=== PATIENT | female | born 1985 | race Caucasian/White ===

== ENCOUNTER 2024-05-18 00:59 | Emergency (ER) | payer BC, SELFPAY ==
--- OUTSIDE RECORDS SUMMARY | 2024-05-18 01:00 | XMS_ITS | Encounter Summary ---
Author Organization [facility] Address [address] [place] [address] Care Team Providers Care Backpackers Manager Name Role Phone Gita Small COTTAGE SUPERVISOR Primary Care Provider [phone] Gita Small COTTAGE SUPERVISOR Unavailable [phone] Gita Small COTTAGE SUPERVISOR Unavailable [phone] No Ref-Primary, Physician Primary Care Provider Brisa Singletary MD Unavailable [phone] Kae Blankenship PA-C Unavailable [phone] Crystal Alanis MD Unavailable [phone] Wilian Hilliard DO Unavailable [phone] Lois Hathaway DO Unavailable [phone] Brisa Singletary MD Unavailable [phone] [facility] Primary In re Provider Wilian Hilliard DO Unavailable [phone] Jefferson Oliver Unavailable Unavailable Vidhya Witt MD Unavailable Linda Cantu Unavailable Unavailable Wilian Hilliard DO Unavailable [phone] Vidhya Witt MD Unavailable No Ref-Primary, Physician Primary Care Provider Susie Turk APRN, CNP Unavailable [phone] Claudine Curtis MD Unavailable Encounter Details Date Type Department Care Team (Late st Contact Info) Description 11/15/2016 MyC Medical Advice [facility] [address] [place] [address] Gita Small, COTTAGE SUPERVISOR [address] [place], [place] [id number] Social History Tobacco Use Types Packs/Day Years Used Date Smoking Tobacco: Former Cigarettes 0.5 5 0 05/12/2009 - 05/12/2014 Smokeless Tobacco: Never Comments:less than 1/2 ppd Alcohol Use Standard Drinks/Week Comments Yes 2.5 (1 standard drink = 0.6 oz p ure alcohol) Comments No Sex and Gender Information Value Date Recorded Sex Assigned at Female 09/03/2021 8:30 AM CDT Legal Sex Female 3:29 AM CADASTRAL SURVEYOR Gender Identity Female 09/03/2021 8:30 AM CDT Sexual Orientation Not on file documented as of this encounter Plan of Treatment Upcoming Encounters Date Type Department Care Team (Late st Contact Info) Description 02/14/2025 11:00 AM CDT Office Visit [address] [phone] Susie Turk, TELEGRAPH PLANT MAINTAINER SOLE SEAMER [address] [place] [address] documented as of this encounter Visit Diagnoses Not on filedocumented in this encounter Additional Health Concerns Infection Onset Date Last Indicated Resolved Time 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 11/01/2011 11/01/2011 Rule Out COVID-19 06/14/2020 06/14/2020 06/14/2020 11:50 PM CADASTRAL SURVEYOR Rule Out COVID-19 03/09/2022 03/09/2022 03/09/2022 6:39 AM CADASTRAL SURVEYOR Rule Out COVID-19 04/09/2024 04/09/2024 04/10/2024 10:57 AM CADASTRAL SURVEYOR documented as of this encounter Care Teams Backpackers Manager Relationship Specialty Start Date End Date Gita Small, COTTAGE SUPERVISOR PCP - General Nurse Practitioner - Family 11/14/16 02/21/18 Gita Small, COTTAGE SUPERVISOR [address] [place] [address] PCP - Assigned PCP 11/20/16 06/26/18 No Ref-Primary, Physician PCP - General 10/25/19 08/25/20 [facility] [address] [place] [address] PCP - General 08/26/20 12/27/23 No Ref-Primary, Physician PCP - General 12/28/23 Gita Small, COTTAGE SUPERVISOR [address] [place] [address] Assigned PCP 11/20/16 12/21/19 [place] [address] [place] [address] Assigned PCP 12/22/19 04/25/20 Kae Blankenship PATyroneC [address] [facility] [address] [place] [address] Assigned PCP 04/26/20 06/06/20 Crystal Alanis MD SURGICAL CONSULTS, JAYDEN [address] [facility] [address] [place], [place] [address] Assigned Surgical Provider 06/07/20 12/03/21 [place] [address] [place] [address] Assigned PCP 06/07/20 08/15/20 Lois Hathaway DO [address] [facility] [address] [place] [address] Assigned OBGYN Provider 07/19/20 01/18/22 [place] [address] [place] [address] Assigned PCP 08/16/20 03/27/21 [place] [address] [place] [address] Assigned PCP 03/28/21 12/03/21 Jefferson Oliver Personal Advocate & Liaison (PAL) 09/14/21 05/26/22 [place] [address] [place] [address] Assigned PCP 12/04/21 03/17/23 Linda Cantu Personal Advocate & Liaison (PAL) Family Medicine 05/27/22 [place] [address] [place] [address] Assigned PCP 03/18/23 07/14/23 [place] [address] [place] [address] Assigned PCP 07/15/23 01/14/24 Susie Turk APRN SOLE SEAMER [address] [place], [place] [address] Assigned PCP 01/15/24 Claudine Curtis MD [address] [place], [place] [address] Assigned OBGYN Provider 04/15/24 documented as of this encounter
--- OUTSIDE RECORDS SUMMARY | 2024-05-18 01:00 | XMS_ITS | Encounter Summary ---
Author Organization [facility] Address [address] [place] [address] Care Team Providers Care Warp Knitter Name Role Phone Crystal Alanis MD Unavailable [phone] Lois Hathaway DO Unavailable [phone] Brisa Singletary MD Unavailable [phone] [facility] Primary Ca re Provider Wilian Hilliard DO Unavailable [phone] Jefferson Oliver Unavailable Unavailable Vidhya Witt MD Unavailable Linda Cantu Unavailable Unavailable Wilian Hilliard DO Unavailable [phone] Vidhya iWtt MD Unavailable No Ref-Primary, Physician Primary Care Provider Susie Turk APRN PULLING UNIT OPERATOR Unavailable [phone] Claudine Curtis MD Unavailable [phone] Encounter Details Date Type Department Care Team (Late st Contact Info) Description 09/14/2020 MyC Medical Advice [facility] [place] [address] [place] [address] Magalys Manriquez, SAUL [address] [facility] [address] [place] [address] Social History Tobacco Use Types Packs/Day Years Used Date Smoking Tobacco: Every Day Cigarettes 0.5 10 Started: 05/12/2004; Last attempted to quit: 05/12/2014 Smokeless Tobacco: Never Comments:less than 1/2 ppd Alcohol Use Standard Drinks/Week Comments Yes 2.5 (1 standard drink = 0.6 oz p ure alcohol) occ Social Connection and Isolat ion Panel [NHANES] Answer Date Recorded In a typical week, how many times do you talk on the phone with family, friends, or neighbors? More than three times a week 08/14/2020 How often do you get togethe r with friends or relatives? Twice a week 08/14/2020 How often do you attend chur or mandaeism services? 1 to 4 times per year 08/14/2020 Do you belong to any clubs o r organizations such as mormonism groups, unions, fraternal or athletic groups, or school groups? No 08/14/2020 How often do you attend meet ings of the clubs or organizations you belong to? Never 08/14/2020 Are you , , di vorced, , never , or living with a partner? Living with partner 08/14/2020 AUDIT-C Answer Date Recorded Q1: How often do you have a drink containing alc ohol? 2-4 times a month 08/14/2020 Q2: How many drinks containi ng alcohol do you have on a typical day when you are drinking? 3 or 4 08/14/2020 Q3: How often do you have si x or more drinks on one occasion? Less than monthly 08/14/2020 Overall Financial Resource Strain (CARDIA) Answe r Date Recorded How hard is it for you to pa y for the very basics like food, housing, medical care, and heating? Not very hard 08/14/2020 PHQ-2 Answer Date Recorded PHQ-2 Score 0 06/01/2020 [facility] [place] of Occupat ional Health - Occupational Stress Questionnaire Answer Date Recorded Do you feel stress - tense, restless, nervous, or anxious, or unable to sleep at night because your mind is troubled all the time - these days? To some extent 08/14/2020 Exercise Vital Sign Answer Date Recorde d On average, how many days pe r week do you engage in moderate to strenuous exercise (like a brisk walk)? 2 days 08/14/2020 On average, how many minutes do you engage in exercise at this level? 20 min 08/14/2020 Hunger Vital Sign Answer Date Recorded Within the past 12 months, y ou worried that your food would run out before you got the money to buy more. Never true 08/15/19 21 Within the past 12 months, t he food you bought just didn't last and you didn't have money to get more. Never true 08/14/2020 PRAPARE - Transportation Answer Date Re corded In the past 12 months, has l ack of transportation kept you from medical appointments or from getting medications? No 07/24 In the past 12 months, has l ack of transportation kept you from meetings, work, or from getting things needed for daily living? No 08/14/2020 Housing Stability Vital Sign Answer Alexsander e Recorded In the last 12 months, was t here a time when you were not able to pay the mortgage or rent on time? No 08/14/2020 In the last 12 months, how many places have you lived? 1 08/14/2020 In the last 12 months, was t here a time when you did not have a steady place to sleep or slept in a fpc (including now)? No 08/14/2020 Education Answer Date Recorded What is the highest level of school you have completed or the highest degree you have received? Associate degree: occupational, technical, or vocational program 08/14/2020 Comments No Sex and Gender Information Value Date Recorded Sex Assigned at Female 09/03/2021 8:30 AM CDT Legal Sex Female 3:29 AM SPECIAL NEEDS BABYSITTER Gender Identity Female 09/03/2021 8:30 AM CDT Sexual Orientation Not on file COVID-19 Exposure Response Date Recorded In the last month, have you been in contact with someone who was confirmed or suspected to have Coronavirus / COVID-19? No / Unsure 08/26/2020 6:33 AM CDT documented as of this encounter Plan of Treatment Upcoming Encounters Date Type Department Care Team (Late st Contact Info) Description 02/14/2025 11:00 AM CDT Office Visit [address] [place] [phone] BurkeSusie Glenroy, SENIOR NET ARCHITECT PULLING UNIT OPERATOR [address] [facility] [place] [address] documented as of this encounter Visit Diagnoses Not on filedocumented in this encounter Additional Health Concerns Infection Onset Date Last Indicated Resolved Time 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 11/01/2011 11/01/2011 Rule Out COVID-19 03/09/2022 03/09/2022 03/09/2022 6:39 AM SPECIAL NEEDS BABYSITTER Rule Out COVID-19 04/09/2024 04/09/2024 04/10/2024 10:57 AM SPECIAL NEEDS BABYSITTER documented as of this encounter Care Teams Warp Knitter Relationship Specialty Start Date End Date Clinic - [facility] [address] [place] [address] PCP - General 08/26/20 12/27/23 No Ref-Primary, Physician PCP - General 12/28/23 Crystal Alanis MD [facility], [facility] [address] [facility] [address] [place] [address] Assigned Surgical Provider 06/07/20 12/03/21 Lois Hathaway DO [address] [facility] [address] [place] [address] Assigned OBGYN Provider 07/19/20 [place] [address] [place] [address] Assigned PCP 08/16/20 03/27/21 [place] [address] [place] [address] Assigned PCP 03/28/21 12/03/21 Jefferson Oliver Personal Advocate & Liaison (PAL) 09/14/21 05/26/22 [place] [address] [place] [address] Assigned PCP 12/04/21 03/17/23 Linda Cantu Personal Advocate & Liaison (PAL) Family Medicine 05/27/22 [place] [address] [place] [address] Assigned PCP 03/18/23 07/14/23 [place] [address] [place] [address] Assigned PCP 07/15/23 01/14/24 Susie Turk APRN [facility] [address] [place] [address] Assigned PCP 01/15/24 Claudine Curtis MD [address] [place] [address] Assigned OBGYN Provider 04/15/24 documented as of this encounter
--- OUTSIDE RECORDS SUMMARY | 2024-05-18 01:00 | XMS_ITS | Clinical Summary ---
Author Organization [facility] Address [address] [place] [address] Care Team Providers Care Dice Table Operator Name Role Phone Pcp, Pt Sumi GRACIA Primary Care Provider [phone] Source Comments You are receiving this document as you are listed as the primary care provider,follow-up provider, or the patient has been referred to you for consultation.This is in compliance with the Medicare and[facility] Hospital[facility] EHR Incentive Program,which states Providers who transition their patient to another setting of careor provider of care or refers their patient to another provider of care shouldprovide summary care record for each transition of care or referral. [facility] Allergies No known active allergies Medications Medication Sig Dispensed Refills Start Date End Date Status Atnnfraz-Qil-Oh-FA (/IRON OR) Take by mouth daily (every 24 hours). Indications: 02/07/2014 Active sertraline (AKA ZOLOFT) 100 MG tabletIndications:JHON PAPPAS Nov 11, 2014 10:39 AM Received from: External Pharmacy Received Si mg daily (every 24 hours). 0 11/03/2014 Active predniSONE (DELTASONE) 20 MG tablet Take 1-2 Tablets (20-40 mg) by mouth daily. Take 2 tab for 5 days, then 1 tab for 5 days 15 Tablet 04/05/2022 Active Additional Information Patient not taking.Reported on 04/19/2022 guaiFENesin-codeine (ROBITUSSINAC) 100-10 MG/5ML solution Take 10 mL by mouth every 4 hours as needed. 118 mL 04/10/2022 Active Additional Information Patient not taking.Reported on 04/19/2022 VENTOLIN HFA 108 (90 Base) MCG/ACT inhaler Inhale 2 Puffs every 6 hours as needed. 04/05/2022 Active traZODone (DESYREL) 50 MG tablet SMARTSI Tablet(s) By Mouth Every Evening PRN 03/30/2022 Active magic mouthwash (lido/maalox/diphen 1:1:1)Indications:S ore throat Swish and spit in mouth two times a day. Swish and spit 5 mL. 240 mL 04/19/2022 Active Active Problems No known active problems Resolved Problems Problem Noted Date Diagnosed Date Resolved Date Encounter for supervision of other normal 05/12/2014 10/22/2014 Overview (12/14/2016): Supervision of other normal Obesity 03/11/2014 10/22/2014 Elevated hemoglobin A1c 03/11/201404/2014 Immunizations Name Administration Dates Next Due Influenza IIV4 (Quadrivalent) 0.5mL (69570) 02/22 TDAP (BOOSTRIX) 06/17/2014 Family History Medical History Relation Name Comments Diabetes Father Diabetes Mother Hypertension Sister 1 Relation Name Status Comments Father Alive Mother Alive Brother 1 Alive Brother 2 Alive Maternal Grandfather Maternal Grandmother Paternal Grandfather Alive Paternal Grandmother Sister 1 Alive Sister 2 Alive Sister 3 Alive Social History Tobacco Use Types Packs/Day Years Used Date Smoking Tobacco: Every Day Comments:Smoking History Pac ks/day: 1/2 pack per day Alcohol Use Standard Drinks/Week Comments No 0 (1 standard drink = 0.6 oz pur e alcohol) Sex and Gender Information Value Date Recorded Sex Assigned at Not on file Gender Identity Not on file Sexual Orientation Not on file Last Filed Vital Signs Vital Sign Reading Time Taken Comments Blood Pressure 151/125 04/19/2022 12:24 PM VACCINE KEY CUSTOMER LEADER Pulse 91 04/19/2022 12:24 PM VACCINE KEY CUSTOMER LEADER Temperature 36.6 C (97.8 F) 04/19/2022 12:24 PM VACCINE KEY CUSTOMER LEADER Respiratory Rate 18 04/19/2022 12:2 4 PM VACCINE KEY CUSTOMER LEADER Oxygen Saturation 98% 04/19/2022 12: 24 PM VACCINE KEY CUSTOMER LEADER Inhaled Oxygen Concentration - - Weight 102.9 kg (226 lb 12.8 oz) 10/31/2018 1:28 PM CDT Height 162.6 cm (5' 4) 11/11/2014 10:4 0 AM CDT Body Mass Index 38.93 11/11/2014 10:40 AM CDT Plan of Treatment Health Maintenance Due Date Last Done Comments Hep C Screening (Preventive Services) 1985 Pneumococcal (1 - PCV) 08/10/1991 Adult Preventive Visit 08/10/2003 HepB (1) 2004 Cervical Cancer Screening Due 02/08/2014 02/07/2014 COVID-19 Vaccine (1 - season) 2023 Influenza (#1) 2023 06/01/2020, 12/24, 01/20/2016, Additional history exists DTaP/Tdap/Td (4 - Tdap) 06/17/2024 06/17/19 15, 03/12/2009, 12/09/1997 Zoster/Shingles (1 of 2) 08/10/2035 HIV Screening (Preventive Services) Completed 02/07/2014 HPV Vaccine Aged Out No longer eligi ble based on patient's age to complete this topic HepA Aged Out No longer eligi ble based on patient's age to complete this topic Hib Aged Out No longer eligi ble based on patient's age to complete this topic IPV (Polio) Aged Out No longer eligi ble based on patient's age to complete this topic MCV4 Aged Out No longer eligi ble based on patient's age to complete this topic Procedures Procedure Name Priority Date/Time Associated Diagnosis Comments HIV ANTIBODY Routine 02/07/2014 11:04 AM CDT Special screening examination for other specified viral diseases ANATOMICAL PATH LIQUID BASED Routine 02/07/2014 11:01 AM CDT from Last 3 Months or Most Recently Relevant to Health Maintenance Results * HIV ANTIBODY (02/07/2014 11:04 AM CDT) HIV 1/HIV 2 Non-React Non-Reacti ve HP CONVERSION 02/07/2014 11:0 4 AM CDT 02/07/2014 3:23 PM CDT Narrative Transcriptions 06/02/2016 2:55 PM CSTNotes Recorded by NGUYỄN Betancourt on 02/11/2014 at 7:38 AMplease send results to LD. Pt will be informed at next visit Edyta Grimes APRN, CNP LAB_1 Performing Organization Address [facility] de Phone Number HP CONVERSION * Pap Smear (02/07/2014 11:01 AM CDT) 02/07/2014 11:0 1 AM CDT Narrative HP CONVERSION - 02/25/2014 9:58 AM VACCINE KEY CUSTOMER LEADER FINAL GYNECOLOGICAL CYTOLOGY REPORT Pathology #: [id number] Date Obtained: 02/07/2014 Date Received: 02/10/2014 INTERPRETATION/RESULTS: Negative for Intraepithelial Lesion or Malignancy. Fungal organisms morphologically consistent with Emilie species. SPECIMEN ADEQUACY: Satisfactory for Evaluation. No endocervical cells/transformation zone component present; patient is . Verified on 02/25/2014 by CATHERINE ESPOSITO MD (electronic signature) CLINICAL NOTES: Abnormal bleeding: No, LMP: 11/28/13, Hormonal [place]: No, LIQUID BASED PAP SMEAR SPECIMEN TYPE: CERVICAL WITH REFLEX TO HPV IF ASCUS PLEASE NOTE: The pap smear is a screening test designed to aid in the detection of cervical cancer and its precursor lesions. It is not a diagnostic procedure and should not be used as the sole means of detecting cervical cancer. Both false-positive and false-negative reports may occur. End of Report Transcriptions 06/02/2016 2:26 PM CSTNotes Recorded by NGUYỄN Betancourt on 02/25/2014 at 4:51 PMPlease send normal pap letter. Edyta Grimes APRN, CNP LAB_1 Performing Organization Address [facility] Co de Phone Number HP CONVERSION from Last 3 Months or Most Recently Relevant to Health Maintenance Care Teams Dice Table Operator Relationship Specialty Start Date End Date Pcp, [place] [address] PCP - General 03/11/14
--- OUTSIDE RECORDS SUMMARY | 2024-05-18 01:00 | XMS_ITS | Encounter Summary ---
Author Organization [facility] Address [address] [place] [address] Care Team Providers Care Automotive Parts Advisor Name Role Phone Gita Small ELECTRONIC PUBLISHING SPECIALIST Primary Care Provider [phone] Gita Small ELECTRONIC PUBLISHING SPECIALIST Unavailable [phone] Gita Small ELECTRONIC PUBLISHING SPECIALIST Unavailable [phone] No Ref-Primary, Physician Primary Care Provider Brisa Singletary MD Unavailable [phone] Kae Blankenship PA-C Unavailable [phone] Crystal Alanis MD Unavailable [phone] Wilian Hilliard DO Unavailable [phone] Lois Hathaway DO Unavailable [phone] Brisa Singletary MD Unavailable [phone] [facility] Primary Mo re Provider Wilian Hilliard DO Unavailable [phone] Jefferson Oliver Unavailable Unavailable Vidhya Witt MD Unavailable Linda Cantu Unavailable Unavailable Wilian Hilliard DO Unavailable [phone] Vidhya Witt MD Unavailable No Ref-Primary, Physician Primary Care Provider Susie Turk APRN, CNP Unavailable Claudine Curtis MD Unavailable [phone] Reason for Referral * Consultation - Closed Specialty Diagnoses / Procedures Referred By Raúl parsons Referred To Contact Diagnoses Acute pain of right knee Gita Small NP Phone: tel: fax: [facility] [address] [facility] [address] [place] [address] Phone: tel: fax: Referral ID Status Reason Start Date Expiration Date Visits Re quested Visits Authorized [id number] Closed 11/16/2016 11/16/2017 1 1 Comments Your provider has referred you to: [facility]: [facility] [email or web address]/ Please be aware that coverage of these services is subject to the terms and limitations of your health insurance plan. Call member services at your health plan with any benefit or coverage questions. Please bring the following to your appointment: >> Any x-rays, CTs or MRIs which have been performed. Contact the facility where they were done to arrange for picking crew supervisor prior to your scheduled appointment. >> List of current medications >> This referral request >> Any documents/labs given to you for this referral Reason for Visit * Reason Onset Date Comments MyChart Communication 11/15/2016 Encounter Details Date Type Department Care Team (Late st Contact Info) Description 11/15/2016 MyC Medical Advice M [address] [address] Gita Small NP [facility] & [address] [place] [address] MyChart Communication Social History Tobacco Use Types Packs/Day Years [...] AM CDT Legal Sex Female 3:29 AM PRODUCTION BOW MAKER Gender Identity Female 09/03/2021 8:30 AM CDT Sexual Orientation Not on file documented as of this encounter Miscellaneous Notes * Telephone Encounter - Becky Diego RN - 11/16/2016 7:06 AM CDT Pt would like referral Referral pended Becky Diego RN, BSN documented in this encounter Plan of Treatment Upcoming Encounters Date Type Department Care Team (Late st Contact Info) Description 02/14/2025 11:00 AM CDT Office Visit [address] [address] Susie Turk APRN [address] [address] Scheduled Referrals Name Type Priority Associated Diagnoses Orde r Schedule ORTHOPEDICS ADULT REFERRAL Referral Routine Acute pain of right knee Ordered: 11/16/2016 documented as of this encounter Visit Diagnoses Diagnosis Acute pain of right knee- Primary documented in this encounter Additional Health Concerns Infection Onset Date Last Indicated Resolved Time 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 11/01/2011 11/01/2011 Rule Out COVID-19 06/14/2020 06/14/2020 06/14/2020 11:50 PM PRODUCTION BOW MAKER Rule Out COVID-19 03/09/2022 03/09/2022 03/09/2022 6:39 AM PRODUCTION BOW MAKER Rule Out COVID-19 04/09/2024 04/09/2024 04/10/2024 10:57 AM PRODUCTION BOW MAKER documented as of this encounter Care Teams Automotive Parts Advisor Relationship Specialty Start Date End Date Gita Small ELECTRONIC PUBLISHING SPECIALIST PCP - General Nurse Practitioner - Family 11/14/16 02/21/18 Gita Small, ELECTRONIC PUBLISHING SPECIALIST [facility] [address] [place] [address] PCP - Assigned PCP 11/20/16 06/26/18 No Ref-Primary, Physician PCP - General 10/25/19 08/25/20 [facility] [id number] [place] [address] PCP - General 08/26/20 12/27/23 No Ref-Primary, Physician PCP - General 12/28/23 Gita Small, ELECTRONIC PUBLISHING SPECIALIST [facility] [address] [place] [address] Assigned PCP 11/20/16 12/21/19 [place] [address] [place] [address] Assigned PCP 12/22/19 04/25/20 Kae Blankenship PA-C [address] [facility] [address] [place] [address] Assigned PCP 04/26/20 06/06/20 Crystal Alanis MD SURGICAL CONSULTS, JAYDEN Reyes [address] [facility] [address] [place] [address] Assigned Surgical Provider 06/07/20 12/03/21 [place] [address] [place] [address] Assigned PCP 06/07/20 08/15/20 Lois Hathaway DO [address] [facility] [address] [place] [address] Assigned OBGYN Provider 07/19/20 01/18/22 [place] [address] [place] [address] Assigned PCP 08/16/20 03/27/21 [place] [address] [place] [address] Assigned PCP 03/28/21 12/03/21 Jefferson Oliver Personal Advocate & Liaison (PAL) 09/14/21 05/26/22 [place] [address] [place] [address] Assigned PCP 12/04/21 03/17/23 Linda Cantu Personal Advocate & Liaison (PAL) Family Medicine 05/27/22 [place] [address] [place] [address] Assigned PCP 03/18/23 07/14/23 [place] [address] [place] [address] Assigned PCP 07/15/23 01/14/24 Susie Turk APRN SOFTWARE TESTER [address] [place] [address] Assigned PCP 01/15/24 Claudine Curtis MD [address] [place] [address] Assigned OBGYN Provider 04/15/24 documented as of this encounter
--- OUTSIDE RECORDS SUMMARY | 2024-05-18 01:00 | XMS_ITS | Encounter Summary ---
Author Organization [facility] Address [address] [place] [address] Care Team Providers Care Basin Tender Name Role Phone Gita Small RADIAL DRILL PRESS SET UP OPERATOR Primary Care Provider [phone] Gita Small RADIAL DRILL PRESS SET UP OPERATOR Unavailable Gita Small RADIAL DRILL PRESS SET UP OPERATOR Unavailable [phone] No Ref-Primary, Physician Primary Care Provider Brisa Singletary MD Unavailable [phone] Kae Blankenship PA-C Unavailable [phone] Crystal Alanis MD Unavailable [phone] Wilian Hilliard DO Unavailable [phone] Lois Hathaway DO Unavailable [phone] Brisa Singletary MD Unavailable [phone] [facility] Primary Il re Provider Wilian Hilliard DO Unavailable [phone] Jefferson Oliver Unavailable Unavailable Vidhya Witt MD Unavailable Linda Cantu Unavailable Unavailable Wilian Hilliard DO Unavailable [phone] Vidhya Witt MD Unavailable No Ref-Primary, Physician Primary Care Provider Susie Turk APRN, CNP Unavailable [phone] Claudine Curtis MD Unavailable Encounter Details Date Type Department Care Team (Late st Contact Info) Description 11/28/2016 MyC Medical Advice [facility] [address] [place] [address] Gita Small, RADIAL DRILL PRESS SET UP OPERATOR [address] [place], [place] [phone] Social History Tobacco Use Types Packs/Day Years [...] AM CDT Legal Sex Female 3:29 AM AUTO DISMANTLER Gender Identity Female 09/03/2021 8:30 AM CDT Sexual Orientation Not on file documented as of this encounter Plan of Treatment Upcoming Encounters Date Type Department Care Team (Late st Contact Info) Description 02/14/2025 11:00 AM CDT Office Visit [address] [phone] Susie Turk, JOB COUNSELOR COMMERCIAL CARPENTER [address] [place] [address] documented as of this encounter Visit Diagnoses Not on filedocumented in this encounter Additional Health Concerns Infection Onset Date Last Indicated Resolved Time 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 11/01/2011 11/01/2011 Rule Out COVID-19 06/14/2020 06/14/2020 06/14/2020 11:50 PM AUTO DISMANTLER Rule Out COVID-19 03/09/2022 03/09/2022 03/09/2022 6:39 AM AUTO DISMANTLER Rule Out COVID-19 04/09/2024 04/09/2024 04/10/2024 10:57 AM AUTO DISMANTLER documented as of this encounter Care Teams Basin Tender Relationship Specialty Start Date End Date Gita Small, RADIAL DRILL PRESS SET UP OPERATOR PCP - General Nurse Practitioner - Family 11/14/16 02/21/18 Gita Small, RADIAL DRILL PRESS SET UP OPERATOR [address] [place] [address] PCP - Assigned PCP 11/20/16 06/26/18 No Ref-Primary, Physician PCP - General 10/25/19 08/25/20 [facility] [address] [place] [address] PCP - General 08/26/20 12/27/23 No Ref-Primary, Physician PCP - General 12/28/23 Gita Small, RADIAL DRILL PRESS SET UP OPERATOR [address] [place] [address] Assigned PCP 11/20/16 12/21/19 [place] [address] [place] [address] Assigned PCP 12/22/19 04/25/20 Kae Blankenship PATyroneC [address] [facility] 200 [place] [address] Assigned PCP 04/26/20 06/06/20 Crystal Alanis MD SURGICAL CONSULTS, JAYDEN Reyes [address] [facility] 300 [place], [place] [address] Assigned Surgical Provider 06/07/20 12/03/21 [place] [address] [place] [address] Assigned PCP 06/07/20 08/15/20 Lois Hathaway DO [address] [facility] [address] [place] [address] Assigned OBGYN Provider 07/19/20 01/18/22 [place] [address] [place] [address] Assigned PCP 08/16/20 03/27/21 [place] [address] [place] [address] Assigned PCP 03/28/21 12/03/21 Jefferson Oliver Personal Advocate & Liaison (PAL) 09/14/21 05/26/22 [place] [address] [place] [address] Assigned PCP 12/04/21 03/17/23 Linda Cantu Personal Advocate & Liaison (PAL) Family Medicine 05/27/22 [place] [address] [place] [address] Assigned PCP 03/18/23 07/14/23 [place] [address] [place] [address] Assigned PCP 07/15/23 01/14/24 Susie Turk APRN COMMERCIAL CARPENTER [address] [place], [place] [address] Assigned PCP 01/15/24 Claudine Curtis MD [address] [place], [place] [address] Assigned OBGYN Provider 04/15/24 documented as of this encounter
--- OUTSIDE RECORDS SUMMARY | 2024-05-18 01:00 | XMS_ITS | Clinical Summary ---
Author Organization [facility] Address [place], [place] [address] Care Team Providers Care Sanitarian Inspector Name Role Phone Michelle Turner MD Primary Care Provider Unav ailable Allergies Active Allergy Reactions Criticality Noted Date Comments Cats (Fur, Dander, Saliva) Itching,Throa t Swelling/Closing 10/13/2014 Medications escitalopram oxalate (LEXAPRO) 10 mg tabletIndicatio ns:Anxiety Take 1 tablet by mouth once daily. 30 tablet 5 09/07/2015 Active LORazepam (ATIVAN) 0.5 mg tabIndications: Anxiety Take 0.5-1 tablets by mouth 2 times daily if needed for Anxiety. 15 tablet 0 01/20/2016 Active venlafaxine (EFFEXOR XR) 37.5 mg Extended-Releas e capsuleIndicati ons:Anxiety TAKE 1 CAPSULE BY MOUTH ONCE DAILY WITH A MEAL. 30 capsule 4 02/17/2016 Active venlafaxine (EFFEXOR XR) 75 mg cp24 Extended-Releas e capsuleIndicati ons:Anxiety Take 1 capsule by mouth once daily with a meal. 30 capsule 5 03/11/2016 Active Active Problems Problem Noted Date Diagnosed Date Anxiety 01/20/2016 Smoker 09/07/2015 Immunizations Name Administration Dates Next Due Influenza, IIV4 01/20/2016 Tdap 06/17/2014 Family History Medical History Relation Name Comments Diabetes Father Diabetes Mother Hypertension Mother Diabetes Paternal Grandfather Hypertension Sister 1/2 sister Relation Name Status Comments Father Mother Paternal Grandfather Sister Social History Tobacco Use Types Packs/Day Years Used Date Smoking Tobacco: Every Day Cigarettes Smokeless Tobacco: Never Tobacco Cessation:Ready to Q uit: No; Counseling Given: Yes Comments:pt declined infor 09/07/15 Alcohol Use Standard Drinks/Week Comments Yes 0 (1 standard drink = 0.6 oz pur e alcohol) Social Comments No Sex and Gender Information Value Date Recorded Sex Assigned at Not on file Legal Sex Female 11:13 AM CDT Gender Identity Not on file Sexual Orientation Not on file Obstetrics History Last Filed Vital Signs Vital Sign Reading Time Taken Comments Blood Pressure 122/68 01/20/2016 3:27 PM CDT Pulse 80 01/20/2016 3:27 PM CDT Temperature - - Respiratory Rate - - Oxygen Saturation - - Inhaled Oxygen Concentration - - Weight 101.5 kg (223 lb 12.8 oz) 01/20/2016 3:27 PM CDT Height 161.3 cm (5' 3.5) 09/07/2015 11 :06 AM CDT Body Mass Index 39.02 09/07/2015 11:06 AM CDT Plan of Treatment Health Maintenance Due Date Last Done Comments HIV for age 15-65 2000 Hepatitis C screening for age 18-79 08/10/2003 BMI (ht and wt on same day) for age 18+ 09/06/2016 09/07/2015 Depression screening for age 12+ 03/08/2017 03/08/2016, 09/07/2015 Pap test for age 21-65 10/24/2017 5 (Completed outside of [facility]) COVID-19 vaccine series (2023- season) 2023 Influenza for age 9-49 12/24/2023 01/20/2016 Tetanus booster 06/17/2024 06/17/2014 Tdap Completed 06/17/2014 Pneumococcal series for age 6-49 Aged Out No longer eligible based on patient's age to complete this topic Care Teams Sanitarian Inspector Relationship Specialty Start Date End Date Michelle Turner MD PCP - General Family Practice 10/13/14
--- OUTSIDE RECORDS SUMMARY | 2024-05-18 01:01 | XMS_ITS | Encounter Summary ---
Author Organization [facility] Address [address] [place] [address] Care Team Providers Care Sizing Machine Tender Name Role Phone Linda Cantu Unavailable Unavailable No Ref-Primary, Physician Primary Care Provider Susie Turk APRN RECIPROCATING DRILL OPERATOR Unavailable [phone] Encounter Details Date Type Department Care Team (Latest Contact Info) Description 04/09/2024 Travel Social History Tobacco Use Types Packs/Day Years [...] 08/14/2020 How often do you attend chur ch or hoahaoism services? 1 to 4 times per year 08/14/2020 Do you belong to any clubs o r organizations such as denominational groups, unions, fraternal or athletic groups, or [...] 08/14/2020 PHQ-2 Answer Date Recorded PHQ-2 Score 6 04/09/2024 [facility] - Occupational Stress Questionnaire Answer Date [...] place to sleep or slept in a long-term (including now)? No 08/14/2020 Adolescent Education Answer Date Record ed Getting School Help Needed Not on file 02/05 Interpersonal Safety Answer Date Record ed Do you feel physically and e motionally safe where you currently live? Yes 02/15/2024 Within the past 12 months, h ave you been hit, slapped, kicked or otherwise physically hurt by someone? No 02/15/2024 Within the past 12 months, h ave you been humiliated or emotionally abused in other ways by your partner or ex-partner? No 02/15/2024 Education Answer Date Recorded What is the highest level of school you have completed or the highest degree you have received? Associate degree: occupational, technical, or vocational program 08/14/2020 Comments No Sex and Gender Information Value Date Recorded Sex Assigned at Female 09/03/2021 8:30 AM CDT Legal Sex Female 3:29 AM MARINE ENGINEERING CONSULTANT Gender Identity Female 09/03/2021 8:30 AM CDT Sexual Orientation Not on file documented as of this encounter Plan of Treatment Upcoming Encounters Date Type Department Care Team (Late st Contact Info) Description 02/14/2025 11:00 AM CDT Office Visit [address] [phone] Susie Turk APRN [address] [address] documented as of this encounter Visit Diagnoses Not on filedocumented in this encounter Additional Health Concerns Infection Onset Date Last Indicated Resolved Time 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 11/01/2011 11/01/2011 Rule Out COVID-19 04/09/2024 04/09/2024 04/10/2024 10:57 AM MARINE ENGINEERING CONSULTANT Assessment Noted Time PHQ-9 Depression Total Score: 22 024 10:54 AM MARINE ENGINEERING CONSULTANT documented as of this encounter Care Teams Sizing Machine Tender Relationship Specialty Start Date End Date No Ref-Primary, Physician PCP - General 12/28/23 Linda Cantu Personal Advocate & Liaison (PAL) Family Medicine 05/27/22 Susie Turk APRN RECIPROCATING DRILL OPERATOR [address] [place] [address] Assigned PCP 01/15/24 documented as of this encounter
--- OUTSIDE RECORDS SUMMARY | 2024-05-18 01:01 | XMS_ITS | Encounter Summary ---
Author Organization [facility] Address [address] [place] [address] Care Team Providers Care Housing Inspectors Name Role Phone No Ref-Primary, Physician Primary Care Provider Brisa Singletary MD Unavailable [phone] Kae Blankenship PA-C Unavailable [phone] Crystal Alanis MD Unavailable [phone] Wilian Hilliard DO Unavailable [phone] Lois Hathaway DO Unavailable [phone] Brisa Singletary MD Unavailable [phone] [facility] Primary Ca re Provider Wilian Hilliard DO Unavailable [phone] Jefferson Oliver Unavailable Unavailable Vidhya Witt MD Unavailable Linda Cantu Unavailable Unavailable Wilian Hilliard DO Unavailable [phone] Vidhya Witt MD Unavailable No Ref-Primary, Physician Primary Care Provider Susie Turk APRN HASH SLINGER Unavailable [phone] Claudine Curtis MD Unavailable [phone] Encounter Details Date Type Department Care Team (Late st Contact Info) Description 04/24/[address] [place] [address] Jun[place] Wagner [place] [id number] [place] [address] Social History Tobacco Use Types Packs/Day Years Used Date Smoking Tobacco: Every Day Cigarettes 0.5 10 Started: 05/12/2004; Last attempted to quit: 05/12/2014 Smokeless Tobacco: Never Comments:less than 1/2 ppd Alcohol Use Standard Drinks/Week Comments Yes 2.5 (1 standard drink = 0.6 oz p ure alcohol) occ PHQ-2 Answer Date Recorded PHQ-2 Score 1 04/28/2020 Comments No Sex and Gender Information Value Date Recorded Sex Assigned at Female 09/03/2021 8:30 AM CDT Legal Sex Female 3:29 AM INK JET OPERATOR Gender Identity Female 09/03/2021 8:30 AM CDT Sexual Orientation Not on file COVID-19 Exposure Response Date Recorded In the last month, have you been in contact with someone who was confirmed or suspected to have Coronavirus / COVID-19? No / Unsure 04/22/2020 2:11 PM INK JET OPERATOR documented as of this encounter Plan of Treatment Upcoming Encounters Date Type Department Care Team ([facility] st Contact Info) Description 02/14/2025 11:00 AM CDT Office Visit [address] [phone] Susie Turk APRN [address] [address] documented as of this encounter Visit Diagnoses Not on filedocumented in this encounter Additional Health Concerns Infection Onset Date Last Indicated Resolved Time MRSA-Contact Isolation Comment:Skin 10-21-2011 11/01/2011 11/01/2011 Rule Out COVID-19 06/14/2020 06/14/2020 06/14/2020 11:50 PM INK JET OPERATOR Rule Out COVID-19 03/09/2022 03/09/2022 03/09/2022 6:39 AM INK JET OPERATOR Rule Out COVID04/09/2024 04/09/2024 04/10/2024 10:57 AM INK JET OPERATOR documented as of this encounter Care Teams Housing Inspectors Relationship Specialty Start Date End Date No Ref-Primary, Physician PCP - General 10/25/19 08/25/20 [facility] [address] [place], [place] [id number] PCP - General 08/26/20 12/27/23 No Ref-Primary, Physician PCP - General 12/28/23 [place] [address] [place], [place] [address] Assigned PCP 12/22/19 04/25/20 Kae Blankenship PA-C [address] [facility] [address] [place] [address] Assigned PCP 04/26/20 06/06/20 Crystal Alanis MD SURGICAL CONSULTS, [facility] [address] [facility] [address] [place] [address] Assigned Surgical Provider 06/07/20 12/03/21 [place] [address] [place] [address] Assigned PCP 06/07/20 08/15/20 Lois Hathaway DO [address] [facility] [address] [place] [address] Assigned OBGYN Provider 07/19/20 [place] [address] [place] [address] Assigned PCP 08/16/20 03/27/21 [place] [address] [place] [address] Assigned PCP 03/28/21 12/03/21 Jefferson Oliver Personal Advocate & Liaison (PAL) 09/14/21 05/26/22 [place] [address] [place] [address] Assigned PCP 12/04/21 03/17/23 Linda Cantu Personal Advocate & Liaison (PAL) Family Medicine 05/27/22 [place] [address] [place] [address] Assigned PCP 03/18/23 07/14/23 [place] [address] [place] [address] Assigned PCP 07/15/23 01/14/24 Susie Turk APRN HASH SLINGER [address] [place] [address] Assigned PCP 01/15/24 Claudine Curtis MD [address] [facility] [address] Assigned OBGYN Provider 04/15/24 documented as of this encounter
--- OUTSIDE RECORDS SUMMARY | 2024-05-18 01:01 | XMS_ITS | Referral Summary ---
Author Organization [facility] Address [address] [place] [address] Care Team Providers Care Air Intelligence Specialist Name Role Phone Linda Cantu Unavailable Unavailable No Ref-Primary, Physician Primary Care Provider Susie Turk APRN MILL WORK Unavailable [phone] Claudine Curtis MD Unavailable [phone] Encounters Date Type Department Care Team Description 04/09/2024 11:45 AM PRODUCTION ADMINISTRATIVE ASSISTANT Ancillary Procedure [address] [phone] Rebecca Flowers PA-C Wheezing; Acute cough; Upper respiratory tract infection, unspecified type 04/09/2024 Travel 04/09/2024 11:30 AM PRODUCTION ADMINISTRATIVE ASSISTANT Office Visit [address] [phone] Rebecca Flowers PA-C Wheezing (Primary Dx); Acute cough; Upper respiratory tract infection, unspecified type 03/26/2024 10:30 AM PRODUCTION ADMINISTRATIVE ASSISTANT Office Visit [facility] [address] [place] [address] Claudine Curtis MD Encounter for IUD removal (Primary Dx); Intrauterine contraceptive device threads lost, initial encounter 03/25/2024 MyC Medical Advice [facility] [address] [place] [address] Claudine Curtis MD 03/25/2024 Travel from Last 3 Months Allergies Active Allergy Reactions Criticality Noted Date Comments Animal Dander Itching,Anaphylaxis High 10/13/2014 Cats Difficulty breathing 06/12/2008 No Known Drug Allergy 06/12/2008 Medications * This document contains information received from the source organization and may not represent a complete record from that organization. levonorgestrel (MIRENA) 20 MCG/24HR IUDIndications:En counter for removal and reinsertion of intrauterine contraceptive device 1 each (20 mcg) by Intrauterine route once Active hydrOXYzine HCl (ATARAX) 25 MG tabletIndications :MELISSA (generalized anxiety disorder) Take 1-2 tablets (25-50 mg) by mouth nightly as needed (insomnia). 45 tablet 1 12/28/19 24 Active FLUoxetine (PROZAC) 40 MG capsuleIndication s:Moderate episode of recurrent major depressive disorder (H),MELISSA (generalized anxiety disorder) Take 1 capsule (40 mg) by mouth daily. 90 capsule 3 02/15/20 24 Active albuterol (PROAIR HFA/PROVENTIL HFA/VENTOLIN HFA) 108 (90 Base) MCG/ACT inhalerIndication s:Wheezing,Acute cough,Upper respiratory tract infection, unspecified type Inhale 2 puffs into the lungs every 6 hours as needed for cough, wheezing or shortness of breath. 18 g 04/09/20 24 Active benzonatate (TESSALON) 100 MG capsuleIndication s:Wheezing,Acute cough,Upper respiratory tract infection, unspecified type Take 1 capsule (100 mg) by mouth 3 times daily as needed for cough. 30 capsule 04/09/20 24 Active predniSONE (DELTASONE) 20 MG tabletIndications :Wheezing,Acute cough,Upper respiratory tract infection, unspecified type Take 3 tablets (60 mg) by mouth daily for 3 days, THEN 2 tablets (40 mg) daily for 3 days, THEN 1 tablet (20 mg) daily for 3 days, THEN 0.5 tablets (10 mg) daily for 4 days. 20 tablet 04/09/20 24 024 Active Problems Problem Noted Date Diagnosed Date ASCUS of cervix with negative high risk HPV 01/23 Overview (02/26/2024): 02/15/24 ASCUS, Neg HPV. 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/11/2014 Smoker 03/25/2011 Obesity 03/25/2011 Resolved Problems Problem Noted Date Diagnosed Date Resolved Date Right knee pain 11/25/2016 08/14/2020 Indication for care in labor or delivery 09/11/2014 08/14/2020 intolerance to labor, delivered, current hospitalization 09/11/2014 08/14/2020 Supervision of low-risk 09/09/2014 08/14/2020 CARDIOVASCULAR SCREENING; LD L GOAL LESS THAN 160 02/21/2010 08/14/2020 Marginal placenta previa 09/04/2008 Overview (09/04/2008): Repeat scan at 28-30 weeks Encounter for supervision of other normal 06/12/2008 01/10/2011 Overview (02/23/2015): Diagnosis updated by automated process. Provider to review and confirm. Immunizations Name Administration Dates Next Due DTaP, Unspecified 06/17/2014 Influenza (H1N1) 03/12/2009 Influenza (IIV3) PF 05/16/2012, 1,01/07/2010,2008 Influenza (prior to 2023) 05/16/2012,01/07/2010 Influenza Vaccine >6 months,quad, PF 11/2020,01/11/2017,01/20/2016,2014,03/11/2014,01/30/2013 MMR 12/09/1997 TD,PF 7+ (Tenivac) 12/09/1997 TDAP (Adacel,Boostrix) 06/17/2014 TDAP Vaccine (Adacel) 03/12/2009 Td (Adult), Adsorbed 12/09/1997 Social History Tobacco Use Types Packs/Day Years Used Date Smoking Tobacco: Every Day Cigarettes 0.5 10 Started: 05/12/2004; Last attempted to quit: 05/12/2014 Smokeless Tobacco: Never Tobacco Cessation:Ready to Q uit: Not Asked; Counseling Given: Not Answered Comments:less than 1/2 ppd Alcohol Use Standard [...] week 08/14/2020 How often do you attend [facility] or confucianist services? 1 to 4 times per year 08/14/2020 Do you belong to any clubs o r organizations such as bahai groups, unions, fraternal or athletic groups, or [...] Answer Date Recorded PHQ-2 Score 6 04/09/2024 [facility]at [facility] - Occupational Stress [...] place to sleep or slept in a group home (including now)? No 08/14/2020 Adolescent Education Answer [...] CDT Legal Sex Female 3:29 AM PRODUCTION ADMINISTRATIVE ASSISTANT Gender Identity Female 09/03/2021 8:30 AM CDT Sexual Orientation Not on file Last Filed Vital Signs Vital Sign Reading Time Taken Comments Blood Pressure 128/80 04/09/2024 11:20 AM PRODUCTION ADMINISTRATIVE ASSISTANT Pulse 102 04/09/2024 11:20 AM PRODUCTION ADMINISTRATIVE ASSISTANT Temperature 36.6 C (97.8 F) 04/09/2024 11:20 AM PRODUCTION ADMINISTRATIVE ASSISTANT Respiratory Rate 20 04/09/2024 11:20 AM PRODUCTION ADMINISTRATIVE ASSISTANT Oxygen Saturation 97% 04/09/2024 11:20 AM PRODUCTION ADMINISTRATIVE ASSISTANT Inhaled Oxygen Concentration - - Weight 117 kg (258 lb) 04/09/2024 11:20 AM PRODUCTION ADMINISTRATIVE ASSISTANT Height 161.3 cm (5' 3.5) 04/09/2024 11:20 AM CS T Body Mass Index 44.99 04/09/2024 11:20 AM PRODUCTION ADMINISTRATIVE ASSISTANT Plan of Treatment Upcoming Encounters Date Type Department Care Team (Late st Contact Info) Description 02/14/2025 11:00 AM CDT Office Visit [address] [phone] Susie Turk, FRANDY [address] [id number] Medical Devices Implanted Type Area Banbury Mixer Operator Device Identifier Shelf Expiration Date Model / Serial / Lot Mesh Ventralex Hernia 3.2 [place] Lg W/Strap [id number] Implanted:Qty : 1 on 08/26/2020 by Crystal Alanis MD at [facility] Mesh N/A: Umbilical CR [employer]-DAVOL 03/21/2022 [id number] / / [id number] Procedures Procedure Name Priority Date/Time Associated Diagnosis Comments INFLUENZA A/B ANTIGEN Routine 04/09/2024 11:57 AM PRODUCTION ADMINISTRATIVE ASSISTANT Wheezing Acute cough Upper respiratory tract infection, unspecified type COVID-19 VIRUS (CORONAVIRUS) BY PCR Routine 04/09/2024 11:56 AM PRODUCTION ADMINISTRATIVE ASSISTANT Wheezing Acute cough Upper respiratory tract infection, unspecified type XR CHEST 2 VIEWS Routine 04/09/2024 11:5 3 AM PRODUCTION ADMINISTRATIVE ASSISTANT Wheezing Acute cough Upper respiratory tract infection, unspecified type IL REMOVE INTRAUTERINE DEVICE Routine 03/26/2024 10:59 AM PRODUCTION ADMINISTRATIVE ASSISTANT Intrauterine contraceptive device threads lost, initial encounter Encounter for IUD removal HPV AND GYNECOLOGIC CYTOLOGY PANEL Routine 02/15/2024 10:05 AM CDT Cervical cancer screening COMPREHENSIVE METABOLIC PANEL Routine 12/28/2023 10:11 AM CDT Screening for diabetes mellitus HEPATITIS C SCREEN REFLEX TO HCV RNA QUANT AND GENOTYPE Routine 12/28/2023 10:11 AM CDT Need for hepatitis C screening test HIV ANTIGEN ANTIBODY COMBO Routine 02/07/2014 from Last 3 Months or Most Recently Relevant to Health Maintenance Results * Influenza A & B Antigen - Clinic Collect (04/09/2024 11:57 AM PRODUCTION ADMINISTRATIVE ASSISTANT) Influenza A antigen Negative Negative 04/09/2024 12:16 PM PRODUCTION ADMINISTRATIVE ASSISTANT [facility] Influenza B antigen Negative Negative 04/09/2024 12:16 PM PRODUCTION ADMINISTRATIVE ASSISTANT [facility] Swab NASAL STRUCTURE / Unknown Non-blood Collection / Unknown 04/09/2024 11:57 AM PRODUCTION ADMINISTRATIVE ASSISTANT 04/09/2024 11:57 AM PRODUCTION ADMINISTRATIVE ASSISTANT Narrative [facility] - 04/09/2024 12:16 PM PRODUCTION ADMINISTRATIVE ASSISTANT Test results must be correlated with clinical data. If necessary, results should be confirmed by a molecular assay or viral culture. us Rebecca Flowers PA-C LAB - MICRO GENERAL ORDERABLE S Final Result [facility] [place] [facility] [address] [place] [address] S E Lab (no room number, 1st floor of clinic) [place] [address], [facility] * COVID-19 Virus (Coronavirus) by PCR Nose (04/09/2024 11:56 AM PRODUCTION ADMINISTRATIVE ASSISTANT) SARS CoV2 PCR Negative Negative 04/10/2024 10:57 AM PRODUCTION ADMINISTRATIVE ASSISTANT [facility] Comment:NEGATIVE: SARS-CoV-2 (COVID-19) RNA not detected, presumed negative. Swab NASAL STRUCTURE / Unknown Non-blood Collection / Unknown 04/09/2024 11:56 AM PRODUCTION ADMINISTRATIVE ASSISTANT 04/09/2024 11:56 AM PRODUCTION ADMINISTRATIVE ASSISTANT Narrative [facility] - 04/10/2024 10:57 AM PRODUCTION ADMINISTRATIVE ASSISTANT Testing was performed using the ayla SARS-CoV-2 assay on the ayla PharmAbcine0 System. This test should be ordered for the detection of SARS-CoV-2 in individuals who meet SARS-CoV-2 clinical and/or epidemiological criteria. Test performance is unknown in asymptomatic patients. This test is for in vitro diagnostic use under the FDA EUA for laboratories certified under CLIA to perform high and/or moderate complexity testing. This test has not been FDA cleared or approved. A negative result does not rule out the presence of PCR inhibitors in the specimen or target RNA in concentration below the limit of detection for the assay. The possibility of a false negative should be considered if the patient's recent exposure or clinical presentation suggests COVID-19. This test was validated by the [facility] Infectious Diseases Diagnostic Laboratory. This laboratory is certified under the Clinical Laboratory Improvement Amendments of 1988 (CLIA-88) as qualified to perform high and/or moderate complexity laboratory testing. Rebecca Flowers PA-C LAB - MICRO GENERAL ORDERABLE S Final Result [facility] [address] [facility], [address] [place] [address], [facility] * XR Chest 2 Views (04/09/2024 11:53 AM PRODUCTION ADMINISTRATIVE ASSISTANT) Anatomical Region Laterality Modality Chest Computed Radiogr aphy Impressions 04/09/2024 2:00 PM PRODUCTION ADMINISTRATIVE ASSISTANT IMPRESSION: There are no acute infiltrates. The cardiac silhouette is not enlarged. Pulmonary vasculature is unremarkable. JENNIFER GARCÍA MD SYSTEM ID: [id number] Narrative 04/09/2024 2:00 PM PRODUCTION ADMINISTRATIVE ASSISTANT CHEST TWO VIEWS 04/09/2024 11:53 AM HISTORY: Wheezing; Acute cough; Upper respiratory tract infection, unspecified type COMPARISON: March 09, 2022 Procedure Note Jennifer García MD - 04/09/2024 CHEST TWO VIEWS 04/09/2024 11:53 AM HISTORY: Wheezing; Acute cough; Upper respiratory tract infection, unspecified type COMPARISON: March 09, 2022 IMPRESSION: There are no acute infiltrates. The cardiac silhouette is not enlarged. Pulmonary vasculature is unremarkable. JENNIFER GARCÍA MD SYSTEM ID: [id number] Rebecca Flowers PA-C IMG DIAGNOSTIC IMAGING ORDERA BLES Final Result * HPV and Gynecologic Cytology Panel - Recommended Age 30 - 65 Years (02/15/2024 10:05 AM CDT) Human Papilloma Virus 16 DNA Negative Negative 02/22/2024 7:30 AM CDT [facility] Human Papilloma Virus 18 DNA Negative Negative 02/22/2024 7:30 AM CDT [facility] Human Papilloma Virus Other Negative Negative 02/22/2024 7:30 AM CDT [facility] FINAL DIAGNOSIS This patient's sample is negative for high risk HPV DNA. METHODOLOGY: The [employer] system uses automated extraction, simultaneous amplification of HPV (E6/E7 oncogenes) and beta-globin, followed by real time detection of fluorescent labeled HPV and beta globin using specific oligonucleotide probes. The test specifically identifies types HPV 16 DNA and HPV 18 DNA while concurrently detecting the rest of the high risk types (31, 33, 35, 39, 45, 51, 52, 56, 58, 59, 66 or 68). COMMENTS: This test is not intended for use as a screening device for woman under age 30 with normal cervical cytology. Results should be correlated with cytologic and histologic findings. Close clinical follow up is recommended. Please see the separate Gynecologic Cytology (Pap) report from the same collection date. 02/22/2024 7:30 AM CDT MOLEC[facility] DIAGNOSTICS Brushing ENDOCERVICAL STRUCTURE / Unknown Non-blood Collection / Unknown 02/15/2024 10:05 AM CDT 02/15/2024 10:22 AM CDT Susie Turk APRN MILL WORK LAB - BLOOD ORDERABLES Final Result [facility] Specialty Lab [address] [facility], [address] [phone], [facility] MOLECULAR DIAGNOSTICS Molecular Diagnostics [address] [facility], [address] [phone] * Hepatitis C Screen Reflex to HCV RNA Quant and Genotype (12/28/2023 10:11 AM CDT) Hepatitis C Antibody Nonreactive Nonreactive 12/28/2023 8:35 PM CDT [facility] Comment:A nonreactive screen ing test result does not exclude the possibility of exposure to or infection with HCV. Nonreactive screening test results in individuals with prior exposure to HCV may be due to antibody levels below the limit of detection of this assay or lack of reactivity to the HCV antigens used in this assay. Patients with recent HCV infections (<3 months from time of exposure) may have false- negative HCV antibody results due to the time needed for seroconversion (average of 8 to 9 weeks). Blood STRUCTURE OF LEFT HAND / Unknown Venipuncture / Unknown 12/28/2023 10:11 AM CDT 12/28/2023 10:12 AM CDT Susie Turk APRN MILL WORK LAB - BLOOD ORDERABLES Final Result Performing Organization Address City/[facility]/ZIP Co de Phone Number [facility] [place] [facility] [address] [facility], [address] [phone] * Comprehensive metabolic panel (BMP + Alb, Alk Phos, ALT, AST, Total. Bili, TP) (12/28/2023 10:11 AMCDT) Sodium 136 135 - 145 mmol/L 12/28/2023 8:34 PM CDT [facility] Potassium 4.3 3.4 - 5.3 mmol/L 12/28/2023 8:34 PM CDT [facility] Carbon Dioxide (CO2) 23 22 - 29 mmol/L 12/28/2023 8:34 PM CDT [facility] Anion Gap 11 7 - 15 mmol/L 12/28/2023 8:34 PM CDT [facility] Urea Nitrogen 8.0 6.0 - 20.0 mg/dL 12/28/2023 8:34 PM CDT [facility] Creatinine 0.65 0.51 - 0.95 mg/dL 12/28/2023 8:34 PM CDT [facility] GFR Estimate >90 >60 mL/min/1.7 3m2 12/28/2023 8:34 PM CDT [facility] Comment:eGFR calculated usin 2020 CKD-EPI equation. Calcium 9.2 8.8 - 10.4 mg/dL 12/28/2023 8:34 PM CDT [facility] Comment:Reference intervals for this test were updated on 11/07/2023 to reflect our healthy population more accurately. There may be differences in the flagging of prior results with similar values performed with this method. Those prior results can be interpreted in the context of the updated reference intervals. Chloride 102 98 - 107 mmol/L 12/28/2023 8:34 PM CDT [facility] Glucose 93 70 - 99 mg/dL 12/28/2023 8:34 PM CDT [facility] Alkaline Phosphatase 74 40 - 150 U/L 12/28/2023 8:34 PM CDT [facility] AST 33 0 - 45 U/L 12/28/2023 8:34 PM CDT [facility] ALT 30 0 - 50 U/L 12/28/2023 8:34 PM CDT [facility] Protein Total 7.5 6.4 - 8.3 g/dL 12/28/2023 8:34 PM CDT [facility] Albumin 4.3 3.5 - 5.2 g/dL 12/28/2023 8:34 PM CDT [facility] Bilirubin Total 0.2 <=1.2 mg/dL 12/28/2023 8:34 PM CDT [facility] Patient Fasting > 8hrs? Yes 12/28/2023 8:34 PM CDT [facility] Blood STRUCTURE OF LEFT HAND / Unknown Venipuncture / Unknown 12/28/2023 10:11 AM CDT 12/28/2023 10:12 AM CDT Susie C Meixl MILITARY TECHNICIAN MILL WORK LAB - BLOOD ORDERABLES Final Result [facility] [place] [facility] [address] [facility] [address], [address] [place] [address], [facility] * HIV Antigen Antibody Combo (02/07/2014) HIV Antigen Antibody Combo Non Reactive Blood specimen (specimen) us Patient Reported LAB - BLOOD ORDERABLES Final Re sult from Last 3 Months or Most Recently Relevant to Health Maintenance Additional Health Concerns Infection Onset Date Last Indicated 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 11/01/2011 11/01/2011 Insurance RECOMBINETICS RECOMBINETICS Care Teams Air Intelligence Specialist Relationship Specialty Start Date End Date No Ref-Primary, Physician PCP - General 12/28/23 Linda Cantu Personal Advocate & Liaison (PAL) Family Medicine 05/27/22 Susie Turk APRN MILL WORK [address] [place] [id number] Assigned PCP 01/15/24 Claudine Curtis MD [address] [place] [address] Assigned OBGYN Provider 04/15/24
--- OUTSIDE RECORDS SUMMARY | 2024-05-18 01:01 | XMS_ITS | Encounter Summary ---
Author Organization [facility] Address [address] [place] [address]. [place] [address] Care Team Providers Care Grain Receiver Name Role Phone Linda Cantu Unavailable Unavailable No Ref-Primary, Physician Primary Care Provider Susie Turk APRN HOOP ROLLS OPERATOR Unavailable [phone] Claudine Curtis MD Unavailable [phone] Encounter Details Date Type Department Care Team (Late st Contact Info) Description 03/25/2024 MyC Medical Advice [facility] [address] [facility] [address] [place] [address] Claudine Curtis MD [address] [place] [address] Social History Tobacco Use Types Packs/Day Years [...] week 08/14/2020 How often do you attend [facility] or presybeterian services? 1 to 4 times per year 08/14/2020 Do you belong to any clubs o r organizations such as shinto groups, unions, fraternal or athletic groups, or [...] 08/14/2020 PHQ-2 Answer Date Recorded PHQ-2 Score 3 02/15/2024 [facility] - Occupational Stress Questionnaire Answer Date Recorded [...] place to sleep or slept in a nursing home (including now)? No 08/14/2020 Adolescent Education [...] AM CDT Legal Sex Female 3:29 AM SAFETY DIRECTOR Gender Identity Female 09/03/2021 8:30 AM CDT Sexual Orientation Not on file documented as of this encounter Plan of Treatment Upcoming Encounters Date Type Department Care Team ([facility] st Contact Info) Description 02/14/2025 11:00 AM CDT Office Visit [address] [place] [phone] Susie Turk APRN [address] [phone] documented as of this encounter Visit Diagnoses Not on filedocumented in this encounter Additional Health Concerns Infection Onset Date Last Indicated Resolved Time 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 11/01/2011 11/01/2011 Rule Out COVID-19 04/09/2024 04/09/2024 04/10/2024 10:57 AM SAFETY DIRECTOR Assessment Noted Time PHQ-9 Depression Total Score: 9 02/15/20 7:18 AM CDT documented as of this encounter Care Teams Grain Receiver Relationship Specialty Start Date End Date No Ref-Primary, Physician PCP - General 12/28/23 Linda Cantu Personal Advocate & Liaison (PAL) Family Medicine 05/27/22 Susie Turk APRN HOOP ROLLS OPERATOR [address] [place] [id number] Assigned PCP 01/15/24 Claudine Curtis MD [address] [facility] [place] [place] [address] Assigned OBGYN Provider 04/15/24 documented as of this encounter
--- OUTSIDE RECORDS SUMMARY | 2024-05-18 01:01 | XMS_ITS | Encounter Summary ---
Author Organization [facility] Address [address] [place] [address] Care Team Providers Care Furnace Process Supervisor Name Role Phone Linda Cantu Unavailable Unavailable No Ref-Primary, Physician Primary Care Provider Susie Turk VICTIM WITNESS ADMINISTRATOR DIDACTIC PROGRAM IN DIETETICS DIRECTOR Unavailable [phone] Reason for Visit * Diagnostic Imaging XR (Routine) - Pending Review Specialty Diagnoses / Procedures Referred By Raúl t Referred To Contact Radiology. Diagnoses Wheezing Acute cough Upper respiratory tract infection, unspecified type Procedures XR Chest 2 Views Rebecca Flowers PA-C [address] [place] [address] Phone: tel: fax: Referral ID Status Reason Start Date Expiration Date V isits Requested Visits Authorized [id number] Pending Review 04/09/2024 04/09/2025 1 1 Encounter Details Date Type Department Care Team (Late st Contact Info) Description 04/09/2024 11:45 AM COLD ROLL OPERATOR Ancillary Procedure [address] [place] [phone] Rebecca Flowers PA-C [address] [place] [phone] Wheezing; Acute cough; Upper respiratory tract infection, unspecified type Social History Tobacco Use Types Packs/Day Years [...] How often do you attend ch[facility] or methodist services? 1 to 4 times per year 08/14/2020 Do you belong to any clubs o r organizations such as faith groups, unions, fraternal or athletic groups, or [...] Answer Date Recorded PHQ-2 Score 6 04/09/2024 [facility] - Occupational Stress [...] place to sleep or slept in a usp (including now)? No 08/14/2020 Adolescent Education Answer [...] AM CDT Legal Sex Female 3:29 AM COLD ROLL OPERATOR Gender Identity Female 09/03/2021 8:30 AM CDT Sexual Orientation Not on file documented as of this encounter Plan of Treatment Upcoming Encounters Date Type Department Care Team (Late st Contact Info) Description 02/14/2025 11:00 AM CDT Office Visit [facility] [address] [place] [phone] Susie Turk, FRANDY [facility] [address] [place] [address] documented as of this encounter Procedures Procedure Name Priority Date/Time Associated Diagnosis Comments XR CHEST 2 VIEWS Routine 04/09/2024 11:5 3 AM COLD ROLL OPERATOR Wheezing Acute cough Upper respiratory tract infection, unspecified type documented in this encounter Results * XR Chest 2 Views (04/09/2024 11:53 AM COLD ROLL OPERATOR) Anatomical Region Laterality Modality Chest Computed Radiogr aphy Impressions 04/09/2024 2:00 PM COLD ROLL OPERATOR IMPRESSION: There are no acute infiltrates. The cardiac silhouette is not enlarged. Pulmonary vasculature is unremarkable. JENNIFER GARCÍA MD SYSTEM ID: [id number] Narrative 04/09/2024 2:00 PM COLD ROLL OPERATOR CHEST TWO VIEWS 04/09/2024 11:53 AM HISTORY: [...] is unremarkable. JENNIFER GARCÍA MD SYSTEM ID: [id number] Rebecca Flowers PA-C IMG DIAGNOSTIC IMAGING ORDERA BLES Final Result documented in this encounter Visit Diagnoses Diagnosis Wheezing Acute cough Upper respiratory tract infection, unspecified type documented in this encounter Additional Health Concerns Infection Onset Date Last Indicated Resolved Time 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 11/01/2011 11/01/2011 Rule Out COVID-19 04/09/2024 04/09/2024 04/10/2024 10:57 AM COLD ROLL OPERATOR Assessment Noted Time PHQ-9 Depression Total Score: 22 04/09/ 024 10:54 AM COLD ROLL OPERATOR documented as of this encounter Care Teams Furnace Process Supervisor Relationship Specialty Start Date End Date No Ref-Primary, Physician PCP - General 12/28/23 Linda Cantu Personal Advocate & Liaison (PAL) Family Medicine 05/27/22 Susie Turk, FRANDY DIDACTIC PROGRAM IN DIETETICS DIRECTOR [address] [place] [id number] Assigned PCP 01/15/24 documented as of this encounter
--- OUTSIDE RECORDS SUMMARY | 2024-05-18 01:01 | XMS_ITS | Encounter Summary ---
Author Organization [facility] Address [address] [place] [address] Care Team Providers Care Proof Tester Name Role Phone Linda Cantu Unavailable Unavailable No Ref-Primary, Physician Primary Care Provider Susie Turk [employer]STR[employer]ID WAREHOUSE ADMINISTRATIVE ASSISTANT Unavailable [phone] Reason for Referral * Diagnostic Imaging XR (Routine) - Pending Review Specialty Diagnoses / Procedures Referred By Raúl t Referred To Contact Radiology. Diagnoses Wheezing Acute cough Upper respiratory tract infection, unspecified type Procedures XR Chest 2 Views Rebecca Flowers PA-C [address] [place] [id number] Phone: tel: fax: Referral ID Status Reason Start Date Expiration Date V isits Requested Visits Authorized [id number] Pending Review 04/09/2024 04/09/2025 1 1 INTERN Reason for Visit * Reason Comments Cough Encounter Details Date Type Department Care Team (Late st Contact Info) Description 04/09/2024 11:30 AM TAX INTERN Office Visit [address] [place] [phone] Rebecca Flowers PA-C [address] [place] [address] [phone] Wheezing (Primary Dx); Acute cough; Upper respiratory [...] How often do you attend chur or pentecostal services? 1 to 4 times per year 08/14/2020 Do you belong to any clubs o r organizations such as quaker groups, unions, fraternal or athletic groups, or [...] Answer Date Recorded PHQ-2 Score 6 04/09/2024 [facility] [place] [facility] - Occupational Stress [...] place to sleep or slept in a longterm (including now)? No 08/14/2020 Adolescent Education Answer [...] AM CDT Legal Sex Female 3:29 AM TAX INTERN Gender Identity Female 09/03/2021 8:30 AM CDT Sexual Orientation Not on file documented as of this encounter Last Filed Vital Signs Vital Sign Reading Time Taken Comments Blood Pressure 128/80 04/09/2024 11:20 AM TAX INTERN Pulse 102 04/09/2024 11:20 AM TAX INTERN Temperature 36.6 C (97.8 F) 04/09/2024 11:20 AM TAX INTERN Respiratory Rate 20 04/09/2024 11:20 AM TAX INTERN Oxygen Saturation 97% 04/09/2024 11:20 AM TAX INTERN Inhaled Oxygen Concentration - - Weight 117 kg (258 lb) 04/09/2024 11:20 AM TAX INTERN Height 161.3 cm (5' 3.5) 04/09/2024 11:20 AM CS T Body Mass Index 44.99 04/09/2024 11:20 AM TAX INTERN documented in this encounter Progress Notes * Rebecca Flowers PA-C - 04/09/2024 11:30 AM CST Images from the original note were not included. Assessment & Plan Upper respiratory tract infection, unspecified type Wheezing Acute cough Vitals in clinic reassuring. Swabbed for COVID and influenza. Wheezing heard throughout all lung talavera on exam; will obtain chest xray to rule out further consolidations. Xray as reviewed by me is negative, but waiting for official radiologist report to determine need for additional antibitoics. Will treat current symptoms with albuterol inhaler to be used 1-2 puffs every 4-6 hours for cough, wheezing, and shortness of breath. Also sending rx of Tessalon Perles to be used as needed up to threetimes a day and especially at bedtime. Due to diffuse wheezing on exam, also sending prednisone taper. - COVID-19 Virus (Coronavirus) by PCR Nose - Influenza A & B Antigen - Clinic Collect - albuterol (PROAIR HFA/PROVENTIL HFA/VENTOLIN HFA) 108 (90 Base) MCG/ACT inhaler Dispense: 18 g; Refill: 0 - predniSONE (DELTASONE) 20 MG tablet Dispense: 20 tablet; Refill: 0 - benzonatate (TESSALON) 100 MG capsule Dispense: 30 capsule; Refill: 0 - XR Chest 2 Views Patient should follow up in 1-2 weeks if symptoms do not improve or sooner for new or worsening symptoms. All questions answered to patient's satisfaction. Warning signs of when to seek emergency care were discussed. Rebecca Folwers PA-C BMI Estimated body mass index is 44.99 kg/m?? as calculated from the following: Height as of this encounter: 1.613 m (5' 3.5). Weight as of this encounter: 117 kg (258 lb). Weight management plan: Patient was referred to their PCP to discuss a diet and exercise plan. Depression Screening Follow Up 04/09/2024 10:54 AM PHQ PHQ-9 Total Score 22 Q9: Thoughts of better off /self-harm past 2 weeks Not at all Patient-reported 04/09/2024 10:54 AM Last PHQ-9 1. Little interest or pleasure in doing things 3 2. Feeling down, depressed, or hopeless 3 3. Trouble falling or staying asleep, or sleeping too much 3 4. Feeling tired or having little energy 3 5. Poor appetite or overeating 3 6. Feeling bad about yourself 1 7. Trouble concentrating 3 8. Moving slowly or restless 3 Q9: Thoughts of better off /self-harm past 2 weeks 0 PHQ-9 Total Score 22 Patient-reported Follow Up Actions Taken Crisis resource information provided in After Visit Summary Subjective Sarah is a 38 year old, presenting for the following health issues: Cough 02/15/2024 9:19 AM Additional Questions Roomed by Oni MONTE Accompanied by self History of Present Illness Reason for visit: Cough/bronchitis She is taking medications regularly. Sarah is a 38 year old female who presents today with Throat sore from coughing-SOB walking up stairs. Daughter was sick on . Monday she started feeling symptoms- 4 days ago. Has thrown up twicefrom coughing hard. Cough is not productive. Not able to cough anything up. Has had bronchitis in the past and this feels similar. She is a smoker, but hasn't been smoking. In the past she has been given an inhaler and antibiotics which were helpful. Chest hurts from coughing so much. No pertussis exposure. MYCHART MESSAGE: Hello. I???m experiencing difficulties breathing and have been coughing up flem. I???ve had bronchitis / pneumonia in the past several times and I???m pretty sure that???s what I have. Extreme coughing keeps me awake at night, short of breath easily, and flem like when I cough. Review of Systems Constitutional, neuro, ENT, endocrine, pulmonary, cardiac, gastrointestinal, genitourinary, musculoskeletal, integument and psychiatric systems are negative, except as otherwise noted. Objective BP 128/80 Pulse 102 Temp 97.8 ??F (36.6 ??C) (Tympanic) Resp 20 Ht 1.613 m (5' 3.5) Wt 117 kg (258 lb) LMP (LMP Unknown) SpO2 97% BMI 44.99 kg/m?? Body mass index is 44.99 kg/m??. Physical Exam GENERAL: alert and no distress EYES: Eyes grossly normal to inspection, PERRL and conjunctivae and sclerae normal HENT: ear canals and TM's normal, nose and mouth without ulcers or lesions NECK: no adenopathy, no asymmetry, masses, or scars RESP: no rales , no rhonchi, and expiratory wheezes throughout CV: regular rate and rhythm, normal S1 S2, no S3 or S4, no murmur, click or rub, no peripheral edema MS: no gross musculoskeletal defects noted, no edema SKIN: no suspicious lesions or rashes PSYCH: mentation appears normal, affect normal/bright Xray - Reviewed and interpreted by me. Negative for opacities/signs of consolidation. Waiting for official radiologist report. Signed Electronically by: Rebecca Flowers PA-C INTERN documented in this encounter Plan of Treatment Upcoming Encounters Date Type Department Care Team (Late st Contact Info) Description 02/14/2025 11:00 AM CDT Office Visit [address] [phone] Susie Turk APRN [address] [id number] documented as of this encounter Procedures Procedure Name Priority Date/Time Associated Diagnosis Comments INFLUENZA A/B ANTIGEN Routine 04/09/2024 11:57 AM TAX INTERN Wheezing Acute cough Upper respiratory tract infection, unspecified type COVID-19 VIRUS (CORONAVIRUS) BY PCR Routine 04/09/2024 11:56 AM TAX INTERN Wheezing Acute cough Upper respiratory tract infection, unspecified type documented in this encounter Results * Influenza A & B Antigen - Clinic Collect (04/09/2024 11:57 AM TAX INTERN) Influenza A antigen Negative Negative 04/09/2024 12:16 PM TAX INTERN [facility] Influenza B antigen Negative Negative 04/09/2024 12:16 PM TAX INTERN [facility] Swab NASAL STRUCTURE / Unknown Non-blood Collection / Unknown 04/09/2024 11:57 AM TAX INTERN 04/09/2024 11:57 AM TAX INTERN Narrative [facility] - 04/09/2024 12:16 PM TAX INTERN Test results must be correlated with clinical data. If necessary, results should be confirmed by a molecular assay or viral culture. Rebecca Flowers PA-C LAB - MICRO GENERAL ORDERABLE S Final Result [facility] [place] [facility] [address] [place] [address] Lab (no room number, 1st floor of clinic) [place] [id number] * COVID-19 Virus (Coronavirus) by PCR Nose (04/09/2024 11:56 AM TAX INTERN) SARS CoV2 PCR Negative Negative 04/10/2024 10:57 AM TAX INTERN [facility] Comment:NEGATIVE: SARS-CoV-2 (COVID-19) RNA not detected, presumed negative. Swab NASAL STRUCTURE / Unknown Non-blood Collection / Unknown 04/09/2024 11:56 AM TAX INTERN 04/09/2024 11:56 AM TAX INTERN Narrative [facility] - 04/10/2024 10:57 AM TAX INTERN Testing was performed using the ayla SARS-CoV-2 assay on the ayla Synerscope0 System. This test should be ordered for [...] COVID-19. This test was validated by the [facility] Infectious Diseases Diagnostic [facility]. This laboratory is certified under the Clinical Laboratory Improvement Amendments of 1988 (CLIA-88) as qualified to perform high and/or moderate complexity laboratory testing. Rebecca Flowers PA-C LAB - MICRO GENERAL ORDERABLE S Final Result [facility] Inf. Diseases Diag. Lab [address] [facility], [address] [place] [phone], [place] * XR Chest 2 Views (04/09/2024 11:53 AM TAX INTERN) Anatomical Region Laterality Modality Chest Computed Radiogr aphy Impressions 04/09/2024 2:00 PM TAX INTERN IMPRESSION: There are no acute infiltrates. The cardiac silhouette is not enlarged. Pulmonary vasculature is unremarkable. JENNIFER GARCÍA MD SYSTEM ID: [id number] Narrative 04/09/2024 2:00 PM TAX INTERN CHEST TWO VIEWS 04/09/2024 11:53 AM HISTORY: [...] is unremarkable. JENNIFER GARCÍA MD SYSTEM ID: [id number] Rebecca Flowers PA-C IMG DIAGNOSTIC IMAGING ORDERA BLES Final Result documented in this encounter Visit Diagnoses Diagnosis Wheezing- Primary Acute cough Upper respiratory tract infection, unspecified type Wheezing Acute cough Upper respiratory tract infection, unspecified type documented in this encounter Additional Health Concerns Infection Onset Date Last Indicated Resolved Time 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 11/01/2011 11/01/2011 Rule Out COVID-19 04/09/2024 04/09/2024 04/10/2024 10:57 AM TAX INTERN Assessment Noted Time PHQ-9 Depression Total Score: 22 024 10:54 AM TAX INTERN documented as of this encounter Care Teams Proof Tester Relationship Specialty Start Date End Date No Ref-Primary, Physician PCP - General 12/28/23 Linda Cantu Personal Advocate & Liaison (PAL) Family Medicine 05/27/22 Susie Turk APRN WAREHOUSE ADMINISTRATIVE ASSISTANT [address] [place] [id number] Assigned PCP 01/15/24 documented as of this encounter
--- OUTSIDE RECORDS SUMMARY | 2024-05-18 01:01 | XMS_ITS | Encounter Summary ---
Author Organization [facility] Address [address] [place] [address]. [place] [address] Care Team Providers Care Hardboard Grinder Name Role Phone [facility] Primary Ca re Provider Jefferson Oliver Unavailable Unavailable Vidhya Witt MD Unavailable Linda Cantu Unavailable Unavailable Wilian Hilliard DO Unavailable [phone] Vidhya Witt MD Unavailable No Ref-Primary, Physician Primary Care Provider Susie Turk APRN [facility] Unavailable [phone] Claudine Curtis MD Unavailable [phone] Reason for Visit * Reason Onset Date Comments MyChart Communication 04/05/2022 Encounter Details Date Type Department Care Team (Latest Contact Info) Description 04/05/2022 MyC Medical Advice [facility] [address] [place] [phone] [place] [address] [place] [address] MyChart Communication Social History Tobacco Use Types [...] often do you attend chur ch or christianity services? 1 to 4 times per year 08/14/2020 Do you belong to any clubs o r organizations such as spiritism groups, unions, fraternal or athletic groups, or [...] 08/14/2020 PHQ-2 Answer Date Recorded PHQ-2 Score 2 03/28/2022 [facility] - Occupational Stress Questionnaire Answer Date [...] place to sleep or slept in a snf (including now)? No 08/14/2020 Education Answer Date Recorded What is the highest level of school you have completed or the highest degree you have received? 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 documented as of this encounter Plan of Treatment Upcoming Encounters Date Type Department Care Team (Late st Contact Info) Description 02/14/2025 11:00 AM CDT Office Visit [address] [place] [phone] Susie Turk APRN [address] [address] documented as of this encounter Visit Diagnoses Not on filedocumented in this encounter Additional Health Concerns Infection Onset Date Last Indicated Resolved Time MRSA-Contact Isolation Comment:Skin - 10-20-201111/01/2011 11/01/2011 Rule Out COVID-19 04/09/2024 04/09/2024 04/10/2024 10:57 AM 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 Assessment Noted Time PHQ-9 Depression Total Score: 16 022 6:47 AM 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 documented as of this encounter Care Teams Hardboard Grinder Relationship Specialty Start Date End Date Clinic - [facility] [id number] [place] [id number] PCP - General 08/26/20 12/27/23 No Ref-Primary, Physician PCP - General 12/28/23 Jefferson Oliver Personal Advocate & Liaison (PAL) 09/14/21 05/26/22 [place] [address] [place] [address] Assigned PCP 12/04/21 03/17/23 Linda Cantu Personal Advocate & Liaison (PAL) Family Medicine 05/27/22 [place] [address] [place] [address] Assigned PCP 03/18/23 07/14/23 [place] [address] [place] [address] Assigned PCP 07/15/23 01/14/24 Susie Turk APRN [employer]SULT[employer] [address] [place] [address] Assigned PCP 01/15/24 Claudine Curtis MD [address] [place] [facility] [place] [address] Assigned OBGYN Provider 04/15/24 documented as of this encounter
--- OUTSIDE RECORDS SUMMARY | 2024-05-18 01:01 | XMS_ITS | Clinical Summary ---
Author Organization [facility] Address [address] [place] [address] Care Team Providers Care Staff Trainer Name Role Phone Linda Cantu Unavailable Unavailable No Ref-Primary, Physician Primary Care Provider Susie Turk APRN CRISIS WORKER Unavailable [phone] Claudine Curtis MD Unavailable [phone] Allergies Active Allergy Reactions Criticality Noted Date [...] or shortness of breath. 18 g 04/09/20 Active benzonatate (TESSALON) 100 MG capsuleIndication s:Wheezing,Acute cough,Upper respiratory tract infection, unspecified type Take 1 capsule (100 mg) by mouth 3 times daily as needed for cough. 30 capsule 04/09/20 Active predniSONE (DELTASONE) 20 MG tabletIndications :Wheezing,Acute [...] (07/23/2020): Added automatically from request for surgery [id number] Encounter for sterilization 07/23/2020 Overview (07/24/2020): Added automatically from request for surgery [id number] Morbid obesity 06/01/2020 Anxiety 01/20/2016 Status post [...] automated process. Provider to review and confirm. Encounters Date Type Department Care Team Description 04/09/2024 11:45 AM ENGINEERING PROGRAM ANALYST Ancillary Procedure [address] [phone] Rebecca Flowers PA-C Wheezing; Acute cough; Upper respiratory tract infection, unspecified type 04/09/2024 11:30 AM ENGINEERING PROGRAM ANALYST Office Visit [address] [phone] Rebecca Flowers PA-C Wheezing (Primary Dx); Acute cough; Upper respiratory tract infection, unspecified type 04/09/2024 Travel 03/26/2024 10:30 AM ENGINEERING PROGRAM ANALYST Office Visit [facility] [address] [facility] [address] [place] [phone] Claudine Curtis MD Encounter for IUD removal (Primary Dx); Intrauterine contraceptive device threads lost, initial encounter 03/25/2024 MyC Medical Advice [facility] [address] [place] [phone] Claudine Curtis MD 03/25/2024 Travel from Last 3 Months Immunizations Name Administration Dates Next Due DTaP, Unspecified 06/17/2014 Influenza (H1N1) 03/12/2009 Influenza (IIV3) PF 05/16/2012, 1,01/07/2010,2008 Influenza (prior to 2023) 05/16/2012,01/07/2010 Influenza Vaccine >6 months,quad, PF 11/2020,01/11/2017,01/20/2016,2014,03/11/2014,01/30/2013 MMR 12/09/1997 TD,PF 7+ (Tenivac) 12/09/1997 TDAP (Adacel,Boostrix) 06/17/2014 TDAP Vaccine (Adacel) 03/12/2009 Td (Adult), Adsorbed 12/09/1997 Family History Medical History Relation Comments Coronary Artery Disease Early Onset Father Diabetes Father Depression Mother Diabetes Mother Hypertension Mother Kidney failure Mother Diabetes Paternal Grandfather Anxiety Disorder No family hx of Relation Status Comments Brother 1 Alive Brother 2 Alive Father Mother Alive Paternal Grandfather Sister 1 Alive Sister 2 Alive Sister [...] How often do you attend chur or advent services? 1 to 4 times per year 08/14/2020 Do you belong to any clubs o r organizations such as anabaptism groups, unions, fraternal or athletic groups, or [...] Answer Date Recorded PHQ-2 Score 6 04/09/2024 [facility] - Occupational [...] in a fpc (including now)? No 08/14/2020 Adolescent Education Answer [...] AM CDT Legal Sex Female 3:29 AM ENGINEERING PROGRAM ANALYST Gender Identity Female 09/03/2021 8:30 AM CDT Sexual Orientation Not on file Last Filed Vital Signs Vital Sign Reading Time Taken Comments Blood Pressure 128/80 04/09/2024 11:20 AM ENGINEERING PROGRAM ANALYST Pulse 102 04/09/2024 11:20 AM ENGINEERING PROGRAM ANALYST Temperature 36.6 C (97.8 F) 04/09/2024 11:20 AM ENGINEERING PROGRAM ANALYST Respiratory Rate 20 04/09/2024 11:20 AM ENGINEERING PROGRAM ANALYST Oxygen Saturation 97% 04/09/2024 11:20 AM ENGINEERING PROGRAM ANALYST Inhaled Oxygen Concentration - - Weight 117 kg (258 lb) 04/09/2024 11:20 AM ENGINEERING PROGRAM ANALYST Height 161.3 cm (5' 3.5) 04/09/2024 11:20 AM CS T Body Mass Index 44.99 04/09/2024 11:20 AM ENGINEERING PROGRAM ANALYST Plan of Treatment Upcoming Encounters Date Type Department Care Team ([facility] st Contact Info) Description 02/14/2025 11:00 AM CDT Office Visit [address] [phone] Susie Turk APRN [address] [address] Health Maintenance Due Date Last Done Comments DEPRESSION ACTION PLAN 1985 HEPATITIS B IMMUNIZATION (1 of 3 - 19+ 3-dose series) 2004 Pneumococcal Vaccine: Pediatrics (0 to 5 Years) and At-Risk Patients (6 to 49 Years) (1 of 2 - PCV) 2004 COVID-19 Vaccine ( - season) 2023 INFLUENZA VACCINE (#1) 2023 , 01/11/2017, 01/20/2016, Additional history exists DEPRESSION 6 MO INDEX REPEAT PHQ-9 04/27/2024 04/09/2024, 02/15/2024, 12/28/2023, Additional history exists DTAP/TDAP/TD IMMUNIZATION (5 - Td or Tdap) 06/17/2024 06/17/2014, 06/17/2014, 03/12/2009, Additional history exists PHQ-9 10/08/2024 04/09/2024, 01/23, 12/28/2023, Additional history exists ANNUAL REVIEW OF HM ORDERS 12/27/202412/27, 09/14/2021, 04/22/2020 NICOTINE/TOBACCO CESSATION COUNSELING Q 1 YR 12/27/2024 12/28/2023, 09/14/2021, 06/01/2020, Additional history exists YEARLY PREVENTIVE VISIT 02/14/2025 02/15/20, 06/01/2020, 11/13/2017, Additional history exists GLUCOSE 12/27/2026 12/28/2023, 01/22, 06/14/2020 HPV FOLLOW-UP 02/14/2027 02/15/2024, 11/13/2017 PAP FOLLOW-UP 02/14/2027 02/15/2024, 01/23, 11/13/2017, Additional history exists ADVANCE CARE PLANNING 02/14/2029 02/15/2024, 021 ZOSTER IMMUNIZATION (1 of 2) 08/10/2035 RSV VACCINE (1 - 1-dose 75+ series) 2060 HIV SCREENING Completed 02/07/2014, 06/12/2008 HEPATITIS C SCREENING Completed 12/28/2023 PAP Discontinued 02/15/2024, 01/23, 11/13/2017, Additional history exists HPV IMMUNIZATION Aged Out No longer e ligible based on patient's age to complete this topic MENINGITIS IMMUNIZATION Aged Out No l onger eligible based on patient's age to complete this topic RSV MONOCLONAL ANTIBODY Aged Out No l onger eligible based on patient's age to complete this topic Medical Devices Implanted Type Area Cad Cam Programmer Device Identifier Shelf Expiration Date Model / Serial / Lot Mesh Ventralex Hernia 3.2 [place] Lg W/Strap [id number] Implanted:Qty : 1 on 08/26/2020 by Crystal Alanis MD at [facility] Mesh N/A: Umbilical [employer]-DAVOL 03/21/2022 [id number] / / [id number] Procedures Procedure Name Priority Date/Time Associated Diagnosis Comments INFLUENZA A/B ANTIGEN Routine 04/09/2024 11:57 AM ENGINEERING PROGRAM ANALYST Wheezing Acute cough Upper respiratory tract infection, unspecified type COVID-19 VIRUS (CORONAVIRUS) BY PCR Routine 04/09/2024 11:56 AM ENGINEERING PROGRAM ANALYST Wheezing Acute cough Upper respiratory tract infection, unspecified type XR CHEST 2 VIEWS Routine 04/09/2024 11:5 3 AM ENGINEERING PROGRAM ANALYST Wheezing Acute cough Upper respiratory tract infection, unspecified type GA REMOVE INTRAUTERINE DEVICE Routine 03/26/2024 10:59 AM ENGINEERING PROGRAM ANALYST Intrauterine contraceptive device threads lost, initial encounter [...] Antigen - Clinic Collect (04/09/2024 11:57 AM ENGINEERING PROGRAM ANALYST) Influenza A antigen Negative Negative 04/09/2024 12:16 PM ENGINEERING PROGRAM ANALYST [facility] Influenza B antigen Negative Negative 04/09/2024 12:16 PM ENGINEERING PROGRAM ANALYST [facility] Swab NASAL STRUCTURE / Unknown Non-blood Collection / Unknown 04/09/2024 11:57 AM ENGINEERING PROGRAM ANALYST 04/09/2024 11:57 AM ENGINEERING PROGRAM ANALYST Narrative [facility] - 04/09/2024 12:16 PM ENGINEERING PROGRAM ANALYST Test results must be correlated with clinical data. If necessary, results should be confirmed by a molecular assay or viral culture. Rebecca CARPENTER-C LAB - MICRO GENERAL ORDERABLE S Final Result [facility] [address] [facility] Lab (no room number, 1st floor of clinic) [place] [phone] * COVID-19 Virus (Coronavirus) by PCR Nose (04/09/2024 11:56 AM ENGINEERING PROGRAM ANALYST) SARS CoV2 PCR Negative Negative 04/10/2024 10:57 AM ENGINEERING PROGRAM ANALYST [facility] Comment:NEGATIVE: SARS-CoV-2 (COVID-19) RNA not detected, presumed negative. Swab NASAL STRUCTURE / Unknown Non-blood Collection / Unknown 04/09/2024 11:56 AM ENGINEERING PROGRAM ANALYST 04/09/2024 11:56 AM ENGINEERING PROGRAM ANALYST Narrative [facility] - 04/10/2024 10:57 AM ENGINEERING PROGRAM ANALYST Testing was performed using the ayla SARS-CoV-2 assay on the ayla [id number] System. This test should be ordered for [...] COVID-19. This test was validated by the [facility] Infectious Diseases Diagnostic Laboratory. This laboratory is certified under the Clinical Laboratory Improvement Amendments of 1988 (CLIA-88) as qualified to perform high and/or moderate complexity laboratory testing. Rebecca SOLOMONC LAB - MICRO GENERAL ORDERABLE S Final Result [facility] Inf. Diseases Diag. Lab [address] [facility], [address] [place] [address], [facility] * XR Chest 2 Views (04/09/2024 11:53 AM ENGINEERING PROGRAM ANALYST) Anatomical Region Laterality Modality Chest Computed Radiogr aphy Impressions 04/09/2024 2:00 PM ENGINEERING PROGRAM ANALYST IMPRESSION: There are no acute infiltrates. The cardiac silhouette is not enlarged. Pulmonary vasculature is unremarkable. JENNIFER GARCÍA MD SYSTEM ID: [id number] Narrative 04/09/2024 2:00 PM ENGINEERING PROGRAM ANALYST CHEST TWO VIEWS 04/09/2024 11:53 AM HISTORY: [...] is unremarkable. JENNIFER GARCÍA MD SYSTEM ID: [id number] Rebecca Flowers PA-C IM DIAGNOSTIC IMAGING ORDERA BLES Final Result * [...] for high risk HPV DNA. METHODOLOGY: The [employer] system uses automated extraction, simultaneous amplification of [...] 02/15/2024 10:22 AM CDT Susie Turk APRN CRISIS WORKER LAB - BLOOD ORDERABLES Final Result Performing Organization Address City/[facility]/ZIP Co de Phone Number SPECIALTY LABS Specialty Lab [address] [facility], [address] [phone], [facility] MOLECULAR DIAGNOSTICS Molecular Diagnostics [address] [facility], [address] [phone] * Hepatitis C Screen Reflex to HCV RNA Quant and Genotype (12/28/2023 10:11 AM CDT) Hepatitis C Antibody Nonreactive Nonreactive 12/28/2023 8:35 PM CDT LABORATORY Comment:A nonreactive screen ing test result [...] 12/28/2023 10:12 AM CDT Susie Turk APRN CRISIS WORKER LAB - BLOOD ORDERABLES Final Result LABORATORY [facility] [address] [facility], [address] [phone] * Comprehensive metabolic panel (BMP + Alb, [...] 10:11 AM CDT 12/28/2023 10:12 AM CDT us Susie Chingxl RED HAT LINUX ENGINEER CRISIS WORKER LAB - BLOOD ORDERABLES Final Result [facility] Core Lab [address] [facility] [address] [facility], [address] [place] [address] * HIV Antigen Antibody Combo (02/07/2014) HIV Antigen Antibody Combo Non Reactive Blood specimen (specimen) us Patient Reported LAB - BLOOD ORDERABLES Final Re sult from Last 3 Months or Most Recently Relevant to Health Maintenance Additional Health Concerns Infection Onset Date Last Indicated 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 11/01/2011 11/01/2011 [place] [address] Donate Your Desktop ADVANTAGE OR BLUE PLUS ADVANTAGE OR Care Teams Staff Trainer Relationship Specialty Start Date End Date No Ref-Primary, Physician PCP - General 12/28/23 Linda Cantu Personal Advocate & Liaison (PAL) Family Medicine 05/27/22 Susie Turk APRN CRISIS WORKER [address] [place] [address] Assigned PCP 01/15/24 Claudine Curtis MD [facility] [place] [address] Assigned OBGYN Provider 04/15/24
--- OUTSIDE RECORDS SUMMARY | 2024-05-18 01:01 | XMS_ITS | Encounter Summary ---
Author Organization [facility] Address [address] [place] [address] Care Team Providers Care Band Cutter Name Role Phone Clinic - [facility] Primary Ca re Provider Jefferson Oliver Unavailable Unavailable Vidhya Witt MD Unavailable Linda Cantu Unavailable Unavailable Wilian Hilliard DO Unavailable [phone] Vidhya Witt MD Unavailable No Ref-Primary, Physician Primary Care Provider Susie Turk APRN FINANCE LECTURER Unavailable [phone] Claudine Curtis MD Unavailable [phone] Encounter Details Date Type Department Care Team (Late st Contact Info) Description 03/25/2022 MyC Medical Advice [facility] Services - Behavioral Service Line [address] [place] [phone] Claudine Schilling Social History Tobacco Use Types Packs/Day Years [...] often do you attend chur ch or orthodoxy services? 1 to 4 times per year 08/14/2020 Do you belong to any clubs o r organizations such as anglican groups, unions, fraternal or athletic groups, or [...] Answer Date Recorded PHQ-2 Score 2 03/28/2022 [facility] - Occupational Stress Questionnaire Answer Date [...] place to sleep or slept in a prison (including now)? No 08/14/2020 Education Answer Date Recorded What is the highest level of school you have completed or the highest degree you have received? Associate degree: occupational, technical, or vocational program 08/14/2020 Comments No Sex and Gender Information Value Date Recorded Sex Assigned at Female 09/03/2021 8:30 AM CDT Legal Sex Female 3:29 AM EMBALMER APPRENTICE Gender Identity Female 09/03/2021 8:30 AM CDT Sexual Orientation Not on file COVID-19 Exposure Response Date Recorded In the last 10 days, have yo u been in contact with someone who was confirmed or suspected to have Coronavirus/COVID-19? No / Unsure 03/09/2022 3:29 AM EMBALMER APPRENTICE documented as of this encounter Plan of Treatment Upcoming Encounters Date Type Department Care Team (Late st Contact Info) Description 02/14/2025 11:00 AM CDT Office Visit [address] [place] [phone] Susie Turk APRN [address] [address] documented as of this encounter Visit Diagnoses Not on filedocumented in this encounter Additional Health Concerns Infection Onset Date Last Indicated Resolved Time 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 11/01/2011 11/01/2011 Rule Out COVID-19 04/09/2024 04/09/2024 04/10/2024 10:57 AM EMBALMER APPRENTICE Assessment Noted Time PHQ-9 Depression Total Score: 16 022 1:17 PM CDT documented as of this encounter Care Teams Band Cutter Relationship Specialty Start Date End Date Clinic - [facility] [address] [place] [address] PCP - General 08/26/20 12/27/23 No Ref-Primary, Physician PCP - General 12/28/23 Jefferson Oliver Personal Advocate & Liaison (PAL) 09/14/21 05/26/22 [place] [address] [place] [address] Assigned PCP 12/04/21 03/17/23 Linda Cantu Personal Advocate & Liaison (PAL) Family Medicine 05/27/22 [place] [address] [place] [address] Assigned PCP 03/18/23 07/14/23 [place] [address] [place] [address] Assigned PCP 07/15/23 01/14/24 Susie Turk APRN [facility] [address] [place] [address] Assigned PCP 01/15/24 Claudine Curtis MD [address] [place] [address] Assigned OBGYN Provider 04/15/24 documented as of this encounter
[2024-05-18 01:03] VITALS: BP 172/84; PULSE 78; RESP 18; TEMP 36.9; O2SAT 99; BMI 40.7
--- NOTE | 2024-05-18 01:09 | ED.GENADULT ---
HPI - General Adult General Chief complaint: Hip Injury/Pain Stated complaint: sciatica nerve pain Time Seen by Provider: 05/18/24 01:09 History of Present Illness HPI narrative: CC: Left Hip Pain pt. with left hip pain that radiates down left leg. denies fevers. 38-year-old woman presenting to the emergency department with concern of radicular left hip and leg pain. Does not note any particular trauma. Has had some weeks of all qualities of pain shooting through her left buttock down the posterior thigh back of her lower leg and into her foot. Has trouble describing it. 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 Had mentioned it to her doctor that it was present somewhat a few weeks ago and has really escalated over the last 2 weeks. No formal diagnosis yet made. She is using the term ?sciatica?. Has a friend who is a deep tissue massage therapist and is recommended alternating ice and cold and given some ideas for stretches. I think some recommendations came from physical therapy friend as well. She mention that extra weight might be contributing Related Data Home Medications ?Medication ?Instructions ?Recorded ?Confirmed No Known Home Medications 05/18/24 05/18/24 Allergies Allergy/AdvReac Type Severity Reaction Status Date / Time No Known Drug Allergies Allergy Verified 05/18/24 01:05 Review of Systems Status of ROS: Reports: 6 or more systems reviewed and unremarkable except as noted in History and below [facility] Medical History No significant past medical history Surgical History (Updated 05/18/24 @ 01:08 by Sridhar Rojas RN) No significant past surgical history Social History Smoking Status: Current every day smoker What tobacco products do you use: cigarettes Second hand tobacco smoke exposure: Yes How often do you have a drink containing alcohol: never AUDIT-C Alcohol total score: 0 Non-prescribed substance use: denies use Exam Narrative: Exam Narrative: Is restless. Alternate between sitting standing. Negative left side straight leg raise. Some soreness to palpation in the left upper buttock area but this is not the area or clearly reproducing the pain or discomfort. Does not appear to be weak but generally painful to ambulate. No pain otherwise to palpation of the back. Const: Vital Signs, click to edit/add: Vital Signs - 24 hr 05/18/24 01:03 05/18/24 01:28 05/18/24 01:29 Temperature 98.5 F 98.5 F 98.5 F Pulse Rate [Right Pulse Oximeter] 78 78 74 Respiratory Rate 18 18 18 Blood Pressure [Ri ght Upper Arm] 172/84 H 172/84 H 165/81 H Pulse Oximetry 99 99 Oxygen Delivery Me thod Room Air Room Air Documenting provider has reviewed patient's vital signs: yes Course Vital Signs Vital signs: Initial Vital Signs Temperature 98.5 F 05/18/24 01:03 Temperature Source Temporal Artery Scan 05/18/24 01:03 Pulse Rate 78 05/18/24 01:03 Respiratory Rate 18 05/18/24 01:03 Blood Pressure 172/84 H 05/18/24 01:03 Blood Pressure Mean 113 H 05/18/24 01:03 Blood Pressure Position Sitting 05/18/24 01:03 Pulse Oximetry 99 05/18/24 01:03 Oxygen Delivery Method Room Air 05/18/24 01:03 Vital Signs Temperature 98.5 F 05/18/24 01:03 Pulse Rate 78 05/18/24 01:03 Respiratory Rate 18 05/18/24 01:03 Blood Pressure 172/84 H 05/18/24 01:03 Pulse Oximetry 99 05/18/24 01:03 Oxygen Delivery Method Room Air 05/18/24 01:03 Temperature 98.5 F 05/18/24 01:29 Pulse Rate 74 05/18/24 01:29 Respiratory Rate 18 05/18/24 01:29 Blood Pressure 165/81 H 05/18/24 01:29 Pulse Oximetry 99 05/18/24 01:29 Oxygen Delivery Method Room Air 05/18/24 01:29 Medical Decision Making MDM Narrative Medical decision making narrative: Describing clear radicular symptoms. Appears to be in the spectrum of sciatic but I would think possibly discogenic here. Does seem beyond piriformis and not limited to IT band issue. No trauma to probably benefit from x-ray imaging. MRI would be likely necessary if this continues. I am not able to do that at this time. Discussed pain management and treatment options. See patient discharge plan for further discussion Unclear at this point if this pain is coming from your back or somewhere else in that nerve bundle, aka sciatica. See handout for more information and some stretches you might consider doing. I would [place] back around to your primary care provider either in message or in person to make neck steps in plan for care/evaluation. For now prescribing a course of prednisone. Also from [facility], Percocet, which is an opiate. Each tablet of Percocet contains 325 mg of acetaminophen. Also prescribing cyclobenzaprine which commonly is called a muscle relaxer. Tends to make people a little tired which helps with muscle relaxation. Can otherwise take up to 800 mg of ibuprofen or up to 1000 mg of acetaminophen total per dose. Alternative to the ibuprofen might be up to 500 mg naproxen 2 times daily. Medical Records Medical records reviewed: Yes I reviewed the patient's medical records Discharge Plan Discharge Clinical Impression: Radicular leg pain Patient Disposition: Home, Self-Care Condition: Stable Additional Instructions: Unclear at this point if this pain is coming from your back or somewhere else in that nerve bundle, aka sciatica. See handout for more information and some stretches you might consider doing. I would [place] tribe back around to your primary care provider either in message or in person to make neck steps in plan for care/evaluation. For now prescribing a course of prednisone. Also from [facility], Percocet, which is an opiate. Each tablet of Percocet contains 325 mg of acetaminophen. Also prescribing cyclobenzaprine which commonly is called a muscle relaxer. Tends to make people a little tired which helps with muscle relaxation. Can otherwise take up to 800 mg of ibuprofen or up to 1000 mg of acetaminophen total per dose. Alternative to the ibuprofen might be up to 500 mg naproxen 2 times daily. Prescriptions: No Action No Known Home Medications Follow Up/Referrals: Provider,Not a Local [Primary Care Provider] - Stand Alone Forms: [employer] Info Instructions
--- OUTSIDE RECORDS SUMMARY | 2024-05-18 01:26 | XMS_ITS | Referral Summary ---
Author Organization [place] Address [address] [place] [address] Care Team Providers Care Brim Cutter Name Role Phone Linda Cantu Unavailable Unavailable No Ref-Primary, Physician Primary Care Provider Susie Turk APRN ACROBATIC RIGGER Unavailable [phone] Claudine Curtis MD Unavailable [phone] Encounters Date Type Department Care Team Description 04/09/2024 11:45 AM WELDING MANAGER Ancillary Procedure [address] [phone] Rebecca Flowers PA-C Wheezing; Acute cough; Upper respiratory tract infection, unspecified type 04/09/2024 Travel 04/09/2024 11:30 AM WELDING MANAGER Office Visit [address] [phone] Rebecca Flowers PA-C Wheezing (Primary Dx); Acute cough; Upper respiratory tract infection, unspecified type 03/26/2024 10:30 AM WELDING MANAGER Office Visit [facility] [address] [place] [address] Claudine Curtis MD Encounter for IUD removal (Primary Dx); Intrauterine contraceptive device threads lost, initial encounter 03/25/2024 MyC Medical Advice [facility] [address] [place] [address] Claudine Curtis MD 03/25/2024 Travel from Last [...] (07/23/2020): Added automatically from request for surgery [id number] Encounter for sterilization 07/23/2020 Overview (07/24/2020): Added automatically from request for surgery [id number] Morbid obesity 06/01/2020 Anxiety 01/20/2016 Status post [...] week 08/14/2020 How often do you attend [facility] or latter day services? 1 to 4 times per year 08/14/2020 Do you belong to any clubs o r organizations such as confucianist groups, unions, fraternal or athletic groups, or [...] Answer Date Recorded PHQ-2 Score 6 04/09/2024 [facility] Occupat ional Health - Occupational Stress [...] AM CDT Legal Sex Female 3:29 AM WELDING MANAGER Gender Identity Female 09/03/2021 8:30 AM CDT Sexual Orientation Not on file Last Filed Vital Signs Vital Sign Reading Time Taken Comments Blood Pressure 128/80 04/09/2024 11:20 AM WELDING MANAGER Pulse 102 04/09/2024 11:20 AM WELDING MANAGER Temperature 36.6 C (97.8 F) 04/09/2024 11:20 AM WELDING MANAGER Respiratory Rate 20 04/09/2024 11:20 AM WELDING MANAGER Oxygen Saturation 97% 04/09/2024 11:20 AM WELDING MANAGER Inhaled Oxygen Concentration - - Weight 117 kg (258 lb) 04/09/2024 11:20 AM WELDING MANAGER Height 161.3 cm (5' 3.5) 04/09/2024 11:20 AM CS T Body Mass Index 44.99 04/09/2024 11:20 AM WELDING MANAGER Plan of Treatment Upcoming Encounters Date Type Department Care Team (Late st Contact Info) Description 02/14/2025 11:00 AM CDT Office Visit [address] [phone] Susie Turk, FRANDY [address] [address] Medical Devices Implanted Type Area Geology Scientist Device Identifier Shelf Expiration Date Model / Serial / Lot Mesh Ventralex Hernia 3.2 [place] Lg W/Strap [id number] Implanted:Qty : 1 on 08/26/2020 by Crystal Alanis MD at [facility] Mesh N/A: Umbilical [employer]DAVOL 03/21/2022 [id number] / / [id number] Procedures Procedure Name Priority Date/Time Associated Diagnosis Comments INFLUENZA A/B ANTIGEN Routine 04/09/2024 11:57 AM WELDING MANAGER Wheezing Acute cough Upper respiratory tract infection, unspecified type COVID-19 VIRUS (CORONAVIRUS) BY PCR Routine 04/09/2024 11:56 AM WELDING MANAGER Wheezing Acute cough Upper respiratory tract infection, unspecified type XR CHEST 2 VIEWS Routine 04/09/2024 11:5 3 AM WELDING MANAGER Wheezing Acute cough Upper respiratory tract infection, unspecified type NE REMOVE INTRAUTERINE DEVICE Routine 03/26/2024 10:59 AM WELDING MANAGER Intrauterine contraceptive device threads lost, initial encounter [...] Antigen - Clinic Collect (04/09/2024 11:57 AM WELDING MANAGER) Influenza A antigen Negative Negative 04/09/2024 12:16 PM WELDING MANAGER [facility] Influenza B antigen Negative Negative 04/09/2024 12:16 PM WELDING MANAGER [facility] Swab NASAL STRUCTURE / Unknown Non-blood Collection / Unknown 04/09/2024 11:57 AM WELDING MANAGER 04/09/2024 11:57 AM WELDING MANAGER Narrative [facility] - 04/09/2024 12:16 PM WELDING MANAGER Test results must be correlated with clinical data. If necessary, results should be confirmed by a molecular assay or viral culture. us Rebecca Flowers PA-C LAB - MICRO GENERAL ORDERABLE S Final Result [facility] [address] [place] [address] S E Lab (no room number, 1st floor of clinic) [place] [address], [facility] * COVID-19 Virus (Coronavirus) by PCR Nose (04/09/2024 11:56 AM WELDING MANAGER) SARS CoV2 PCR Negative Negative 04/10/2024 10:57 AM WELDING MANAGER [facility] Comment:NEGATIVE: SARS-CoV-2 (COVID-19) RNA not detected, presumed negative. Swab NASAL STRUCTURE / Unknown Non-blood Collection / Unknown 04/09/2024 11:56 AM WELDING MANAGER 04/09/2024 11:56 AM WELDING MANAGER Narrative [facility] - 04/10/2024 10:57 AM WELDING MANAGER Testing was performed using the ayla SARS-CoV-2 assay on the ayla AlphaNation0 System. This test should be ordered for [...] COVID-19. This test was validated by the [facility] Infectious Diseases Diagnostic Laboratory. This laboratory is certified under the Clinical Laboratory Improvement Amendments of 1988 (CLIA-88) as qualified to perform high and/or moderate complexity laboratory testing. Rebecca Flowers PA-C LAB - MICRO GENERAL ORDERABLE S Final Result [facility] Inf. Diseases Diag. Lab [address] [facility], [address] [place] [address], [facility] * XR Chest 2 Views (04/09/2024 11:53 AM WELDING MANAGER) Anatomical Region Laterality Modality Chest Computed Radiogr aphy Impressions 04/09/2024 2:00 PM WELDING MANAGER IMPRESSION: There are no acute infiltrates. The cardiac silhouette is not enlarged. Pulmonary vasculature is unremarkable. JENNIFER GARCÍA MD SYSTEM ID: [id number] Narrative 04/09/2024 2:00 PM WELDING MANAGER CHEST TWO VIEWS 04/09/2024 11:53 AM HISTORY: [...] is unremarkable. JENNIFER GARCÍA MD SYSTEM ID: [id number] Rebecca Flowers PA-C IMG DIAGNOSTIC IMAGING ORDERA [...] for high risk HPV DNA. METHODOLOGY: The [employer]Mil[employer] system uses automated extraction, simultaneous amplification of [...] 02/15/2024 10:22 AM CDT Susie Turk APRN ACROBATIC RIGGER LAB - BLOOD ORDERABLES Final Result [facility] Specialty Lab [address] [facility], [address] [address], [facility] Molecular Diagnostics [address] [facility], [address] [address] * Hepatitis C Screen Reflex to HCV [...] 12/28/2023 10:12 AM CDT Susie Turk APRN ACROBATIC RIGGER LAB - BLOOD ORDERABLES Final Result Performing Organization Address City/[facility]/ZIP Co de Phone Number [facility] [place] [facility] [address] [facility], [address] [phone] * Comprehensive metabolic panel (BMP + Alb, [...] 12/28/2023 10:12 AM CDT Susie C Meixl IDENTIFIER HORSE ACROBATIC RIGGER LAB - BLOOD ORDERABLES Final Result [facility] [place] [facility] [address] [facility] [address], [address] [place] [address], [facility] * HIV Antigen Antibody Combo (02/07/2014) HIV Antigen Antibody Combo Non Reactive Blood specimen (specimen) us Patient Reported LAB - BLOOD ORDERABLES Final Re sult from Last 3 Months or Most Recently Relevant to Health Maintenance Additional Health Concerns Infection Onset Date Last Indicated 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 11/01/2011 11/01/2011 Insurance BABADU BABADU Care Teams Brim Cutter Relationship Specialty Start Date End Date No Ref-Primary, Physician PCP - General 12/28/23 Linda Cantu Personal Advocate & Liaison (PAL) Family Medicine 05/27/22 Susie Turk APRN ACROBATIC RIGGER [address] [place] [address] Assigned PCP 01/15/24 Claudine Curtis MD [address] [place] [address] Assigned OBGYN Provider 04/15/24
--- OUTSIDE RECORDS SUMMARY | 2024-05-18 01:26 | XMS_ITS | Encounter Summary ---
Author Organization [place] Address [address] [place] [address] Care Team Providers Care Maintenance Mechanic Technician Name Role Phone Linda Cantu Unavailable Unavailable No Ref-Primary, Physician Primary Care Provider Susie Turk APRN CIRCULAR KNIFE MACHINE CUTTER Unavailable [phone] Encounter Details Date Type Department Care Team [...] often do you attend chur ch or anglican services? 1 to 4 times per year 08/14/2020 Do you belong to any clubs o r organizations such as christian groups, unions, fraternal or athletic groups, or [...] Answer Date Recorded PHQ-2 Score 6 04/09/2024 [facility] - Occupational Stress Questionnaire Answer [...] place to sleep or slept in a care home (including now)? No 08/14/2020 Adolescent Education [...] AM CDT Legal Sex Female 3:29 AM DESTINATION IMAGINATION COORDINATOR Gender Identity Female 09/03/2021 8:30 AM CDT Sexual Orientation Not on file documented as of this encounter Plan of Treatment Upcoming Encounters Date Type Department Care Team (Late st Contact Info) Description 02/14/2025 11:00 AM CDT Office Visit [address] [phone] Susie Turk APRN [address] [address] documented as of this encounter Visit Diagnoses Not on filedocumented in this encounter Additional Health Concerns Infection Onset Date Last Indicated Resolved Time 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 11/01/2011 11/01/2011 Rule Out COVID-19 04/09/2024 04/09/2024 04/10/2024 10:57 AM DESTINATION IMAGINATION COORDINATOR Assessment Noted Time PHQ-9 Depression Total Score: 22 024 10:54 AM DESTINATION IMAGINATION COORDINATOR documented as of this encounter Care Teams Maintenance Mechanic Technician Relationship Specialty Start Date End Date No Ref-Primary, Physician PCP - General 12/28/23 Linda Cantu Personal Advocate & Liaison (PAL) Family Medicine 05/27/22 Susie Turk APRN CIRCULAR KNIFE MACHINE CUTTER [address] [place] [address] Assigned PCP 01/15/24 documented as of this encounter
--- OUTSIDE RECORDS SUMMARY | 2024-05-18 01:26 | XMS_ITS | Encounter Summary ---
Author Organization [place] Address [address] [place] [address] Care Team Providers Care It Infrastructure Engineer Name Role Phone Gita Small SIMULATION SOFTWARE ENGINEER Primary Care Provider [phone] Gita Small SIMULATION SOFTWARE ENGINEER Unavailable [phone] Gita Small SIMULATION SOFTWARE ENGINEER Unavailable [phone] No Ref-Primary, Physician Primary Care Provider Brisa Singletary MD Unavailable [phone] Kae Blankenship PA-C Unavailable [phone] Crystal Alanis MD Unavailable [phone] Wilian Hilliard DO Unavailable Lois Hathaway DO Unavailable [phone] Brisa Singletary MD Unavailable [phone] [facility] Primary Nd re Provider Wilian Hilliard DO Unavailable [phone] [facility] Oliver Unavailable Unavailable Vidhya Witt MD Unavailable Linda Cantu Unavailable Unavailable Wilian Hilliard DO Unavailable [phone] Vidhya Witt MD Unavailable No Ref-Primary, Physician Primary Care Provider Susie Turk APRN, CNP Unavailable [phone] Claudine Curtis MD Unavailable Encounter Details Date Type Department Care Team (Late st Contact Info) Description 11/28/2016 MyC Medical Advice [facility] [address] [place] [address] Gita Small, SIMULATION SOFTWARE ENGINEER [address] [place], [place] [phone] Social History Tobacco Use Types Packs/Day Years [...] AM CDT Legal Sex Female 3:29 AM EMAIL MARKETING COORDINATOR Gender Identity Female 09/03/2021 8:30 AM CDT Sexual Orientation Not on file documented as of this encounter Plan of Treatment Upcoming Encounters Date Type Department Care Team (Late st Contact Info) Description 02/14/2025 11:00 AM CDT Office Visit [address] [phone] Susie Turk, HOSPITALIST MEDICAL DIRECTOR FAMILY PRACTICE MEDICAL DOCTOR [address] [place] [address] documented as of this encounter Visit Diagnoses Not on filedocumented in this encounter Additional Health Concerns Infection Onset Date Last Indicated Resolved Time 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 11/01/2011 11/01/2011 Rule Out COVID-19 06/14/2020 06/14/2020 06/14/2020 11:50 PM EMAIL MARKETING COORDINATOR Rule Out COVID-19 03/09/2022 03/09/2022 03/09/2022 6:39 AM EMAIL MARKETING COORDINATOR Rule Out COVID-19 04/09/2024 04/09/2024 04/10/2024 10:57 AM EMAIL MARKETING COORDINATOR documented as of this encounter Care Teams It Infrastructure Engineer Relationship Specialty Start Date End Date Gita Small, SIMULATION SOFTWARE ENGINEER PCP - General Nurse Practitioner - Family 11/14/16 02/21/18 Gita Small, SIMULATION SOFTWARE ENGINEER [address] [place] [address] PCP - Assigned PCP 11/20/16 06/26/18 No Ref-Primary, Physician PCP - General 10/25/19 08/25/20 [facility] [address] [place] [address] PCP - General 08/26/20 12/27/23 No Ref-Primary, Physician PCP - General 12/28/23 Gita Small, SIMULATION SOFTWARE ENGINEER [address] [place] [address] Assigned PCP 11/20/16 12/21/19 [place] [address] [place] [address] Assigned PCP 12/22/19 04/25/20 Kae Blankenship PATyroneC [address] [facility] [address] [place] [address] Assigned PCP 04/26/20 06/06/20 Crystal Alanis MD SURGICAL CONSULTS, JAYDEN [address] [facility] [address] [place], [place] [address] Assigned Surgical Provider 06/07/20 12/03/21 [place] [address] [place] [address] Assigned PCP 06/07/20 08/15/20 Lois Hathaway DO [address] [facility] [address] [place] [address] Assigned OBGYN Provider 07/19/20 01/18/22 [place] [address] [place] [address] Assigned PCP 08/16/20 03/27/21 [place] [address] [place] [address] Assigned PCP 03/28/21 12/03/21 [facility] Oliver Personal Advocate & Liaison (PAL) 09/14/21 05/26/22 [place] [address] [place] [address] Assigned PCP 12/04/21 03/17/23 Linda Cantu Personal Advocate & Liaison (PAL) Family Medicine 05/27/22 [place] [address] [place] [address] Assigned PCP 03/18/23 07/14/23 [place] [address] [place] [address] Assigned PCP 07/15/23 01/14/24 Susie Turk APRN FAMILY PRACTICE MEDICAL DOCTOR [address] [place], [place] [address] Assigned PCP 01/15/24 Claudine Curtis MD [address] [place], [place] [address] Assigned OBGYN Provider 04/15/24 documented as of this encounter
--- OUTSIDE RECORDS SUMMARY | 2024-05-18 01:26 | XMS_ITS | Encounter Summary ---
Author Organization [place] Address [address] [place] [address] Care Team Providers Care Enterprise Systems Engineer Name Role Phone Crystal Alanis MD Unavailable [phone] Lois Hathaway DO Unavailable [phone] Brisa Singletary MD Unavailable [phone] [facility] Primary Ca re Provider Wilian Hilliard DO Unavailable [phone] [facility] Oliver Unavailable Unavailable Vidhya Witt MD Unavailable Linda Cantu Unavailable Unavailable Wilian Hilliard DO Unavailable [phone] Vidhya Witt MD Unavailable No Ref-Primary, Physician Primary Care Provider Susie Turk APRN JUICE STANDARDIZER Unavailable Claudine Curtis MD Unavailable [phone] Encounter Details Date Type Department Care Team (Late st Contact Info) Description 09/14/2020 MyC Medical Advice [facility] [address] [place] [address] Magalys Manriquez, SAUL [address] [facility] [address] [place] [address] Social History Tobacco Use Types [...] How often do you attend chur or scientologist services? 1 to 4 times per year 08/14/2020 Do you belong to any clubs o r organizations such as synagogue groups, unions, fraternal or athletic groups, or [...] Answer Date Recorded PHQ-2 Score 0 06/01/2020 [facility] [place] of Occupat ional Health - Occupational Stress [...] place to sleep or slept in a half-way (including now)? No 08/14/2020 Education Answer Date Recorded What is the highest level of school you have completed or the highest degree you have received? Associate degree: occupational, technical, or vocational program 08/14/2020 Comments No Sex and Gender Information Value Date Recorded Sex Assigned at Female 09/03/2021 8:30 AM CDT Legal Sex Female 3:29 AM GAS LINE SERVICER Gender Identity Female 09/03/2021 8:30 AM CDT [...] Description 02/14/2025 11:00 AM CDT Office Visit [address] [place] [phone] BurkeSusie Glenroy, HEEL SEAT TRIMMER JUICE STANDARDIZER [address] [facility] [place] [address] documented as of this encounter Visit Diagnoses Not on filedocumented in this encounter Additional Health Concerns Infection Onset Date Last Indicated Resolved Time 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 11/01/2011 11/01/2011 Rule Out COVID-19 03/09/2022 03/09/2022 03/09/2022 6:39 AM GAS LINE SERVICER Rule Out COVID-19 04/09/2024 04/09/2024 04/10/2024 10:57 AM GAS LINE SERVICER documented as of this encounter Care Teams Enterprise Systems Engineer Relationship Specialty Start Date End Date Clinic - [facility] [address] [place] [address] PCP - General 08/26/20 12/27/23 No Ref-Primary, Physician PCP - General 12/28/23 Crystal Alanis MD SURGICAL CONSULTS, [place] [address] [facility] 300 [place] [address] Assigned Surgical Provider 06/07/20 12/03/21 Lois Hathaway DO [address] [facility] 100 [place] [address] Assigned OBGYN Provider 07/19/20 [place] [address] [place] [address] Assigned PCP 08/16/20 03/27/21 [place] [address] [place] [address] Assigned PCP 03/28/21 12/03/21 [facility] Oliver Personal Advocate & Liaison (PAL) 09/14/21 05/26/22 [place] [address] [place] [address] Assigned PCP 12/04/21 03/17/23 Linda Cantu Personal Advocate & Liaison (PAL) Family Medicine 05/27/22 [place] [address] [place] [address] Assigned PCP 03/18/23 07/14/23 [place] [address] [place] [address] Assigned PCP 07/15/23 01/14/24 Susie Turk APRN [facility] [address] [place] [address]77[address] Assigned PCP 01/15/24 Claudine Curtis MD [address] [place] [address] Assigned OBGYN Provider 04/15/24 documented as of this encounter
--- OUTSIDE RECORDS SUMMARY | 2024-05-18 01:26 | XMS_ITS | Encounter Summary ---
Author Organization [place] Address [address] [place] [address] Care Team Providers Care Business Coordinator Name Role Phone Gita Small MEDICAL DONATION PROFESSIONAL Primary Care Provider [phone] Gita Small MEDICAL DONATION PROFESSIONAL Unavailable [phone] Gita Small MEDICAL DONATION PROFESSIONAL Unavailable [phone] No Ref-Primary, Physician Primary Care Provider Brisa Singletary MD Unavailable [phone] Kae Blankenship PA-C Unavailable [phone] Crystal Alanis MD Unavailable [phone] Wilian Hililard DO Unavailable [phone] Lois Hathaway DO Unavailable [phone] Brisa Singletary MD Unavailable [phone] [facility] Primary [place] re Provider Wilian Hilliard DO Unavailable [phone] [facility] Oliver Unavailable Unavailable Vidhya Witt MD Unavailable Linda Cantu Unavailable Unavailable Wilian Hilliard DO Unavailable [phone] Vidhya Witt MD Unavailable No Ref-Primary, Physician Primary Care Provider Susie Turk APRN, CNP Unavailable [phone] Claudine Curtis MD Unavailable Encounter Details Date Type Department Care Team (Late st Contact Info) Description 11/15/2016 MyC Medical Advice [facility] [address] [place] [address] Gita Small, MEDICAL DONATION PROFESSIONAL [address] [place], [place] [phone] Social History Tobacco Use Types Packs/Day Years [...] AM CDT Legal Sex Female 3:29 AM QUALITY CONTROL PROJECTIONIST Gender Identity Female 09/03/2021 8:30 AM CDT Sexual Orientation Not on file documented as of this encounter Plan of Treatment Upcoming Encounters Date Type Department Care Team (Late st Contact Info) Description 02/14/2025 11:00 AM CDT Office Visit [address] [phone] Susie Turk, HEAD STOCK TRANSFER CLERK MOTOR LODGE CLERK [address] [place] [address] documented as of this encounter Visit Diagnoses Not on filedocumented in this encounter Additional Health Concerns Infection Onset Date Last Indicated Resolved Time 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 11/01/2011 11/01/2011 Rule Out COVID-19 06/14/2020 06/14/2020 06/14/2020 11:50 PM QUALITY CONTROL PROJECTIONIST Rule Out COVID-19 03/09/2022 03/09/2022 03/09/2022 6:39 AM QUALITY CONTROL PROJECTIONIST Rule Out COVID-19 04/09/2024 04/09/2024 04/10/2024 10:57 AM QUALITY CONTROL PROJECTIONIST documented as of this encounter Care Teams Business Coordinator Relationship Specialty Start Date End Date Gita Small, MEDICAL DONATION PROFESSIONAL PCP - General Nurse Practitioner - Family 11/14/16 02/21/18 Gita Small, MEDICAL DONATION PROFESSIONAL [address] [place] [address] PCP - Assigned PCP 11/20/16 06/26/18 No Ref-Primary, Physician PCP - General 10/25/19 08/25/20 [facility] [address] [place] [address] PCP - General 08/26/20 12/27/23 No Ref-Primary, Physician PCP - General 12/28/23 Gita Small, MEDICAL DONATION PROFESSIONAL [address] [place] [address] Assigned PCP 11/20/16 12/21/19 [place] [address] [place] [address] Assigned PCP 12/22/19 04/25/20 Kae Blankenship PATyroneC [address] [facility] 200 [place] [address] Assigned PCP 04/26/20 06/06/20 Crystal Alanis MD SURGICAL CONSULTS, JAYDEN Reyes [address] [facility] [address] [place], [place] [address] Assigned Surgical Provider 06/07/20 12/03/21 [place] [address] [place] [address] Assigned PCP 06/07/20 08/15/20 Lois Hathaway DO [address] [facility] [address] [place] [address] Assigned OBGYN Provider 07/19/20 01/18/22 [place] [address] [place] [address] Assigned PCP 08/16/20 03/27/21 [place] [address] [place] [address] Assigned PCP 03/28/21 12/03/21 [facility] Oliver Personal Advocate & Liaison (PAL) 09/14/21 05/26/22 [place] [address] [place] [address] Assigned PCP 12/04/21 03/17/23 Linda Cantu Personal Advocate & Liaison (PAL) Family Medicine 05/27/22 [place] [address] [place] [address] Assigned PCP 03/18/23 07/14/23 [place] [address] [place] [address] Assigned PCP 07/15/23 01/14/24 Susie Turk APRN MOTOR LODGE CLERK [address] [place], [place] [address]482 Assigned PCP 01/15/24 Claudine Curtis MD [address] [place], [place] [address] Assigned OBGYN Provider 04/15/24 documented as of this encounter
--- OUTSIDE RECORDS SUMMARY | 2024-05-18 01:26 | XMS_ITS | Encounter Summary ---
Author Organization [facility] Address [address] [place] [address] Care Team Providers Care Direct Mail Manager Name Role Phone No Ref-Primary, Physician Primary Care Provider Brisa Singletary MD Unavailable [phone] Kae Blankenship PA-C Unavailable [phone] Crystal Alanis MD Unavailable [phone] Wilian Hilliard DO Unavailable [phone] Lois Hathaway DO Unavailable [phone] Brisa Singletary MD Unavailable [phone] [facility] Primary Ca re Provider Wilian Hilliard DO Unavailable Jefferson Oliver Unavailable Unavailable Vidhya Witt MD Unavailable Linda Cantu Unavailable Unavailable Wilian Hilliard DO Unavailable [phone] Vidhya Witt MD Unavailable No Ref-Primary, Physician Primary Care Provider Susie Turk APRN ELECTRICIAN ELEVATOR MAINTENANCE Unavailable [phone] Claudine Curtis MD Unavailable [phone] Encounter Details Date Type Department Care Team (Late st Contact Info) Description 04/24/[address] [place] [address] Jun[place] [id number] [place] [address] Social History Tobacco Use Types Packs/Day Years [...] AM CDT Legal Sex Female 3:29 AM ENGINEER INTERN Gender Identity Female 09/03/2021 8:30 AM CDT Sexual Orientation Not on file COVID-19 Exposure Response Date Recorded In the last month, have you been in contact with someone who was confirmed or suspected to have Coronavirus / COVID-19? No / Unsure 04/22/2020 2:11 PM ENGINEER INTERN documented as of this encounter Plan of Treatment Upcoming Encounters Date Type Department Care Team ([facility] st Contact Info) Description 02/14/2025 11:00 AM CDT Office Visit [address] [phone] Susie Turk APRN [address] [address] documented as of this encounter Visit Diagnoses Not on filedocumented in this encounter Additional Health Concerns Infection Onset Date Last Indicated Resolved Time MRSA-Contact Isolation Comment:Skin 10-21-2011 11/01/2011 11/01/2011 Rule Out COVID-19 06/14/2020 06/14/2020 06/14/2020 11:50 PM ENGINEER INTERN Rule Out COVID-19 03/09/2022 03/09/2022 03/09/2022 6:39 AM ENGINEER INTERN Rule Out COVID04/09/2024 04/09/2024 04/10/2024 10:57 AM ENGINEER INTERN documented as of this encounter Care Teams Direct Mail Manager Relationship Specialty Start Date End Date No Ref-Primary, Physician PCP - General 10/25/19 08/25/20 [facility] [address] [place], [place] [id number] PCP - General 08/26/20 12/27/23 No Ref-Primary, Physician PCP - General 12/28/23 [place] [address] [place], [place] 7327[address] Assigned PCP 12/22/19 04/25/20 Kae Blankenship PA-C [address] [facility] 200 [place] [address] Assigned PCP 04/26/20 06/06/20 Crystal Alanis MD [facility] [address] [facility] [address] [place] [address] Assigned Surgical Provider 06/07/20 12/03/21 [place] [address] [place] [address] Assigned PCP 06/07/20 08/15/20 Lois Hathaway DO [address] [facility] [address] [place] [address] Assigned OBGYN Provider 07/19/20 [place] [address] [place] [address] Assigned PCP 08/16/20 03/27/21 [place] [address] [place] [address] Assigned PCP 03/28/21 12/03/21 Jefferson Oliver Personal Advocate & Liaison (PAL) 09/14/21 05/26/22 [place] [address] [place] [address] Assigned PCP 12/04/21 03/17/23 Linda Cantu Personal Advocate & Liaison (PAL) Family Medicine 05/27/22 [place] [address] [place] [address] Assigned PCP 03/18/23 07/14/23 [place] [address] [place] [address] Assigned PCP 07/15/23 01/14/24 Susie Turk APRN ELECTRICIAN ELEVATOR MAINTENANCE [address] [place] [address] Assigned PCP 01/15/24 Claudine Curtis MD [address] [facility] [place] [address] Assigned OBGYN Provider 04/15/24 documented as of this encounter
--- OUTSIDE RECORDS SUMMARY | 2024-05-18 01:26 | XMS_ITS | Clinical Summary ---
Author Organization [facility] Address [address] [place] [address] Care Team Providers Care Chief Enterprise Architect Name Role Phone Linda Cantu Unavailable Unavailable No Ref-Primary, Physician Primary Care Provider Susie Turk APRN SOAP DRIER TENDER Unavailable [phone] Claudine Curtis MD Unavailable [phone] Allergies Active Allergy Reactions Criticality Noted [...] (07/23/2020): Added automatically from request for surgery [id number] Encounter for sterilization 07/23/2020 Overview (07/24/2020): Added automatically from request for surgery [id number] Morbid obesity 06/01/2020 Anxiety 01/20/2016 Status post [...] Department Care Team Description 04/09/2024 11:45 AM OBSTETRICS TECHNICIAN Ancillary Procedure [address] [phone] Rebecca Flowers PA-C Wheezing; Acute cough; Upper respiratory tract infection, unspecified type 04/09/2024 11:30 AM OBSTETRICS TECHNICIAN Office Visit [address] [address] Rebecca Flowers PA-C Wheezing (Primary Dx); Acute cough; Upper respiratory tract infection, unspecified type 04/09/2024 Travel 03/26/2024 10:30 AM OBSTETRICS TECHNICIAN Office Visit [facility] [address] [facility] [address] [place] [address] Claudine Curtis MD Encounter for IUD removal (Primary Dx); Intrauterine contraceptive device threads lost, initial encounter 03/25/2024 MyC Medical Advice [facility] [address] [facility] [address] [place] [address] Claudine Curtis MD 03/25/2024 Travel from Last [...] How often do you attend chur or congregation services? 1 to 4 times per year 08/14/2020 Do you belong to any clubs o r organizations such as latter-day groups, unions, fraternal or athletic groups, or [...] Answer Date Recorded PHQ-2 Score 6 04/09/2024 [facility] - Occupational [...] place to sleep or slept in a assisted (including now)? No 08/14/2020 Adolescent Education Answer [...] AM CDT Legal Sex Female 3:29 AM OBSTETRICS TECHNICIAN Gender Identity Female 09/03/2021 8:30 AM CDT Sexual Orientation Not on file Last Filed Vital Signs Vital Sign Reading Time Taken Comments Blood Pressure 128/80 04/09/2024 11:20 AM OBSTETRICS TECHNICIAN Pulse 102 04/09/2024 11:20 AM OBSTETRICS TECHNICIAN Temperature 36.6 C (97.8 F) 04/09/2024 11:20 AM OBSTETRICS TECHNICIAN Respiratory Rate 20 04/09/2024 11:20 AM OBSTETRICS TECHNICIAN Oxygen Saturation 97% 04/09/2024 11:20 AM OBSTETRICS TECHNICIAN Inhaled Oxygen Concentration - - Weight 117 kg (258 lb) 04/09/2024 11:20 AM OBSTETRICS TECHNICIAN Height 161.3 cm (5' 3.5) 04/09/2024 11:20 AM CS T Body Mass Index 44.99 04/09/2024 11:20 AM OBSTETRICS TECHNICIAN Plan of Treatment Upcoming Encounters Date Type Department Care Team ([facility] st Contact Info) Description 02/14/2025 11:00 AM CDT Office Visit [address] [phone] Susie Turk APRN [address] [address] Health Maintenance Due Date Last Done Comments [...] this topic Medical Devices Implanted Type Area Biofuels Processing Technician Device Identifier Shelf Expiration Date Model / Serial / Lot Mesh Ventralex Hernia 3.2 [place] Lg W/Strap [id number] Implanted:Qty : 1 on 08/26/2020 by Crystal Alanis MD at [facility] Mesh N/A: Umbilical [employer]-DAVOL 03/21/2022 [id number] / / [id number] Procedures Procedure Name Priority Date/Time Associated Diagnosis Comments INFLUENZA A/B ANTIGEN Routine 04/09/2024 11:57 AM OBSTETRICS TECHNICIAN Wheezing Acute cough Upper respiratory tract infection, unspecified type COVID-19 VIRUS (CORONAVIRUS) BY PCR Routine 04/09/2024 11:56 AM OBSTETRICS TECHNICIAN Wheezing Acute cough Upper respiratory tract infection, unspecified type XR CHEST 2 VIEWS Routine 04/09/2024 11:5 3 AM OBSTETRICS TECHNICIAN Wheezing Acute cough Upper respiratory tract infection, unspecified type [place] REMOVE INTRAUTERINE DEVICE Routine 03/26/2024 10:59 AM OBSTETRICS TECHNICIAN Intrauterine contraceptive device threads lost, initial encounter [...] Antigen - Clinic Collect (04/09/2024 11:57 AM OBSTETRICS TECHNICIAN) Influenza A antigen Negative Negative 04/09/2024 12:16 PM OBSTETRICS TECHNICIAN [facility] Influenza B antigen Negative Negative 04/09/2024 12:16 PM OBSTETRICS TECHNICIAN [facility] Swab NASAL STRUCTURE / Unknown Non-blood Collection / Unknown 04/09/2024 11:57 AM OBSTETRICS TECHNICIAN 04/09/2024 11:57 AM OBSTETRICS TECHNICIAN Narrative [facility] - 04/09/2024 12:16 PM OBSTETRICS TECHNICIAN Test results must be correlated with clinical data. If necessary, results should be confirmed by a molecular assay or viral culture. Rebecca CARPENTER-C LAB - MICRO GENERAL ORDERABLE S Final Result [facility] [place] [facility] [address] [facility] Lab (no room number, 1st floor of clinic) [place] [address] * COVID-19 Virus (Coronavirus) by PCR Nose (04/09/2024 11:56 AM OBSTETRICS TECHNICIAN) SARS CoV2 PCR Negative Negative 04/10/2024 10:57 AM OBSTETRICS TECHNICIAN [facility] Comment:NEGATIVE: SARS-CoV-2 (COVID-19) RNA not detected, presumed negative. Swab NASAL STRUCTURE / Unknown Non-blood Collection / Unknown 04/09/2024 11:56 AM OBSTETRICS TECHNICIAN 04/09/2024 11:56 AM OBSTETRICS TECHNICIAN Narrative [facility] - 04/10/2024 10:57 AM OBSTETRICS TECHNICIAN Testing was performed using the ayla SARS-CoV-2 [...] COVID-19. This test was validated by the [facility] Infectious Diseases Diagnostic Laboratory. This laboratory is certified under the Clinical Laboratory Improvement Amendments of 1988 (CLIA-88) as qualified to perform high and/or moderate complexity laboratory testing. Rebecca SOLOMONC LAB - MICRO GENERAL ORDERABLE S Final Result [facility] Inf. Diseases Diag. Lab [address] [facility], [address] [place] [address], [facility] * XR Chest 2 Views (04/09/2024 11:53 AM OBSTETRICS TECHNICIAN) Anatomical Region Laterality Modality Chest Computed Radiogr aphy Impressions 04/09/2024 2:00 PM OBSTETRICS TECHNICIAN IMPRESSION: There are no acute infiltrates. The cardiac silhouette is not enlarged. Pulmonary vasculature is unremarkable. JENNIFER GARCÍA MD SYSTEM ID: [id number] Narrative 04/09/2024 2:00 PM OBSTETRICS TECHNICIAN CHEST TWO VIEWS 04/09/2024 11:53 AM HISTORY: [...] is unremarkable. JENNIFER GARCÍA MD SYSTEM ID: [id number] Rebecca Flowers PA-C IM DIAGNOSTIC IMAGING ORDERA [...] for high risk HPV DNA. METHODOLOGY: The [employer] system uses automated extraction, simultaneous amplification of [...] 02/15/2024 10:22 AM CDT Susie Turk APRN SOAP DRIER TENDER LAB - BLOOD ORDERABLES Final Result Performing Organization Address City/[facility]/ZIP Co de Phone Number SPECIALTY LABS Specialty Lab [address] [facility], [address] [address], [facility] MOLECULAR DIAGNOSTICS Molecular Diagnostics [address] [facility], [address] [address] * Hepatitis C Screen Reflex to HCV [...] 12/28/2023 10:12 AM CDT Susie Turk APRN SOAP DRIER TENDER LAB - BLOOD ORDERABLES Final Result LABORATORY [facility] [place] [facility] Lab [address] [facility], [address] [phone] * Comprehensive metabolic panel (BMP + Alb, [...] 12/28/2023 10:12 AM CDT us Susie Chingxl AG SERVICE MANAGER SOAP DRIER TENDER LAB - BLOOD ORDERABLES Final Result [facility] Core Lab [address] [facility] [address], [address] [place] [address] * HIV Antigen Antibody Combo (02/07/2014) HIV Antigen Antibody Combo Non Reactive Blood specimen (specimen) us Patient Reported LAB - BLOOD ORDERABLES Final Re sult from Last 3 Months or Most Recently Relevant to Health Maintenance Additional Health Concerns Infection Onset Date Last Indicated 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 11/01/2011 11/01/2011 [place] [address] Refresh Body ADVANTAGE [place] BLUE PLUS ADVANTAGE [place] Care Teams Chief Enterprise Architect Relationship Specialty Start Date End Date No Ref-Primary, Physician PCP - General 12/28/23 Linda Cantu Personal Advocate & Liaison (PAL) Family Medicine 05/27/22 Susie Turk APRN SOAP DRIER TENDER [address] [place] [address] Assigned PCP 01/15/24 Claudine Curtis MD [facility] [place] [address] Assigned OBGYN Provider 04/15/24
--- OUTSIDE RECORDS SUMMARY | 2024-05-18 01:26 | XMS_ITS | Encounter Summary ---
Author Organization [facility] Address [address] [place] [address] Care Team Providers Care Inventory Management Specialist Name Role Phone Clinic - [facility] Primary Ca re Provider Jefferson Oliver Unavailable Unavailable Vidhya Witt MD Unavailable Linda Cantu Unavailable Unavailable Wilian Hilliard DO Unavailable [phone] Vidhya Witt MD Unavailable No Ref-Primary, Physician Primary Care Provider Susie Turk APRN CARDIAC NURSE PRACTITIONER Unavailable [phone] Claudine Curtis MD Unavailable [phone] Encounter Details Date Type Department Care Team (Late st Contact Info) Description 03/25/2022 MyC Medical Advice [facility] Services - Behavioral Service Line [address] [place] [phone] Claudine Schilling Social History Tobacco Use [...] often do you attend chur ch or latter day services? 1 to 4 times per year 08/14/2020 Do you belong to any clubs o r organizations such as hinduism groups, unions, fraternal or athletic groups, or [...] Answer Date Recorded PHQ-2 Score 2 03/28/[address] [facility] - Occupational Stress Questionnaire Answer Date [...] place to sleep or slept in a senior care (including now)? No 08/14/2020 Education Answer Date Recorded What is the highest level of school you have completed or the highest degree you have received? Associate degree: occupational, technical, or vocational program 08/14/2020 Comments No Sex and Gender Information Value Date Recorded Sex Assigned at Female 09/03/2021 8:30 AM CDT Legal Sex Female 3:29 AM MEDICAL LANGUAGE SPECIALIST Gender Identity Female 09/03/2021 8:30 AM CDT Sexual Orientation Not on file COVID-19 Exposure Response Date Recorded In the last 10 days, have yo u been in contact with someone who was confirmed or suspected to have Coronavirus/COVID-19? No / Unsure 03/09/2022 3:29 AM MEDICAL LANGUAGE SPECIALIST documented as of this encounter Plan of Treatment Upcoming Encounters Date Type Department Care Team (Late st Contact Info) Description 02/14/2025 11:00 AM CDT Office Visit [address] [place] [phone] Susie Turk APRN [address] [address] documented as of this encounter Visit Diagnoses Not on filedocumented in this encounter Additional Health Concerns Infection Onset Date Last Indicated Resolved Time 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 11/01/2011 11/01/2011 Rule Out COVID-19 04/09/2024 04/09/2024 04/10/2024 10:57 AM MEDICAL LANGUAGE SPECIALIST Assessment Noted Time PHQ-9 Depression Total Score: 16 022 1:17 PM CDT documented as of this encounter Care Teams Inventory Management Specialist Relationship Specialty Start Date End Date Clinic - [facility] [address] [place] [address] PCP - General 08/26/20 12/27/23 No Ref-Primary, Physician PCP - General 12/28/23 Jefferson Oliver Personal Advocate & Liaison (PAL) 09/14/21 05/26/22 [place] [address] [place] [address] Assigned PCP 12/04/21 03/17/23 Linda Cantu Personal Advocate & Liaison (PAL) Family Medicine 05/27/22 [place] [address] [place] [address] Assigned PCP 03/18/23 07/14/23 [place] [address] [place] [address] Assigned PCP 07/15/23 01/14/24 Susie Turk APRN [facility] [address] [place] [address] Assigned PCP 01/15/24 Claudine Curtis MD [address] [place] [address] Assigned OBGYN Provider 04/15/24 documented as of this encounter
--- OUTSIDE RECORDS SUMMARY | 2024-05-18 01:26 | XMS_ITS | Encounter Summary ---
Author Organization [facility] Address [address] [place] [address] Care Team Providers Care Train Control Technician Name Role Phone Gita Small BUTTON CUTTING MACHINE OPERATOR Primary Care Provider [phone] Gita Small BUTTON CUTTING MACHINE OPERATOR Unavailable [phone] Gita Small BUTTON CUTTING MACHINE OPERATOR Unavailable [phone] No Ref-Primary, Physician Primary Care Provider Brisa Singletary MD Unavailable [phone] Kae Blankenship PA-C Unavailable [phone] Crystal Alanis MD Unavailable [phone] Wilian Hilliard DO Unavailable [phone] Lois Hathaway DO Unavailable [phone] Brisa Singletary MD Unavailable [phone] [facility] Primary Vt re Provider Wilian Hilliard DO Unavailable [phone] Jefferson Oliver Unavailable Unavailable Vidhya [place] MD Unavailable Linda Cantu Unavailable Unavailable Wilian Hilliard DO Unavailable [phone] Vidhya Witt MD Unavailable No Ref-Primary, Physician Primary Care Provider Susie Turk APRN, CNP Unavailable Claudine Curtis MD Unavailable [phone] Reason for Referral * Consultation - Closed Specialty Diagnoses / Procedures Referred By Raúl parsons Referred To Contact Diagnoses Acute pain of right knee Gita Small NP Phone: tel: fax: [facility] [address] [facility] [address] [place] [address] Phone: tel: fax: Referral ID Status Reason Start Date Expiration Date Visits Re quested Visits Authorized [id number] Closed 11/16/2016 11/16/2017 1 1 Comments Your provider has referred you to: FMG: [facility] [email or web address]/ Please be aware that coverage of these services is subject to the terms and limitations of your health insurance plan. Call member services at your health plan with any benefit or coverage questions. Please bring the following to your appointment: >> Any x-rays, CTs or MRIs which have been performed. Contact the facility where they were done to arrange for cook pickled meat prior to your scheduled appointment. >> List of current medications >> This referral request >> Any documents/labs given to you for this referral Reason for Visit * Reason Onset Date Comments MyChart Communication 11/15/2016 Encounter Details Date Type Department Care Team (Late st Contact Info) Description 11/15/2016 MyC Medical Advice M [address] [address] [facility] & [address] [place] [address] MyChart Communication Social History Tobacco Use [...] AM CDT Legal Sex Female 3:29 AM VOYAGE MANAGEMENT SYSTEM OPERATOR Gender Identity Female 09/03/2021 8:30 AM [...] Description 02/14/2025 11:00 AM CDT Office Visit [address] [address] Susie Turk APRN [address] [address] Scheduled Referrals Name Type Priority Associated Diagnoses [...] Out COVID-19 06/14/2020 06/14/2020 06/14/2020 11:50 PM VOYAGE MANAGEMENT SYSTEM OPERATOR Rule Out COVID-19 03/09/2022 03/09/2022 03/09/2022 6:39 AM VOYAGE MANAGEMENT SYSTEM OPERATOR Rule Out COVID-19 04/09/2024 04/09/2024 04/10/2024 10:57 AM VOYAGE MANAGEMENT SYSTEM OPERATOR documented as of this encounter Care Teams Train Control Technician Relationship Specialty Start Date End Date Gita Small BUTTON CUTTING MACHINE OPERATOR PCP - General Nurse Practitioner - Family 11/14/16 02/21/18 Gita Small, BUTTON CUTTING MACHINE OPERATOR [facility] [address] [place] [address] PCP - Assigned PCP 11/20/16 06/26/18 No Ref-Primary, Physician PCP - General 10/25/19 08/25/20 [facility] [address] [place] [address] PCP - General 08/26/20 12/27/23 No Ref-Primary, Physician PCP - General 12/28/23 Gita Small, BUTTON CUTTING MACHINE OPERATOR [facility] [address] [place] [address] Assigned PCP 11/20/16 12/21/19 [place] [address] [place] [address] Assigned PCP 12/22/19 04/25/20 Kae Blankenship PA-C [address] [facility] [address] [place] [address] Assigned PCP 04/26/20 06/06/20 Crystal Alanis MD SURGICAL CONSULTS, [address] [facility] [address] [place] [address] Assigned Surgical Provider 06/07/20 12/03/21 [place] [address] [place] [address] Assigned PCP 06/07/20 08/15/20 Lois Hathaway DO [address] [facility] [address] [place] [address] Assigned OBGYN Provider 07/19/20 01/18/22 [place] [address] [place] [address] Assigned PCP 08/16/20 03/27/21 [place] [address] [place] [address] Assigned PCP 03/28/21 12/03/21 Jefferson Oliver Personal Advocate & Liaison (PAL) 09/14/21 05/26/22 [place] [address] [place] [address] Assigned PCP 12/04/21 03/17/23 Linda Cantu Personal Advocate & Liaison (PAL) Family Medicine 05/27/22 [place] [address] [place] [address] Assigned PCP 03/18/23 07/14/23 [place] [address] [place] [address] Assigned PCP 07/15/23 01/14/24 Susie Turk APRN RN W[facility] [address] [place] [address] Assigned PCP 01/15/24 Claudine Curtis MD [address] [place] [address] Assigned OBGYN Provider 04/15/24 documented as of this encounter
--- OUTSIDE RECORDS SUMMARY | 2024-05-18 01:26 | XMS_ITS | Clinical Summary ---
Author Organization [facility] Address [address] [place] [address] Care Team Providers Care Collector Name Role Phone Pcp, Pt Sumi GRACIA Primary Care Provider [phone] Source Comments You are receiving this document as you are listed as the primary care provider,follow-up provider, or the patient has been referred to you for consultation.This is in compliance with the Medicare andDet[facility] Hospitalcaid EHR Incentive Program,which states Providers who transition their patient to another setting of careor provider of care or refers their patient to another provider of care shouldprovide summary care record for each transition of care or referral. [facility] Allergies No known active allergies Medications Medication Sig Dispensed Refills Start Date End Date Status Gulgxhke-Eui-Rb-FA (/IRON OR) Take by mouth daily (every [...] Dates Next Due Influenza IIV4 (Quadrivalent) 0.5mL (21762) 02/22 TDAP (BOOSTRIX) 06/17/2014 Family History Medical [...] Comments Blood Pressure 151/125 04/19/2022 12:24 PM REGISTERED NURSE FIRST ASSISTANT Pulse 91 04/19/2022 12:24 PM REGISTERED NURSE FIRST ASSISTANT Temperature 36.6 C (97.8 F) 04/19/2022 12:24 PM REGISTERED NURSE FIRST ASSISTANT Respiratory Rate 18 04/19/2022 12:2 4 PM REGISTERED NURSE FIRST ASSISTANT Oxygen Saturation 98% 04/19/2022 12: 24 PM REGISTERED NURSE FIRST ASSISTANT Inhaled Oxygen Concentration - - Weight 102.9 [...] Grimes APRN, CNP LAB_1 Performing Organization Address [facility] de Phone Number HP CONVERSION * Pap Smear (02/07/2014 11:01 AM CDT) 02/07/2014 11:0 1 AM CDT Narrative HP CONVERSION - 02/25/2014 9:58 AM REGISTERED NURSE FIRST ASSISTANT FINAL GYNECOLOGICAL CYTOLOGY REPORT Pathology #: [id number] Date Obtained: 02/07/2014 Date Received: 02/10/2014 INTERPRETATION/RESULTS: [...] Grimes APRN, CNP LAB_1 Performing Organization Address [facility] Co de Phone Number HP CONVERSION from Last 3 Months or Most Recently Relevant to Health Maintenance Care Teams Collector Relationship Specialty Start Date End Date Pcp, [place] [address] PCP - General 03/11/14
--- OUTSIDE RECORDS SUMMARY | 2024-05-18 01:26 | XMS_ITS | Encounter Summary ---
Author Organization [facility] Address [address] [place] [address] Care Team Providers Care Cheese Packer Name Role Phone Linda Cantu Unavailable Unavailable No Ref-Primary, Physician Primary Care Provider Susie Turk GAS MASK ASSEMBLER [employer]URITY S[employer] Unavailable [phone] Reason for Visit * Diagnostic Imaging XR (Routine) - Pending Review Specialty Diagnoses / Procedures Referred By Raúl t Referred To Contact Radiology. Diagnoses Wheezing Acute cough Upper respiratory tract infection, unspecified type Procedures XR Chest 2 Views Rebecca Flowers PA-C [address] [place] [address] Phone: tel: fax: Referral ID Status Reason Start Date Expiration Date V isits Requested Visits Authorized [id number] Pending Review 04/09/2024 04/09/2025 1 1 Encounter Details Date Type Department Care Team (Late st Contact Info) Description 04/09/2024 11:45 AM CONSUMER LOAN OFFICER Ancillary Procedure [address] [place] [phone] Rebecca Flowers PA-C [address] [place] [address] [phone] Wheezing; Acute cough; Upper respiratory tract infection, [...] How often do you attend chur or scientology services? 1 to 4 times per year 08/14/2020 Do you belong to any clubs o r organizations such as taoist groups, unions, fraternal or athletic groups, or [...] Answer Date Recorded PHQ-2 Score 6 04/09/2024 [facility] Occupat ional Health - Occupational Stress [...] place to sleep or slept in a residential (including now)? No 08/14/2020 Adolescent Education Answer [...] AM CDT Legal Sex Female 3:29 AM CONSUMER LOAN OFFICER Gender Identity Female 09/03/2021 8:30 AM CDT Sexual Orientation Not on file documented as of this encounter Plan of Treatment Upcoming Encounters Date Type Department Care Team (Late st Contact Info) Description 02/14/2025 11:00 AM CDT Office Visit [facility] [address] [place] [phone] Susie Turk, FR[facility]Y [facility] [address] [place] [address] documented as of this encounter Procedures Procedure Name Priority Date/Time Associated Diagnosis Comments XR CHEST 2 VIEWS Routine 04/09/2024 11:5 3 AM CONSUMER LOAN OFFICER Wheezing Acute cough Upper respiratory tract infection, unspecified type documented in this encounter Results * XR Chest 2 Views (04/09/2024 11:53 AM CONSUMER LOAN OFFICER) Anatomical Region Laterality Modality Chest Computed Radiogr aphy Impressions 04/09/2024 2:00 PM CONSUMER LOAN OFFICER IMPRESSION: There are no acute infiltrates. The cardiac silhouette is not enlarged. Pulmonary vasculature is unremarkable. JENNIFER GARCÍA MD SYSTEM ID: [id number] Narrative 04/09/2024 2:00 PM CONSUMER LOAN OFFICER CHEST TWO VIEWS 04/09/2024 11:53 AM HISTORY: [...] is unremarkable. JENNIFER GARCÍA MD SYSTEM ID: [id number] Rebecca Flowers PA-C IMG DIAGNOSTIC IMAGING ORDERA BLES Final Result documented in this encounter Visit Diagnoses Diagnosis Wheezing Acute cough Upper respiratory tract infection, unspecified type documented in this encounter Additional Health Concerns Infection Onset Date Last Indicated Resolved Time 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 11/01/2011 11/01/2011 Rule Out COVID-19 04/09/2024 04/09/2024 04/10/2024 10:57 AM CONSUMER LOAN OFFICER Assessment Noted Time PHQ-9 Depression Total Score: 22 04/09/ 024 10:54 AM CONSUMER LOAN OFFICER documented as of this encounter Care Teams Cheese Packer Relationship Specialty Start Date End Date No Ref-Primary, Physician PCP - General 12/28/23 Linda Cantu Personal Advocate & Liaison (PAL) Family Medicine 05/27/22 Susie Turk, FRANDY [employer] [address] [place] [address] Assigned PCP 01/15/24 documented as of this encounter
--- OUTSIDE RECORDS SUMMARY | 2024-05-18 01:26 | XMS_ITS | Clinical Summary ---
Author Organization [facility] Address [place], [place] [address] Care Team Providers Care Acid Operator Name Role Phone Michelle Turner MD Primary [...] age 21-65 10/24/2017 5 (Completed outside of [facility]) COVID-19 vaccine series (2023- season) 2023 Influenza for age 9-49 12/24/2023 01/20/2016 Tetanus booster 06/17/2024 06/17/2014 Tdap Completed 06/17/2014 Pneumococcal series for age 6-49 Aged Out No longer eligible based on patient's age to complete this topic Care Teams Acid Operator Relationship Specialty Start Date End Date Michelle Turner MD PCP - General Family Practice 10/13/14
--- OUTSIDE RECORDS SUMMARY | 2024-05-18 01:27 | XMS_ITS | Encounter Summary ---
Author Organization [facility] Address [address] [place] [address]. [place] [address] Care Team Providers Care Dry Heat Cabinet Attendant Name Role Phone [facility] Primary Ca re Provider Jefferson Oliver Unavailable Unavailable Vidhya Witt MD Unavailable Linda Cantu Unavailable Unavailable Wilian Hilliard DO Unavailable [phone] Vidhya Witt MD Unavailable No Ref-Primary, Physician Primary Care Provider Susie Turk APRN [facility] Unavailable [phone] Claudine Curtis MD Unavailable [phone] Reason for Visit * Reason Onset Date Comments MyChart Communication 04/05/2022 Encounter Details Date Type Department Care Team (Latest Contact Info) Description 04/05/2022 MyC Medical Advice [facility] [address] [place] [address] [place] [address] [place] [address] MyChart Communication Social History Tobacco [...] often do you attend chur ch or yarsani services? 1 to 4 times per year 08/14/2020 Do you belong to any clubs o r organizations such as oriental orthodox groups, unions, fraternal or athletic groups, or [...] Answer Date Recorded PHQ-2 Score 2 03/28/2022 [facility] - Occupational Stress Questionnaire Answer Date [...] in a residential (including now)? No 08/14/2020 Education Answer Date Recorded What is the highest level of school you have completed or the highest degree you have received? Associate degree: occupational, technical, or vocational program 08/14/2020 Comments No Sex and Gender Information Value Date Recorded Sex Assigned at Female 09/03/2021 8:30 AM CDT Legal Sex Female 3:29 AM LINDERMAN MACHINE OPERATOR Gender Identity Female 09/03/2021 8:30 AM CDT Sexual Orientation Not on file COVID-19 Exposure Response Date Recorded In the last 10 days, have yo u been in contact with someone who was confirmed or suspected to have Coronavirus/COVID-19? No / Unsure 03/09/2022 3:29 AM LINDERMAN MACHINE OPERATOR documented as of this encounter Plan of Treatment Upcoming Encounters Date Type Department Care Team (Late st Contact Info) Description 02/14/2025 11:00 AM CDT Office Visit [address] [place] [phone] Susie Turk APRN [address] [address] documented as of this encounter Visit Diagnoses Not on filedocumented in this encounter Additional Health Concerns Infection Onset Date Last Indicated Resolved Time MRSA-Contact Isolation Comment:Skin - 10-20-201111/01/2011 11/01/2011 Rule Out COVID-19 04/09/2024 04/09/2024 04/10/2024 10:57 AM LINDERMAN MACHINE OPERATOR Assessment Noted Time PHQ-9 Depression Total Score: 16 022 6:47 AM LINDERMAN MACHINE OPERATOR documented as of this encounter Care Teams Dry Heat Cabinet Attendant Relationship Specialty Start Date End Date Clinic - [facility] [id number] [place] [address] PCP - General 08/26/20 12/27/23 No Ref-Primary, Physician PCP - General 12/28/23 Jefferson Oliver Personal Advocate & Liaison (PAL) 09/14/21 05/26/22 [place] [address] [place] [address] Assigned PCP 12/04/21 03/17/23 Linda Cantu Personal Advocate & Liaison (PAL) Family Medicine 05/27/22 [place] [address] [place] [address] Assigned PCP 03/18/23 07/14/23 [place] [address] [place] [address] Assigned PCP 07/15/23 01/14/24 Susie Turk APRN MANAGER WEB APPLICATION [address] [place] [address] Assigned PCP 01/15/24 Claudine Curtis MD [address] [place] [address] Assigned OBGYN Provider 04/15/24 documented as of this encounter
--- OUTSIDE RECORDS SUMMARY | 2024-05-18 01:27 | XMS_ITS | Encounter Summary ---
Author Organization [facility] Address [address] [place] [address] Care Team Providers Care Receptionist Telephone Operator Name Role Phone Linda Cantu Unavailable Unavailable No Ref-Primary, Physician Primary Care Provider Susie Turk CIVIL CAD TECH CONSULTANT INTERN Unavailable [phone] Reason for Referral * Diagnostic Imaging XR (Routine) - Pending Review Specialty Diagnoses / Procedures Referred By Raúl t Referred To Contact Radiology. Diagnoses Wheezing Acute cough Upper respiratory tract infection, unspecified type Procedures XR Chest 2 Views Rebecca Flowers PA-C [address] [place] [address] Phone: tel: fax: Referral ID Status Reason Start Date Expiration Date V isits Requested Visits Authorized [id number] Pending Review 04/09/2024 04/09/2025 1 1 OR MANAGER ASSET PROTECTION Reason for Visit * Reason Comments Cough Encounter Details Date Type Department Care Team (Late st Contact Info) Description 04/09/2024 11:30 AM SENIOR MANAGER ASSET PROTECTION Office Visit [address] [place] [phone] Rebecca Flowers PA-C [address] [place] [address] [phone] Wheezing (Primary Dx); Acute cough; Upper respiratory [...] How often do you attend chur or pentecostalism services? 1 to 4 times per year 08/14/2020 Do you belong to any clubs o r organizations such as amish groups, unions, fraternal or athletic groups, or [...] Answer Date Recorded PHQ-2 Score 6 04/09/2024 [facility] of Occupat ional Health - Occupational Stress [...] in a snf (including now)? No 08/14/2020 Adolescent Education Answer [...] AM CDT Legal Sex Female 3:29 AM SENIOR MANAGER ASSET PROTECTION Gender Identity Female 09/03/2021 8:30 AM CDT Sexual Orientation Not on file documented as of this encounter Last Filed Vital Signs Vital Sign Reading Time Taken Comments Blood Pressure 128/80 04/09/2024 11:20 AM SENIOR MANAGER ASSET PROTECTION Pulse 102 04/09/2024 11:20 AM SENIOR MANAGER ASSET PROTECTION Temperature 36.6 C (97.8 F) 04/09/2024 11:20 AM SENIOR MANAGER ASSET PROTECTION Respiratory Rate 20 04/09/2024 11:20 AM SENIOR MANAGER ASSET PROTECTION Oxygen Saturation 97% 04/09/2024 11:20 AM SENIOR MANAGER ASSET PROTECTION Inhaled Oxygen Concentration - - Weight 117 kg (258 lb) 04/09/2024 11:20 AM SENIOR MANAGER ASSET PROTECTION Height 161.3 cm (5' 3.5) 04/09/2024 11:20 AM CS T Body Mass Index 44.99 04/09/2024 11:20 AM SENIOR MANAGER ASSET PROTECTION documented in this encounter Progress Notes * [...] to seek emergency care were discussed. Rebecca Flowers PA-C BMI Estimated body mass index is [...] report. Signed Electronically by: Rebecca Flowers PA-C OR MANAGER ASSET PROTECTION documented in this encounter Plan of Treatment Upcoming Encounters Date Type Department Care Team (Late st Contact Info) Description 02/14/2025 11:00 AM CDT Office Visit [address] [phone] Susie Turk APRN [address] [id number] documented as of this encounter Procedures Procedure Name Priority Date/Time Associated Diagnosis Comments INFLUENZA A/B ANTIGEN Routine 04/09/2024 11:57 AM SENIOR MANAGER ASSET PROTECTION Wheezing Acute cough Upper respiratory tract infection, unspecified type COVID-19 VIRUS (CORONAVIRUS) BY PCR Routine 04/09/2024 11:56 AM SENIOR MANAGER ASSET PROTECTION Wheezing Acute cough Upper respiratory tract infection, unspecified type documented in this encounter Results * Influenza A & B Antigen - Clinic Collect (04/09/2024 11:57 AM SENIOR MANAGER ASSET PROTECTION) Influenza A antigen Negative Negative 04/09/2024 12:16 PM SENIOR MANAGER ASSET PROTECTION [facility] Influenza B antigen Negative Negative 04/09/2024 12:16 PM SENIOR MANAGER ASSET PROTECTION [facility] Swab NASAL STRUCTURE / Unknown Non-blood Collection / Unknown 04/09/2024 11:57 AM SENIOR MANAGER ASSET PROTECTION 04/09/2024 11:57 AM SENIOR MANAGER ASSET PROTECTION Narrative [facility] - 04/09/2024 12:16 PM SENIOR MANAGER ASSET PROTECTION Test results must be correlated with clinical data. If necessary, results should be confirmed by a molecular assay or viral culture. Rebecca Flowers PA-C LAB - MICRO GENERAL ORDERABLE S Final Result [facility] [address] [place] [address] Lab (no room number, 1st floor of clinic) [place] [id number] * COVID-19 Virus (Coronavirus) by PCR Nose (04/09/2024 11:56 AM SENIOR MANAGER ASSET PROTECTION) SARS CoV2 PCR Negative Negative 04/10/2024 10:57 AM SENIOR MANAGER ASSET PROTECTION [facility] Comment:NEGATIVE: SARS-CoV-2 (COVID-19) RNA not detected, presumed negative. Swab NASAL STRUCTURE / Unknown Non-blood Collection / Unknown 04/09/2024 11:56 AM SENIOR MANAGER ASSET PROTECTION 04/09/2024 11:56 AM SENIOR MANAGER ASSET PROTECTION Narrative [facility] - 04/10/2024 10:57 AM SENIOR MANAGER ASSET PROTECTION Testing was performed using the ayla SARS-CoV-2 assay on the ayla SmartFocus0 System. This test should be ordered for [...] COVID-19. This test was validated by the [facility]. This laboratory is certified under the Clinical Laboratory Improvement Amendments of 1988 (CLIA-88) as qualified to perform high and/or moderate complexity laboratory testing. Rebecca Flowers PA-C LAB - MICRO GENERAL ORDERABLE S Final Result [facility] Inf. Diseases Diag. Lab [address] [facility], [address] [place] [phone], [facility] * XR Chest 2 Views (04/09/2024 11:53 AM SENIOR MANAGER ASSET PROTECTION) Anatomical Region Laterality Modality Chest Computed Radiogr aphy Impressions 04/09/2024 2:00 PM SENIOR MANAGER ASSET PROTECTION IMPRESSION: There are no acute infiltrates. The cardiac silhouette is not enlarged. Pulmonary vasculature is unremarkable. JENNIFER GARCÍA MD SYSTEM ID: [id number] Narrative 04/09/2024 2:00 PM SENIOR MANAGER ASSET PROTECTION CHEST TWO VIEWS 04/09/2024 11:53 AM HISTORY: [...] is unremarkable. JENNIFER GARCÍA MD SYSTEM ID: [id number] us Rebecca Flowers PA-C IMG DIAGNOSTIC IMAGING [...] Out COVID-19 04/09/2024 04/09/2024 04/10/2024 10:57 AM SENIOR MANAGER ASSET PROTECTION Assessment Noted Time PHQ-9 Depression Total Score: 22 024 10:54 AM SENIOR MANAGER ASSET PROTECTION documented as of this encounter Care Teams Receptionist Telephone Operator Relationship Specialty Start Date End Date No Ref-Primary, Physician PCP - General 12/28/23 Linda Cantu Personal Advocate & Liaison (PAL) Family Medicine 05/27/22 Susie Turk APRN CONSULTANT INTERN [address] [place] [address] Assigned PCP 01/15/24 documented as of this encounter
--- OUTSIDE RECORDS SUMMARY | 2024-05-18 01:27 | XMS_ITS | Encounter Summary ---
Author Organization [facility] Address [address] [place] [address]. [place] [address] Care Team Providers Care Career Law Clerk Name Role Phone Linda Cantu Unavailable Unavailable No Ref-Primary, Physician Primary Care Provider Susie Turk APRN LAWYERS Unavailable [phone] Claudine Curtis MD Unavailable [phone] Encounter Details Date Type Department Care Team (Late st Contact Info) Description 03/25/2024 MyC Medical Advice [facility] [address] [place] [address] Claudine Curtis MD [address] [place] [address] Social History Tobacco Use Types Packs/Day Years [...] week 08/14/2020 How often do you attend [facility] or christian services? 1 to 4 times per year 08/14/2020 Do you belong to any clubs o r organizations such as baptism groups, unions, fraternal or athletic groups, or [...] Answer Date Recorded PHQ-2 Score 3 02/15/2024 [facility] Occupat ional [facility] - Occupational Stress Questionnaire Answer Date [...] place to sleep or slept in a halfway (including now)? No 08/14/2020 Adolescent Education Answer [...] AM CDT Legal Sex Female 3:29 AM FINISHING MANAGER Gender Identity Female 09/03/2021 8:30 AM CDT Sexual Orientation Not on file documented as of this encounter Plan of Treatment Upcoming Encounters Date Type Department Care Team ([facility] st Contact Info) Description 02/14/2025 11:00 AM CDT Office Visit [address] [place] [phone] Susie Turk APRN [address] [address] documented as of this encounter Visit Diagnoses Not on filedocumented in this encounter Additional Health Concerns Infection Onset Date Last Indicated Resolved Time 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 11/01/2011 11/01/2011 Rule Out COVID-19 04/09/2024 04/09/2024 04/10/2024 10:57 AM FINISHING MANAGER Assessment Noted Time PHQ-9 Depression Total Score: 9 02/15/20 7:18 AM CDT documented as of this encounter Care Teams Career Law Clerk Relationship Specialty Start Date End Date No Ref-Primary, Physician PCP - General 12/28/23 Linda Cantu Personal Advocate & Liaison (PAL) Family Medicine 05/27/22 Susie Turk APRN LAW[employer]ERS [address] [place] [address] Assigned PCP 01/15/24 Claudine Curtis MD [address] [facility] [place] [address] Assigned OBGYN Provider 04/15/24 documented as of this encounter
[2024-05-18 01:28] VITALS: BP 172/84; PULSE 78; RESP 18; TEMP 36.9
[2024-05-18 01:29] VITALS: BP 165/81; PULSE 74; RESP 18; TEMP 36.9; O2SAT 99
== END 2024-05-18 01:29 | disposition home or self-care (01) ==
LOC: ED 01:25
PROVIDERS: Emergency Provider Family Medicine
DX: M54.16 Radiculopathy, lumbar region (principal)
CPT/HCPCS: 99283; 99284

== ENCOUNTER 2024-05-23 18:06 | Emergency (ER) | payer BC, SELFPAY ==
--- OUTSIDE RECORDS SUMMARY | 2024-05-23 18:08 | XMS_ITS | Encounter Summary ---
Author Organization [facility] Address [address] [place] [address] Care Team Providers Care Cloth Printer Helper Name Role Phone Clinic - [facility] Primary Ca re Provider Jefferson Oliver Unavailable Unavailable Vidhya Witt MD Unavailable Linda Cantu Unavailable Unavailable Wilian Hilliard DO Unavailable [phone] Vidhya Witt MD Unavailable No Ref-Primary, Physician Primary Care Provider Susie Turk APRN GRAVITY PROSPECTING OBSERVER HELPER Unavailable Claudine Curtis MD Unavailable [phone] Shaniqua Hernandez APRN GRAVITY PROSPECTING OBSERVER HELPER Primary Care Prov ider Reason for Visit * Reason Onset Date Comments MyChart Communication 04/05/2022 Encounter Details Date Type Department Care Team (Latest Contact Info) Description 04/05/2022 MyC Medical Advice [facility] [address] [place] [address] [place] [address] [place] [address] MyChart Communication Social History Tobacco [...] How often do you attend chur or sabianism services? 1 to 4 times per year 08/14/2020 Do you belong to any clubs o r organizations such as rastafari groups, unions, fraternal or athletic groups, or [...] Answer Date Recorded PHQ-2 Score 2 03/28/2022 [facility] of Occupat ional Health - Occupational Stress [...] place to sleep or slept in a custodial (including now)? No 08/14/2020 Education Answer Date Recorded What is the highest level of school you have completed or the highest degree you have received? Associate degree: occupational, technical, or vocational program 08/14/2020 Comments No Sex and Gender Information Value Date Recorded Sex Assigned at Female 09/03/2021 8:30 AM CDT Legal Sex Female 3:29 AM BROADCAST METEOROLOGIST Gender Identity Female 09/03/2021 8:30 AM CDT Sexual Orientation Not on file COVID-19 Exposure Response Date Recorded In the last 10 days, have yo u been in contact with someone who was confirmed or suspected to have Coronavirus/COVID-19? No / Unsure 03/09/2022 3:29 AM BROADCAST METEOROLOGIST documented as of this encounter Plan of Treatment Upcoming Encounters Date Type Department Care Team (Late st Contact Info) Description 06/01/2024 10:30 AM BROADCAST METEOROLOGIST Appointment [place] [facility] [address] [facility] [address] [place] [phone] Shaniqua Hernandez, FINISHED HARDWARE ERECTOR GRAVITY PROSPECTING OBSERVER HELPER [address] [place] [address] [phone] 02/14/2025 11:00 AM CDT Office Visit [address] [phone] Susie Turk APRN GRAVITY PROSPECTING OBSERVER HELPER [address] [place] [address] [phone] documented as of this encounter Visit Diagnoses Not on filedocumented in this encounter Additional Health Concerns Infection Onset Date Last Indicated Resolved Time 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 11/01/2011 11/01/2011 Rule Out COVID-19 04/09/2024 04/09/2024 04/10/2024 10:57 AM BROADCAST METEOROLOGIST Assessment Noted Time PHQ-9 Depression Total Score: 16 022 6:47 AM BROADCAST METEOROLOGIST documented as of this encounter Care Teams Cloth Printer Helper Relationship Specialty Start Date End Date Clinic - [facility] [address] [place] [address] PCP - General 08/26/20 12/27/23 No Ref-Primary, Physician PCP - General 12/28/23 05/22/24 Shaniqua Hernandez APRN GRAVITY PROSPECTING OBSERVER HELPER [address] [place] [address] PCP - General Nurse Practitioner - Family 05/23/24 Jefferson Oliver Personal Advocate & Liaison (PAL) 09/14/21 05/26/22 [place] [address] [place] [address] Assigned PCP 12/04/21 03/17/23 Linda Cantu Personal Advocate & Liaison (PAL) Family Medicine 05/27/22 [place] [address] [place] [address] Assigned PCP 03/18/23 07/14/23 [place] [address] [place] [address] Assigned PCP 07/15/23 01/14/24 Susie Turk APRN [facility] [address] [place] [address] Assigned PCP 01/15/24 Claudine Curtis MD [address] [place] [address] Assigned OBGYN Provider 04/15/24 documented as of this encounter
--- OUTSIDE RECORDS SUMMARY | 2024-05-23 18:08 | XMS_ITS | Encounter Summary ---
Author Organization [place] Address [address] [place] [address] Care Team Providers Care Assignment Desk Editor Name Role Phone Linda Cantu Unavailable Unavailable No Ref-Primary, Physician Primary Care Provider Susie Turk APRN BOOT TURNER Unavailable [phone] Claudine Curtis MD Unavailable [phone] Reason for Referral * Diagnostic Imaging MRI (Routine) - Pending Review Specialty Diagnoses / Procedures Referred By Contac t Referred To Contact Radiology. Diagnoses Lumbar pain Lumbar pain with radiation down left leg Abnormal x-ray of lumbar spine Procedures MR Lumbar Spine w/o Contrast Jhon Hernandez APRN BOOT TURNER [address] [place] [address] Phone: tel: fax: Referral ID Status Reason Start Date Expiration Date V isits Requested Visits Authorized [id number] Pending Review 05/22/2024 05/22/2025 1 1 ULATOR * Consultation (Routine: Next available opening) - Pending Review Specialty Diagnoses / Procedures Referred By Contac t Referred To Contact Diagnoses Lumbar pain Lumbar pain with radiation down left leg Abnormal x-ray of lumbar spine Jhon Hernandez APRN BOOT TURNER [facility] [place] [address] Phone: tel: fax: Referral ID Status Reason Start Date Expiration Date V isits Requested Visits Authorized [id number] Pending Review 05/22/2024 05/22/2025 1 1 Question Answer Referral Type: Per Protocol Has the patient had a CT or MRI of the area of concern within the last 12 months? No Patient Scheduling Instructions: [facility] will call you to coordinate your care as prescribed by your provider. If you don't hear from a manufacturer's representative within 2 business days, please call . Additional Information: MRI ordered. Comments Please be aware that coverage of these services is subject to the terms and limitations of your health insurance plan. Call member services at your health plan with any benefit or coverage questions. [facility] will call you to coordinate your care as prescribed by your provider. If you don't hear from a manufacturer's representative within 2 business days, please call . ULATOR Reason for Visit * Reason Onset Date Comments Results 05/21/2024 Encounter Details Date Type Department Care Team (Late st Contact Info) Description 05/21/[address] [phone] No Ref-Primary, Physician Results Social History Tobacco Use Types Packs/Day Years [...] How often do you attend chur or mosque services? 1 to 4 times per year 08/14/2020 Do you belong to any clubs o r organizations such as restorationism groups, unions, fraternal or athletic groups, or [...] PHQ-2 Answer Date Recorded PHQ-2 Score 2 05/21/2024 [employer] of Occupat ional Health - Occupational Stress [...] place to sleep or slept in a jail (including now)? No 08/14/2020 Adolescent Education Answer [...] AM CDT Legal Sex Female 3:29 AM CIRCULATOR Gender Identity Female 09/03/2021 8:30 AM CDT Sexual Orientation Not on file documented as of this encounter Miscellaneous Notes * Telephone Encounter - Jhon Hernandez APRN CNP - 05/22/2024 2:07 PM CIRCULATOR Images from the original note were not included. Ordered. MRI will need cleared through insurance. Healthy regards, Jhon Hernandez, SANJAY- ULATOR * Telephone Encounter - Zee Abrams RN - 05/22/2024 12:53 PM CIRCULATOR Patient calls to follow up Patient is agreeable to spine consult and MRI Help Desk Representative does not see orders/referral. Routing to Jhon Hernandez. ULATOR ULATOR * Telephone Encounter - Jhon Hernandez APRN CNP - 05/22/2024 6:30 AM CIRCULATOR Images from the original note were not included. Noted. SANJAY Magdaleno- ULATOR * Telephone Encounter - Rosette Arevalo RN - 05/21/2024 4:03 PM CST Patient calls. Advised of results. Femur broke at 4 years old, might be pin, not sure. No claustrophobia Routing back to provider. ROSETTE AREVALO RN on 05/21/2024 at 4:04 PM [facility] ULATOR * Telephone Encounter - Rosette Arevalo RN - 05/21/2024 2:42 PM CST Attempt # 1 Called # [phone] Left a non detailed VM to call back at and ask for any available Triage Nurse. ROSETTE AREVALO RN on 05/21/2024 at 2:43 PM [facility] ----- Message from Jhon Hernandez sent at 05/21/2024 2:20 PM CIRCULATOR ----- Please call John Smith does show Loss of disc space in the low spine which is consistent with symptoms of pain and sciatica. Plan to see spine and MRI as discussed. I forgot to ask please ask and route back; do she have any metal implants or any claustrophobia forMRI. If claustrophobic will provide sedation she will just have to have a ride to and from MRI. IMPRESSION: 5 nonrib-bearing lumbar type vertebral bodies. Grade 2 anterolisthesis of L5 on S1 withadvanced loss of L5-S1 disc space height. L5 pars defects. Intervertebral disc space heights are otherwise maintained. For additional lab test information, labtestsonline.org is an excellent reference. In addition, here is a list of due or overdue Health Maintenance reminders: Depression Action Plan Never done Pneumococcal Vaccine(1 of 2 - PCV) Never done Hepatitis B Vaccine(1 of 3 - 19+ 3-dose series) Never done Flu Vaccine(1) due on 12/24/2023 Please call us at [phone] (or use [employer]) to address the above recommendations if needed. Thank you for choosing [facility]. It was an honor and a privilege to participate in your care. Jhon Calvo FNP [facility] ULATOR ULATOR * Addendum Note - Jhon Hernandez APRN CNP - 05/21/2024 2:42 PM CIRCULATOR Addended by: JHON HERNANDEZ on: 05/22/2024 01:47 PM Modules accepted: Orders ULATOR * Addendum Note - Jhon Hernandez APRN CNP - 05/21/2024 2:42 PM CIRCULATOR Addended by: JHON HERNANDEZ on: 05/22/2024 02:07 PM Modules accepted: Orders ULATOR documented in this encounter Plan of Treatment Upcoming Encounters Date Type Department Care Team (Late st Contact Info) Description 06/01/2024 10:30 AM CIRCULATOR Appointment [facility] [address] [place] [phone] Jhon Hernandez APRN BOOT TURNER [address] [place] [address] [id number] 02/14/2025 11:00 AM CDT Office Visit [address] [phone] Susie Turk APRN BOOT TURNER [address] [place], [place] [address] Scheduled Orders Name Type Priority Associated Diagnoses Orde r Schedule MR Lumbar Spine w/o Contrast Imaging Routine Lumbar pain Lumbar pain with radiation down left leg Abnormal x-ray of lumbar spine Expected: 05/22/2024 (Approximate), Expires: 05/22/2025 Scheduled Referrals Name Type Priority Associated Diagnoses Orde r Schedule Spine Brake Coupler Dinkey Referral Referral Routine: Next available opening Lumbar pain Lumbar pain with radiation down left leg Abnormal x-ray of lumbar spine Expected: 05/22/2024 (Approximate), Expires: 05/22/2025 documented as of this encounter Visit Diagnoses Diagnosis Lumbar pain- Primary Lumbago Lumbar pain with radiation down left leg Lumbago Abnormal x-ray of lumbar spine Nonspecific (abnormal) findings on radiological and other examination of musculoskeletal system documented in this encounter Additional Health Concerns Infection Onset Date Last Indicated Resolved Time 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 11/01/2011 11/01/2011 Assessment Noted Time PHQ-9 Depression Total Score: 14 025 4:20 PM CIRCULATOR documented as of this encounter Care Teams Assignment Desk Editor Relationship Specialty Start Date End Date No Ref-Primary, Physician PCP - General 12/28/23 05/22/24 Linda Cantu Personal Advocate & Liaison (PAL) Family Medicine 05/27/22 Susie Turk APRN BOOT TURNER [address] [place] [address] [id number] Assigned PCP 01/15/24 Claudine Curtis MD [address] [place] [address] Assigned OBGYN Provider 04/15/24 documented as of this encounter
--- OUTSIDE RECORDS SUMMARY | 2024-05-23 18:08 | XMS_ITS | Encounter Summary ---
Author Organization [place] Address [address] [place] [address] Care Team Providers Care Splitter Operator Name Role Phone Crystal Alanis MD Unavailable [phone] Lois Hathaway DO Unavailable [phone] Brisa Singletary MD Unavailable [phone] [facility] Primary Ca re Provider Wilian Hilliard DO Unavailable [phone] Jefferson Oliver Unavailable Unavailable Vidhya Witt MD Unavailable Linda Cantu Unavailable Unavailable Wilian Hilliard DO Unavailable [phone] Vidhya Witt MD Unavailable No Ref-Primary, Physician Primary Care Provider Susie Turk APRN MOLD CHIPPER Unavailable [phone] Claudine Curtis MD Unavailable [phone] Shaniqua Hernandez APRN MOLD CHIPPER Primary Care Prov ider Encounter Details Date Type Department Care Team (Late st Contact Info) Description 09/14/2020 MyC Medical Advice [facility] Surgery [facility] [address] [place] [address] Magalys Manriquez PA-C [address] [facility] [address] [place] [address] Social History Tobacco Use Types Packs/Day Years [...] How often do you attend chur or tenriism services? 1 to 4 times per year 08/14/2020 Do you belong to any clubs o r organizations such as nondenominational groups, unions, fraternal or athletic groups, or [...] Answer Date Recorded PHQ-2 Score 0 06/01/2020 [employer] of Occupat ional Health - Occupational Stress [...] place to sleep or slept in a alf (including now)? No 08/14/2020 Education Answer Date Recorded What is the highest level of school you have completed or the highest degree you have received? Associate degree: occupational, technical, or vocational program 08/14/2020 Comments No Sex and Gender Information Value Date Recorded Sex Assigned at Female 09/03/2021 8:30 AM CDT Legal Sex Female 3:29 AM CHARGE MASTER COORDINATOR Gender Identity Female 09/03/2021 8:30 AM [...] st Contact Info) Description 06/01/2024 10:30 AM CHARGE MASTER COORDINATOR Appointment [facility] [address] [place] [address] [place] [phone] Shaniqua Hernandez APRN MOLD CHIPPER [address] [place] [address] [id number] 02/14/2025 11:00 AM CDT Office Visit [address] [place] [phone] Susie Turk APRN MOLD CHIPPER [address] [place] [address] [phone] documented as of this encounter Visit Diagnoses Not on filedocumented in this encounter Additional Health Concerns Infection Onset Date Last Indicated Resolved Time 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 11/01/2011 11/01/2011 Rule Out COVID-19 03/09/2022 03/09/2022 03/09/2022 6:39 AM CHARGE MASTER COORDINATOR Rule Out COVID-19 04/09/2024 04/09/2024 04/10/2024 10:57 AM CHARGE MASTER COORDINATOR documented as of this encounter Care Teams Splitter Operator Relationship Specialty Start Date End Date Clinic - [facility] [address] [place] [address] PCP - General 08/26/20 12/27/23 No Ref-Primary, Physician PCP - General 12/28/23 05/22/24 Shaniqua Hernandez APRN MOLD CHIPPER [address] [place] [address] 412992 PCP - General Nurse Practitioner - Family 05/23/24 Crystal Alanis MD SURGICAL [facility], [address] [place], [place] [phone] Assigned Surgical Provider 06/07/20 12/03/21 Lois Hathaway DO [address] [facility] [address] [place] [address] Assigned OBGYN Provider 07/19/20 01/18/22 [place] [address] [place] [address] Assigned PCP 08/16/20 03/27/21 [place] [address] [place] [address] Assigned PCP 03/28/21 12/03/21 Jefferson Oliver Personal Advocate & Liaison (PAL) 09/14/21 05/26/22 [place] [address] [place] [address] Assigned PCP 12/04/21 03/17/23 Linda Cantu Personal Advocate & Liaison (PAL) Family Medicine 05/27/22 [place] [address] [place] [address] Assigned PCP 03/18/23 07/14/23 [place] [address] [place] [address] Assigned PCP 07/15/23 01/14/24 Susie Turk APRN MOLD CHIPPER [address] [place] [address] Assigned PCP 01/15/24 Claudine Curtis MD [address] [place] [address] Assigned OBGYN Provider 04/15/24 documented as of this encounter
--- OUTSIDE RECORDS SUMMARY | 2024-05-23 18:08 | XMS_ITS | Encounter Summary ---
Author Organization [place] Address [address] [place] [address] Care Team Providers Care Flat Knitter Name Role Phone Gita Small SPECIAL EDUCATION CURRICULUM SPECIALIST Primary Care Provider [phone] Gita Small SPECIAL EDUCATION CURRICULUM SPECIALIST Unavailable [phone] Gita Small SPECIAL EDUCATION CURRICULUM SPECIALIST Unavailable [phone] No Ref-Primary, Physician Primary Care Provider Brisa Singletary MD Unavailable [phone] Kae Blankenship PA-C Unavailable [phone] Crystal Alanis MD Unavailable [phone] Wilian Hilliard DO Unavailable [phone] Lois Hathaway DO Unavailable [phone] Brisa Singletary MD Unavailable [phone] [facility] re Provider Wilian Hilliard DO Unavailable [phone] Jefferson Oliver Unavailable Unavailable Vidhya Witt MD Unavailable Linda Cantu Unavailable Unavailable Wilian Hilliard DO Unavailable [phone] Vidhya Witt MD Unavailable No Ref-Primary, Physician Primary Care Provider Susie Turk APRN, CNP Unavailable [phone] Caludine Curtis MD Unavailable Shaniqua Hernandez APRN SNOW PLOW TRACTOR OPERATOR Primary Care Prov ider Encounter Details Date Type Department Care Team (Late st Contact Info) Description 11/28/2016 MyC Medical Advice M [address] [phone] Gita Small, [facility] & [address] [place] [address] Social History Tobacco Use Types Packs/Day Years [...] AM CDT Legal Sex Female 3:29 AM CHOP SAW OPERATOR Gender Identity Female 09/03/2021 8:30 AM CDT Sexual Orientation Not on file documented as of this encounter Plan of Treatment Upcoming Encounters Date Type Department Care Team (Late st Contact Info) Description 06/01/2024 10:30 AM CHOP SAW OPERATOR Appointment [facility] [place] [facility] [address] [facility] [address] [place] [phone] Shaniqua Hernandez APRN SNOW PLOW TRACTOR OPERATOR [address] [place] [address]852 02/14/2025 11:00 AM CDT Office Visit [address] [phone] Susie Turk APRN SNOW PLOW TRACTOR OPERATOR [address] [place] [address] [id number] documented as of this encounter Visit Diagnoses Not on filedocumented in this encounter Additional Health Concerns Infection Onset Date Last Indicated Resolved Time 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 11/01/2011 11/01/2011 Rule Out COVID-19 06/14/2020 06/14/2020 06/14/2020 11:50 PM CHOP SAW OPERATOR Rule Out COVID-19 03/09/2022 03/09/2022 03/09/2022 6:39 AM CHOP SAW OPERATOR Rule Out COVID-19 04/09/2024 04/09/2024 04/10/2024 10:57 AM CHOP SAW OPERATOR documented as of this encounter Care Teams Flat Knitter Relationship Specialty Start Date End Date Gita Small, SPECIAL EDUCATION CURRICULUM SPECIALIST PCP - General Nurse Practitioner - Family 11/14/16 02/21/18 Gita Small, SPECIAL EDUCATION CURRICULUM SPECIALIST [place] [address] [place] [address] PCP - Assigned PCP 11/20/16 06/26/18 No Ref-Primary, Physician PCP - General 10/25/19 08/25/20 [facility] [address] [place] [address] PCP - General 08/26/20 12/27/23 No Ref-Primary, Physician PCP - General 12/28/23 05/22/24 Shaniqua Hernandez APRN SNOW PLOW TRACTOR OPERATOR [address] [place] [address] PCP - General Nurse Practitioner - Family 05/23/24 Gita Small, SPECIAL EDUCATION CURRICULUM SPECIALIST [facility] [address] [place] [address] Assigned PCP 11/20/16 12/21/19 [place] [address] [place] [address] Assigned PCP 12/22/19 04/25/20 Kae Blankenship PA-C [address] [facility] [address] [place] [address] Assigned PCP 04/26/20 06/06/20 Crystal Alanis MD [facility] [address] [facility] [address] [place] [address] Assigned Surgical Provider 06/07/20 12/03/21 [place] [address] [place] [address] Assigned PCP 06/07/20 08/15/20 Lois Hathaway DO [address] [facility] [address] [place] [address] Assigned OBGYN Provider 07/19/20 01/18/22 [place] [address] [place] [address] Assigned PCP 08/16/20 03/27/21 [place] [address] [place] [address] Assigned PCP 03/28/21 12/03/21 Jefferson Oliver Personal Advocate & Liaison (PAL) 09/14/21 05/26/22 [place] [address] [place] [address] Assigned PCP 12/04/21 03/17/23 Linda Cantu Personal Advocate & Liaison (PAL) Family Medicine 05/27/22 [place] [address] [place] [address] Assigned PCP 03/18/23 07/14/23 [place] [address] [place] [address] Assigned PCP 07/15/23 01/14/24 Susie Turk APRN [facility] [address] [place] [address] 785272 Assigned PCP 01/15/24 Claudine Curtis MD [address] [place] [address] Assigned OBGYN Provider 04/15/24 documented as of this encounter
--- OUTSIDE RECORDS SUMMARY | 2024-05-23 18:08 | XMS_ITS | Encounter Summary ---
Author Organization [place] Address [address] [place] [address] Care Team Providers Care Rug Sizer Name Role Phone Gita Small EQUIPMENT MAINTENANCE TECHNICIAN Primary Care Provider [phone] Gita Small EQUIPMENT MAINTENANCE TECHNICIAN Unavailable [phone] Gita Small EQUIPMENT MAINTENANCE TECHNICIAN Unavailable [phone] No Ref-Primary, Physician Primary Care Provider Brisa Singletary MD Unavailable [phone] Kae Blankenship PA-C Unavailable [phone] Crystal Alanis MD Unavailable [phone] Wilian Hilliard DO Unavailable [phone] Lois Hathaway DO Unavailable [phone] Brisa Singletary MD Unavailable [phone] [facility] re Provider Wilian Hilliard DO Unavailable [phone] Jefferson Oliver Unavailable Unavailable Vidhya Witt MD Unavailable Linda Cantu Unavailable Unavailable Wilian Hilliard DO Unavailable [phone] Vidhya Witt MD Unavailable No Ref-Primary, Physician Primary Care Provider Susie Turk APRN, CNP Unavailable [phone] Claudine Curtis MD Unavailable Shaniqua Hernandez APRN SUSTAINABLE LANDSCAPE ARCHITECT Primary Care Prov ider Encounter Details Date Type Department Care Team (Late st Contact Info) Description 11/15/2016 MyC Medical Advice M [address] [phone] Gita Small, [facility] & [address] [place] [address] Social History Tobacco Use Types [...] AM CDT Legal Sex Female 3:29 AM MUD MIXER OPERATOR Gender Identity Female 09/03/2021 8:30 AM CDT Sexual Orientation Not on file documented as of this encounter Plan of Treatment Upcoming Encounters Date Type Department Care Team (Late st Contact Info) Description 06/01/2024 10:30 AM MUD MIXER OPERATOR Appointment [facility] [place] [facility] [address] [facility] [address] [place] [phone] Shaniqua Hernandez APRN SUSTAINABLE LANDSCAPE ARCHITECT [address] [place] [address] 745022 02/14/2025 11:00 AM CDT Office Visit [address] [phone] Susie Turk APRN SUSTAINABLE LANDSCAPE ARCHITECT [address] [place] [address] [id number] documented as of this encounter Visit Diagnoses Not on filedocumented in this encounter Additional Health Concerns Infection Onset Date Last Indicated Resolved Time 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 11/01/2011 11/01/2011 Rule Out COVID-19 06/14/2020 06/14/2020 06/14/2020 11:50 PM MUD MIXER OPERATOR Rule Out COVID-19 03/09/2022 03/09/2022 03/09/2022 6:39 AM MUD MIXER OPERATOR Rule Out COVID-19 04/09/2024 04/09/2024 04/10/2024 10:57 AM MUD MIXER OPERATOR documented as of this encounter Care Teams Rug Sizer Relationship Specialty Start Date End Date Gita Small, EQUIPMENT MAINTENANCE TECHNICIAN PCP - General Nurse Practitioner - Family 11/14/16 02/21/18 Gita Small, EQUIPMENT MAINTENANCE TECHNICIAN [place] [address] [place] [address] PCP - Assigned PCP 11/20/16 06/26/18 No Ref-Primary, Physician PCP - General 10/25/19 08/25/20 [facility] [id number] [place] [address] PCP - General 08/26/20 12/27/23 No Ref-Primary, Physician PCP - General 12/28/23 05/22/24 Shaniqua Hernandez APRN SUSTAINABLE LANDSCAPE ARCHITECT [address] [place] [address] PCP - General Nurse Practitioner - Family 05/23/24 Gita Small, EQUIPMENT MAINTENANCE TECHNICIAN [facility] [address] [place] [address] Assigned PCP 11/20/16 12/21/19 [place] [address] [place] [address] Assigned PCP 12/22/19 04/25/20 Kae Blankenship PA-C [address] [facility] [address] [place] [address] Assigned PCP 04/26/20 06/06/20 Crystal Alanis MD [facility] [address] [facility] [address] [place] [address] Assigned Surgical Provider 06/07/20 12/03/21 [place] [address] [place] [address] Assigned PCP 06/07/20 08/15/20 Lois Hathaway DO [address] [facility] [address] [place] [address] Assigned OBGYN Provider 07/19/20 01/18/22 [place] [address] [place] [address] Assigned PCP 08/16/20 03/27/21 [place] [address] [place] [address] Assigned PCP 03/28/21 12/03/21 Jefferson Oliver Personal Advocate & Liaison (PAL) 09/14/21 05/26/22 [place] [address] [place] [address] Assigned PCP 12/04/21 03/17/23 Linda Cantu Personal Advocate & Liaison (PAL) Family Medicine 05/27/22 [place] [address] [place] [address] Assigned PCP 03/18/23 07/14/23 [place] [address] [place] [address] Assigned PCP 07/15/23 01/14/24 Susie Turk APRN [facility] [address] [place] [address] 028622 Assigned PCP 01/15/24 Claudine Curtis MD [address] [place] [address] Assigned OBGYN Provider 04/15/24 documented as of this encounter
--- OUTSIDE RECORDS SUMMARY | 2024-05-23 18:08 | XMS_ITS | Referral Summary ---
Author Organization [facility] Address [address] [place] [id number] Care Team Providers Care Mailroom Associate Name Role Phone KonstantinLinda carbone Unavailable Unavailable Susie Turk APRN, CNP Unavailable [phone] Claudine Curtis MD Unavailable Shaniqua Hernandez APRN, CNP Primary Care Prov ider Encounters Date Type Department Care Team Description 05/23/2024 MyC Medical Advice [address] [phone] Shaniqua Hernandez APRN CNP 05/21/[address] [phone] No Ref-Primary, Physician Results 05/21/2024 12:25 PM FLUID DESIGNER Ancillary Procedure [address] [phone] Shaniqua Hernandez APRN CNP Lumbar pain 05/21/2024 Travel 05/21/2024 12:00 PM FLUID DESIGNER Office Visit [address] [phone] Shaniqua Hernandez APRN CNP Lumbar pain (Primary Dx); Nonspecific finding on examination of urine; Morbid obesity (H); Moderate episode of recurrent major depressive disorder (H); Lumbar pain with radiation down left leg 05/21/2024 9:30 AM FLUID DESIGNER Virtual Visit [address] [phone] Shaniqua Hernandez APRN CNP Back pain, unspecified back location, unspecified back pain laterality, unspecified chronicity (Primary Dx) 05/20/2024 MyC Refill [address] [phone] Rebecca Flowers PA-C Refill Request 05/20/2024 MyC Refill [address] [phone] Susie Turk APRN PREPARATION ROOM MANAGER Refill Request 04/09/2024 11:45 AM FLUID DESIGNER Ancillary Procedure [address] [phone] Rebecca Flowers PA-C Wheezing; Acute cough; Upper respiratory tract infection, unspecified type 04/09/2024 Travel 04/09/2024 11:30 AM FLUID DESIGNER Office Visit [address] [phone] Rebecca Flowers PA-C Wheezing (Primary Dx); Acute cough; Upper respiratory tract infection, unspecified type 03/26/2024 10:30 AM FLUID DESIGNER Office Visit [address] [phone] Claudine Curtis MD Encounter for IUD removal (Primary Dx); Intrauterine contraceptive device threads lost, initial encounter 03/25/2024 MyC Medical Advice [address] [place] [phone] Claudine Curtis MD 03/25/2024 Travel from Last 3 Months Allergies Active Allergy Reactions Criticality Noted Date Comments Animal Dander Itching,Anaphylaxis High 10/13/2014 Cats Difficulty breathing 06/12/2008 No Known Drug Allergy 06/12/2008 Medications * This document contains information received from the source organization and may not represent a complete record from that organization. levonorgestrel (MIRENA) 20 MCG/24HR IUDIndications:E ncounter for removal and reinsertion of intrauterine contraceptive device 1 each (20 mcg) by Intrauterine route once Active FLUoxetine (PROZAC) 40 MG capsuleIndicatio ns:Moderate episode of recurrent major depressive disorder (H),MELISSA (generalized anxiety disorder) Take 1 capsule (40 mg) by mouth daily. 90 capsule 3 024 Active predniSONE (DELTASONE) 20 MG tablet Take 20 mg by mouth. 025 Active hydrOXYzine HCl (ATARAX) 25 MG tabletIndication s:MELISSA (generalized anxiety disorder) Take 1-2 tablets (25-50 mg) by mouth nightly as needed (insomnia). 45 tablet 9 025 Active albuterol (PROAIR HFA/PROVENTIL HFA/VENTOLIN HFA) 108 (90 Base) MCG/ACT inhalerIndicatio ns:Wheezing,Acut e cough,Upper respiratory tract infection, unspecified type Inhale 2 puffs into the lungs every 6 hours as needed for cough, wheezing or shortness of breath. 18 g 025 Active cyclobenzaprine (FLEXERIL) 5 MG tabletIndication s:Lumbar pain Take 1-2 tablets (5-10 mg) by mouth 3 times daily as needed for muscle spasms. 20 tablet 1 025 Active gabapentin (NEURONTIN) 100 MG capsuleIndicatio ns:Lumbar pain,Lumbar pain with radiation down left leg Take 1-3 capsules (100-300 mg) by mouth 3 times daily as needed for neuropathic pain. Can make sleepy take do not take before work or driving 90 capsule 025 Active hydrOXYzine HCl (ATARAX) 25 MG tabletIndication s:MELISSA (generalized anxiety disorder) Take 1-2 tablets (25-50 mg) by mouth nightly as needed (insomnia). 45 tablet 1 024 2024 Discontinued(R eorder (No AVS)) albuterol (PROAIR HFA/PROVENTIL HFA/VENTOLIN HFA) 108 (90 Base) MCG/ACT inhalerIndicatio ns:Wheezing,Acut e cough,Upper respiratory tract infection, unspecified type Inhale 2 puffs into the lungs every 6 hours as needed for cough, wheezing or shortness of breath. 18 g 024 2024 Discontinued(M ed Rec(No AVS / No eCancel)) benzonatate (TESSALON) 100 MG capsuleIndicatio ns:Wheezing,Acut e cough,Upper respiratory tract infection, unspecified type Take 1 capsule (100 mg) by mouth 3 times daily as needed for cough. 30 capsule 024 2024 Discontinued(M ed Rec(No AVS / No eCancel)) cyclobenzaprine (FLEXERIL) 10 MG tablet Take 10 mg by mouth. 025 2024 Discontinued(R eorder (No AVS)) oxyCODONE-acetam inophen (PERCOCET) 5-325 MG tablet Take 1 tablet by mouth. 025 2024 Discontinued(M ed Rec(No AVS / No eCancel)) gabapentin (NEURONTIN) 100 MG capsuleIndicatio ns:Lumbar pain Take 1-3 capsules (100-300 mg) by mouth 3 times daily. 90 capsule 025 2024 Discontinued Active Problems Problem Noted Date Diagnosed Date Moderate episode of recurrent major depressive d isorder 05/21/2024 ASCUS of cervix with negative high risk HPV 01/23 Overview (02/26/2024): 02/15/24 ASCUS, Neg HPV. Plan 3 yr co-test Adjustment disorder with anxious mood 03/28/2022 Umbilical hernia without obstruction and without gangrene 07/23/2020 Overview (07/23/2020): Added automatically from request for surgery [id number] Encounter for sterilization 07/23/2020 Overview (07/24/2020): Added automatically from request for surgery [id number] Morbid obesity 06/01/2020 Anxiety 01/20/2016 Status post [...] How often do you attend chur or worship services? 1 to 4 times per year 08/14/2020 Do you belong to any clubs o r organizations such as jewish groups, unions, fraternal or athletic groups, or [...] Answer Date Recorded PHQ-2 Score 2 05/21/2024 [facility] - Occupational Stress Questionnaire Answer Date [...] to sleep or slept in a senior living (including now)? No 08/14/2020 Adolescent Education Answer [...] AM CDT Legal Sex Female 3:29 AM FLUID DESIGNER Gender Identity Female 09/03/2021 8:30 AM CDT Sexual Orientation Not on file Last Filed Vital Signs Vital Sign Reading Time Taken Comments Blood Pressure 138/87 05/21/2024 11:59 AM FLUID DESIGNER Pulse 112 05/21/2024 11:59 AM FLUID DESIGNER Temperature 36.6 C (97.9 F) 05/21/2024 11:59 AM FLUID DESIGNER Respiratory Rate 15 05/21/2024 11:59 AM FLUID DESIGNER Oxygen Saturation 98% 05/21/2024 11:59 AM FLUID DESIGNER Inhaled Oxygen Concentration - - Weight 121.1 kg (267 lb) 05/21/2024 11:59 AM FLUID DESIGNER Height 161.3 cm (5' 3.5) 05/21/2024 11:59 AM CS T Body Mass Index 46.56 05/21/2024 11:59 AM FLUID DESIGNER Plan of Treatment Upcoming Encounters Date Type Department Care Team (Late st Contact Info) Description 06/01/2024 10:30 AM FLUID DESIGNER Appointment [facility] [address] [facility] [address] [place] [phone] Shaniqua Hernandez, FRANDY PREPARATION ROOM MANAGER [address] [place] [phone] 02/14/2025 11:00 AM CDT Office Visit [address] [place] [phone] Susie Turk APRN PREPARATION ROOM MANAGER [address] [place] [address] [phone] Medical Devices Implanted Type Area Construction Operations Manager Device Identifier Shelf Expiration Date Model / Serial / Lot Mesh Ventralex Hernia 3.2 [place] Lg W/Strap [id number] Implanted:Qty : 1 on 08/26/2020 by Crystal Alanis MD at [facility] Mesh N/A: Umbilical [employer] 03/21/2022 [id number] / / [id number] Procedures Procedure Name Priority Date/Time Associated Diagnosis Comments XR LUMBAR SPINE 2/3 VIEWS Routine 05/21/2024 12:33 PM FLUID DESIGNER Lumbar pain URINE CULTURE Routine 05/21/2024 12:21 PM FLUID DESIGNER Lumbar pain Nonspecific finding on examination of urine URINE MICROSCOPIC EXAM Routine 05/21/2024 11:39 AM FLUID DESIGNER Lumbar pain HCG QUALITATIVE URINE Routine 05/21/2024 11:39 AM FLUID DESIGNER Lumbar pain ROUTINE UA WITH MICROSCOPIC Routine 05/21/2024 11:39 AM FLUID DESIGNER Lumbar pain INFLUENZA A/B ANTIGEN Routine 04/09/2024 11:57 AM FLUID DESIGNER Wheezing Acute cough Upper respiratory tract infection, unspecified type COVID-19 VIRUS (CORONAVIRUS) BY PCR Routine 04/09/2024 11:56 AM FLUID DESIGNER Wheezing Acute cough Upper respiratory tract infection, unspecified type XR CHEST 2 VIEWS Routine 04/09/2024 11:5 3 AM FLUID DESIGNER Wheezing Acute cough Upper respiratory tract infection, unspecified type SC REMOVE INTRAUTERINE DEVICE Routine 03/26/2024 10:59 AM FLUID DESIGNER Intrauterine contraceptive device threads lost, initial encounter [...] Recently Relevant to Health Maintenance Results * XR Lumbar Spine 2/3 Views (05/21/2024 12:33 PM FLUID DESIGNER) Anatomical Region Laterality Modality Spine, T-spine, L-spine, Abdomen/Pelvis Computed Radiography 05/21/2024 12:3 3 PM FLUID DESIGNER Impressions 05/21/2024 1:58 PM FLUID DESIGNER IMPRESSION: 5 nonrib-bearing lumbar type vertebral bodies. Grade 2 anterolisthesis of L5 on S1 with advanced loss of L5-S1 disc space height. L5 pars defects. Intervertebral disc space heights are otherwise maintained. Narrative 05/21/2024 1:58 PM FLUID DESIGNER EXAM: XR LUMBAR SPINE 2/3 VIEWS LOCATION: [facility] DATE: 05/21/2024 INDICATION: Lumbar pain COMPARISON: None. Procedure Note Darrell Leon MD - 05/21/2024 EXAM: XR LUMBAR SPINE 2/3 VIEWS LOCATION: [facility] DATE: 05/21/2024 INDICATION: Lumbar pain COMPARISON: None. IMPRESSION: 5 nonrib-bearing lumbar type vertebral bodies. Grade 2anterolisthesis of L5 on S1 with advanced loss of L5-S1 disc space height.L5 pars defects. Intervertebral disc space heights are otherwisemaintained. Shaniqua Hernandez APRN PREPARATION ROOM MANAGER IMG DIAGNOSTIC MELVIN GING ORDERABLES Final Result * Urine Culture (05/21/2024 12:21 PM FLUID DESIGNER) Culture <10,000 CFU/mL Mixture of Urogenital Pilar 05/22/2024 11:48 AM FLUID DESIGNER [facility] Urine MID-STREAM URINE SPECIMEN / Unknown Non-blood Collection / Unknown 05/21/2024 12:21 PM FLUID DESIGNER 05/21/2024 12:21 PM FLUID DESIGNER Shaniqua Hernandez APRN PREPARATION ROOM MANAGER LAB - MICRO GENERA L ORDERABLES Final Result [facility] Inf. Diseases Diag. Lab [address] [facility], [address] [place] [phone] * HCG Qual, Urine ([id number]) (05/21/2024 11:39 AM FLUID DESIGNER) hCG Urine Qualitative Negative Negative MARY 05/21/2024 12:16 PM FLUID DESIGNER [facility] Comment:This test is for scr eening purposes. Results should be interpreted along with the clinical picture. Confirmation testing is available if warranted by ordering [id number], HCG Quantitative . Urine MID-STREAM URINE SPECIMEN / Unknown Non-blood Collection / Unknown 05/21/2024 11:39 AM FLUID DESIGNER 05/21/2024 12:09 PM FLUID DESIGNER Shaniqua Hernandez APRN PREPARATION ROOM MANAGER LAB - URINE ORDERA BLES Final Result [facility] [place] [facility] [address] [place] [address] S. E. Lab (no room number, 1st floor of clinic) [place] [address], [facility] * (ABNORMAL) UA with Microscopic - lab collect (05/21/2024 11:39 AM FLUID DESIGNER) Color Urine Red(A) Colorless, Straw, Light Yellow, Yellow 05/21/2024 12:13 PM FLUID DESIGNER [facility] Appearance Urine Slightly Cloudy(A) Clear 05/21/2024 12:13 PM FLUID DESIGNER [facility] Glucose Urine Negative Negative mg/dL 05/21/2024 12:13 PM FLUID DESIGNER [facility] Bilirubin Urine Negative Negative 12:13 PM FLUID DESIGNER [facility] Ketones Urine Negative Negative mg/dL 05/21/2024 12:13 PM FLUID DESIGNER [facility] Specific [place] Urine 1.020 1.003 - 1.035 05/21/2024 12:13 PM FLUID DESIGNER [facility] Blood Urine Large(A) Negative 05/21/2024 12:13 PM FLUID DESIGNER [facility] pH Urine 7.0 5.0 - 7.0 05/21/2024 12:13 PM FLUID DESIGNER [facility] Protein Albumin Urine 100(A) Negative mg/dL 05/21/2024 12:13 PM FLUID DESIGNER [facility] Urobilinogen Urine 0.2 0.2, 1.0 E.U./dL 05/21/2024 12:13 PM FLUID DESIGNER [facility] Nitrite Urine Positive(A) Negative 05/21/2024 12:13 PM FLUID DESIGNER [facility] Leukocyte Esterase Urine Negative Negative 05/21/2024 12:13 PM FLUID DESIGNER [facility] Urine MID-STREAM URINE SPECIMEN / Unknown Non-blood Collection / Unknown 05/21/2024 11:39 AM FLUID DESIGNER 05/21/2024 12:09 PM FLUID DESIGNER Shaniqua Hernandez APRN PREPARATION ROOM MANAGER LAB - URINE ORDERA BLES Final Result [facility] [place] [facility] [address] [place] [address] S. E. Lab (no room number, 1st floor of clinic) [place] [phone] * (ABNORMAL) Urine Microscopic Exam (05/21/2024 11:39 AM FLUID DESIGNER) Bacteria Urine Few(A) None Seen /HPF MARY 05/21/2024 12:17 PM FLUID DESIGNER [facility] RBC Urine >100(A) 0-2 /HPF /HPF MARY 05/21/2024 12:17 PM FLUID DESIGNER [facility] WBC Urine 0-5 0-5 /HPF /HPF MARY 05/21/2024 12:17 PM FLUID DESIGNER [facility] Urine MID-STREAM URINE SPECIMEN / Unknown Non-blood Collection / Unknown 05/21/2024 11:39 AM FLUID DESIGNER 05/21/2024 12:09 PM FLUID DESIGNER Shaniqua Hernandez APRN PREPARATION ROOM MANAGER LAB - URINE ORDERA BLES Final Result Performing Organization Address City/[facility]/ZIP Co de Phone Number [facility] [address] [place] [address] S. E. Lab (no room number, 1st floor of clinic) [place] [phone] * Influenza A & B Antigen - Clinic Collect (04/09/2024 11:57 AM FLUID DESIGNER) Influenza A antigen Negative Negative 04/09/2024 12:16 PM FLUID DESIGNER [facility] Influenza B antigen Negative Negative 04/09/2024 12:16 PM FLUID DESIGNER [facility] Swab NASAL STRUCTURE / Unknown Non-blood Collection / Unknown 04/09/2024 11:57 AM FLUID DESIGNER 04/09/2024 11:57 AM FLUID DESIGNER Narrative [facility] - 04/09/2024 12:16 PM FLUID DESIGNER Test results must be correlated with clinical data. If necessary, results should be confirmed by a molecular assay or viral culture. us Rebecca Flowers PA-C LAB - MICRO GENERAL ORDERABLE S Final Result [facility] [address] [place] [address] S. E. Lab (no room number, 1st floor of [facility]) [place] [phone], [place] * COVID-19 Virus (Coronavirus) by PCR Nose (04/09/2024 11:56 AM FLUID DESIGNER) SARS CoV2 PCR Negative Negative 04/10/2024 10:57 AM FLUID DESIGNER [facility] Comment:NEGATIVE: SARS-CoV-2 (COVID-19) RNA not detected, presumed negative. Swab NASAL STRUCTURE / Unknown Non-blood Collection / Unknown 04/09/2024 11:56 AM FLUID DESIGNER 04/09/2024 11:56 AM FLUID DESIGNER Narrative [facility] - 04/10/2024 10:57 AM FLUID DESIGNER Testing was performed using the ayla SARS-CoV-2 assay on the ayla [employer] System. This test should be ordered for [...] COVID-19. This test was validated by the [facility] Infectious Diseases Diagnostic Laboratory. This laboratory is certified under the Clinical Laboratory Improvement Amendments of 1988 (CLIA-88) as qualified to perform high and/or moderate complexity laboratory testing. Rebecca Flowers PA-C LAB - MICRO GENERAL ORDERABLE S Final Result [facility] Inf. Diseases Diag. Lab [address] [facility], [address] [place] [phone], [facility] * XR Chest 2 Views (04/09/2024 11:53 AM FLUID DESIGNER) Anatomical Region Laterality Modality Chest Computed Radiogr aphy Impressions 04/09/2024 2:00 PM FLUID DESIGNER IMPRESSION: There are no acute infiltrates. The cardiac silhouette is not enlarged. Pulmonary vasculature is unremarkable. JENNIFER GARCÍA MD SYSTEM ID: [id number] Narrative 04/09/2024 2:00 PM FLUID DESIGNER CHEST TWO VIEWS 04/09/2024 11:53 AM HISTORY: [...] is unremarkable. JENNIFER GARCÍA MD SYSTEM ID: [id number] Rebecca Flowers PA-C IMG DIAGNOSTIC IMAGING ORDERA [...] for high risk HPV DNA. METHODOLOGY: The [employer] system uses automated extraction, simultaneous amplification of [...] CDT 02/15/2024 10:22 AM CDT Susie Turk APRN, CNP LAB - BLOOD ORDERABLES Final Result [facility] Specialty Lab [address] [facility], [address] [phone], [facility] MOLECULAR DIAGNOSTICS Molecular Diagnostics [address] [facility], [address] [phone] * Hepatitis C Screen Reflex to [...] CDT 12/28/2023 10:12 AM CDT Susie Turk APRN, CNP LAB - BLOOD ORDERABLES Final Result [facility] [place] [facility] [address] [facility], [address] [phone] * Comprehensive metabolic panel (BMP + Alb, Alk Phos, ALT, AST, Total. Bili, TP) (12/28/2023 10:11 AMCDT) Pathologist [facility] Sodium 136 135 - 145 mmol/L 12/28/2023 [...] CDT 12/28/2023 10:12 AM CDT us Susie Glenroy Chingxl ICE SKATER PREPARATION ROOM MANAGER LAB - BLOOD ORDERABLES Final Result [facility] [place] [facility] [address] [facility] [address], [address] [place] [phone], [facility] * HIV Antigen Antibody Combo (02/07/2014) HIV Antigen Antibody Combo Non Reactive Blood specimen (specimen) us Patient Reported LAB - BLOOD ORDERABLES Final Re sult from Last 3 Months or Most Recently Relevant to Health Maintenance Additional Health Concerns Infection Onset Date Last Indicated 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 11/01/2011 11/01/2011 Insurance [employer] Care Teams Mailroom Associate Relationship Specialty Start Date End Date Shaniqua Hernandez APRN PREPARATION ROOM MANAGER [address] [place] [phone] PCP - General Nurse Practitioner - Family 05/23/24 Linda Cantu Personal Advocate & Liaison (PAL) Family Medicine 05/27/22 Susie Turk APRN PREPARATION ROOM MANAGER [address] [place] [address] [phone] Assigned PCP 01/15/24 Claudine Curtis MD [address] [place], [place] [address] Assigned OBGYN Provider 04/15/24
--- OUTSIDE RECORDS SUMMARY | 2024-05-23 18:08 | XMS_ITS | Encounter Summary ---
Author Organization [facility] Address [address] [place] [address] Care Team Providers Care Cage Unloader Name Role Phone Gita Small INPUT OUTPUT CLERK Primary Care Provider [phone] Gita Small INPUT OUTPUT CLERK Unavailable [phone] Gita Small INPUT OUTPUT CLERK Unavailable No Ref-Primary, Physician Primary Care Provider Brisa Singletary MD Unavailable [phone] Kae Blankenship PA-C Unavailable [phone] Crystal Alanis MD Unavailable [phone] Wilian Hilliard DO Unavailable [phone] Lois Hathaway DO Unavailable [phone] Brisa Singletary MD Unavailable [phone] [facility] re Provider Wilian Hilliard DO Unavailable [phone] Jefferson Oliver Unavailable Unavailable Vidhya Witt MD Unavailable Linda Cantu Unavailable Unavailable Wilian Hilliard DO Unavailable [phone] Vidhya Witt MD Unavailable No Ref-Primary, Physician Primary Care Provider Susie Turk APRN, CNP Unavailable Claudine Curtis MD Unavailable [phone] Shaniqua Hernandez APRN DRYING ROOM OPERATOR Primary Care Prov ider Reason for Referral * Consultation - Closed Specialty Diagnoses / Procedures Referred By Raúl t Referred To Contact Diagnoses Acute pain of right knee Gita Small NP Phone: tel: fax: [facility] Orth[facility] [id number] [place] [address] [address] [place] [address] Phone: tel: fax: Referral ID Status Reason Start Date Expiration Date Visits Re quested Visits Authorized [id number] Closed 11/16/2016 11/16/2017 1 1 Comments Your provider has referred you to: FMG: [facility] [email or web address]/ Please be aware that coverage of these services is subject to the terms and limitations of your health insurance plan. Call member services at your health plan with any benefit or coverage questions. Please bring the following to your appointment: >> Any x-rays, CTs or MRIs which have been performed. Contact the facility where they were done to arrange for merchandise pickup/receiving associate prior to your scheduled appointment. >> List of current medications >> This referral request >> Any documents/labs given to you for this referral Reason for Visit * Reason Onset Date Comments MyChart Communication 11/15/2016 Encounter Details Date Type Department Care Team (Late st Contact Info) Description 11/15/2016 [facility] [id number] [place] [phone] Gita Small NP [address] [facility] [place] [address] MyChart Communication Social History Tobacco Use [...] AM CDT Legal Sex Female 3:29 AM SETTER OUT Gender Identity Female 09/03/2021 8:30 AM CDT Sexual Orientation Not on file documented as of this encounter Miscellaneous Notes * Telephone Encounter - Becky Diego RN - 11/16/2016 7:06 AM CDT Pt would like referral Referral pended Becky Diego RN, BSN documented in this encounter Plan of Treatment Upcoming Encounters Date Type Department Care Team (Late st Contact Info) Description 06/01/2024 10:30 AM SETTER OUT Appointment [facility] Imaging [address] [place] [phone] Shaniqua Hernandez APRN DRYING ROOM OPERATOR [address] [place] [address] 02/14/2025 11:00 AM CDT Office Visit [address] [place] [phone] Susie Turk APRN DRYING ROOM OPERATOR [facility] [place], [place] [address] Scheduled Referrals Name Type Priority Associated Diagnoses [...] Out COVID-19 06/14/2020 06/14/2020 06/14/2020 11:50 PM SETTER OUT Rule Out COVID-19 03/09/2022 03/09/2022 03/09/2022 6:39 AM SETTER OUT Rule Out COVID-19 04/09/2024 04/09/2024 04/10/2024 10:57 AM SETTER OUT documented as of this encounter Care Teams Cage Unloader Relationship Specialty Start Date End Date Gita Small, INPUT OUTPUT CLERK PCP - General Nurse Practitioner - Family 11/14/16 02/21/18 Gita Small INPUT OUTPUT CLERK [address] [address] PCP - Assigned PCP 11/20/16 06/26/18 No Ref-Primary, Physician PCP - General 10/25/19 08/25/20 [facility] [address] [place], [place] [address] [place] [address] PCP - General 08/26/20 12/27/23 No Ref-Primary, Physician PCP - General 12/28/23 05/22/24 Shaniqua Hernandez APRN CNP [address] [place] [address] PCP - General Nurse Practitioner - Family 05/23/24 Gita Small INPUT OUTPUT CLERK [address] [place] [address] Assigned PCP 11/20/16 12/21/19 [place] [address] [place] [address] Assigned PCP 12/22/19 04/25/20 Kae Blankenship PA-C [address] [facility] [address] [place] [address] Assigned PCP 04/26/20 06/06/20 Crystal Alanis MD SURGICAL CONSULTS, [facility] [address] [facility] [address] [place], [place] [address] Assigned Surgical Provider 06/07/20 12/03/21 [place] [address] [place] [address] Assigned PCP 06/07/20 08/15/20 Lois Hathaway DO [address] [facility] [address] [place] [address] Assigned OBGYN Provider 07/19/20 01/18/22 [place] [address] [place] [address] Assigned PCP 08/16/20 03/27/21 [place] [address] [place] [address] Assigned PCP 03/28/21 12/03/21 Jefferson Oliver Personal Advocate & Liaison (PAL) 09/14/21 05/26/22 [place] [address] [place] [address] Assigned PCP 12/04/21 03/17/23 Linda Cantu Personal Advocate & Liaison (PAL) Family Medicine 05/27/22 [place] [address] [place] [address] Assigned PCP 03/18/23 07/14/23 [place] [address] [place] [address] Assigned PCP 07/15/23 01/14/24 Susie Turk APRN [facility] [address] [place] [address] Assigned PCP 01/15/24 Claudine Curtis MD [address] [place] [address] Assigned OBGYN Provider 04/15/24 documented as of this encounter
--- OUTSIDE RECORDS SUMMARY | 2024-05-23 18:08 | XMS_ITS | Encounter Summary ---
Author Organization [facility] Address [address] [place] [address] Care Team Providers Care Youth Career Specialist Name Role Phone [facility] Primary Ca re Provider Jefferson Oliver Unavailable Unavailable Vidhya Witt MD Unavailable Linda Cantu Unavailable Unavailable Wilian Hilliard DO Unavailable [phone] Vidhya Witt MD Unavailable No Ref-Primary, Physician Primary Care Provider Susie Turk APRN MAJOR GENERAL Unavailable [phone] Claudine Curtis MD Unavailable [phone] Shaniqua Hernandez APRN MAJOR GENERAL Primary Care Prov ider Encounter Details Date Type Department Care Team (Late st Contact Info) Description 03/25/2022 MyC Medical Advice [facility] Services - Behavioral Service Line [address] [place] [phone] Claudine Schilling Social History Tobacco Use [...] often do you attend chur ch or taoist services? 1 to 4 times per year 08/14/2020 Do you belong to any clubs o r organizations such as orthodox groups, unions, fraternal or athletic groups, [...] PHQ-2 Score 2 03/28/2022 [facility] ional [facility] - Occupational Stress [...] place to sleep or slept in a retirement (including now)? No 08/14/2020 Education Answer Date Recorded What is the highest level of school you have completed or the highest degree you have received? Associate degree: occupational, technical, or vocational program 08/14/2020 Comments No Sex and Gender Information Value Date Recorded Sex Assigned at Female 09/03/2021 8:30 AM CDT Legal Sex Female 3:29 AM DENT REMOVER Gender Identity Female 09/03/2021 8:30 AM CDT Sexual Orientation Not on file COVID-19 Exposure Response Date Recorded In the last 10 days, have yo u been in contact with someone who was confirmed or suspected to have Coronavirus/COVID-19? No / Unsure 03/09/2022 3:29 AM DENT REMOVER documented as of this encounter Plan of Treatment Upcoming Encounters Date Type Department Care Team (Late st Contact Info) Description 06/01/2024 10:30 AM DENT REMOVER Appointment [facility] Imaging [address] [facility] [address] [place] [phone] Shaniqua Hernandez, GPS FIELD DATA COLLECTOR [address] [address] 02/14/2025 11:00 AM CDT Office Visit [address] [place] [phone] Susie Turk, GPS FIELD DATA COLLECTOR MAJOR GENERAL [address] [place], [place] [address] documented as of this encounter Visit Diagnoses Not on filedocumented in this encounter Additional Health Concerns Infection Onset Date Last Indicated Resolved Time 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 11/01/2011 11/01/2011 Rule Out COVID-19 04/09/2024 04/09/2024 04/10/2024 10:57 AM DENT REMOVER Assessment Noted Time PHQ-9 Depression Total Score: 16 022 1:17 PM CDT documented as of this encounter Care Teams Youth Career Specialist Relationship Specialty Start Date End Date [facility] [address] [place] [address] PCP - General 08/26/20 12/27/23 No Ref-Primary, Physician PCP - General 12/28/23 05/22/24 Shaniqua Hernandez APRN MAJOR GENERAL [address] [place] [address] PCP - General Nurse Practitioner - Family 05/23/24 Jefferson Oliver Personal Advocate & Liaison (PAL) 09/14/21 05/26/22 [place] [address] [place] [address] Assigned PCP 12/04/21 03/17/23 Linda Cantu Personal Advocate & Liaison (PAL) Family Medicine 05/27/22 [place] [address] [place] [address] Assigned PCP 03/18/23 07/14/23 [place] [address] [place] [address] Assigned PCP 07/15/23 01/14/24 Susie Turk APRN MAJOR GENERAL [address] [place] [address] Assigned PCP 01/15/24 Claudine Curtis MD [address] [place] [address] Assigned OBGYN Provider 04/15/24 documented as of this encounter
--- OUTSIDE RECORDS SUMMARY | 2024-05-23 18:08 | XMS_ITS | Clinical Summary ---
Author Organization [employer] [facility] Address [place], [place] [address] Care Team Providers Care Cartridge Gauger Name Role Phone Michelle Turner MD Primary [...] age 21-65 10/24/2017 5 (Completed outside of [facility]) COVID-19 vaccine series (2023- season) 2023 Influenza for age 9-49 12/24/2023 01/20/2016 Tetanus booster 06/17/2024 06/17/2014 Tdap Completed 06/17/2014 Pneumococcal series for age 6-49 Aged Out No longer eligible based on patient's age to complete this topic Care Teams Cartridge Gauger Relationship Specialty Start Date End Date Michelle Turner MD PCP - General Family Practice 10/13/14
--- OUTSIDE RECORDS SUMMARY | 2024-05-23 18:08 | XMS_ITS | Clinical Summary ---
Author Organization [facility] Address [address] [place] [address] Care Team Providers Care Deputy Court Name Role Phone Pcp, Pt Sumi GRACIA Primary Care Provider [phone] Source Comments You are receiving this document as you are listed as the primary care provider,follow-up provider, or the patient has been referred to you for consultation.This is in compliance with the Medicare and[facility] Hospital[facility] EHR Incentive Program,which states Providers who transition their patient to another setting of careor provider of care or refers their patient to another provider of care shouldprovide summary care record for each transition of care or referral. [facility] Allergies No known active allergies Medications Medication Sig Dispensed Refills Start Date End Date Status Ptukkoee-Nhf-Kp-FA (/IRON OR) Take by mouth daily (every [...] Dates Next Due Influenza IIV4 (Quadrivalent) 0.5mL (37789) 02/22 TDAP (BOOSTRIX) 06/17/2014 Family History Medical [...] Comments Blood Pressure 151/125 04/19/2022 12:24 PM FABRIC SOURCER Pulse 91 04/19/2022 12:24 PM FABRIC SOURCER Temperature 36.6 C (97.8 F) 04/19/2022 12:24 PM FABRIC SOURCER Respiratory Rate 18 04/19/2022 12:2 4 PM FABRIC SOURCER Oxygen Saturation 98% 04/19/2022 12: 24 PM FABRIC SOURCER Inhaled Oxygen Concentration - - Weight 102.9 [...] Grimes APRN, CNP LAB_1 Performing Organization Address [facility] de Phone Number HP CONVERSION * Pap Smear (02/07/2014 11:01 AM CDT) 02/07/2014 11:0 1 AM CDT Narrative HP CONVERSION - 02/25/2014 9:58 AM FABRIC SOURCER FINAL GYNECOLOGICAL CYTOLOGY REPORT Pathology #: [id number] Date Obtained: 02/07/2014 Date Received: 02/10/2014 INTERPRETATION/RESULTS: [...] Grimes APRN, CNP LAB_1 Performing Organization Address [facility] Co de Phone Number HP CONVERSION from Last 3 Months or Most Recently Relevant to Health Maintenance Care Teams Deputy Court Relationship Specialty Start Date End Date Pcp, [place] [address] PCP - General 03/11/14
--- OUTSIDE RECORDS SUMMARY | 2024-05-23 18:08 | XMS_ITS | Encounter Summary ---
Author Organization [facility] Address [address] [place] [address] Care Team Providers Care Lawn Specialist Name Role Phone No Ref-Primary, Physician Primary Care Provider Brisa Singletary MD Unavailable [phone] Kae Blankenship PA-C Unavailable [phone] Crystal Alanis MD Unavailable [phone] Wilian Hilliard DO Unavailable [phone] Lois Hathaway DO Unavailable [phone] Brisa Singletary MD Unavailable [phone] [facility] Primary Ca re Provider Wilian Hilliard DO Unavailable [phone] Jefferson Oliver Unavailable Unavailable Vidhya Witt MD Unavailable Lnida Cantu Unavailable Unavailable Wilian Hilliard DO Unavailable [phone] Vidhya Witt MD Unavailable No Ref-Primary, Physician Primary Care Provider Susie Turk APRN BILINGUAL MEDICAL ASSISTANT Unavailable [phone] Claudine Curtis MD Unavailable [phone] Shaniqua Hernandez APRN BILINGUAL MEDICAL ASSISTANT Primary Care Prov ider Encounter Details Date Type Department Care Team (Late st Contact Info) Description 04/24/2020 Refill [facility] [address] [place] [phone] [place] [address] [place] [address] Social History Tobacco Use Types Packs/Day Years [...] AM CDT Legal Sex Female 3:29 AM ALL PURPOSE CLERK Gender Identity Female 09/03/2021 8:30 AM CDT Sexual Orientation Not on file COVID-19 Exposure Response Date Recorded In the last month, have you been in contact with someone who was confirmed or suspected to have Coronavirus / COVID-19? No / Unsure 04/22/2020 2:11 PM ALL PURPOSE CLERK documented as of this encounter Plan of Treatment Upcoming Encounters Date Type Department Care Team (Late st Contact Info) Description 06/01/2024 10:30 AM ALL PURPOSE CLERK Appointment [facility] Imaging [address] [facility] [address] [place] [phone] Shaniqua Hernandez, DUKEY RIDER BILINGUAL MEDICAL ASSISTANT [address] [place] [address] 02/14/2025 11:00 AM CDT Office Visit [address] [phone] Susie Turk, DUKEY RIDER BILINGUAL MEDICAL ASSISTANT [facility] [place], [place] [address] documented as of this encounter Visit Diagnoses Not on filedocumented in this encounter Additional Health Concerns Infection Onset Date Last Indicated Resolved Time 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 11/01/2011 11/01/2011 Rule Out COVID-19 06/14/2020 06/14/2020 06/14/2020 11:50 PM ALL PURPOSE CLERK Rule Out COVID-19 03/09/2022 03/09/2022 03/09/2022 6:39 AM ALL PURPOSE CLERK Rule Out COVID-19 04/09/2024 04/09/2024 04/10/2024 10:57 AM ALL PURPOSE CLERK documented as of this encounter Care Teams Lawn Specialist Relationship Specialty Start Date End Date No Ref-Primary, Physician PCP - General 10/25/19 08/25/20 [facility] [address] [place] [address] PCP - General 08/26/20 12/27/23 No Ref-Primary, Physician PCP - General 12/28/23 05/22/24 Shaniqua Hernandez APRN BILINGUAL MEDICAL ASSISTANT [address] [place] [address] PCP - General Nurse Practitioner - Family 05/23/24 [place] [address] [place] [address] Assigned PCP 12/22/19 04/25/20 Kae Blankenship PA-C [address] [facility] 200 [place] [address] Assigned PCP 04/26/20 06/06/20 Crystal Alanis MD SURGICAL CONSULTS, PA [address] [facility] [address] [place] [address] Assigned Surgical Provider 06/07/20 12/03/21 [place] [address] [place] [address] Assigned PCP 06/07/20 08/15/20 Lois Hathaway DO [address] [facility] 100 [place] [address] Assigned OBGYN Provider 07/19/20 01/18/22 [place] [address] [place] [address] Assigned PCP 08/16/20 03/27/21 [place] [address] [place] [address] Assigned PCP 03/28/21 12/03/21 Jefferson Oliver Personal Advocate & Liaison (PAL) 09/14/21 05/26/22 [place] [address] [place] [address] Assigned PCP 12/04/21 03/17/23 Linda Cantu Personal Advocate & Liaison (PAL) Family Medicine 05/27/22 [place] [address] [place] [address] Assigned PCP 03/18/23 07/14/23 [place] [address] [place] [address] Assigned PCP 07/15/23 01/14/24 Susie Turk APRN BILINGUAL MEDICAL ASSISTANT [address] [place] [address] Assigned PCP 01/15/24 Claudine Curtis MD [address] [place] [address] Assigned OBGYN Provider 04/15/24 documented as of this encounter
--- OUTSIDE RECORDS SUMMARY | 2024-05-23 18:08 | XMS_ITS | Encounter Summary ---
Author Organization [facility] Address [address] [place] [address] Care Team Providers Care Machine Filler Name Role Phone KonstantinLinda carbone Unavailable Unavailable Susie Turk APRN HOSPITALITY DIRECTOR Unavailable [phone] Claudine Curtis MD Unavailable Shaniqua Hernandez APRN HOSPITALITY DIRECTOR Primary Care Prov ider Encounter Details Date Type Department Care Team (Late st Contact Info) Description 05/23/2024 MyC Medical Advice [address] [phone] Shaniqua Hernandez APRN [address] [address] Social History Tobacco Use Types Packs/Day Years [...] week 08/14/2020 How often do you attend [facility] or m[facility]on services? 1 to 4 times per year [...] Answer Date Recorded PHQ-2 Score 2 05/21/2024 [facility] Health - Occupational [...] CDT Legal Sex Female 3:29 AM SENIOR ADVISOR Gender Identity Female 09/03/2021 8:30 AM CDT Sexual Orientation Not on file documented as of this encounter Miscellaneous Notes * Telephone Encounter - Vidya Ruby RN - 05/23/2024 1:59 PM CST Called # [phone] and spoke with patient Advised patient of Shaniqua Hernandez's note. Patient requested again just for more pain medication, but advised that if pain is severe, she needed to be seen sooner. Patient asked if urgent care would be appropriate. Advised again that the emergency room is the best place for her. Stated that she received the note for work. Patient stated she could drive herself into work and knew where the nearest ER was to her. Denied any questions. Vidya Ruby RN on 05/23/2024 at 1:[address] [facility] OR ADVISOR * Telephone Encounter - Shaniqua Hernandez APRN CNP - 05/23/2024 1:45 PM SENIOR ADVISOR Images from the original note were not included. It was recommended she be in ED if red flag symptoms including significant pain; Any significant pain 10/10 or above is extreme warrants emergent care. Note for work done. Tristen crawford, Shaniqua Hernandez, STRAIN TECHNICIAN-BC OR ADVISOR * Telephone Encounter - Vidya Ruby RN - 05/23/2024 1:11 PM CST Patient triaged:05/20/24 Office visit: 05/21/24 Current medications from visit: Flexeril 5 mg Take 1-2 tablets (5-10 mg) by mouth 3 times daily as needed for muscle spasms Gabapentin 100 mg Take 1-3 capsules (100-300 mg) by mouth 3 times daily as needed for neuropathic pain. Can make sleepy take do not take before work or driving Routing to provider to review and advise. Vidya Ruby RN [place] Triage OR ADVISOR documented in this encounter Plan of Treatment Upcoming Encounters Date Type Department Care Team (Late st Contact Info) Description 06/01/2024 10:30 AM SENIOR ADVISOR Appointment [facility] Imaging [address] [place] [address] Shaniqua Hernandez APRN HOSPITALITY DIRECTOR [address] [place] [address] [place] [address] 02/14/2025 11:00 AM CDT Office Visit [address] [place] [phone] Susie Turk APRN HOSPITALITY DIRECTOR [address] [place] [address] documented as of this encounter Visit Diagnoses Not on filedocumented in this encounter Additional Health Concerns Infection Onset Date Last Indicated Resolved Time 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 11/01/2011 11/01/2011 Assessment Noted Time PHQ-9 Depression Total Score: 14 025 4:20 PM SENIOR ADVISOR documented as of this encounter Care Teams Machine Filler Relationship Specialty Start Date End Date Shaniqua Hernandez APRN HOSPITALITY DIRECTOR [address] [place] [address] PCP - General Nurse Practitioner - Family 05/23/24 Linda Cantu Personal Advocate & Liaison (PAL) Family Medicine 05/27/22 Susie Turk APRN HOSPITALITY DIRECTOR [address] [place] [address] Assigned PCP 01/15/24 Claudine Curtis MD [address] [place] [address] Assigned OBGYN Provider 04/15/24 documented as of this encounter
--- OUTSIDE RECORDS SUMMARY | 2024-05-23 18:08 | XMS_ITS | Encounter Summary ---
Author Organization [facility] Address [address] [place] [address] Care Team Providers Care Director Telemetry Name Role Phone Linda Cantu Unavailable Unavailable No Ref-Primary, Physician Primary Care Provider Susie Turk APRN FIRE HAZARD INSPECTOR Unavailable [phone] Claudine Curtis MD Unavailable [phone] Reason for Visit * Diagnostic Imaging XR (Routine) - Pending Review Specialty Diagnoses / Procedures Referred By Contac t Referred To Contact Radiology. Diagnoses Lumbar pain Procedures XR Lumbar Spine 2/3 Views Shaniqua Hernandez APRN FIRE HAZARD INSPECTOR [address] [place] [address] Phone: tel: fax: Referral ID Status Reason Start Date Expiration Date V isits Requested Visits Authorized [id number] Pending Review 05/21/2024 05/21/2025 1 1 Encounter Details Date Type Department Care Team (Late st Contact Info) Description 05/21/2024 12:25 PM CUBE MACHINE TENDER Ancillary Procedure [address] [phone] Shaniqua Hernandez APRN FIRE HAZARD INSPECTOR [address] [place], [place] [address] Lumbar pain Social History Tobacco Use Types Packs/Day Years [...] How often do you attend chur or spiritism services? 1 to 4 times per year 08/14/2020 Do you belong to any clubs o r organizations such as adventist groups, unions, fraternal or athletic groups, or [...] Answer Date Recorded PHQ-2 Score 2 05/21/2024 [facility] of Occupat ional Health - Occupational Stress [...] place to sleep or slept in a fdc (including now)? No 08/14/2020 Adolescent Education Answer [...] AM CDT Legal Sex Female 3:29 AM CUBE MACHINE TENDER Gender Identity Female 09/03/2021 8:30 AM CDT Sexual Orientation Not on file documented as of this encounter Miscellaneous Notes * Result Encounter Note - Shaniqua Hernandez, FRANDY FIRE HAZARD INSPECTOR - 05/21/2024 12:25 PM CST Please call [facility] does show Loss [...] due on 12/24/2023 Please call us at [phone] (or use [employer]) to address the above recommendations if needed. Thank you for choosing [facility]. It was an honor and a privilege to participate in your care. Healthy regards, SANJAY Magdaleno [facility] MACHINE TENDER documented in this encounter Plan of Treatment Upcoming Encounters Date Type Department Care Team (Late st Contact Info) Description 06/01/2024 10:30 AM CUBE MACHINE TENDER Appointment [facility] [address] [facility] [address] [place] [phone] Shaniqua Hernandez APRN FIRE HAZARD INSPECTOR [address] [place] [address] [place] [id number] 02/14/2025 11:00 AM CDT Office Visit [address] [place] [phone] Susie Turk APRN FIRE HAZARD INSPECTOR [address] [place] [address] documented as of this encounter Procedures Procedure Name Priority Date/Time Associated Diagnosis Comments XR LUMBAR SPINE 2/3 VIEWS Routine 05/21/2024 12:33 PM CUBE MACHINE TENDER Lumbar pain documented in this encounter Results * XR Lumbar Spine 2/3 Views (05/21/2024 12:33 PM CUBE MACHINE TENDER) Anatomical Region Laterality Modality Spine, T-spine, L-spine, Abdomen/Pelvis Computed Radiography 05/21/2024 12:3 3 PM CUBE MACHINE TENDER Impressions 05/21/2024 1:58 PM CUBE MACHINE TENDER IMPRESSION: 5 nonrib-bearing lumbar type vertebral bodies. Grade 2 anterolisthesis of L5 on S1 with advanced loss of L5-S1 disc space height. L5 pars defects. Intervertebral disc space heights are otherwise maintained. Narrative 05/21/2024 1:58 PM CUBE MACHINE TENDER EXAM: XR LUMBAR SPINE 2/3 VIEWS LOCATION: [facility] DATE: 05/21/2024 INDICATION: Lumbar pain COMPARISON: None. Procedure Note Darrell Leon MD - 05/21/2024 EXAM: XR LUMBAR SPINE 2/3 VIEWS LOCATION: [facility] DATE: 05/21/2024 INDICATION: Lumbar pain COMPARISON: None. IMPRESSION: 5 nonrib-bearing lumbar type vertebral bodies. Grade 2anterolisthesis of L5 on S1 with advanced loss of L5-S1 disc space height.L5 pars defects. Intervertebral disc space heights are otherwisemaintained. Shaniqua Hernandez MINE LABORER FIRE HAZARD INSPECTOR IMG DIAGNOSTIC MELVIN GING ORDERABLES Final Result documented in this encounter Visit Diagnoses Diagnosis Lumbar pain Lumbago documented in this encounter Additional Health Concerns Infection Onset Date Last Indicated Resolved Time 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 11/01/2011 11/01/2011 Assessment Noted Time PHQ-9 Depression Total Score: 14 025 4:20 PM CUBE MACHINE TENDER documented as of this encounter Care Teams Director Telemetry Relationship Specialty Start Date End Date No Ref-Primary, Physician PCP - General 12/28/23 05/22/24 Linda Cantu Personal Advocate & Liaison (PAL) Family Medicine 05/27/22 Susie Turk APRN FIRE HAZARD INSPECTOR [address] [place] [id number] Assigned PCP 01/15/24 Claudine Curtis MD [address] [place] [address] Assigned OBGYN Provider 04/15/24 documented as of this encounter
--- OUTSIDE RECORDS SUMMARY | 2024-05-23 18:09 | XMS_ITS | Encounter Summary ---
Author Organization [facility] Address [address] [place] [address] Care Team Providers Care Gun Fertilizer Name Role Phone Linda Cantu Unavailable Unavailable No Ref-Primary, Physician Primary Care Provider Susie Turk APRN STATE APPELLATE CLERK Unavailable [phone] Claudine Curtis MD Unavailable [phone] Reason for Visit * Reason Comments ER F/U Encounter Details Date Type Department Care Team (Late st Contact Info) Description 05/21/2024 9:30 AM CAREER PORTALS TEACHER Virtual Visit [address] [phone] Shaniqua Hernandez, FRANDY STATE APPELLATE CLERK [address] [place] [address] [phone] Back pain, unspecified back location, unspecified back pain laterality, unspecified chronicity (Primary Dx) Social History Tobacco Use Types Packs/Day Years [...] often do you attend chur ch or jew services? 1 to 4 times per year 08/14/2020 Do you belong to any clubs o r organizations such as religion groups, unions, fraternal or athletic groups, or [...] Answer Date Recorded PHQ-2 Score 2 05/21/2024 [facility] Occupat ional Health - Occupational Stress [...] place to sleep or slept in a mcc (including now)? No 08/14/2020 Adolescent Education Answer [...] AM CDT Legal Sex Female 3:29 AM CAREER PORTALS TEACHER Gender Identity Female 09/03/2021 8:30 AM CDT Sexual Orientation Not on file documented as of this encounter Progress Notes * Shaniqua Hernandez, FRANDY STATE APPELLATE CLERK - 05/21/2024 9:30 AM CST Sarah is a 38 year old who is being evaluated via a billable video visit. How would you like to obtain your AVS? MyChart If the video visit is dropped, the invitation should be resent by: Text to cell phone: [phone] Will anyone else be joining your video visit? No Subjective Sarah is a 38 year old, presenting for the following health issues: ER F/U 05/21/2024 9:15 AM Additional Questions Roomed by Deanna VELEZ ED/UC Followup: Facility: [facility] Date of visit: 05/17/24 Reason for visit:Back Pain Current Status: Patient reports pain is 8/10 and she is in severe pain on her lower left back. Painradiates down to her leg and to her foot. Patient describes pain as a lightening bolt zapping me.Pain is constant, sciatic.Had no imaging done- but its been about 2 weeks with severe pain- worsening- has been stretching and icing. Patient denies bruising, redness or swelling. No weakness/numbness/tingling. No urinary changes. Patient was also given oxycodone and prednisone at emergency room. Patient says medications aren't helping with her pain. No imaging done needs seen appointment made for 2 hours from now with this DOOR TRIMMER. No charge. ER PORTALS TEACHER documented in this encounter Plan of Treatment Upcoming Encounters Date Type Department Care Team (Late st Contact Info) Description 06/01/2024 10:30 AM CAREER PORTALS TEACHER Appointment [facility] Imaging [address] [place] [phone] Shaniqua Hernandez APRN STATE APPELLATE CLERK [address] [place] [id number] 02/14/2025 11:00 AM CDT Office Visit [address] [place] [phone] Susie Turk APRN STATE APPELLATE CLERK [address] [place] [address] [id number] documented as of this encounter Visit Diagnoses Diagnosis Back pain, unspecified back location, unspecified back pain laterality, unspecified chronicity- Primary documented in this encounter Additional Health Concerns Infection Onset Date Last Indicated Resolved Time 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 11/01/2011 11/01/2011 Assessment Noted Time PHQ-9 Depression Total Score: 14 025 4:20 PM CAREER PORTALS TEACHER documented as of this encounter Care Teams Gun Fertilizer Relationship Specialty Start Date End Date No Ref-Primary, Physician PCP - General 12/28/23 05/22/24 Linda Cantu Personal Advocate & Liaison (PAL) Family Medicine 05/27/22 Susie Turk APRN STATE APPELLATE CLERK [address] [place] [address] [id number] Assigned PCP 01/15/24 Claudine Curtis MD [address] [place] [address] Assigned OBGYN Provider 04/15/24 documented as of this encounter
--- OUTSIDE RECORDS SUMMARY | 2024-05-23 18:09 | XMS_ITS | Encounter Summary ---
Author Organization [facility] Address [address] [place] [address]. [place] [address] Care Team Providers Care Electrician Technician Name Role Phone Linda Cantu Unavailable Unavailable No Ref-Primary, Physician Primary Care Provider Susie Turk APRN CLOTH BALE HEADER Unavailable [phone] Claudine Curtis MD Unavailable [phone] Shaniqua Hernandez APRN CLOTH BALE HEADER Primary Care Prov ider Encounter Details Date Type Department Care Team (Late st Contact Info) Description 03/25/2024 MyC Medical Advice [facility] [address] [place] [address] Claudine Curtis MD [address] [place] [address] Social History Tobacco Use Types [...] often do you attend chur ch or zoroastrianism services? 1 to 4 times per year [...] Answer Date Recorded PHQ-2 Score 3 02/15/2024 [facility] of Occupat ional Health - Occupational Stress [...] in a custodial (including now)? No 08/14/2020 Adolescent Education Answer [...] AM CDT Legal Sex Female 3:29 AM CYBER REVERSE ENGINEER Gender Identity Female 09/03/2021 8:30 AM CDT Sexual Orientation Not on file documented as of this encounter Plan of Treatment Upcoming Encounters Date Type Department Care Team (Late st Contact Info) Description 06/01/2024 10:30 AM CYBER REVERSE ENGINEER Appointment [facility] [address] [facility] [address] [place] [phone] Shaniqua Hernandez, FRANDY [address] [address] 02/14/2025 11:00 AM CDT Office Visit [facility] [address] [phone] Susie Turk APRN CLOTH BALE HEADER [address] [place] [phone] documented as of this encounter Visit Diagnoses Not on filedocumented in this encounter Additional Health Concerns Infection Onset Date Last Indicated Resolved Time 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 11/01/2011 11/01/2011 Rule Out COVID-19 04/09/2024 04/09/2024 04/10/2024 10:57 AM CYBER REVERSE ENGINEER Assessment Noted Time PHQ-9 Depression Total Score: 9 02/15/20 24 7:18 AM CDT documented as of this encounter Care Teams Electrician Technician Relationship Specialty Start Date End Date No Ref-Primary, Physician PCP - General 12/28/23 05/22/24 Shaniqua Hernandez APRN CLOTH BALE HEADER [address] [place] [address] [phone] PCP - General Nurse Practitioner - Family 05/23/24 Linda Cantu Personal Advocate & Liaison (PAL) Family Medicine 05/27/22 Susie Turk APRN CLOTH BALE HEADER [address] [place] [address] [id number] Assigned PCP 01/15/24 Claudine Curtis MD [address] [place] [address] Assigned OBGYN Provider 04/15/24 documented as of this encounter
--- OUTSIDE RECORDS SUMMARY | 2024-05-23 18:09 | XMS_ITS | Encounter Summary ---
Author Organization [facility] Address [address] [place] [address] Care Team Providers Care Visual Merchandising Associate Name Role Phone Linda Cantu Unavailable Unavailable No Ref-Primary, Physician Primary Care Provider Susie Turk APRN PROJECT DEVELOPER Unavailable [phone] Claudine Curtis MD Unavailable [phone] Reason for Referral * Diagnostic Imaging XR (Routine) - Pending Review Specialty Diagnoses / Procedures Referred By Contac t Referred To Contact Radiology. Diagnoses Lumbar pain Procedures XR Lumbar Spine 2/3 Views Shaniqua Hernandez APRN PROJECT DEVELOPER [address] [place] [address] Phone: tel: fax: Referral ID Status Reason Start Date Expiration Date V isits Requested Visits Authorized [id number] Pending Review 05/21/2024 05/21/2025 1 1 HISTORY PROFESSOR Reason for Visit * Reason Comments Back Pain Encounter Details Date Type Department Care Team (Late st Contact Info) Description 05/21/2024 12:00 PM ART HISTORY PROFESSOR Office Visit [address] [phone] Shaniqua Hernandez APRN PROJECT DEVELOPER [address] [place] [address] [phone] Lumbar pain (Primary Dx); Nonspecific finding on examination of urine; Morbid obesity (H); Moderate episode of recurrent major depressive disorder (H); Lumbar pain with radiation down left leg Social History Tobacco Use Types Packs/Day Years [...] often do you attend chur ch or episcopalian services? 1 to 4 times per year 08/14/2020 Do you belong to any clubs o r organizations such as jain groups, unions, fraternal or athletic groups, or [...] Answer Date Recorded PHQ-2 Score 2 05/21/2024 [facility] [place] of Occupat ional Health - Occupational Stress [...] AM CDT Legal Sex Female 3:29 AM ART HISTORY PROFESSOR Gender Identity Female 09/03/2021 8:30 AM CDT Sexual Orientation Not on file documented as of this encounter Last Filed Vital Signs Vital Sign Reading Time Taken Comments Blood Pressure 138/87 05/21/2024 11:59 AM ART HISTORY PROFESSOR Pulse 112 05/21/2024 11:59 AM ART HISTORY PROFESSOR Temperature 36.6 C (97.9 F) 05/21/2024 11:59 AM ART HISTORY PROFESSOR Respiratory Rate 15 05/21/2024 11:59 AM ART HISTORY PROFESSOR Oxygen Saturation 98% 05/21/2024 11:59 AM ART HISTORY PROFESSOR Inhaled Oxygen Concentration - - Weight 121.1 kg (267 lb) 05/21/2024 11:59 AM ART HISTORY PROFESSOR Height 161.3 cm (5' 3.5) 05/21/2024 11:59 AM CS T Body Mass Index 46.56 05/21/2024 11:59 AM ART HISTORY PROFESSOR documented in this encounter Progress Notes * Shaniqua Hernandez, FRANDY PROJECT DEVELOPER - 05/21/2024 12:00 PM CST Images from the original note were not included. Assessment & Plan Lumbar pain Flexeril, gabapentin, continue steroids. May need stronger taper she can let me know. Xray pending read, may need MRI versus spine or both based on results. Red flag symptoms discussed including significant pain and if these occur present to the emergency room or call 911. Sarah verbalizes understanding of plan of care and is in agreement. - XR Lumbar Spine 2/3 Views - UA with Microscopic - lab collect - HCG Qual, Urine ([id number]) - Urine Microscopic Exam - Urine Culture - Urine Culture - cyclobenzaprine (FLEXERIL) 5 MG tablet Dispense: 20 tablet; Refill: 1 - gabapentin (NEURONTIN) 100 MG capsule Dispense: 90 capsule; Refill: 0 Nonspecific finding on examination of urine - Urine Culture - Urine Culture Morbid obesity (H) Moderate episode of recurrent major depressive disorder (H) Lumbar pain with radiation down left leg - gabapentin (NEURONTIN) 100 MG capsule Dispense: 90 capsule; Refill: 0 No follow-ups on file. Subjective Sarah is a 38 year old, presenting for the following health issues: Back Pain 05/21/2024 11:50 AM Additional Questions Roomed by Kiersten FAN Accompanied by Self History of Present Illness Back Pain: She presents for follow up of back pain. Patient's back pain is a recurring problem. Location of back pain: Left middle of back Description of back pain: sharp Back pain spreads: left buttocks Since patient first noticed back pain, pain is: always present, but gets better and worse Does back pain interfere with her job: Yes Reason for visit: Terrible sciatic nerve pain Symptom onset: More than a month Symptoms include: Extremely painfull left buttcheel all down my left leg. Feels like a constant pain. Sometimes foot can go numb. Symptom intensity: Severe Symptom progression: Staying the same Had these symptoms before: No What makes it worse: Being on my feet. Not able to sit correctly What makes it better: While stretching it it feel a little better but comes back. Ice numbs it so ican fall asleep but havent slept more gthan 2 hours from restless legs She is taking medications regularly. ED/UC Followup: Facility: [facility] Date of visit: 05/17/24 Reason [...] says medications aren't helping with her pain. Triaged - 05/20/2024 - 5:54p Nurse Triage SBAR Is this a 2nd Level Triage? YES, LICENSED PRACTITIONER REVIEW IS REQUIRED Situation: Patient calls to request primary care provider to refill her flexeril. Background: Patient was seen at [facility] (unable to see notes) on 05/17/2024. Assessment: Patient reports pain is 8/10 and she is in severe pain on her lower left back. Pain radiates down to her leg and to her foot. Patient describes pain as a lightening bolt zapping me. Pain is constant. Patient denies bruising, redness or swelling. No weakness/numbness/tingling. No urinary changes. Patient was also given oxycodone and prednisone at emergency room. Patient says medications aren't helping with her pain. Protocol Recommended Disposition: See in Office Today Recommendation: Advised appointment likely needed, but will route refill and message to provider per patient request. Routed to provider Does the patient meet one of the following criteria for ADS visit consideration? 16+ years old, with an [facility] PCP TIP Providers, please consider if this condition is appropriate for management at one of our Acute and Diagnostic Services sites. If patient is a good candidate, please use dotphrase <dot>triageresponse and select Refer to ADS to document. Reason for Disposition Pain radiates into the thigh or further down the leg, and in both legs Answer Assessment - Initial Assessment Questions 1. ONSET: When did the pain begin? (e.g., minutes, hours, days) A month 2. LOCATION: Where does it hurt? (upper, mid or lower back) Lower left back. 3. SEVERITY: How bad is the pain? (e.g., Scale 1-10; mild, moderate, or severe) 8/10 4. PATTERN: Is the pain constant? (e.g., yes, no; constant, intermittent) Constant 5. RADIATION: Does the pain shoot into your legs or somewhere else? Yes, down leg 6. CAUSE: What do you think is causing the back pain? Sciatic. 7. BACK OVERUSE: Any recent lifting of heavy objects, strenuous work or exercise? No. 8. MEDICINES: What have you taken so far for the pain? (e.g., nothing, acetaminophen, NSAIDS) 9. NEUROLOGIC SYMPTOMS: Do you have any weakness, numbness, or problems with bowel/bladder control? No 10. OTHER SYMPTOMS: Do you have any other symptoms? (e.g., fever, abdomen pain, burning with urination, blood in urine) No. 11. : Is there any chance you are ? When was your last menstrual period? N/A Protocols used: Back Pain-A-[place] NO imaging done at urgent care. ON steroids 40 mg X 5 days. Review of Systems Constitutional, neuro, ENT, endocrine, pulmonary, cardiac, gastrointestinal, genitourinary, musculoskeletal, integument and psychiatric systems are negative, except as otherwise noted. Objective BP 138/87 (BP Location: Left arm, Patient Position: Chair, Cuff Size: Adult Large) Pulse 112 Temp 97.9 ??F (36.6 ??C) (Tympanic) Resp 15 Ht 1.613 m (5' 3.5) Wt 121.1 kg (267 lb) SpO2 98% BMI 46.56 kg/m?? Body mass index is 46.56 kg/m??. Physical Exam GENERAL: alert and no distress RESP: lungs clear to auscultation - no rales, rhonchi or wheezes CV: regular rate and rhythm, normal S1 S2, no S3 or S4, no murmur, click or rub, no peripheral edema ABDOMEN: soft, nontender, no hepatosplenomegaly, no masses and bowel sounds normal MS: no gross musculoskeletal defects noted, no edema SKIN: no suspicious lesions or rashes MS: painful sitting to standing; decrease ROM with flexion extension and lateral rotation. NEURO: Normal strength and tone, mentation intact and speech normal; neg straight leg PSYCH: mentation appears normal, affect normal/bright Results for orders placed or performed in visit on 05/21/24 XR Lumbar Spine 2/3 Views Status: None Narrative EXAM: XR LUMBAR SPINE 2/3 VIEWS LOCATION: [facility] DATE: 05/21/2024 INDICATION: Lumbar pain COMPARISON: None. Impression IMPRESSION: 5 nonrib-bearing lumbar type vertebral bodies. Grade 2 anterolisthesis of L5 on S1 withadvanced loss of L5-S1 disc space height. L5 pars defects. Intervertebral disc space heights are otherwise maintained. Results for orders placed or performed in visit on 05/21/24 UA with Microscopic - lab collect Status: Abnormal Result Value Ref Range Color Urine Red (A) Colorless, Straw, Light Yellow, Yellow Appearance Urine Slightly Cloudy (A) Clear Glucose Urine Negative Negative mg/dL Bilirubin Urine Negative Negative Ketones Urine Negative Negative mg/dL Specific Alton Urine 1.020 1.003 - 1.035 Blood Urine Large (A) Negative pH Urine 7.0 5.0 - 7.0 Protein Albumin Urine 100 (A) Negative mg/dL Urobilinogen Urine 0.2 0.2, 1.0 E.U./dL Nitrite Urine Positive (A) Negative Leukocyte Esterase Urine Negative Negative HCG Qual, Urine ([id number]) Status: Normal Result Value Ref Range hCG Urine Qualitative Negative Negative Urine Microscopic Exam Status: Abnormal Result Value Ref Range Bacteria Urine Few (A) None Seen /HPF RBC Urine >100 (A) 0-2 /HPF /HPF WBC Urine 0-5 0-5 /HPF /HPF Urine Culture Status: None Specimen: Urine, Midstream Result Value Ref Range Culture <10,000 CFU/mL Mixture of Urogenital Pilar Signed Electronically by: Shaniqua Hernandez APRN CNP HISTORY PROFESSOR documented in this encounter Miscellaneous Notes * Result Encounter Note - Shaniqua Hernandez APRN CNP - 05/21/2024 12:00 PM CST Dear Sarah, Here is a summary of your recent test results: Urine culture is normal. I have sent your referral to spine team and order for MRI. For additional lab test information, [email or web address] is an excellent reference. In addition, here is a list of due or overdue Health Maintenance reminders: Depression Action Plan Never done Pneumococcal Vaccine(1 of 2 - PCV) Never done Hepatitis B Vaccine(1 of 3 - 19+ 3-dose series) Never done Flu Vaccine(1) due on 12/24/2023 Please call us at [phone] (or use Cubicle) to address the above recommendations if needed. Thank you for choosing [facility]. It was an honor and a privilege to participate in your care. Healthy regards, Shaniqua Hernandez, SANJAY [facility] HISTORY PROFESSOR documented in this encounter Plan of Treatment Upcoming Encounters Date Type Department Care Team (Late st Contact Info) Description 06/01/2024 10:30 AM ART HISTORY PROFESSOR Appointment [facility] [address] [place] [address] Shaniqua Hernandez APRN CNP [address] [place] [address] 02/14/2025 11:00 AM CDT Office Visit [address] [phone] Susie Turk, FRANDY PROJECT DEVELOPER [address] [place] [address] documented as of this encounter Procedures Procedure Name Priority Date/Time Associated Diagnosis Comments URINE CULTURE Routine 05/21/2024 12:21 PM ART HISTORY PROFESSOR Lumbar pain Nonspecific finding on examination of urine HCG QUALITATIVE URINE Routine 05/21/2024 11:39 AM ART HISTORY PROFESSOR Lumbar pain ROUTINE UA WITH MICROSCOPIC Routine 05/21/2024 11:39 AM ART HISTORY PROFESSOR Lumbar pain URINE MICROSCOPIC EXAM Routine 05/21/2024 11:39 AM ART HISTORY PROFESSOR Lumbar pain documented in this encounter Results * XR Lumbar Spine 2/3 Views (05/21/2024 12:33 PM ART HISTORY PROFESSOR) Anatomical Region Laterality Modality Spine, T-spine, L-spine, Abdomen/Pelvis Computed Radiography 05/21/2024 12:3 3 PM ART HISTORY PROFESSOR Impressions 05/21/2024 1:58 PM ART HISTORY PROFESSOR IMPRESSION: 5 nonrib-bearing lumbar type vertebral bodies. Grade 2 anterolisthesis of L5 on S1 with advanced loss of L5-S1 disc space height. L5 pars defects. Intervertebral disc space heights are otherwise maintained. Narrative 05/21/2024 1:58 PM ART HISTORY PROFESSOR EXAM: XR LUMBAR SPINE 2/3 VIEWS LOCATION: [facility] DATE: 05/21/2024 INDICATION: Lumbar pain COMPARISON: None. Procedure Note Darrell Leon MD - 05/21/2024 EXAM: XR LUMBAR SPINE 2/3 VIEWS LOCATION: [facility] DATE: 05/21/2024 INDICATION: Lumbar pain COMPARISON: None. IMPRESSION: 5 nonrib-bearing lumbar type vertebral bodies. Grade 2anterolisthesis of L5 on S1 with advanced loss of L5-S1 disc space height.L5 pars defects. Intervertebral disc space heights are otherwisemaintained. Shaniqua Hernandez APRN, CNP IMG DIAGNOSTIC MELVIN GING ORDERABLES Final Result * Urine Culture (05/21/2024 12:21 PM ART HISTORY PROFESSOR) Pathologist [facility] Culture <10,000 CFU/mL Mixture of Urogenital Pilar 05/22/2024 11:48 AM ART HISTORY PROFESSOR [facility] Urine MID-STREAM URINE SPECIMEN / Unknown Non-blood Collection / Unknown 05/21/2024 12:21 PM ART HISTORY PROFESSOR 05/21/2024 12:21 PM ART HISTORY PROFESSOR Shaniqua Hernandez APRN, CNP LAB - MICRO GENERA L ORDERABLES Final Result [facility] Inf. Diseases Diag. Lab [address] [facility], [address] [place] [phone] * (ABNORMAL) Urine Microscopic Exam (05/21/2024 11:39 AM ART HISTORY PROFESSOR) Pathologist [facility] Bacteria Urine Few(A) None Seen /HPF MARY 05/21/2024 12:17 PM ART HISTORY PROFESSOR [facility] RBC Urine >100(A) 0-2 /HPF /HPF MARY 05/21/2024 12:17 PM ART HISTORY PROFESSOR [facility] WBC Urine 0-5 0-5 /HPF /HPF MARY 05/21/2024 12:17 PM ART HISTORY PROFESSOR [facility] Urine MID-STREAM URINE SPECIMEN / Unknown Non-blood Collection / Unknown 05/21/2024 11:39 AM ART HISTORY PROFESSOR 05/21/2024 12:09 PM ART HISTORY PROFESSOR Shaniqua Hernandez APRN, CNP LAB - URINE ORDERA BLES Final Result [facility] [address] [place] [address] [facility] (no room number, 1st floor of clinic) [place] [address] * HCG Qual, Urine ([id number]) (05/21/2024 11:39 AM ART HISTORY PROFESSOR) Pathologist [facility] hCG Urine Qualitative Negative Negative MARY 05/21/2024 12:16 PM ART HISTORY PROFESSOR [facility] Comment:This test is for scr eening purposes. Results should be interpreted along with the clinical picture. Confirmation testing is available if warranted by ordering [id number], HCG Quantitative . Urine MID-STREAM URINE SPECIMEN / Unknown Non-blood Collection / Unknown 05/21/2024 11:39 AM ART HISTORY PROFESSOR 05/21/2024 12:09 PM ART HISTORY PROFESSOR Shaniqua Hernandez CLOTH PRINTING INSPECTOR PROJECT DEVELOPER LAB - URINE ORDERA BLES Final Result [facility] [address] [facility] (no room number, 1st floor of clinic) [place] [address], [facility] * (ABNORMAL) UA with Microscopic - lab collect (05/21/2024 11:39 AM ART HISTORY PROFESSOR) Color Urine Red(A) Colorless, Straw, Light Yellow, Yellow 05/21/2024 12:13 PM ART HISTORY PROFESSOR [facility] Appearance Urine Slightly Cloudy(A) Clear 05/21/2024 12:13 PM ART HISTORY PROFESSOR [facility] Glucose Urine Negative Negative mg/dL 05/21/2024 12:13 PM ART HISTORY PROFESSOR [facility] Bilirubin Urine Negative Negative 12:13 PM ART HISTORY PROFESSOR [facility] Ketones Urine Negative Negative mg/dL 05/21/2024 12:13 PM ART HISTORY PROFESSOR [facility] Specific Alton Urine 1.020 1.003 - 1.035 05/21/2024 12:13 PM ART HISTORY PROFESSOR [facility] Blood Urine Large(A) Negative 05/21/2024 12:13 PM ART HISTORY PROFESSOR [facility] pH Urine 7.0 5.0 - 7.0 05/21/2024 12:13 PM ART HISTORY PROFESSOR [facility] Protein Albumin Urine 100(A) Negative mg/dL 05/21/2024 12:13 PM ART HISTORY PROFESSOR [facility] Urobilinogen Urine 0.2 0.2, 1.0 E.U./dL 05/21/2024 12:13 PM ART HISTORY PROFESSOR [facility] Nitrite Urine Positive(A) Negative 05/21/2024 12:13 PM ART HISTORY PROFESSOR [facility] Leukocyte Esterase Urine Negative Negative 05/21/2024 12:13 PM ART HISTORY PROFESSOR [facility] Urine MID-STREAM URINE SPECIMEN / Unknown Non-blood Collection / Unknown 05/21/2024 11:39 AM ART HISTORY PROFESSOR 05/21/2024 12:09 PM ART HISTORY PROFESSOR Shaniqua Hernandez APRN, CNP LAB - URINE ORDERA BLES Final Result [facility] [address] [facility] (no room number, 1st floor of clinic) [place] [address], [facility] documented in this encounter Visit Diagnoses Diagnosis Lumbar pain- Primary Lumbago Nonspecific finding on examination of urine Other nonspecific finding on examination of urine Morbid obesity (H) Morbid obesity Moderate episode of recurrent major depressive disorder (H) Lumbar pain with radiation down left leg Lumbago Lumbar pain Lumbago documented in this encounter Additional Health Concerns Infection Onset Date Last Indicated Resolved Time 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 11/01/2011 11/01/2011 Assessment Noted Time PHQ-9 Depression Total Score: 14 025 4:20 PM ART HISTORY PROFESSOR documented as of this encounter Care Teams Visual Merchandising Associate Relationship Specialty Start Date End Date No Ref-Primary, Physician PCP - General 12/28/23 05/22/24 Linda Cantu Personal Advocate & Liaison (PAL) Family Medicine 05/27/22 Susie Turk APRN CNP [address] [place] [address] Assigned PCP 01/15/24 Claudine Curtis MD [address] [place] [address] Assigned OBGYN Provider 04/15/24 documented as of this encounter
--- OUTSIDE RECORDS SUMMARY | 2024-05-23 18:09 | XMS_ITS | Encounter Summary ---
Author Organization [facility] Address [address] [place] [address] Care Team Providers Care Oversize Load Pilot Escort Name Role Phone Linda Cantu Unavailable Unavailable No Ref-Primary, Physician Primary Care Provider Susie Turk APRN INTERNET SYSTEMS ADMINISTRATOR Unavailable [phone] Claudine Curtis MD Unavailable [phone] Reason for Visit * Reason Onset Date Comments Refill Request 05/20/2024 Encounter Details Date Type Department Care Team (Late st Contact Info) Description 05/20/2024 MyC Refill [address] [phone] Susie Turk, FRANDY INTERNET SYSTEMS ADMINISTRATOR [address] [place] [address] [phone] Refill Request Social History Tobacco Use Types Packs/Day Years [...] any clubs o r organizations such as advent groups, unions, fraternal or athletic groups, or [...] Answer Date Recorded PHQ-2 Score 2 05/21/2024 [facility] - Occupational Stress Questionnaire Answer Date [...] AM CDT Legal Sex Female 3:29 AM MARKETING ANALYTICS SPECIALIST Gender Identity Female 09/03/2021 8:30 AM CDT Sexual Orientation Not on file documented as of this encounter Plan of Treatment Upcoming Encounters Date Type Department Care Team (Late st Contact Info) Description 06/01/2024 10:30 AM MARKETING ANALYTICS SPECIALIST Appointment [facility] [address] [facility] [address] [place] [address] Shaniqua Hernandez, FRANDY [address] [address] 02/14/2025 11:00 AM CDT Office Visit [address] [place] [address] Susie Turk APRN INTERNET SYSTEMS ADMINISTRATOR [address] [place] [phone] documented as of this encounter Visit Diagnoses Diagnosis MELISSA (generalized anxiety disorder) Generalized anxiety disorder documented in this encounter Additional Health Concerns Infection Onset Date Last Indicated Resolved Time 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 11/01/2011 11/01/2011 Assessment Noted Time PHQ-9 Depression Total Score: 14 025 4:20 PM MARKETING ANALYTICS SPECIALIST documented as of this encounter Care Teams Oversize Load Pilot Escort Relationship Specialty Start Date End Date No Ref-Primary, Physician PCP - General 12/28/23 05/22/24 Linda Cantu Personal Advocate & Liaison (PAL) Family Medicine 05/27/22 Susie Turk APRN INTERNET SYSTEMS ADMINISTRATOR [address] [place] [address] [id number] Assigned PCP 01/15/24 Claudine Curtis MD [address] [place] [address] Assigned OBGYN Provider 04/15/24 documented as of this encounter
--- OUTSIDE RECORDS SUMMARY | 2024-05-23 18:09 | XMS_ITS | Encounter Summary ---
Author Organization [facility] Address [address] [place] [address] Care Team Providers Care Saw Filer Name Role Phone Linda Cantu Unavailable Unavailable No Ref-Primary, Physician Primary Care Provider Susie Turk APRN PROFESSOR OF FINE ART Unavailable [phone] Claudine Curtis MD Unavailable [phone] Encounter Details Date Type Department Care Team (Latest Contact Info) Description 05/21/2024 Travel Social History Tobacco Use Types Packs/Day [...] often do you attend chur ch or pentecostal services? 1 to 4 times per year 08/14/2020 Do you belong to any clubs o r organizations such as mu-ism groups, unions, fraternal or athletic groups, or [...] Answer Date Recorded PHQ-2 Score 2 05/21/2024 [facility] Occupat ional Health - Occupational Stress [...] AM CDT Legal Sex Female 3:29 AM LINOLEUM LAYER HELPER Gender Identity Female 09/03/2021 8:30 AM CDT Sexual Orientation Not on file documented as of this encounter Plan of Treatment Upcoming Encounters Date Type Department Care Team (Late st Contact Info) Description 06/01/2024 10:30 AM LINOLEUM LAYER HELPER Appointment [facility] [address] [facility] [address] [place] [phone] Shaniqua Hernandez APRN PROFESSOR OF FINE ART [address] [place] [phone] 02/14/2025 11:00 AM CDT Office Visit [address] [place] [phone] Susie Turk APRN PROFESSOR OF FINE ART [address] [place] [address] documented as of this encounter Visit Diagnoses Not on filedocumented in this encounter Additional Health Concerns Infection Onset Date Last Indicated Resolved Time 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 11/01/2011 11/01/2011 Assessment Noted Time PHQ-9 Depression Total Score: 14 025 4:20 PM LINOLEUM LAYER HELPER documented as of this encounter Care Teams Saw Filer Relationship Specialty Start Date End Date No Ref-Primary, Physician PCP - General 12/28/23 05/22/24 Linda Cantu Personal Advocate & Liaison (PAL) Family Medicine 05/27/22 Susie Turk APRN PROFESSOR OF FINE ART [address] [place] [phone] Assigned PCP 01/15/24 Claudine Curtis MD [address] [place] [address] Assigned OBGYN Provider 04/15/24 documented as of this encounter
--- OUTSIDE RECORDS SUMMARY | 2024-05-23 18:09 | XMS_ITS | Clinical Summary ---
Author Organization [facility] Address [address] [place] [address] Care Team Providers Care Microsoft Architect Name Role Phone KonstantintonyaenmaLinda Unavailable Unavailable Susie Turk APRN DETONATOR ASSEMBLER Unavailable [phone] Claudine Curtis MD Unavailable [phone] Shaniqua Hernandez APRN DETONATOR ASSEMBLER Primary Care Prov ider Allergies Active Allergy Reactions Criticality Noted Date [...] MG tablet Take 10 mg by mouth. 2024 Discontinued(R eorder (No AVS)) oxyCODONE-acetam inophen [...] (07/23/2020): Added automatically from request for surgery [id number] Encounter for sterilization 07/23/2020 Overview (07/24/2020): Added automatically from request for surgery [id number] Morbid obesity 06/01/2020 Anxiety 01/20/2016 Status post [...] Care Team Description 05/23/2024 MyC Medical Advice M [address] [place] [phone] Shaniqua Hernandez APRN DETONATOR ASSEMBLER 05/21/2024 12:25 PM PLASMA CUTTING MACHINE OPERATOR Ancillary Procedure [address] [place] [phone] Shaniqua Hernandez APRN CNP Lumbar pain 05/21/2024 12:00 PM PLASMA CUTTING MACHINE OPERATOR Office Visit [address] [place] [phone] Shaniqua Hernandez APRN CNP Lumbar pain (Primary Dx); Nonspecific finding on examination of urine; Morbid obesity (H); Moderate episode of recurrent major depressive disorder (H); Lumbar pain with radiation down left leg 05/21/2024 9:30 AM PLASMA CUTTING MACHINE OPERATOR Virtual Visit [address] [place] [phone] Shaniqua Hernandez APRN CNP Back pain, unspecified back location, unspecified back pain laterality, unspecified chronicity (Primary Dx) 05/21/[address] [place] [phone] No Ref-Primary, Physician Results 05/21/2024 Travel 05/20/2024 MyC Refill [address] [place] [phone] Rebecca Flowers PA-C Refill Request 05/20/2024 MyC Refill [address] [place] [phone] Susie Turk APRN DETONATOR ASSEMBLER Refill Request 04/09/2024 11:45 AM PLASMA CUTTING MACHINE OPERATOR Ancillary Procedure [address] [place] [phone] Rebecca Flowers PAFabrizio Wheezing; Acute cough; Upper respiratory tract infection, unspecified type 04/09/2024 11:30 AM PLASMA CUTTING MACHINE OPERATOR Office Visit [address] [phone] Rebecca Flowers PA-C Wheezing (Primary Dx); Acute cough; Upper respiratory tract infection, unspecified type 04/09/2024 Travel 03/26/2024 10:30 AM PLASMA CUTTING MACHINE OPERATOR Office Visit [address] [place] [phone] Claudine Curtis MD Encounter for IUD removal (Primary Dx); Intrauterine contraceptive device threads lost, initial encounter 03/25/2024 MyC Medical Advice [address] [place] [phone] Claudine Curtis MD 03/25/2024 Travel from Last [...] How often do you attend chur or alevism services? 1 to 4 times per year 08/14/2020 Do you belong to any clubs o r organizations such as jehovah's witness groups, unions, fraternal or athletic groups, or [...] Answer Date Recorded PHQ-2 Score 2 05/21/2024 [facility] - [...] place to sleep or slept in a skilled nursing (including now)? No 08/14/2020 Adolescent Education Answer [...] AM CDT Legal Sex Female 3:29 AM PLASMA CUTTING MACHINE OPERATOR Gender Identity Female 09/03/2021 8:30 AM CDT Sexual Orientation Not on file Last Filed Vital Signs Vital Sign Reading Time Taken Comments Blood Pressure 138/87 05/21/2024 11:59 AM PLASMA CUTTING MACHINE OPERATOR Pulse 112 05/21/2024 11:59 AM PLASMA CUTTING MACHINE OPERATOR Temperature 36.6 C (97.9 F) 05/21/2024 11:59 AM PLASMA CUTTING MACHINE OPERATOR Respiratory Rate 15 05/21/2024 11:59 AM PLASMA CUTTING MACHINE OPERATOR Oxygen Saturation 98% 05/21/2024 11:59 AM PLASMA CUTTING MACHINE OPERATOR Inhaled Oxygen Concentration - - Weight 121.1 kg (267 lb) 05/21/2024 11:59 AM PLASMA CUTTING MACHINE OPERATOR Height 161.3 cm (5' 3.5) 05/21/2024 11:59 AM CS T Body Mass Index 46.56 05/21/2024 11:59 AM PLASMA CUTTING MACHINE OPERATOR Plan of Treatment Upcoming Encounters Date Type Department Care Team (Late st Contact Info) Description 06/01/2024 10:30 AM PLASMA CUTTING MACHINE OPERATOR Appointment [facility] Imaging [address] [facility] [address] [place] [phone] Shaniqua Hernandez, TRANSPORT SPECIALIST DETONATOR ASSEMBLER [address] [place] [address] [phone] 02/14/2025 11:00 AM CDT Office Visit [address] [place] [phone] Susie Turk TRANSPORT SPECIALIST DETONATOR ASSEMBLER [address] [place] [address] [phone] Health Maintenance Due Date Last Done Comments DEPRESSION ACTION PLAN 1985 HEPATITIS B IMMUNIZATION (1 of 3 - 19+ 3-dose series) 2004 Pneumococcal Vaccine: Pediatrics (0 to 5 Years) and At-Risk Patients (6 to 49 Years) (1 of 2 - PCV) 2004 INFLUENZA VACCINE (#1) 2023 , 01/11/2017, 01/20/2016, Additional history exists DEPRESSION 6 MO INDEX REPEAT PHQ-9 06/04/2024 05/21/2024, 04/09/2024, 02/15/2024, Additional history exists DTAP/TDAP/TD IMMUNIZATION (5 - Td or Tdap) 06/17/2024 06/17/2014, 06/17/2014, 03/12/2009, Additional history exists PHQ-9 11/18/2024 05/21/2024, 03/24, 02/15/2024, Additional history exists ANNUAL REVIEW OF HM [...] VACCINE (1 - 1-dose 75+ series) 2060 COVID-19 Vaccine (#1) 04/04/2112 Postpo jessica from 1990 (Patient Declined) HIV SCREENING Completed 02/07/2014, 06/12/2008 HEPATITIS C [...] this topic Medical Devices Implanted Type Area Director Hematology Device Identifier Shelf Expiration Date Model / Serial / Lot Mesh Ventralex Hernia 3.2 Galax Lg W/Strap [id number] Implanted:Qty : 1 on 08/26/2020 by Crystal Alanis MD at [facility] Mesh N/A: Umbilical [employer]DAVOL 03/21/2022 [id number] / / [id number] Procedures Procedure Name Priority Date/Time Associated Diagnosis Comments XR LUMBAR SPINE 2/3 VIEWS Routine 05/21/2024 12:33 PM PLASMA CUTTING MACHINE OPERATOR Lumbar pain URINE CULTURE Routine 05/21/2024 12:21 PM PLASMA CUTTING MACHINE OPERATOR Lumbar pain Nonspecific finding on examination of urine URINE MICROSCOPIC EXAM Routine 05/21/2024 11:39 AM PLASMA CUTTING MACHINE OPERATOR Lumbar pain HCG QUALITATIVE URINE Routine 05/21/2024 11:39 AM PLASMA CUTTING MACHINE OPERATOR Lumbar pain ROUTINE UA WITH MICROSCOPIC Routine 05/21/2024 11:39 AM PLASMA CUTTING MACHINE OPERATOR Lumbar pain INFLUENZA A/B ANTIGEN Routine 04/09/2024 11:57 AM PLASMA CUTTING MACHINE OPERATOR Wheezing Acute cough Upper respiratory tract infection, unspecified type COVID-19 VIRUS (CORONAVIRUS) BY PCR Routine 04/09/2024 11:56 AM PLASMA CUTTING MACHINE OPERATOR Wheezing Acute cough Upper respiratory tract infection, unspecified type XR CHEST 2 VIEWS Routine 04/09/2024 11:5 3 AM PLASMA CUTTING MACHINE OPERATOR Wheezing Acute cough Upper respiratory tract infection, unspecified type ME REMOVE INTRAUTERINE DEVICE Routine 03/26/2024 10:59 AM PLASMA CUTTING MACHINE OPERATOR Intrauterine contraceptive device threads lost, initial encounter [...] Lumbar Spine 2/3 Views (05/21/2024 12:33 PM PLASMA CUTTING MACHINE OPERATOR) Anatomical Region Laterality Modality Spine, T-spine, L-spine, Abdomen/Pelvis Computed Radiography 05/21/2024 12:3 3 PM PLASMA CUTTING MACHINE OPERATOR Impressions 05/21/2024 1:58 PM PLASMA CUTTING MACHINE OPERATOR IMPRESSION: 5 nonrib-bearing lumbar type vertebral bodies. Grade 2 anterolisthesis of L5 on S1 with advanced loss of L5-S1 disc space height. L5 pars defects. Intervertebral disc space heights are otherwise maintained. Narrative 05/21/2024 1:58 PM PLASMA CUTTING MACHINE OPERATOR EXAM: XR LUMBAR SPINE 2/3 VIEWS LOCATION: [facility] DATE: 05/21/2024 INDICATION: Lumbar pain COMPARISON: None. Procedure Note Darrell Leon MD - 05/21/2024 EXAM: XR LUMBAR SPINE 2/3 VIEWS LOCATION: [facility] DATE: 05/21/2024 INDICATION: Lumbar pain COMPARISON: None. IMPRESSION: 5 nonrib-bearing lumbar type vertebral bodies. Grade 2anterolisthesis of L5 on S1 with advanced loss of L5-S1 disc space height.L5 pars defects. Intervertebral disc space heights are otherwisemaintained. Shaniqua Hernandez APRN DETONATOR ASSEMBLER IMG DIAGNOSTIC MELVIN GING ORDERABLES Final Result * Urine Culture (05/21/2024 12:21 PM PLASMA CUTTING MACHINE OPERATOR) Culture <10,000 CFU/mL Mixture of Urogenital Pilar 05/22/2024 11:48 AM PLASMA CUTTING MACHINE OPERATOR [facility] Urine MID-STREAM URINE SPECIMEN / Unknown Non-blood Collection / Unknown 05/21/2024 12:21 PM PLASMA CUTTING MACHINE OPERATOR 05/21/2024 12:21 PM PLASMA CUTTING MACHINE OPERATOR Shaniqua Hernandez APRN DETONATOR ASSEMBLER LAB - MICRO GENERA L ORDERABLES Final Result [facility] Inf. Diseases Diag. Lab [address] [facility], [address] [place] [address] * HCG Qual, Urine ([id number]) (05/21/2024 11:39 AM PLASMA CUTTING MACHINE OPERATOR) hCG Urine Qualitative Negative Negative MARY 05/21/2024 12:16 PM PLASMA CUTTING MACHINE OPERATOR [facility] Comment:This test is for scr eening purposes. Results should be interpreted along with the clinical picture. Confirmation testing is available if warranted by ordering [id number], HCG Quantitative . Urine MID-STREAM URINE SPECIMEN / Unknown Non-blood Collection / Unknown 05/21/2024 11:39 AM PLASMA CUTTING MACHINE OPERATOR 05/21/2024 12:09 PM PLASMA CUTTING MACHINE OPERATOR Shaniqua Hernandez APRN DETONATOR ASSEMBLER LAB - URINE ORDERA BLES Final Result [facility] [place] [facility] [address] [facility] (no room number, 1st floor of clinic) [place] [address] * (ABNORMAL) UA with Microscopic - lab collect (05/21/2024 11:39 AM PLASMA CUTTING MACHINE OPERATOR) Color Urine Red(A) Colorless, Straw, Light Yellow, Yellow 05/21/2024 12:13 PM PLASMA CUTTING MACHINE OPERATOR [facility] Appearance Urine Slightly Cloudy(A) Clear 05/21/2024 12:13 PM PLASMA CUTTING MACHINE OPERATOR [facility] Glucose Urine Negative Negative mg/dL 05/21/2024 12:13 PM PLASMA CUTTING MACHINE OPERATOR [facility] Bilirubin Urine Negative Negative 12:13 PM PLASMA CUTTING MACHINE OPERATOR [facility] Ketones Urine Negative Negative mg/dL 05/21/2024 12:13 PM PLASMA CUTTING MACHINE OPERATOR [facility] Specific [place] Urine 1.020 1.003 - 1.035 05/21/2024 12:13 PM PLASMA CUTTING MACHINE OPERATOR [facility] Blood Urine Large(A) Negative 05/21/2024 12:13 PM PLASMA CUTTING MACHINE OPERATOR [facility] pH Urine 7.0 5.0 - 7.0 05/21/2024 12:13 PM PLASMA CUTTING MACHINE OPERATOR [facility] Protein Albumin Urine 100(A) Negative mg/dL 05/21/2024 12:13 PM PLASMA CUTTING MACHINE OPERATOR [facility] Urobilinogen Urine 0.2 0.2, 1.0 E.U./dL 05/21/2024 12:13 PM PLASMA CUTTING MACHINE OPERATOR [facility] Nitrite Urine Positive(A) Negative 05/21/2024 12:13 PM PLASMA CUTTING MACHINE OPERATOR [facility] Leukocyte Esterase Urine Negative Negative 05/21/2024 12:13 PM PLASMA CUTTING MACHINE OPERATOR [facility] Urine MID-STREAM URINE SPECIMEN / Unknown Non-blood Collection / Unknown 05/21/2024 11:39 AM PLASMA CUTTING MACHINE OPERATOR 05/21/2024 12:09 PM PLASMA CUTTING MACHINE OPERATOR Shaniqua Hernandez APRN DETONATOR ASSEMBLER LAB - URINE ORDERA BLES Final Result [facility] [address] [place] [address] [facility], 1st floor [facility]) [place] [phone] * (ABNORMAL) Urine Microscopic Exam (05/21/2024 11:39 AM PLASMA CUTTING MACHINE OPERATOR) Bacteria Urine Few(A) None Seen /HPF MARY 05/21/2024 12:17 PM PLASMA CUTTING MACHINE OPERATOR [facility] RBC Urine >100(A) 0-2 /HPF /HPF MARY 05/21/2024 12:17 PM PLASMA CUTTING MACHINE OPERATOR [facility] WBC Urine 0-5 0-5 /HPF /HPF MARY 05/21/2024 12:17 PM PLASMA CUTTING MACHINE OPERATOR [facility] Urine MID-STREAM URINE SPECIMEN / Unknown Non-blood Collection / Unknown 05/21/2024 11:39 AM PLASMA CUTTING MACHINE OPERATOR 05/21/2024 12:09 PM PLASMA CUTTING MACHINE OPERATOR Shaniqua Hernandez APRN, CNP LAB - URINE ORDERA BLES Final Result [facility] [address] [place] [address] [facility] Lab (no room number, 1st floor of clinic) [place] [address] * Influenza A & B Antigen - Clinic Collect (04/09/2024 11:57 AM PLASMA CUTTING MACHINE OPERATOR) Influenza A antigen Negative Negative 04/09/2024 12:16 PM PLASMA CUTTING MACHINE OPERATOR [facility] Influenza B antigen Negative Negative 04/09/2024 12:16 PM PLASMA CUTTING MACHINE OPERATOR [facility] Swab NASAL STRUCTURE / Unknown Non-blood Collection / Unknown 04/09/2024 11:57 AM PLASMA CUTTING MACHINE OPERATOR 04/09/2024 11:57 AM PLASMA CUTTING MACHINE OPERATOR Narrative [facility] - 04/09/2024 12:16 PM PLASMA CUTTING MACHINE OPERATOR Test results must be correlated with clinical data. If necessary, results should be confirmed by a molecular assay or viral culture. Rebecca Flowers PA-C LAB - MICRO GENERAL ORDERABLE S Final Result [facility] [address] [facility] Lab (no room number, 1st floor of clinic) [place] [address] * COVID-19 Virus (Coronavirus) by PCR Nose (04/09/2024 11:56 AM PLASMA CUTTING MACHINE OPERATOR) SARS CoV2 PCR Negative Negative 04/10/2024 10:57 AM PLASMA CUTTING MACHINE OPERATOR [facility] Comment:NEGATIVE: SARS-CoV-2 (COVID-19) RNA not detected, presumed negative. Swab NASAL STRUCTURE / Unknown Non-blood Collection / Unknown 04/09/2024 11:56 AM PLASMA CUTTING MACHINE OPERATOR 04/09/2024 11:56 AM PLASMA CUTTING MACHINE OPERATOR Narrative [facility] - 04/10/2024 10:57 AM PLASMA CUTTING MACHINE OPERATOR Testing was performed using the ayla SARS-CoV-2 [...] COVID-19. This test was validated by the [facility] Infectious Diseases Diagnostic Laboratory. This laboratory is certified under the Clinical Laboratory Improvement Amendments of 1988 (CLIA-88) as qualified to perform high and/or moderate complexity laboratory testing. Rebecca Flowers PA-C LAB - MICRO GENERAL ORDERABLE S Final Result [facility] Inf. Diseases Diag. Lab [address] [facility], [address] [place] [address] * XR Chest 2 Views (04/09/2024 11:53 AM PLASMA CUTTING MACHINE OPERATOR) Anatomical Region Laterality Modality Chest Computed Radiogr aphy Impressions 04/09/2024 2:00 PM PLASMA CUTTING MACHINE OPERATOR IMPRESSION: There are no acute infiltrates. The cardiac silhouette is not enlarged. Pulmonary vasculature is unremarkable. JENNIFER GARCÍA MD SYSTEM ID: [id number] Narrative 04/09/2024 2:00 PM PLASMA CUTTING MACHINE OPERATOR CHEST TWO VIEWS 04/09/2024 11:53 AM [...] is unremarkable. JENNIFER GARCÍA MD SYSTEM ID: [id number] Rebecca Flowers PA-C IMG DIAGNOSTIC IMAGING ORDERA [...] for high risk HPV DNA. METHODOLOGY: The UnboundID system uses automated extraction, simultaneous amplification of [...] Final Result SPECIALTY LABS Specialty Lab [address] [facility], [address] [phone], [facility] MOLECULAR DIAGNOSTICS Molecular Diagnostics [address] [facility], [address] [phone] * Hepatitis C Screen Reflex to [...] - BLOOD ORDERABLES Final Result [facility] [place] [facility] [address] [facility], [address] [place] [address], [facility] * Comprehensive metabolic panel (BMP + [...] CDT 12/28/2023 10:12 AM CDT Susie Turk TRANSPORT SPECIALIST DETONATOR ASSEMBLER LAB - BLOOD ORDERABLES Final Result [facility] [place] [facility] [address] [facility] [address] [facility], [address] [place] [phone] * HIV Antigen Antibody Combo (02/07/2014) HIV Antigen Antibody Combo Non Reactive Blood specimen (specimen) Patient Reported LAB - BLOOD ORDERABLES Final Re sult from Last 3 Months or Most Recently Relevant to Health Maintenance Additional Health Concerns Infection Onset Date Last Indicated MRSA-Contact Isolation Comment:Skin 10-21-2011 11/01/2011 11/01/2011 Insurance [place] [employer] BLUE PLUS ADVANTAGE [place] Care Teams Microsoft Architect Relationship Specialty Start Date End Date Shaniqua Hernandez APRN DETONATOR ASSEMBLER [address] [place] [address] [phone] PCP - General Nurse Practitioner - Family 05/23/24 Linda Cantu Personal Advocate & Liaison (PAL) Family Medicine 05/27/22 Susie Turk APRN DETONATOR ASSEMBLER [address] [place] [phone] Assigned PCP 01/15/24 Claudine Curtis MD [address] [place] [address] Assigned OBGYN Provider 04/15/24
--- OUTSIDE RECORDS SUMMARY | 2024-05-23 18:09 | XMS_ITS | Encounter Summary ---
Author Organization [facility] Address [address] [place] [address] Care Team Providers Care Catalogue Compiler Name Role Phone Linda Cantu Unavailable Unavailable No Ref-Primary, Physician Primary Care Provider Susie Turk APRN SPORTS ATHLETIC TRAINER Unavailable [phone] Claudine Curtis MD Unavailable [phone] Reason for Visit * Reason Onset Date Comments Refill Request 05/20/2024 Encounter Details Date Type Department Care Team (Late st Contact Info) Description 05/20/2024 MyC Refill M [address] [phone] Rebecca Flowers, PA-C [address] [place] [address] [phone] Refill Request Social History Tobacco Use Types [...] often do you attend chur ch or orthodox services? 1 to 4 times per year [...] Answer Date Recorded PHQ-2 Score 2 05/21/2024 [facility] - [facility]ational Stress Questionnaire Answer Date [...] AM CDT Legal Sex Female 3:29 AM BREWERY REPRESENTATIVE Gender Identity Female 09/03/2021 8:30 AM CDT Sexual Orientation Not on file documented as of this encounter Miscellaneous Notes * Telephone Encounter - Lydia Holguin CMA - 05/21/2024 5:15 PM CST Patient was seen by Shaniqua Hernandez today. But albuterol was not filled. Called patient and she needs a refill because her puppy chewed up her last inhaler. Lydia Holguin CMA ERY REPRESENTATIVE documented in this encounter Plan of Treatment Upcoming Encounters Date Type Department Care Team (Late st Contact Info) Description 06/01/2024 10:30 AM BREWERY REPRESENTATIVE Appointment [facility] Imaging [address] [facility] [address] [place] [phone] Shaniqua Hernandez APRN SPORTS ATHLETIC TRAINER [address] [place] [address] 02/14/2025 11:00 AM CDT Office Visit [address] [phone] Susie Turk APRN SPORTS ATHLETIC TRAINER [address] [place] [address] [phone] documented as of this encounter Visit Diagnoses Diagnosis Wheezing Acute cough Upper respiratory tract infection, unspecified type documented in this encounter Additional Health Concerns Infection Onset Date Last Indicated Resolved Time 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 11/01/2011 11/01/2011 Assessment Noted Time PHQ-9 Depression Total Score: 14 025 4:20 PM BREWERY REPRESENTATIVE documented as of this encounter Care Teams Catalogue Compiler Relationship Specialty Start Date End Date No Ref-Primary, Physician PCP - General 12/28/23 05/22/24 Linda Cantu Personal Advocate & Liaison (PAL) Family Medicine 05/27/22 Susie Turk APRN SPORTS ATHLETIC TRAINER [address] [place] [address] [phone] Assigned PCP 01/15/24 Claudine Curtis MD [address] [place] [address] Assigned OBGYN Provider 04/15/24 documented as of this encounter
--- OUTSIDE RECORDS SUMMARY | 2024-05-23 18:09 | XMS_ITS | Encounter Summary ---
Author Organization [facility] Address [address] [place] [address] Care Team Providers Care Seating Upholsterer Name Role Phone Linda Cantu Unavailable Unavailable No Ref-Primary, Physician Primary Care Provider Susie Turk APRN FILENET ADMIN Unavailable [phone] Encounter Details Date Type Department Care Team [...] any clubs o r organizations such as alevism groups, unions, fraternal or athletic groups, or [...] Answer Date Recorded PHQ-2 Score 6 04/09/2024 [facility] - Occupational Stress Questionnaire Answer [...] AM CDT Legal Sex Female 3:29 AM FLEET OPERATIONS MANAGER Gender Identity Female 09/03/2021 8:30 AM CDT Sexual Orientation Not on file documented as of this encounter Plan of Treatment Upcoming Encounters Date Type Department Care Team (Late st Contact Info) Description 06/01/2024 10:30 AM FLEET OPERATIONS MANAGER Appointment [facility] [address] [facility] [address] [place] [phone] Shaniqua Hernandez APRN FILENET ADMIN [address] [place] [address] [phone] 02/14/2025 11:00 AM CDT Office Visit [address] [place] [phone] Susie Turk APRN FILENET ADMIN [address] [place] [address] [phone] documented as of this encounter Visit Diagnoses Not on filedocumented in this encounter Additional Health Concerns Infection Onset Date Last Indicated Resolved Time 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 11/01/2011 11/01/2011 Rule Out COVID-19 04/09/2024 04/09/2024 04/10/2024 10:57 AM FLEET OPERATIONS MANAGER Assessment Noted Time PHQ-9 Depression Total Score: 22 024 10:54 AM FLEET OPERATIONS MANAGER documented as of this encounter Care Teams Seating Upholsterer Relationship Specialty Start Date End Date No Ref-Primary, Physician PCP - General 12/28/23 05/22/24 Linda Cantu Personal Advocate & Liaison (PAL) Family Medicine 05/27/22 Susie Turk, FRANDY FILENET ADMIN [address] [place] [phone] Assigned PCP 01/15/24 documented as of this encounter
--- OUTSIDE RECORDS SUMMARY | 2024-05-23 18:09 | XMS_ITS | Encounter Summary ---
Author Organization [facility] Address [address] [place] [id number] Care Team Providers Care Director Of Emergency Nursing Name Role Phone Linda Cantu Unavailable Unavailable No Ref-Primary, Physician Primary Care Provider Susie Turk APRN TOY TRAINS AND ACCESSORIES SALESPERSON Unavailable [phone] Reason for Referral * Diagnostic Imaging XR (Routine) - Pending Review Specialty Diagnoses / Procedures Referred By Raúl parsons Referred To Contact Radiology. Diagnoses Wheezing Acute cough Upper respiratory tract infection, unspecified type Procedures XR Chest 2 Views Rebecca Flowers PA-C [address] [place] [id number] Phone: tel: fax: Referral ID Status Reason Start Date Expiration Date V isits Requested Visits Authorized [id number] Pending Review 04/09/2024 04/09/2025 1 1 TZE ROLLER Reason for Visit * Reason Comments Cough Encounter Details Date Type Department Care Team (Late st Contact Info) Description 04/09/2024 11:30 AM BLINTZE ROLLER Office Visit [address] [phone] Rebecca Flowers PA-C [address] [place] [address] [phone] Wheezing (Primary Dx); Acute cough; Upper respiratory [...] How often do you attend chur or sabianist services? 1 to 4 times per year 08/14/2020 Do you belong to any clubs o r organizations such as taoism groups, unions, fraternal or athletic groups, or [...] Answer Date Recorded PHQ-2 Score 6 04/09/2024 [facility] of Occupat ional Health - Occupational Stress [...] place to sleep or slept in a penitentiary (including now)? No 08/14/2020 Adolescent Education Answer [...] AM CDT Legal Sex Female 3:29 AM BLINTZE ROLLER Gender Identity Female 09/03/2021 8:30 AM CDT Sexual Orientation Not on file documented as of this encounter Last Filed Vital Signs Vital Sign Reading Time Taken Comments Blood Pressure 128/80 04/09/2024 11:20 AM BLINTZE ROLLER Pulse 102 04/09/2024 11:20 AM BLINTZE ROLLER Temperature 36.6 C (97.8 F) 04/09/2024 11:20 AM BLINTZE ROLLER Respiratory Rate 20 04/09/2024 11:20 AM BLINTZE ROLLER Oxygen Saturation 97% 04/09/2024 11:20 AM BLINTZE ROLLER Inhaled Oxygen Concentration - - Weight 117 kg (258 lb) 04/09/2024 11:20 AM BLINTZE ROLLER Height 161.3 cm (5' 3.5) 04/09/2024 11:20 AM CS T Body Mass Index 44.99 04/09/2024 11:20 AM BLINTZE ROLLER documented in this encounter Progress Notes * [...] report. Signed Electronically by: Rebecca Flowers PA-C TZE ROLLER documented in this encounter Plan of Treatment Upcoming Encounters Date Type Department Care Team (Late st Contact Info) Description 06/01/2024 10:30 AM BLINTZE ROLLER Appointment [facility] [address] [facility] [address] [place] [phone] Shaniqua Hernandez, BATCH FREEZER [address] [address] 02/14/2025 11:00 AM CDT Office Visit [address] [phone] Burke Susie C, BATCH FREEZER [employer] TRAINS [employer] ACCESSORIES SALESPERSON [address] [place] [id number] documented as of this encounter Procedures Procedure Name Priority Date/Time Associated Diagnosis Comments INFLUENZA A/B ANTIGEN Routine 04/09/2024 11:57 AM BLINTZE ROLLER Wheezing Acute cough Upper respiratory tract infection, unspecified type COVID-19 VIRUS (CORONAVIRUS) BY PCR Routine 04/09/2024 11:56 AM BLINTZE ROLLER Wheezing Acute cough Upper respiratory tract infection, unspecified type documented in this encounter Results * Influenza A & B Antigen - Clinic Collect (04/09/2024 11:57 AM BLINTZE ROLLER) Influenza A antigen Negative Negative 04/09/2024 12:16 PM BLINTZE ROLLER [facility] Influenza B antigen Negative Negative 04/09/2024 12:16 PM BLINTZE ROLLER [facility] Swab NASAL STRUCTURE / Unknown Non-blood Collection / Unknown 04/09/2024 11:57 AM BLINTZE ROLLER 04/09/2024 11:57 AM BLINTZE ROLLER Narrative [facility] - 04/09/2024 12:16 PM BLINTZE ROLLER Test results must be correlated with clinical data. If necessary, results should be confirmed by a molecular assay or viral culture. us Rebecca Flowers PA-C LAB - MICRO GENERAL ORDERABLE S Final Result [facility] [address] [place] [address] S. E Lab (no room number, 1st floor of clinic) [place] [address], [facility] * COVID-19 Virus (Coronavirus) by PCR Nose (04/09/2024 11:56 AM BLINTZE ROLLER) SARS CoV2 PCR Negative Negative 04/10/2024 10:57 AM BLINTZE ROLLER [facility] Comment:NEGATIVE: SARS-CoV-2 (COVID-19) RNA not detected, presumed negative. Swab NASAL STRUCTURE / Unknown Non-blood Collection / Unknown 04/09/2024 11:56 AM BLINTZE ROLLER 04/09/2024 11:56 AM BLINTZE ROLLER Narrative [facility] - 04/10/2024 10:57 AM BLINTZE ROLLER Testing was performed using the ayla SARS-CoV-2 [...] COVID-19. This test was validated by the [facility]. This laboratory is certified under the Clinical Laboratory Improvement Amendments of 1988 (CLIA-88) as qualified to perform high and/or moderate complexity laboratory testing. us Rebecca Flowers PA-C LAB - MICRO GENERAL ORDERABLE S Final Result [facility] Inf. Diseases Diag. Lab [address] [facility] [place] [address] * XR Chest 2 Views (04/09/2024 11:53 AM BLINTZE ROLLER) Anatomical Region Laterality Modality Chest Computed Radiogr aphy Impressions 04/09/2024 2:00 PM BLINTZE ROLLER IMPRESSION: There are no acute infiltrates. The cardiac silhouette is not enlarged. Pulmonary vasculature is unremarkable. JENNIFER GARCÍA MD SYSTEM ID: [id number] Narrative 04/09/2024 2:00 PM BLINTZE ROLLER CHEST TWO VIEWS 04/09/2024 11:53 AM HISTORY: [...] is unremarkable. JENNIFER GARCÍA MD SYSTEM ID: [id number] Rebecca Flowers PA-C IMG DIAGNOSTIC IMAGING ORDERA [...] Out COVID-19 04/09/2024 04/09/2024 04/10/2024 10:57 AM BLINTZE ROLLER Assessment Noted Time PHQ-9 Depression Total Score: 22 024 10:54 AM BLINTZE ROLLER documented as of this encounter Care Teams Director Of Emergency Nursing Relationship Specialty Start Date End Date No Ref-Primary, Physician PCP - General 12/28/23 05/22/24 Linda Cantu Personal Advocate & Liaison (PAL) Family Medicine 05/27/22 Susie Turk APRN [employer] ACCESSOR[employer] SALESPERSON [address] [place] [id number] Assigned PCP 01/15/24 documented as of this encounter
--- OUTSIDE RECORDS SUMMARY | 2024-05-23 18:09 | XMS_ITS | Encounter Summary ---
Author Organization [facility] Address [address] [place] [address] Care Team Providers Care Credit Resolution Representative Name Role Phone Linda Cantu Unavailable Unavailable No Ref-Primary, Physician Primary Care Provider Susie Turk SCIENCE JOB TITLES CABLE INSPECTOR Unavailable [phone] Reason for Visit * Diagnostic Imaging XR (Routine) - Pending Review Specialty Diagnoses / Procedures Referred By Raúl parsons Referred To Contact Radiology. Diagnoses Wheezing Acute cough Upper respiratory tract infection, unspecified type Procedures XR Chest 2 Views Rebecca Flowesr PA-C [address] [place] [id number] Phone: tel: fax: Referral ID Status Reason Start Date Expiration Date V isits Requested Visits Authorized [id number] Pending Review 04/09/2024 04/09/2025 1 1 Encounter Details Date Type Department Care Team (Late st Contact Info) Description 04/09/2024 11:45 AM COOLING TOWER TECHNICIAN Ancillary Procedure [address] [place] [phone] Rebecca Flowers PA-C [address] [place] [address] [phone] Wheezing; Acute cough; Upper respiratory tract infection, [...] How often do you attend chur or gnosticism services? 1 to 4 times per year 08/14/2020 Do you belong to any clubs o r organizations such as sikh groups, unions, fraternal or athletic groups, or [...] Answer Date Recorded PHQ-2 Score 6 04/09/2024 [facility] of Occupat ional Health - [...] AM CDT Legal Sex Female 3:29 AM COOLING TOWER TECHNICIAN Gender Identity Female 09/03/2021 8:30 AM CDT Sexual Orientation Not on file documented as of this encounter Plan of Treatment Upcoming Encounters Date Type Department Care Team (Late st Contact Info) Description 06/01/2024 10:30 AM COOLING TOWER TECHNICIAN Appointment [facility] [address] [place] [phone] Shaniqua Hernandez, FRANDY CABLE INSPECTOR [address] [place] [id number] 02/14/2025 11:00 AM CDT Office Visit [address] [phone] Susie Turk APRN CABLE INSPECTOR [address] [place], [place] [phone] documented as of this encounter Procedures Procedure Name Priority Date/Time Associated Diagnosis Comments XR CHEST 2 VIEWS Routine 04/09/2024 11:5 3 AM COOLING TOWER TECHNICIAN Wheezing Acute cough Upper respiratory tract infection, unspecified type documented in this encounter Results * XR Chest 2 Views (04/09/2024 11:53 AM COOLING TOWER TECHNICIAN) Anatomical Region Laterality Modality Chest Computed Radiogr aphy Impressions 04/09/2024 2:00 PM COOLING TOWER TECHNICIAN IMPRESSION: There are no acute infiltrates. The cardiac silhouette is not enlarged. Pulmonary vasculature is unremarkable. JENNIFER GARCÍA MD SYSTEM ID: [id number] Narrative 04/09/2024 2:00 PM COOLING TOWER TECHNICIAN CHEST TWO VIEWS 04/09/2024 11:53 AM [...] is unremarkable. JENNIFER GARCÍA MD SYSTEM ID: [id number] Rebecca Flowers PA-C IMG DIAGNOSTIC IMAGING ORDERA BLES Final Result documented in this encounter Visit Diagnoses Diagnosis Wheezing Acute cough Upper respiratory tract infection, unspecified type documented in this encounter Additional Health Concerns Infection Onset Date Last Indicated Resolved Time 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 11/01/2011 11/01/2011 Rule Out COVID-19 04/09/2024 04/09/2024 04/10/2024 10:57 AM COOLING TOWER TECHNICIAN Assessment Noted Time PHQ-9 Depression Total Score: 22 024 10:54 AM COOLING TOWER TECHNICIAN documented as of this encounter Care Teams Credit Resolution Representative Relationship Specialty Start Date End Date No Ref-Primary, Physician PCP - General 12/28/23 05/22/24 Linda Cantu Personal Advocate & Liaison (PAL) Family Medicine 05/27/22 Susie Turk APRN CABLE INSPECTOR [address] [place] [id number] Assigned PCP 01/15/24 documented as of this encounter
[2024-05-23 18:21] VITALS: BP 145/112; PULSE 97; RESP 18; TEMP 36.8; O2SAT 97; BMI 44.3
--- NOTE | 2024-05-23 19:43 | ED.GENADULT ---
HPI - General Adult General Date Seen: 05/23/24 Chief complaint: Hip Injury/Pain Stated complaint: Sciatic pain Time Seen by Provider: 05/23/24 19:42 History of Present Illness HPI narrative: 38-year-old male presenting to the ER today for left hip and leg pain, thought to be sciatica. Per her records from a [facility] care link she has a history of anxiety, tobacco use. 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 She is on Effexor for anxiety. She is to have been experiencing pain affecting her left buttock and left leg radiating down the posterior thigh all the way down to the left lateral ankle. Pain is started initially in her left posterior back and buttock about a month ago and has been extensively worse over the past couple of weeks. Nose trauma. No fall. The the leg feels painful and tingly and sometimes numb. No weakness. It is not giving out. Bowel and bladder have been normal. No fevers. No weight loss. No history of diabetes, immunosuppression, cancer. She is not anticoagulated. She was seen in the ER [address] Peoples. At that time she was diagnosed empirically with sciatica. She was given a prescription for ibuprofen and has been using Tylenol. Since then she had follow-up with her PCP who also confirmed that she likely has sciatica. They did x-rays of her low back that confirmed ?ldse-kw-ehht? between no some of the vertebrae in her low back. She has been referred by her PCP to a Spine Clinic and has an appointment coming up on June 01. Her PCP gave her prescription for gabapentin, which \has been ineffective for her pain. She also has Flexeril which is only minimally effective. She came to the ER tonight desiring something stronger for pain so that she can make it through to her the spine clinic appointment. Related Data Home Medications ?Medication ?Instructions ?Recorded ?Confirmed albuterol sulfate 90 mcg/actuation inhalation 05/23/24 aerosol inhaler (Ventolin HFA) cyclobenzaprine 10 mg tablet mg 3XD 05/23/24 fluoxetine 40 mg capsule mg DAILY 05/23/24 gabapentin 100 mg capsule mg 3XD 05/23/24 hydroxyzine HCl 25 mg tablet mg 05/23/24 Allergies Allergy/AdvReac Type Severity Reaction Status Date / Time No Known Drug Allergies Allergy Verified 05/23/24 18:27 [facility] Medical History No significant past medical history Surgical History (Updated 05/18/24 @ 01:08 by Sridhar Rojas RN) No significant past surgical history Social History Smoking Status: Current every day smoker What tobacco products do you use: cigarettes Second hand tobacco smoke exposure: Yes How often do you have a drink containing alcohol: never AUDIT-C Alcohol total score: 0 Non-prescribed substance use: denies use Exam Narrative: Exam Narrative: Constitutional: Appears well-developed and well-nourished. Alert. Conversant, uncomfortable and leaning on her ER chair because she is too uncomfortable to sit or lay down. Overall polite and Non toxic. HENT: Head: Atraumatic. Nose: Nose normal. Mouth/Throat: Oral mucosa is clear and moist. no trismus. Eyes: Conjunctivae normal. EOM normal. Pupils equal, round, and reactive to light. No scleral icterus. Neck: Normal range of motion. Neck supple. No tracheal deviation present. Cardiovascular: Normal rate, regular rhythm. No gallop. No friction rub. No murmur heard. Normal cap refill in her feet and ankles. Pulmonary/Chest: Effort normal. No stridor. No respiratory distress. No wheezes. No rales. No rhonchi . No tenderness. Musculoskeletal: RUE: Normal range of motion. No tenderness. No deformity LUE: Normal range of motion. No tenderness. No deformity RLE: Normal range of motion. No edema. No tenderness. No deformity LLE: Normal range of motion. No edema. No tenderness. No deformity Normal inspection of her low back. No bruising. No erythema. No rash. No midline point tenderness or step-off. Pelvis is stable Neurological: Alert and oriented to person, place, and time. Normal strength. CN II-VII intact. No sensory deficit. GCS eye subscore is 4. GCS verbal subscore is 5. GCS motor subscore is 6. Normal coordination Sensory: Normal light touch sensation bilaterally on the anteromedial thigh (L3), medial malleolus (L4), dorsal first web space (L5), lateral malleolus (S1). Strength: 5/5 strength hip flexors (L3) on the right and left 5/5 strength in the quadriceps (L4) on the right and left 5/5 strength in the tibialis anterior 5/5 strength in the EHL (L5) on the right and left 5/5 strength in the gastrocnemius (S1) on the right and left 5/5 strength in the hamstring on the right and left Negative straight leg raise bilaterally. Skin: Skin is warm and dry. No rash noted. No pallor. Normal capillary refill. Psychiatric: Normal mood. Uncomfortable, but otherwise appropriate. Const: Vital Signs, click to edit/add: Vital Signs - 24 hr 05/23/24 18:21 Temperature 98.2 F Pulse Rate [Pulse Oximeter] 97 Respiratory Rate 18 Blood Pressure [Ri ght Upper Arm] 145/112 H Pulse Oximetry 97 Oxygen Delivery Me thod Room Air Course Vital Signs Vital signs: Initial Vital Signs Temperature 98.2 F 05/23/24 18:21 Temperature Source Temporal Artery Scan 05/23/24 18:21 Pulse Rate 97 05/23/24 18:21 Respiratory Rate 18 05/23/24 18:21 Blood Pressure 145/112 H 05/23/24 18:21 Blood Pressure Mean 123 H 05/23/24 18:21 Blood Pressure Position Sitting 05/23/24 18:21 Pulse Oximetry 97 05/23/24 18:21 Oxygen Delivery Method Room Air 05/23/24 18:21 Vital Signs Temperature 98.2 F 05/23/24 18:21 Pulse Rate 97 05/23/24 18:21 Respiratory Rate 18 05/23/24 18:21 Blood Pressure 145/112 H 05/23/24 18:21 Pulse Oximetry 97 05/23/24 18:21 Oxygen Delivery Method Room Air 05/23/24 18:21 Temperature 98.2 F 05/23/24 18:21 Pulse Rate 97 05/23/24 18:21 Respiratory Rate 18 05/23/24 18:21 Blood Pressure 145/112 H 05/23/24 18:21 Pulse Oximetry 97 05/23/24 18:21 Oxygen Delivery Method Room Air 05/23/24 18:21 Medications Administered Medications: Generic Name Dose Route Start Last Admin Trade Name Freq PRN Reason Stop Dose Admin Hydromorphone HCl 1 mg 05/23/24 19:59 05/23/24 20:08 Hydromorphone 0.5 Mg/0.5 Ml Inj IM 05/23/24 20:00 1 mg ONCE ONE Administration Ondansetron HCl 4 mg 05/23/24 19:59 05/23/24 20:08 Ondansetron Odt 4 Mg Tab PO 05/23/24 20:00 4 mg ONCE ONE Administration Medical Decision Making MDM Narrative Medical decision making narrative: This patient presented with left-sided low back pain, left posterior hip pain and pain radiating down her left leg. Broad differential considered. X-rays were obtained a few days ago in clinic and showed evidence for arthritis exchange and degenerative change but no fracture. The patient did not sustain any reviewed inter current trauma, therefore x-rays are not necessary due to the low likelihood of fracture or subluxation. The patient has not had a fever, saddle/perineal anesthesia, bilateral foot numbness, or bowel or bladder dysfunction. There is no clinical evidence of cauda equina syndrome, discitis, spinal/epidural space hematoma or epidural abscess. The pains and symptoms are highly suggestive for a left L5 lumbar radiculopathy. Will need MRI. Unfortunately MRI is not available here in the emergency department at this hour. Pain has improved with interventions in the emergency department. The patient will be discharged with pain medications to use as directed. She has an appointment set up to see a surgical instrument repair specialist in about 1 week. I encouraged her to keep that appointment and call tomorrow to see if she can move it out. Ice or heat to the back and stretching exercises. No heavy lifting, bending or twisting. Return if increasing pain, numbness, weakness, or bowel or bladder dysfunction.and questions answered. Instymeds prescriptions for Percocet 5/320 5-20 tablets, Zofran 0 DT-10 tabs Discharge Plan Discharge Clinical Impression: Radicular leg pain Patient Disposition: Home, Self-Care Condition: Stable Instructions: Acute Low Back Pain (ED), Lumbar Radiculopathy (ED) Additional Instructions: As we discussed, please follow-up with your regular doctor or your spine clinic as soon as possible. Come back to the ER right away if you have severe uncontrolled pain, worsening weakness or numbness in your leg, abnormal function of your bladder or bowels, new fever, or any concerns. Use caution with a prescription pain killers because they can cause dizziness, drowsiness, constipation, and can be addictive. Do not drive a car for 6 hours after taking pain killers. To treat your pain: start with ibuprofen 600 mg every 6 hours as needed. Add a muscle relaxer, Flexeril, if needed for muscle spasms in your back or leg. Use the prescription pain killer, Percocet (oxycodone/acetaminophen), if needed for severe pain. Prescriptions: No Action fluoxetine 40 mg capsule DAILY cyclobenzaprine 10 mg tablet 3XD hydroxyzine HCl 25 mg tablet Patient Comments: [NO ORIGINAL SIG] gabapentin 100 mg capsule 3XD albuterol sulfate [Ventolin HFA] 90 mcg/actuation HFA aerosol inhaler INHALATION Patient Comments: [NO ORIGINAL SIG] Follow Up/Referrals: Provider,Not a Local [Primary Care Provider] - Stand Alone Forms: [employer] Info Instructions
[2024-05-23] MEDS: HYDROmorphone 0.5 mg/0.5 ml inj 1 MG IM (20:08)
[2024-05-23] MEDS: ONDANSETRON ODT 4 MG TAB PO (20:08)
--- OUTSIDE RECORDS SUMMARY | 2024-05-23 20:27 | XMS_ITS | Encounter Summary ---
Author Organization [facility] Address [address] [place] [address] Care Team Providers Care Waist Fitter Name Role Phone Gita Small PRODUCE RUNNER Primary Care Provider [phone] Gita Small PRODUCE RUNNER Unavailable [phone] Gita Small PRODUCE RUNNER Unavailable [phone] Ref-Primary, Physician Primary Care Provider Brisa Singletary MD Unavailable [phone] Kae Blankenship PA-C Unavailable [phone] Crystal Alanis MD Unavailable [phone] Wilian Hilliard DO Unavailable [phone] Lois Hathaway DO Unavailable [phone] Brisa Singletary MD Unavailable [phone] [facility] re Provider Wilian Hilliard DO Unavailable [phone] Jefferson Oliver Unavailable Unavailable Vidhya Witt MD Unavailable Linda Cantu Unavailable Unavailable Wilian Hilliard DO Unavailable [phone] Vidhya Witt MD Unavailable No Ref-Primary, Physician Primary Care Provider Susie Turk APRN, CNP Unavailable Claudine Curtis MD Unavailable [phone] Shaniqua Hernandez APRN GENERAL ASSEMBLER INSTALLER Primary Care Prov ider Reason for Referral * Consultation - Closed Specialty Diagnoses / Procedures Referred By Raúl t Referred To Contact Diagnoses Acute pain of right knee Gita Small NP Phone: tel: fax: [facility] [id number] [place] [address] [address] [place] [address] Phone: tel: fax: Referral ID Status Reason Start Date Expiration Date Visits Re quested Visits Authorized [id number] Closed 11/16/2016 11/16/2017 1 1 Comments Your provider has referred you to: FMG: [facility] [email or web address] Please be aware that coverage of these services is subject to the terms and limitations of your health insurance plan. Call member services at your health plan with any benefit or coverage questions. Please bring the following to your appointment: >> Any x-rays, CTs or MRIs which have been performed. Contact the facility where they were done to arrange for bean picker prior to your scheduled appointment. >> List of current medications >> This referral request >> Any documents/labs given to you for this referral Reason for Visit * Reason Onset Date Comments MyChart Communication 11/15/2016 Encounter Details Date Type Department Care Team (Late st Contact Info) Description 11/15/2016 [facility] [id number] [place] [address] Gita Small NP [address] [facility] [place] [address] MyChart Communication Social History Tobacco Use [...] AM CDT Legal Sex Female 3:29 AM PRODUCT DESIGN MANAGER Gender Identity Female 09/03/2021 8:30 AM [...] st Contact Info) Description 06/01/2024 10:30 AM PRODUCT DESIGN MANAGER Appointment [facility] [address] [facility] [address] [place] [phone] Shaniqua Hernandez APRN GENERAL ASSEMBLER INSTALLER [address] [place] [address] 9[address]382 02/14/2025 11:00 AM CDT Office Visit [address] [place] [phone] Susie Turk APRN GENERAL ASSEMBLER INSTALLER [facility] [place], [place] [address] Scheduled Referrals Name Type Priority Associated Diagnoses [...] Out COVID-19 06/14/2020 06/14/2020 06/14/2020 11:50 PM PRODUCT DESIGN MANAGER Rule Out COVID-19 03/09/2022 03/09/2022 03/09/2022 6:39 AM PRODUCT DESIGN MANAGER Rule Out COVID-19 04/09/2024 04/09/2024 04/10/2024 10:57 AM PRODUCT DESIGN MANAGER documented as of this encounter Care Teams Waist Fitter Relationship Specialty Start Date End Date Gita Small, PRODUCE RUNNER PCP - General Nurse Practitioner - Family 11/14/16 02/21/18 Gita Small PRODUCE RUNNER [address] [address] PCP - Assigned PCP 11/20/16 06/26/18 No Ref-Primary, Physician PCP - General 10/25/19 08/25/20 [facility] [id number] [place], [place] [address] [place] [address] PCP - General 08/26/20 12/27/23 No Ref-Primary, Physician PCP - General 12/28/23 05/22/24 Shaniqua Hernandez APRN CNP [address] [place] [address] PCP - General Nurse Practitioner - Family 05/23/24 Gita Small PRODUCE RUNNER [address] [place] [address] Assigned PCP 11/20/16 12/21/19 [place] [address] [place] [address] Assigned PCP 12/22/19 04/25/20 Kae Blankenship PA-C [address] [facility] [address] [place] [address] Assigned PCP 04/26/20 06/06/20 Crystal Alanis MD [facility] [address] [facility] [address] [place], [place] [address] Assigned Surgical Provider 06/07/20 12/03/21 [place] [address] [place] [address] Assigned PCP 06/07/20 08/15/20 Lois Hathaway DO [address] [facility] [address] [place] [address] Assigned OBGYN Provider 07/19/20 01/18/22 [place] [address] [place] [address] Assigned PCP 08/16/20 03/27/21 [place] [address] [place] [address] Assigned PCP 03/28/21 12/03/21 Jefferson Oliver Personal Advocate & Liaison (PAL) 09/14/21 05/26/22 [place] [address] [place] [address] Assigned PCP 12/04/21 03/17/23 Linda Cantu Personal Advocate & Liaison (PAL) Family Medicine 05/27/22 [place] [address] [place] [address] Assigned PCP 03/18/23 07/14/23 [place] [address] [place] [address] Assigned PCP 07/15/23 01/14/24 Susie Turk APRN [facility] [address] [place] [address] Assigned PCP 01/15/24 Claudine Curtis MD [address] [place] [address] Assigned OBGYN Provider 04/15/24 documented as of this encounter
--- OUTSIDE RECORDS SUMMARY | 2024-05-23 20:27 | XMS_ITS | Clinical Summary ---
Author Organization [facility] Address [place], [place] [address] Care Team Providers Care Travel Ot Name Role Phone Michelle Turner MD Primary [...] age 21-65 10/24/2017 5 ([facility] COVID-19 vaccine series (2023- season) 2023 Influenza for age 9-49 12/24/2023 01/20/2016 Tetanus booster 06/17/2024 06/17/2014 Tdap Completed 06/17/2014 Pneumococcal series for age 6-49 Aged Out No longer eligible based on patient's age to complete this topic Care Teams Travel Ot Relationship Specialty Start Date End Date Michelle Turner MD PCP - General Family Practice 10/13/14
--- OUTSIDE RECORDS SUMMARY | 2024-05-23 20:27 | XMS_ITS | Encounter Summary ---
Author Organization [facility] Address [address] [place] [address] Care Team Providers Care Email Manager Name Role Phone Clinic - [facility] Primary Ca re Provider Jefferson Oliver Unavailable Unavailable Vidhya Witt MD Unavailable Linda Cantu Unavailable Unavailable Wilian Hilliard DO Unavailable [phone] Vidhya Witt MD Unavailable No Ref-Primary, Physician Primary Care Provider Susie Turk APRN PRICE ECONOMIST Unavailable Claudine Curtis MD Unavailable [phone] Shaniqua Hernandez APRN PRICE ECONOMIST Primary Care Prov ider Reason for Visit * Reason Onset Date Comments MyChart Communication 04/05/2022 Encounter Details Date Type Department Care Team (Latest Contact Info) Description 04/05/2022 MyC Medical Advice [facility] [address] [place] [address] [place] [address] [place] [address] MyChart Communication Social History Tobacco [...] any clubs o r organizations such as congregation groups, unions, fraternal or athletic groups, or [...] Answer Date Recorded PHQ-2 Score 2 03/28/2022 [facility] - Occupational [...] in a usp (including now)? No 08/14/2020 Education Answer Date Recorded What is the highest level of school you have completed or the highest degree you have received? Associate degree: occupational, technical, or vocational program 08/14/2020 Comments No Sex and Gender Information Value Date Recorded Sex Assigned at Female 09/03/2021 8:30 AM CDT Legal Sex Female 3:29 AM STARS SPECIALIST Gender Identity Female 09/03/2021 8:30 AM CDT Sexual Orientation Not on file COVID-19 Exposure Response Date Recorded In the last 10 days, have yo u been in contact with someone who was confirmed or suspected to have Coronavirus/COVID-19? No / Unsure 03/09/2022 3:29 AM STARS SPECIALIST documented as of this encounter Plan of Treatment Upcoming Encounters Date Type Department Care Team (Late st Contact Info) Description 06/01/2024 10:30 AM STARS SPECIALIST Appointment [facility] [address] [facility] [address] [place] [phone] Shaniqua Hernandez, VALVE REPAIRER RECLAMATION PRICE ECONOMIST [address] [place] [address] 02/14/2025 11:00 AM CDT Office Visit [address] [phone] Susie Turk APRN PRICE ECONOMIST [address] [place] [address]12 documented as of this encounter Visit Diagnoses Not on filedocumented in this encounter Additional Health Concerns Infection Onset Date Last Indicated Resolved Time 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 11/01/2011 11/01/2011 Rule Out COVID-19 04/09/2024 04/09/2024 04/10/2024 10:57 AM STARS SPECIALIST Assessment Noted Time PHQ-9 Depression Total Score: 16 022 6:47 AM STARS SPECIALIST documented as of this encounter Care Teams Email Manager Relationship Specialty Start Date End Date Clinic - [facility] [address] [place] [address] PCP - General 08/26/20 12/27/23 No Ref-Primary, Physician PCP - General 12/28/23 05/22/24 Shaniqua Hernandez APRN PRICE ECONOMIST [address] [place] [address] PCP - General Nurse Practitioner - Family 05/23/24 Jefferson Oliver Personal Advocate & Liaison (PAL) 09/14/21 05/26/22 [place] [address] [place] [address] Assigned PCP 12/04/21 03/17/23 Linda Cantu Personal Advocate & Liaison (PAL) Family Medicine 05/27/22 [place] [address] [place] [address] Assigned PCP 03/18/23 07/14/23 [place] [address] [place] [address] Assigned PCP 07/15/23 01/14/24 Susie Turk APRN [facility] [address] [place] [address] Assigned PCP 01/15/24 Claudine Curtis MD [address] [place] [address] Assigned OBGYN Provider 04/15/24 documented as of this encounter
--- OUTSIDE RECORDS SUMMARY | 2024-05-23 20:27 | XMS_ITS | Encounter Summary ---
Author Organization [facility] Address [address] [place] [address] Care Team Providers Care Professor Of Sociology Name Role Phone Linda Cantu Unavailable Unavailable No Ref-Primary, Physician Primary Care Provider Susie Turk APRN HAND COUNTER Unavailable [phone] Claudine Curtis MD Unavailable [phone] Reason for Referral * Diagnostic Imaging MRI (Routine) - Pending Review Specialty Diagnoses / Procedures Referred By Contac t Referred To Contact Radiology. Diagnoses Lumbar pain Lumbar pain with radiation down left leg Abnormal x-ray of lumbar spine Procedures MR Lumbar Spine w/o Contrast Jhon Hernandez APRN HAND COUNTER [address] [place] [address] Phone: tel: fax: Referral ID Status Reason Start Date Expiration Date V isits Requested Visits Authorized [id number] Pending Review 05/22/2024 05/22/2025 1 1 AL SERVICE SALES AND MANAGEMENT * Consultation (Routine: Next available opening) - Pending Review Specialty Diagnoses / Procedures Referred By Contac t Referred To Contact Diagnoses Lumbar pain Lumbar pain with radiation down left leg Abnormal x-ray of lumbar spine Jhon Hernandez APRN HAND COUNTER [facility] [place] [address] Phone: tel: fax: Referral ID Status Reason Start Date Expiration Date V isits Requested Visits Authorized [id number] Pending Review 05/22/2024 05/22/2025 1 1 Question Answer Referral Type: Per Protocol Has the patient had a CT or MRI of the area of concern within the last 12 months? No Patient Scheduling Instructions: [facility] will call you to coordinate your care as prescribed by your provider. If you don't hear from a insurance claim representative within 2 business days, please call . Additional Information: MRI ordered. Comments Please be aware that coverage of these services is subject to the terms and limitations of your health insurance plan. Call member services at your health plan with any benefit or coverage questions. [facility] will call you to coordinate your care as prescribed by your provider. If you don't hear from a insurance claim representative within 2 business days, please call . AL SERVICE SALES AND MANAGEMENT Reason for Visit * Reason Onset Date Comments Results 05/21/2024 Encounter Details Date Type Department Care Team (Late st Contact Info) Description 05/21/[address] [address] No Ref-Primary, Physician Results Social [...] How often do you attend chur or denominational services? 1 to 4 times per year 08/14/2020 Do you belong to any clubs o r organizations such as rastafarian groups, unions, fraternal or athletic groups, or [...] Answer Date Recorded PHQ-2 Score 2 05/21/2024 [facility] Occupat ional Health - [...] place to sleep or slept in a chcf (including now)? No 08/14/2020 Adolescent Education Answer [...] AM CDT Legal Sex Female 3:29 AM BRIDAL SERVICE SALES AND MANAGEMENT Gender Identity Female 09/03/2021 8:30 AM CDT Sexual Orientation Not on file documented as of this encounter Miscellaneous Notes * Telephone Encounter - Jhon Hernandez APRN CNP - 05/22/2024 2:07 PM BRIDAL SERVICE SALES AND MANAGEMENT Images from the original note were not included. Ordered. MRI will need cleared through insurance. Healthy regards, Jhon Hernandez, SANJAY- AL SERVICE SALES AND MANAGEMENT * Telephone Encounter - Zee Abrams RN - 05/22/2024 12:53 PM BRIDAL SERVICE SALES AND MANAGEMENT Patient calls to follow up Patient is agreeable to spine consult and MRI Osteopathic Physician does not see orders/referral. Routing to Jhon Hernandez. AL SERVICE SALES AND MANAGEMENT AL SERVICE SALES AND MANAGEMENT * Telephone Encounter - Jhon Hernandez APRN CNP - 05/22/2024 6:30 AM BRIDAL SERVICE SALES AND MANAGEMENT Images from the original note were not included. Noted. SANJAY Magdaleno- AL SERVICE SALES AND MANAGEMENT * Telephone Encounter - Rosette Arevalo RN - 05/21/2024 4:03 PM CST Patient calls. Advised of results. Femur broke at 4 years old, might be pin, not sure. No claustrophobia Routing back to provider. ROSETTE AREVALO RN on 05/21/2024 at 4:04 PM [employer] [facility] AL SERVICE SALES AND MANAGEMENT * Telephone Encounter - Rosette Arevalo RN - 05/21/2024 2:42 PM CST Attempt # 1 Called # [phone] Left a non detailed VM to call back at and ask for any available Triage Nurse. ROSETTE AREVALO RN on 05/21/2024 at 2:43 PM [employer] [facility] ----- Message from Jhon Hernandez sent at 05/21/2024 2:20 PM BRIDAL SERVICE SALES AND MANAGEMENT ----- Please call [facility] does show [...] due on 12/24/2023 Please call us at [phone] (or use [employer]) to address the above recommendations if needed. Thank you for choosing [facility]. It was an honor and a privilege to participate in your care. Jhon Calvo FNP [facility] AL SERVICE SALES AND MANAGEMENT AL SERVICE SALES AND MANAGEMENT * Addendum Note - Jhon Hernandez APRN CNP - 05/21/2024 2:42 PM BRIDAL SERVICE SALES AND MANAGEMENT Addended by: JHON HERNANDEZ on: 05/22/2024 01:47 PM Modules accepted: Orders AL SERVICE SALES AND MANAGEMENT * Addendum Note - hJon Hernandez APRN CNP - 05/21/2024 2:42 PM BRIDAL SERVICE SALES AND MANAGEMENT Addended by: JHON HERNANDEZ on: 05/22/2024 02:07 PM Modules accepted: Orders AL SERVICE SALES AND MANAGEMENT documented in this encounter Plan of Treatment Upcoming Encounters Date Type Department Care Team (Late st Contact Info) Description 06/01/2024 10:30 AM BRIDAL SERVICE SALES AND MANAGEMENT Appointment [facility] Imaging [address] [place] [phone] Jhon Hernandez APRN HAND COUNTER [address] [place] [address] 301312 02/14/2025 11:00 AM CDT Office Visit [address] [phone] Susie Turk APRN HAND COUNTER [address] [place], [place] [address] Scheduled Orders Name Type Priority Associated Diagnoses Orde r Schedule MR Lumbar Spine w/o Contrast Imaging Routine Lumbar pain Lumbar pain with radiation down left leg Abnormal x-ray of lumbar spine Expected: 05/22/2024 (Approximate), Expires: 05/22/2025 Scheduled Referrals Name Type Priority Associated Diagnoses Orde r Schedule Spine Asset Protection Lead Referral Referral Routine: Next available opening Lumbar [...] Depression Total Score: 14 025 4:20 PM BRIDAL SERVICE SALES AND MANAGEMENT documented as of this encounter Care Teams Professor Of Sociology Relationship Specialty Start Date End Date No Ref-Primary, Physician PCP - General 12/28/23 05/22/24 Linda Cantu Personal Advocate & Liaison (PAL) Family Medicine 05/27/22 Susie Turk APRN HAND COUNTER [address] [place] [address]39742 Assigned PCP 01/15/24 Claudine Curtis MD [address] [address] Assigned OBGYN Provider 04/15/24 documented as of this encounter
--- OUTSIDE RECORDS SUMMARY | 2024-05-23 20:27 | XMS_ITS | Encounter Summary ---
Author Organization [facility] Address [address] [place] [address] Care Team Providers Care Bun Icer Name Role Phone [facility] Primary Ca re Provider Jefferson Oliver Unavailable Unavailable Vidhya Witt MD Unavailable Linda Cantu Unavailable Unavailable Wilian Hilliard DO Unavailable [phone] Vidhya Witt MD Unavailable No Ref-Primary, Physician Primary Care Provider Susie Turk APRN INSTRUMENT TECHNICIAN HELPER Unavailable [phone] Claudine Curtis MD Unavailable [phone] Shaniqua Hernandez APRN INSTRUMENT TECHNICIAN HELPER Primary Care Prov ider Encounter Details Date Type Department Care Team (Late st Contact Info) Description 03/25/2022 MyC Medical Advice [facility] Services - Behavioral Service Line [address] [place] [phone] Claudine Schilling Social History Tobacco Use [...] often do you attend chur ch or pentecostalism services? 1 to 4 times per year 08/14/2020 Do you belong to any clubs o r organizations such as roman catholic groups, unions, fraternal or athletic groups, or [...] Answer Date Recorded PHQ-2 Score 2 03/28/2022 [facility] - Occupational [...] place to sleep or slept in a mcfp (including now)? No 08/14/2020 Education Answer Date Recorded What is the highest level of school you have completed or the highest degree you have received? Associate degree: occupational, technical, or vocational program 08/14/2020 Comments No Sex and Gender Information Value Date Recorded Sex Assigned at Female 09/03/2021 8:30 AM CDT Legal Sex Female 3:29 AM SUSPENDER MAKER Gender Identity Female 09/03/2021 8:30 AM CDT Sexual Orientation Not on file COVID-19 Exposure Response Date Recorded In the last 10 days, have yo u been in contact with someone who was confirmed or suspected to have Coronavirus/COVID-19? No / Unsure 03/09/2022 3:29 AM SUSPENDER MAKER documented as of this encounter Plan of Treatment Upcoming Encounters Date Type Department Care Team (Late st Contact Info) Description 06/01/2024 10:30 AM SUSPENDER MAKER Appointment [facility] [address] [facility] [address] [place] [phone] Shaniqua Hernandez, FISCAL CLERK [address] [address] 02/14/2025 11:00 AM CDT Office Visit [address] [place] [phone] Susie Turk, FISCAL CLERK INSTRUMENT TECHNICIAN HELPER [address] [place], [place] [address] documented as of this encounter Visit Diagnoses Not on filedocumented in this encounter Additional Health Concerns Infection Onset Date Last Indicated Resolved Time 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 11/01/2011 11/01/2011 Rule Out COVID-19 04/09/2024 04/09/2024 04/10/2024 10:57 AM SUSPENDER MAKER Assessment Noted Time PHQ-9 Depression Total Score: 16 022 1:17 PM CDT documented as of this encounter Care Teams Bun Icer Relationship Specialty Start Date End Date Clinic - [facility] [address] [place] [address] PCP - General 08/26/20 12/27/23 No Ref-Primary, Physician PCP - General 12/28/23 05/22/24 Shaniqua Hernandez APRN INSTRUMENT TECHNICIAN HELPER [address] [place] [address] PCP - General Nurse Practitioner - Family 05/23/24 Jefferson Oliver Personal Advocate & Liaison (PAL) 09/14/21 05/26/22 [place] [address] [place] [address] Assigned PCP 12/04/21 03/17/23 Linda Cantu Personal Advocate & Liaison (PAL) Family Medicine 05/27/22 [place] [address] [place] [address] Assigned PCP 03/18/23 07/14/23 [place] [address] [place] [address] Assigned PCP 07/15/23 01/14/24 Susie Turk APRN INSTRUMENT TECHNICIAN HELPER [address] [place] [address] Assigned PCP 01/15/24 Claudine Curtis MD [address] [place] [address] Assigned OBGYN Provider 04/15/24 documented as of this encounter
--- OUTSIDE RECORDS SUMMARY | 2024-05-23 20:27 | XMS_ITS | Clinical Summary ---
Author Organization [facility] Address [address] [place] [address] Care Team Providers Care Tire Maker Name Role Phone Pcp, Pt Sumi GRACIA Primary Care Provider [phone] Source Comments You are receiving this document as you are listed as the primary care provider,follow-up provider, or the patient has been referred to you for consultation.This is in compliance with the Medicare andMain [facility] Cent[facility]aid EHR Incentive Program,which states Providers who transition their patient to another setting of careor provider of care or refers their patient to another provider of care shouldprovide summary care record for each transition of care or referral. [facility] Allerg[facility] No known active allergies Medications Medication Sig Dispensed Refills Start Date End Date Status Qecsmkfz-Tls-Mf-FA (/IRON OR) Take by mouth daily (every [...] Dates Next Due Influenza IIV4 (Quadrivalent) 0.5mL (44738) 02/22 TDAP (BOOSTRIX) 06/17/2014 Family History Medical [...] Comments Blood Pressure 151/125 04/19/2022 12:24 PM DEMAND GENERATOR MANAGER Pulse 91 04/19/2022 12:24 PM DEMAND GENERATOR MANAGER Temperature 36.6 C (97.8 F) 04/19/2022 12:24 PM DEMAND GENERATOR MANAGER Respiratory Rate 18 04/19/2022 12:2 4 PM DEMAND GENERATOR MANAGER Oxygen Saturation 98% 04/19/2022 12: 24 PM DEMAND GENERATOR MANAGER Inhaled Oxygen Concentration - - Weight 102.9 [...] Grimes APRN, CNP LAB_1 Performing Organization Address [facility] de Phone Number HP CONVERSION * Pap Smear (02/07/2014 11:01 AM CDT) 02/07/2014 11:0 1 AM CDT Narrative HP CONVERSION - 02/25/2014 9:58 AM DEMAND GENERATOR MANAGER FINAL GYNECOLOGICAL CYTOLOGY REPORT Pathology #: [id number] Date Obtained: 02/07/2014 Date Received: 02/10/2014 INTERPRETATION/RESULTS: [...] Grimes APRN, CNP LAB_1 Performing Organization Address [facility] Co de Phone Number HP CONVERSION from Last 3 Months or Most Recently Relevant to Health Maintenance Care Teams Tire Maker Relationship Specialty Start Date End Date Pcp, [place] [address] PCP - General 03/11/14
--- OUTSIDE RECORDS SUMMARY | 2024-05-23 20:27 | XMS_ITS | Encounter Summary ---
Author Organization [place] Address [address] [place] [address] Care Team Providers Care Greensman Name Role Phone Linda Cantu Unavailable Unavailable No Ref-Primary, Physician Primary Care Provider Susie Turk APRN SYNTHETIC CHEMIST Unavailable [phone] Claudine Curtis MD Unavailable [phone] Reason for Visit * Diagnostic Imaging XR (Routine) - Pending Review Specialty Diagnoses / Procedures Referred By Contac t Referred To Contact Radiology. Diagnoses Lumbar pain Procedures XR Lumbar Spine 2/3 Views Shaniqua Hernandez APRN SYNTHETIC CHEMIST [address] [place] [address] Phone: tel: fax: Referral ID Status Reason Start Date Expiration Date V isits Requested Visits Authorized [id number] Pending Review 05/21/2024 05/21/2025 1 1 Encounter Details Date Type Department Care Team (Late st Contact Info) Description 05/21/2024 12:25 PM CENTER RECEPTIONIST Ancillary Procedure [address] [phone] Shaniqua Hernandez APRN SYNTHETIC CHEMIST [address] [place], [place] 9[address] Lumbar pain Social History Tobacco Use Types [...] How often do you attend chur or zoroastrianism services? 1 to 4 times per year 08/14/2020 Do you belong to any clubs o r organizations such as methodist groups, unions, fraternal or athletic groups, or [...] Answer Date Recorded PHQ-2 Score 2 05/21/2024 [facility] [place] of Occupat ional Health - Occupational Stress [...] in a half-way (including now)? No 08/14/2020 Adolescent Education Answer [...] AM CDT Legal Sex Female 3:29 AM CENTER RECEPTIONIST Gender Identity Female 09/03/2021 8:30 AM CDT Sexual Orientation Not on file documented as of this encounter Miscellaneous Notes * Result Encounter Note - Shaniqua Hernandez, FRANDY SYNTHETIC CHEMIST - 05/21/2024 12:25 PM CST Please call [...] due on 12/24/2023 Please call us at [phone] (or use Archivas) to address the above recommendations if needed. Thank you for choosing [facility]. It was an honor and a privilege to participate in your care. Healthy regards, SANJAY Magdaleno [facility] ER RECEPTIONIST documented in this encounter Plan of Treatment Upcoming Encounters Date Type Department Care Team (Late st Contact Info) Description 06/01/2024 10:30 AM CENTER RECEPTIONIST Appointment [facility] [address] [facility] [address] [place] [phone] Shaniqua Hernandez APRN SYNTHETIC CHEMIST [address] [place] [address] [place] [id number] 02/14/2025 11:00 AM CDT Office Visit [address] [place] [phone] Susie Turk APRN SYNTHETIC CHEMIST [address] [place] [address] documented as of this encounter Procedures Procedure Name Priority Date/Time Associated Diagnosis Comments XR LUMBAR SPINE 2/3 VIEWS Routine 05/21/2024 12:33 PM CENTER RECEPTIONIST Lumbar pain documented in this encounter Results * XR Lumbar Spine 2/3 Views (05/21/2024 12:33 PM CENTER RECEPTIONIST) Anatomical Region Laterality Modality Spine, T-spine, L-spine, Abdomen/Pelvis Computed Radiography 05/21/2024 12:3 3 PM CENTER RECEPTIONIST Impressions 05/21/2024 1:58 PM CENTER RECEPTIONIST IMPRESSION: 5 nonrib-bearing lumbar type vertebral bodies. Grade 2 anterolisthesis of L5 on S1 with advanced loss of L5-S1 disc space height. L5 pars defects. Intervertebral disc space heights are otherwise maintained. Narrative 05/21/2024 1:58 PM CENTER RECEPTIONIST EXAM: XR LUMBAR SPINE 2/3 VIEWS LOCATION: [facility] DATE: 05/21/2024 INDICATION: Lumbar pain COMPARISON: None. Procedure Note Darrell Leon MD - 05/21/2024 EXAM: XR LUMBAR SPINE 2/3 VIEWS LOCATION: [facility] DATE: 05/21/2024 INDICATION: Lumbar pain COMPARISON: None. IMPRESSION: 5 nonrib-bearing lumbar type vertebral bodies. Grade 2anterolisthesis of L5 on S1 with advanced loss of L5-S1 disc space height.L5 pars defects. Intervertebral disc space heights are otherwisemaintained. Shaniqua Hernandez FOREMAN SHIPPING DEPARTMENT SYNTHETIC CHEMIST IMG DIAGNOSTIC MELVIN GING ORDERABLES Final Result documented in this encounter Visit Diagnoses Diagnosis Lumbar pain Lumbago documented in this encounter Additional Health Concerns Infection Onset Date Last Indicated Resolved Time 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 11/01/2011 11/01/2011 Assessment Noted Time PHQ-9 Depression Total Score: 14 025 4:20 PM CENTER RECEPTIONIST documented as of this encounter Care Teams Greensman Relationship Specialty Start Date End Date No Ref-Primary, Physician PCP - General 12/28/23 05/22/24 Linda Cantu Personal Advocate & Liaison (PAL) Family Medicine 05/27/22 Susie Turk APRN SYNTHETIC CHEMIST [address] [place] [address] Assigned PCP 01/15/24 Claudine Curtis MD [address] [place] [address] Assigned OBGYN Provider 04/15/24 documented as of this encounter
--- OUTSIDE RECORDS SUMMARY | 2024-05-23 20:27 | XMS_ITS | Encounter Summary ---
Author Organization [place] Address [address] [place] [address] Care Team Providers Care Visual Merchandising Associate Name Role Phone Gita Small CLOTH SECONDS SORTER Primary Care Provider [phone] Gita Small [employer] SEC[employer] Unavailable [phone] Giat Small [employer] Unavailable [phone] No Ref-Primary, Physician Primary Care Provider Brisa Singletary MD Unavailable [phone] Kae Blankenship PA-C Unavailable [phone] Crystal Alanis MD Unavailable [phone] Wilian Hilliard DO Unavailable [phone] Lois Hathaway DO Unavailable [phone] rBisa Singletary MD Unavailable [phone] [facility] re Provider Wilian Hilliard DO Unavailable [phone] Jefferson Oliver Unavailable Unavailable Vidhya Witt MD Unavailable Linda Cantu Unavailable Unavailable Wilian Hilliard DO Unavailable [phone] Vidhya Witt MD Unavailable No Ref-Primary, Physician Primary Care Provider Susie Turk APRN, CNP Unavailable [phone] Claudine Curtis MD Unavailable Shaniqua Hernandez APRN AUTOMOTIVE ELECTRICAL HELPER Primary Care Prov ider Encounter Details Date Type Department Care Team (Late st Contact Info) Description 11/28/2016 MyC Medical Advice M [address] [phone] Gita Small, MARCO [facility] & [address] [place] [address] Social History Tobacco Use Types [...] AM CDT Legal Sex Female 3:29 AM TURN SUPERVISOR Gender Identity Female 09/03/2021 8:30 AM CDT Sexual Orientation Not on file documented as of this encounter Plan of Treatment Upcoming Encounters Date Type Department Care Team (Late st Contact Info) Description 06/01/2024 10:30 AM TURN SUPERVISOR Appointment M [facility] Care [place] Imaging [address] [facility] [address] [place] [phone] Shaniqua Hernandez APRN AUTOMOTIVE ELECTRICAL HELPER [address] [place] [address] 02/14/2025 11:00 AM CDT Office Visit [address] [phone] Susie Turk APRN AUTOMOTIVE ELECTRICAL HELPER [address] [place] [address]682 documented as of this encounter Visit Diagnoses Not on filedocumented in this encounter Additional Health Concerns Infection Onset Date Last Indicated Resolved Time 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 11/01/2011 11/01/2011 Rule Out COVID-19 06/14/2020 06/14/2020 06/14/2020 11:50 PM TURN SUPERVISOR Rule Out COVID-19 03/09/2022 03/09/2022 03/09/2022 6:39 AM TURN SUPERVISOR Rule Out COVID-19 04/09/2024 04/09/2024 04/10/2024 10:57 AM TURN SUPERVISOR documented as of this encounter Care Teams Visual Merchandising Associate Relationship Specialty Start Date End Date Gita Small, [employer] SECON[employer] S[employer]TER PCP - General Nurse Practitioner - Family 11/14/16 02/21/18 Gita Small, CLOTH SECONDS S[employer]TER [place] [address] [place] [address] PCP - Assigned PCP 11/20/16 06/26/18 No Ref-Primary, Physician PCP - General 10/25/19 08/25/20 [facility] [id number] [place] [address] PCP - General 08/26/20 12/27/23 No Ref-Primary, Physician PCP - General 12/28/23 05/22/24 Shaniqua Hernandez APRN AUTOMOTIVE ELECTRICAL HELPER [address] [place] [address] PCP - General Nurse Practitioner - Family 05/23/24 Gita Small, [employer] SECON[facility]TER [facility] [address] [place] [address] Assigned PCP 11/20/16 12/21/19 [place] [address] [place] [address] Assigned PCP 12/22/19 04/25/20 Kae Blankenship PA-C [address] [facility] [address] [place] [address] Assigned PCP 04/26/20 06/06/20 Crystal Alanis MD [facility] [address] [facility] [address] [place] [address] Assigned Surgical Provider 06/07/20 12/03/21 [place] [address] [place] [address] Assigned PCP 06/07/20 08/15/20 Lois Hathaway DO [address] [facility] [address] [place] [address] Assigned OBGYN Provider 07/19/20 01/18/22 [place] [address] [place] [address] Assigned PCP 08/16/20 03/27/21 [place] [address] [place] [address] Assigned PCP 03/28/21 12/03/21 Jefferson Oliver Personal Advocate & Liaison (PAL) 09/14/21 05/26/22 [place] [address] [place] [address] Assigned PCP 12/04/21 03/17/23 Linda Cantu Personal Advocate & Liaison (PAL) Family Medicine 05/27/22 [place] [address] [place] [address] Assigned PCP 03/18/23 07/14/23 [place] [address] [place] [address] Assigned PCP 07/15/23 01/14/24 Susie Turk APRN [facility] [address] [place] [address] [id number] Assigned PCP 01/15/24 Claudine Curtis MD [address] [place] [address] Assigned OBGYN Provider 04/15/24 documented as of this encounter
--- OUTSIDE RECORDS SUMMARY | 2024-05-23 20:27 | XMS_ITS | Encounter Summary ---
Author Organization [place] Address [address] [place] [address] Care Team Providers Care Biscuit Factory Worker Name Role Phone Crystal Alanis MD Unavailable [phone] Lois Htahaway DO Unavailable [phone] Brisa Singletary MD Unavailable [phone] [facility] Primary Ca re Provider Wilian Hilliard DO Unavailable [phone] Jefferson Oliver Unavailable Unavailable Vidhya Witt MD Unavailable Linda Cantu Unavailable Unavailable Wilian Hilliard DO Unavailable [phone] Vidhya Witt MD Unavailable No Ref-Primary, Physician Primary Care Provider Susie Turk APRN DIESEL TECHNICIAN MECHANIC Unavailable [phone] Claudine Curtis MD Unavailable [phone] Shaniqua Hernandez APRN DIESEL TECHNICIAN MECHANIC Primary Care Prov ider Encounter Details Date Type Department Care Team (Late st Contact Info) Description 09/14/2020 MyC Medical Advice [facility] Surgery [facility] [address] [place] [address] Magalys Manriquez PA-C [address] [facility] [address] [place] [address] Social History Tobacco Use Types Packs/Day Years [...] How often do you attend chur or yarsani services? 1 to 4 times [...] Answer Date Recorded PHQ-2 Score 0 06/01/2020 [facility] [place] of Occupat ional Health - Occupational Stress [...] AM CDT Legal Sex Female 3:29 AM FIBER ANALYST Gender Identity Female 09/03/2021 8:30 AM [...] st Contact Info) Description 06/01/2024 10:30 AM FIBER ANALYST Appointment [facility] Imaging [address] [place] [address] [place] [phone] Shaniqua Hernandez APRN DIESEL TECHNICIAN MECHANIC [address] [place] [address] 888682 02/14/2025 11:00 AM CDT Office Visit [address] [place] [phone] Susie Turk APRN DIESEL TECHNICIAN MECHANIC [address] [place] [address] [phone] documented as of this encounter Visit Diagnoses Not on filedocumented in this encounter Additional Health Concerns Infection Onset Date Last Indicated Resolved Time 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 11/01/2011 11/01/2011 Rule Out COVID-19 03/09/2022 03/09/2022 03/09/2022 6:39 AM FIBER ANALYST Rule Out COVID-19 04/09/2024 04/09/2024 04/10/2024 10:57 AM FIBER ANALYST documented as of this encounter Care Teams Biscuit Factory Worker Relationship Specialty Start Date End Date Clinic - [facility] [address] [place] [address] PCP - General 08/26/20 12/27/23 No Ref-Primary, Physician PCP - General 12/28/23 05/22/24 Shaniqua Hernandez APRN DIESEL TECHNICIAN MECHANIC [address] [place] [address] 997702 PCP - General Nurse Practitioner - Family 05/23/24 Crystal Alanis MD SURGICAL [facility], [facility] [address] [place], [place] [address] Assigned Surgical Provider 06/07/20 12/03/21 Lois Hathaway DO [address] [facility] [address] [place] [address] Assigned OBGYN Provider 07/19/20 01/18/22 [place] [address] [place] [address] Assigned PCP 08/16/20 03/27/21 [place] [address] [place] [address] Assigned PCP 03/28/21 12/03/21 Jefferson Oliver Personal Advocate & Liaison (PAL) 09/14/21 05/26/22 [place] [address] [place] [address] Assigned PCP 12/04/21 03/17/23 Linda Cantu Personal Advocate & Liaison (PAL) Family Medicine 05/27/22 [place] [address] [place] [address] Assigned PCP 03/18/23 07/14/23 [place] [address] [place] [address] Assigned PCP 07/15/23 01/14/24 Susie Turk APRN DIESEL TECHNICIAN MECHANIC [address] [place] [address] Assigned PCP 01/15/24 Claudine Curtis MD [address] [place] [address] Assigned OBGYN Provider 04/15/24 documented as of this encounter
--- OUTSIDE RECORDS SUMMARY | 2024-05-23 20:27 | XMS_ITS | Encounter Summary ---
Author Organization [place] Address [address] [place] [address] Care Team Providers Care Billing Collections Specialist Name Role Phone Gita Small GIS MAPPING TECHNICIAN Primary Care Provider [phone] Gita Small GIS MAPPING TECHNICIAN Unavailable [phone] Gita Small GIS MAPPING TECHNICIAN Unavailable [phone] No Ref-Primary, Physician Primary Care Provider Brisa Singletary MD Unavailable [phone] Kae Blankenship PA-C Unavailable [phone] Crystal Alanis MD Unavailable [phone] Wilian Hilliard DO Unavailable [phone] Lois Hathaway DO Unavailable [phone] Brisa Singletary MD Unavailable [phone] [facility] re Provider Wilian Hilliard DO Unavailable [phone] Jefferson Oliver Unavailable Unavailable Vidhya Witt MD Unavailable Linda Cantu Unavailable Unavailable Wilian Hilliard DO Unavailable [phone] Vidhya Witt MD Unavailable No Ref-Primary, Physician Primary Care Provider Susie Turk APRN, CNP Unavailable [phone] Claudine Curtis MD Unavailable Shaniqua Hernandez APRN CERTIFIED NEURODIAGNOSTIC TECHNOLOGIST Primary Care Prov ider Encounter Details Date Type Department Care Team (Late st Contact Info) Description 11/15/2016 MyC Medical Advice M [address] [phone] Gita Small, [facility] & [address] [place] [address] Social History Tobacco Use Types [...] AM CDT Legal Sex Female 3:29 AM REAL ESTATE SPECIALIST Gender Identity Female 09/03/2021 8:30 AM CDT Sexual Orientation Not on file documented as of this encounter Plan of Treatment Upcoming Encounters Date Type Department Care Team (Late st Contact Info) Description 06/01/2024 10:30 AM REAL ESTATE SPECIALIST Appointment M [facility] Care [place] [facility] [address] [facility] [address] [place] [phone] Shaniqua Hernandez APRN CERTIFIED NEURODIAGNOSTIC TECHNOLOGIST [address] [place] [address]112 02/14/2025 11:00 AM CDT Office Visit [address] [phone] Susie Turk APRN CERTIFIED NEURODIAGNOSTIC TECHNOLOGIST [address] [place] [address] 748882 documented as of this encounter Visit Diagnoses Not on filedocumented in this encounter Additional Health Concerns Infection Onset Date Last Indicated Resolved Time 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 11/01/2011 11/01/2011 Rule Out COVID-19 06/14/2020 06/14/2020 06/14/2020 11:50 PM REAL ESTATE SPECIALIST Rule Out COVID-19 03/09/2022 03/09/2022 03/09/2022 6:39 AM REAL ESTATE SPECIALIST Rule Out COVID-19 04/09/2024 04/09/2024 04/10/2024 10:57 AM REAL ESTATE SPECIALIST documented as of this encounter Care Teams Billing Collections Specialist Relationship Specialty Start Date End Date Gita Small, GIS MAPPING TECHNICIAN PCP - General Nurse Practitioner - Family 11/14/16 02/21/18 Gita Small, GIS MAPPING TECHNICIAN [place] [address] [place] [address] PCP - Assigned PCP 11/20/16 06/26/18 No Ref-Primary, Physician PCP - General 10/25/19 08/25/20 [facility] [id number] [place] [address] PCP - General 08/26/20 12/27/23 No Ref-Primary, Physician PCP - General 12/28/23 05/22/24 Shaniqua Hernandez APRN CERTIFIED NEURODIAGNOSTIC TECHNOLOGIST [address] [place] [address] PCP - General Nurse Practitioner - Family 05/23/24 Gita Small, GIS MAPPING TECHNICIAN [facility] [address] [place] [address] Assigned PCP 11/20/16 12/21/19 [place] [address] [place] [address] Assigned PCP 12/22/19 04/25/20 Kae Blankenship PA-C [address] [facility] [address] [place] [address] Assigned PCP 04/26/20 06/06/20 Crystal Alanis MD [facility] [address] [facility] [address] [place] [address] Assigned Surgical Provider 06/07/20 12/03/21 [place] [address] [place] [address] Assigned PCP 06/07/20 08/15/20 Lois Hathaway DO [address] [facility] [address] [place] [address] Assigned OBGYN Provider 07/19/20 01/18/22 [place] [address] [place] [address] Assigned PCP 08/16/20 03/27/21 [place] [address] [place] [address] Assigned PCP 03/28/21 12/03/21 Jefferson Oliver Personal Advocate & Liaison (PAL) 09/14/21 05/26/22 [place] [address] [place] [address] Assigned PCP 12/04/21 03/17/23 Linda Cantu Personal Advocate & Liaison (PAL) Family Medicine 05/27/22 [place] [address] [place] [address] Assigned PCP 03/18/23 07/14/23 [place] [address] [place] [address] Assigned PCP 07/15/23 01/14/24 Susie Turk APRN [facility] [address] [place] [address] 609742 Assigned PCP 01/15/24 Claudine Curtis MD [address] [place] [address] Assigned OBGYN Provider 04/15/24 documented as of this encounter
--- OUTSIDE RECORDS SUMMARY | 2024-05-23 20:27 | XMS_ITS | Encounter Summary ---
Author Organization [place] Address [address] [place] [address] Care Team Providers Care Embossograph Operator Name Role Phone No Ref-Primary, Physician Primary Care Provider Brisa Singletary MD Unavailable [phone] Kae Blankenship PA-C Unavailable [phone] Crystal Alanis MD Unavailable [phone] Wilian Hilliard DO Unavailable [phone] Lois Hathaway DO Unavailable [phone] Brisa Singletary MD Unavailable [phone] [facility] Primary Ca re Provider Wilian Hilliard DO Unavailable [phone] Jefferson Oliver Unavailable Unavailable Vidhya Witt MD Unavailable Linda Cantu Unavailable Unavailable Wilian Hilliard DO Unavailable [phone] Vidhya Witt MD Unavailable No Ref-Primary, Physician Primary Care Provider Susie Turk APRN DIRECTOR BUILDING Unavailable [phone] Claudine Curtis MD Unavailable [phone] Shaniqua Hernandez APRN DIRECTOR BUILDING Primary Care Prov ider Encounter Details Date Type Department Care Team (Late st Contact Info) Description 04/24/2020 Refill [facility] [address] [place] [phone] [place] [address] [place] [address] Social History Tobacco Use Types Packs/Day Years [...] AM CDT Legal Sex Female 3:29 AM DIRECTOR OF INDUSTRIAL RELATIONS Gender Identity Female 09/03/2021 8:30 AM CDT Sexual Orientation Not on file COVID-19 Exposure Response Date Recorded In the last month, have you been in contact with someone who was confirmed or suspected to have Coronavirus / COVID-19? No / Unsure 04/22/2020 2:11 PM DIRECTOR OF INDUSTRIAL RELATIONS documented as of this encounter Plan of Treatment Upcoming Encounters Date Type Department Care Team (Late st Contact Info) Description 06/01/2024 10:30 AM DIRECTOR OF INDUSTRIAL RELATIONS Appointment [facility] [address] [facility] [address] [place] [phone] Shaniqua Hernandez, DOBIE MAN DIRECTOR BUILDING [address] [place] [address]442 02/14/2025 11:00 AM CDT Office Visit [address] [phone] Susie Turk, DOBIE MAN DIRECTOR BUILDING [facility] [place], [place] [address]592 documented as of this encounter Visit Diagnoses Not on filedocumented in this encounter Additional Health Concerns Infection Onset Date Last Indicated Resolved Time 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 11/01/2011 11/01/2011 Rule Out COVID-19 06/14/2020 06/14/2020 06/14/2020 11:50 PM DIRECTOR OF INDUSTRIAL RELATIONS Rule Out COVID-19 03/09/2022 03/09/2022 03/09/2022 6:39 AM DIRECTOR OF INDUSTRIAL RELATIONS Rule Out COVID-19 04/09/2024 04/09/2024 04/10/2024 10:57 AM DIRECTOR OF INDUSTRIAL RELATIONS documented as of this encounter Care Teams Embossograph Operator Relationship Specialty Start Date End Date No Ref-Primary, Physician PCP - General 10/25/19 08/25/20 [facility] [address] [place] [address] PCP - General 08/26/20 12/27/23 No Ref-Primary, Physician PCP - General 12/28/23 05/22/24 Shaniqua Hernandez APRN DIRECTOR BUILDING [address] [place] [address] PCP - General Nurse Practitioner - Family 05/23/24 [place] [address] [place] [address] Assigned PCP 12/22/19 04/25/20 Kae Blankenship PA-C [address] [facility] 200 [place] [address] Assigned PCP 04/26/20 06/06/20 Crystal Alanis MD SURGICAL CONSULTS, [facility] [address] [facility] 300 [place] [address] Assigned Surgical Provider 06/07/20 12/03/21 [place] [address] [place] [address] Assigned PCP 06/07/20 08/15/20 Lois Hathaway DO [address] [facility] 100 [place] [address] Assigned OBGYN Provider 07/19/20 01/18/22 [place] [address] [place] [address] Assigned PCP 08/16/20 03/27/21 [place] [address] [place] [address] Assigned PCP 03/28/21 12/03/21 Jefferson Oliver Personal Advocate & Liaison (PAL) 09/14/21 05/26/22 [place] [address] [place] [address] Assigned PCP 12/04/21 03/17/23 Linda Cantu Personal Advocate & Liaison (PAL) Family Medicine 05/27/22 [place] [address] [place] [address] Assigned PCP 03/18/23 07/14/23 [place] [address] [place] [address] Assigned PCP 07/15/23 01/14/24 Susie Turk APRN DIRECTOR BUILDING [address] [place] [address] Assigned PCP 01/15/24 Claudine Curtis MD [address] [place] [address] Assigned OBGYN Provider 04/15/24 documented as of this encounter
--- OUTSIDE RECORDS SUMMARY | 2024-05-23 20:28 | XMS_ITS | Encounter Summary ---
Author Organization [place] Address [address] [place] [id number] Care Team Providers Care Licensed Real Estate Broker Name Role Phone Linda Cantu Unavailable Unavailable No Ref-Primary, Physician Primary Care Provider Susie Turk DRILL OPERATOR AUTOMATIC WEBMETHODS CONSULTANT Unavailable [phone] Reason for Visit * Diagnostic Imaging XR (Routine) - Pending Review Specialty Diagnoses / Procedures Referred By Raúl parsons Referred To Contact Radiology. Diagnoses Wheezing Acute cough Upper respiratory tract infection, unspecified type Procedures XR Chest 2 Views Rebecca Flowers PA-C [address] [place] [address] Phone: tel: fax: Referral ID Status Reason Start Date Expiration Date V isits Requested Visits Authorized [id number] Pending Review 04/09/2024 04/09/2025 1 1 Encounter Details Date Type Department Care Team (Late st Contact Info) Description 04/09/2024 11:45 AM HL7 DEVELOPER Ancillary Procedure [address] [place] [phone] Rebecca Flowers PA-C [address] [place] [address] [phone] Wheezing; Acute cough; Upper respiratory tract infection, [...] any clubs o r organizations such as orthodoxy groups, unions, fraternal or athletic groups, or [...] Answer Date Recorded PHQ-2 Score 6 04/09/2024 [facility] Occupat ional [facility] - Occupational [...] AM CDT Legal Sex Female 3:29 AM HL7 DEVELOPER Gender Identity Female 09/03/2021 8:30 AM CDT Sexual Orientation Not on file documented as of this encounter Plan of Treatment Upcoming Encounters Date Type Department Care Team (Late st Contact Info) Description 06/01/2024 10:30 AM HL7 DEVELOPER Appointment [facility] [address] [place] [address] [place] [phone] Shaniqua Hernandez, FRANDY WEBMETHODS CONSULTANT [address] [place] [address] [phone] 02/14/2025 11:00 AM CDT Office Visit [address] [phone] Susie Turk APRN WEBMETHODS CONSULTANT [address] [place], [place] [phone] documented as of this encounter Procedures Procedure Name Priority Date/Time Associated Diagnosis Comments XR CHEST 2 VIEWS Routine 04/09/2024 11:5 3 AM HL7 DEVELOPER Wheezing Acute cough Upper respiratory tract infection, unspecified type documented in this encounter Results * XR Chest 2 Views (04/09/2024 11:53 AM HL7 DEVELOPER) Anatomical Region Laterality Modality Chest Computed Radiogr aphy Impressions 04/09/2024 2:00 PM HL7 DEVELOPER IMPRESSION: There are no acute infiltrates. The cardiac silhouette is not enlarged. Pulmonary vasculature is unremarkable. JENNIFER GARCÍA MD SYSTEM ID: [id number] Narrative 04/09/2024 2:00 PM HL7 DEVELOPER CHEST TWO VIEWS 04/09/2024 11:53 AM HISTORY: [...] is unremarkable. JENNIFER GARCÍA MD SYSTEM ID: [id number] Rebecca Flowers PA-C IMG DIAGNOSTIC IMAGING ORDERA BLES Final Result documented in this encounter Visit Diagnoses Diagnosis Wheezing Acute cough Upper respiratory tract infection, unspecified type documented in this encounter Additional Health Concerns Infection Onset Date Last Indicated Resolved Time 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 11/01/2011 11/01/2011 Rule Out COVID-19 04/09/2024 04/09/2024 04/10/2024 10:57 AM HL7 DEVELOPER Assessment Noted Time PHQ-9 Depression Total Score: 22 024 10:54 AM HL7 DEVELOPER documented as of this encounter Care Teams Licensed Real Estate Broker Relationship Specialty Start Date End Date No Ref-Primary, Physician PCP - General 12/28/23 05/22/24 Linda Cantu Personal Advocate & Liaison (PAL) Family Medicine 05/27/22 Susie Turk APRN WEBMETHODS CONSULTANT [address] [place] [address] Assigned PCP 01/15/24 documented as of this encounter
--- OUTSIDE RECORDS SUMMARY | 2024-05-23 20:28 | XMS_ITS | Encounter Summary ---
Author Organization [place] Address [address] [place] [address] Care Team Providers Care Digital Forensics Investigator Name Role Phone KonstantinLinda carbone Unavailable Unavailable Susie Turk APRN BLANKET WINDER OPERATOR Unavailable [phone] Claudine Curtis MD Unavailable Shaniqua Hernandez APRN BLANKET WINDER OPERATOR Primary Care Prov ider Encounter Details Date Type Department Care Team (Late st Contact Info) Description 05/23/2024 [facility] Medical Advice [address] [phone] Shaniqua Hernandez APRN [address] [address] Social History Tobacco Use Types [...] week 08/14/2020 How often do you attend [facility] or adventist services? 1 to 4 times per year 08/14/2020 Do you belong to any clubs o r organizations such as islam groups, unions, fraternal or athletic groups, or [...] Answer Date Recorded PHQ-2 Score 2 05/21/2024 [facility] Occupat ional Health - Occupational [...] AM CDT Legal Sex Female 3:29 AM PHOTO LAB TECHNICIAN Gender Identity Female 09/03/2021 8:30 AM CDT Sexual Orientation Not on file documented as of this encounter Miscellaneous Notes * Telephone Encounter - Vidya Ruby RN - 05/23/2024 1:59 PM CST Called # [phone] and spoke with patient Advised patient of [...] Ruby RN on 05/23/2024 at 1:59 PM [facility] O LAB TECHNICIAN * Telephone Encounter - Shaniqua Hernandez APRN CNP - 05/23/2024 1:45 PM PHOTO LAB TECHNICIAN Images from the original note were not included. It was recommended she be in ED if red flag symptoms including significant pain; Any significant pain 10/10 or above is extreme warrants emergent care. Note for work done. Tristen crawford, Shaniqua Hernandez, SUPERVISOR BOTTLE MACHINES-BC O LAB TECHNICIAN * Telephone Encounter - Vidya Ruby RN [...] to review and advise. Vidya Ruby RN [place] [facility] O LAB TECHNICIAN documented in this encounter Plan of Treatment Upcoming Encounters Date Type Department Care Team (Late st Contact Info) Description 06/01/2024 10:30 AM PHOTO LAB TECHNICIAN Appointment [facility] Imaging [address] [place] [address] [place] [phone] Shaniqua Hernandez APRN BLANKET WINDER OPERATOR [address] [place] [address] [place] [address] 02/14/2025 11:00 AM CDT Office Visit [address] [place] [phone] Susie Turk APRN BLANKET WINDER OPERATOR [address] [place] [address] documented as of this encounter Visit Diagnoses Not on filedocumented in this encounter Additional Health Concerns Infection Onset Date Last Indicated Resolved Time 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 11/01/2011 11/01/2011 Assessment Noted Time PHQ-9 Depression Total Score: 14 025 4:20 PM PHOTO LAB TECHNICIAN documented as of this encounter Care Teams Digital Forensics Investigator Relationship Specialty Start Date End Date Shaniqua Hernandez APRN BLANKET WINDER OPERATOR [address] [place] [phone] PCP - General Nurse Practitioner - Family 05/23/24 Linda Cantu Personal Advocate & Liaison (PAL) Family Medicine 05/27/22 Susie Turk APRN BLANKET WINDER OPERATOR [address] [place] [address] Assigned PCP 01/15/24 Claudine Curtis MD [address] [place] [address] Assigned OBGYN Provider 04/15/24 documented as of this encounter
--- OUTSIDE RECORDS SUMMARY | 2024-05-23 20:28 | XMS_ITS | Encounter Summary ---
Author Organization [place] Address [address] [place] [address] Care Team Providers Care Gem Setter Name Role Phone Linda Cantu Unavailable Unavailable No Ref-Primary, Physician Primary Care Provider Susie Turk APRN AIRCRAFT MAINTENANCE DIRECTOR Unavailable [phone] Claudine Curtis MD Unavailable [phone] Reason for Referral * Diagnostic Imaging XR (Routine) - Pending Review Specialty Diagnoses / Procedures Referred By Contac t Referred To Contact Radiology. 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 1 to 4 times per year [...] Answer Date Recorded PHQ-2 Score 2 05/21/2024 [facility] of Occupat ional Health - Occupational Stress [...] AM CDT Legal Sex Female 3:29 AM TREE FRUIT AND NUT CROPS FARMER Gender Identity Female 09/03/2021 8:30 AM CDT Sexual Orientation Not on file documented as of this encounter Last Filed Vital Signs Vital Sign Reading Time Taken Comments Blood Pressure 138/87 05/21/2024 11:59 AM TREE FRUIT AND NUT CROPS FARMER Pulse 112 05/21/2024 11:59 AM TREE FRUIT AND NUT CROPS FARMER Temperature 36.6 C (97.9 F) 05/21/2024 11:59 AM TREE FRUIT AND NUT CROPS FARMER Respiratory Rate 15 05/21/2024 11:59 AM TREE FRUIT AND NUT CROPS FARMER Oxygen Saturation 98% 05/21/2024 11:59 AM TREE FRUIT AND NUT CROPS FARMER Inhaled Oxygen Concentration - - Weight 121.1 kg (267 lb) 05/21/2024 11:59 AM TREE FRUIT AND NUT CROPS FARMER Height 161.3 cm (5' 3.5) 05/21/2024 11:59 AM CS T Body Mass Index 46.56 05/21/2024 11:59 AM TREE FRUIT AND NUT CROPS FARMER documented in this encounter Progress Notes * Shaniqua Hernandez, FRANDY AIRCRAFT MAINTENANCE DIRECTOR - 05/21/2024 12:00 PM CST Images from [...] - lab collect - HCG Qual, Urine ([id number]) - Urine Microscopic Exam - Urine Culture [...] is taking medications regularly. ED/UC Followup: Facility: [facility] Date of visit: 05/17/24 Reason [...] her flexeril. Background: Patient was seen at [facility] (unable to see notes) on [...] EXAM: XR LUMBAR SPINE 2/3 VIEWS LOCATION: [facility] DATE: 05/21/2024 INDICATION: Lumbar pain [...] Negative Ketones Urine Negative Negative mg/dL Specific [place] Urine 1.020 1.003 - 1.035 Blood Urine Large (A) Negative pH Urine 7.0 5.0 - 7.0 Protein Albumin Urine 100 (A) Negative mg/dL Urobilinogen Urine 0.2 0.2, 1.0 E.U./dL Nitrite Urine Positive (A) Negative Leukocyte Esterase Urine Negative Negative HCG Qual, Urine ([id number]) Status: Normal Result Value Ref Range hCG [...] Signed Electronically by: Shaniqua Hernandez APRN CNP FRUIT AND NUT CROPS FARMER documented in this encounter Miscellaneous Notes * [...] due on 12/24/2023 Please call us at [phone] (or use [facility]) to address the above recommendations if needed. Thank you for choosing [facility]. It was an honor and a privilege to participate in your care. Healthy regards, Shaniqua Hernandez, SANJAY [facility] FRUIT AND NUT CROPS FARMER documented in this encounter Plan of Treatment Upcoming Encounters Date Type Department Care Team (Late st Contact Info) Description 06/01/2024 10:30 AM TREE FRUIT AND NUT CROPS FARMER Appointment [facility] Imaging [address] [place] [address] [place] [address] Shaniqua Hernandez APRN CNP [address] [place] [address] 02/14/2025 11:00 AM CDT Office Visit [address] [phone] Susie Turk, FRANDY AIRCRAFT MAINTENANCE DIRECTOR [address] [place] [address] documented as of this encounter Procedures Procedure Name Priority Date/Time Associated Diagnosis Comments URINE CULTURE Routine 05/21/2024 12:21 PM TREE FRUIT AND NUT CROPS FARMER Lumbar pain Nonspecific finding on examination of urine HCG QUALITATIVE URINE Routine 05/21/2024 11:39 AM TREE FRUIT AND NUT CROPS FARMER Lumbar pain ROUTINE UA WITH MICROSCOPIC Routine 05/21/2024 11:39 AM TREE FRUIT AND NUT CROPS FARMER Lumbar pain URINE MICROSCOPIC EXAM Routine 05/21/2024 11:39 AM TREE FRUIT AND NUT CROPS FARMER Lumbar pain documented in this encounter Results * XR Lumbar Spine 2/3 Views (05/21/2024 12:33 PM TREE FRUIT AND NUT CROPS FARMER) Anatomical Region Laterality Modality Spine, T-spine, L-spine, Abdomen/Pelvis Computed Radiography 05/21/2024 12:3 3 PM TREE FRUIT AND NUT CROPS FARMER Impressions 05/21/2024 1:58 PM TREE FRUIT AND NUT CROPS FARMER IMPRESSION: 5 nonrib-bearing lumbar type vertebral bodies. Grade 2 anterolisthesis of L5 on S1 with advanced loss of L5-S1 disc space height. L5 pars defects. Intervertebral disc space heights are otherwise maintained. Narrative 05/21/2024 1:58 PM TREE FRUIT AND NUT CROPS FARMER EXAM: XR LUMBAR SPINE 2/3 VIEWS LOCATION: [facility] DATE: 05/21/2024 INDICATION: Lumbar pain COMPARISON: None. Procedure Note Darrell Leon MD - 05/21/2024 EXAM: XR LUMBAR SPINE 2/3 VIEWS LOCATION: [facility] DATE: 05/21/2024 INDICATION: Lumbar pain COMPARISON: None. IMPRESSION: 5 nonrib-bearing lumbar type vertebral bodies. Grade 2anterolisthesis of L5 on S1 with advanced loss of L5-S1 disc space height.L5 pars defects. Intervertebral disc space heights are otherwisemaintained. Shaniqua Hernandez APRN, CNP IMG DIAGNOSTIC [place] ORDERABLES Final Result * Urine Culture (05/21/2024 12:21 PM TREE FRUIT AND NUT CROPS FARMER) Pathologist [facility] Culture <10,000 CFU/mL Mixture of Urogenital Pilar 05/22/2024 11:48 AM TREE FRUIT AND NUT CROPS FARMER [facility] Urine MID-STREAM URINE SPECIMEN / Unknown Non-blood Collection / Unknown 05/21/2024 12:21 PM TREE FRUIT AND NUT CROPS FARMER 05/21/2024 12:21 PM TREE FRUIT AND NUT CROPS FARMER Shaniqua Hernandez APRN, CNP LAB - MICRO GENERA L ORDERABLES Final Result [facility] Inf. Diseases Diag. Lab [address] [facility], [address] [place] [id number] * (ABNORMAL) Urine Microscopic Exam (05/21/2024 11:39 AM TREE FRUIT AND NUT CROPS FARMER) Pathologist [facility] Bacteria Urine Few(A) None Seen /HPF MARY 05/21/2024 12:17 PM TREE FRUIT AND NUT CROPS FARMER [facility] RBC Urine >100(A) 0-2 /HPF /HPF MARY 05/21/2024 12:17 PM TREE FRUIT AND NUT CROPS FARMER [facility] WBC Urine 0-5 0-5 /HPF /HPF MARY 05/21/2024 12:17 PM TREE FRUIT AND NUT CROPS FARMER [facility] Urine MID-STREAM URINE SPECIMEN / Unknown Non-blood Collection / Unknown 05/21/2024 11:39 AM TREE FRUIT AND NUT CROPS FARMER 05/21/2024 12:09 PM TREE FRUIT AND NUT CROPS FARMER Shaniqua Hernandez APRN, CNP LAB - URINE ORDERA BLES Final Result [facility] [address] [place] [address] [facility] (no [facility] number, 1st floor of clinic) [place] [address] * HCG Qual, Urine ([id number]) (05/21/2024 11:39 AM TREE FRUIT AND NUT CROPS FARMER) Pathologist [facility] hCG Urine Qualitative Negative Negative MARY 05/21/2024 12:16 PM TREE FRUIT AND NUT CROPS FARMER [facility] Comment:This test is for scr eening purposes. Results should be interpreted along with the clinical picture. Confirmation testing is available if warranted by ordering [id number], HCG Quantitative . Urine MID-STREAM URINE SPECIMEN / Unknown Non-blood Collection / Unknown 05/21/2024 11:39 AM TREE FRUIT AND NUT CROPS FARMER 05/21/2024 12:09 PM TREE FRUIT AND NUT CROPS FARMER Shaniqua Hernandez GUEST SERVICES DIRECTOR AIRCRAFT MAINTENANCE DIRECTOR LAB - URINE ORDERA BLES Final Result [facility] [address] [facility] (no room number, 1st floor of clinic) [place] [address], [facility] * (ABNORMAL) UA with Microscopic - lab collect (05/21/2024 11:39 AM TREE FRUIT AND NUT CROPS FARMER) Color Urine Red(A) Colorless, Straw, Light Yellow, Yellow 05/21/2024 12:13 PM TREE FRUIT AND NUT CROPS FARMER [facility] Appearance Urine Slightly Cloudy(A) Clear 05/21/2024 12:13 PM TREE FRUIT AND NUT CROPS FARMER [facility] Glucose Urine Negative Negative mg/dL 05/21/2024 12:13 PM TREE FRUIT AND NUT CROPS FARMER [facility] Bilirubin Urine Negative Negative 12:13 PM TREE FRUIT AND NUT CROPS FARMER [facility] Ketones Urine Negative Negative mg/dL 05/21/2024 12:13 PM TREE FRUIT AND NUT CROPS FARMER [facility] Specific [place] Urine 1.020 1.003 - 1.035 05/21/2024 12:13 PM TREE FRUIT AND NUT CROPS FARMER [facility] Blood Urine Large(A) Negative 05/21/2024 12:13 PM TREE FRUIT AND NUT CROPS FARMER [facility] pH Urine 7.0 5.0 - 7.0 05/21/2024 12:13 PM TREE FRUIT AND NUT CROPS FARMER [facility] Protein Albumin Urine 100(A) Negative mg/dL 05/21/2024 12:13 PM TREE FRUIT AND NUT CROPS FARMER [facility] Urobilinogen Urine 0.2 0.2, 1.0 E.U./dL 05/21/2024 12:13 PM TREE FRUIT AND NUT CROPS FARMER [facility] Nitrite Urine Positive(A) Negative 05/21/2024 12:13 PM TREE FRUIT AND NUT CROPS FARMER [facility] Leukocyte Esterase Urine Negative Negative 05/21/2024 12:13 PM TREE FRUIT AND NUT CROPS FARMER [facility] Urine MID-STREAM URINE SPECIMEN / Unknown Non-blood Collection / Unknown 05/21/2024 11:39 AM TREE FRUIT AND NUT CROPS FARMER 05/21/2024 12:09 PM TREE FRUIT AND NUT CROPS FARMER Shaniqua Hernandez APRN, CNP LAB - URINE ORDERA BLES Final Result [facility] [address] [facility] Lab (no room number, 1st floor of clinic) [place] [address], [facility] documented in this encounter [...] Depression Total Score: 14 025 4:20 PM TREE FRUIT AND NUT CROPS FARMER documented as of this encounter Care Teams Gem Setter Relationship Specialty Start Date End Date No Ref-Primary, Physician PCP - General 12/28/23 05/22/24 Linda Cantu Personal Advocate & Liaison (PAL) Family Medicine 05/27/22 Susie Turk APRN CNP [address] [place] [address] Assigned PCP 01/15/24 Claudine Curtis MD [address] [place] [address] Assigned OBGYN Provider 04/15/24 documented as of this encounter
--- OUTSIDE RECORDS SUMMARY | 2024-05-23 20:28 | XMS_ITS | Clinical Summary ---
Author Organization [facility] Address [address] [place] [address] Care Team Providers Care Project Product Manager Name Role Phone KonstantintonyaenmaLinda Unavailable Unavailable Susie Turk APRN MANAGER FIXED INCOME Unavailable [phone] Claudine Curtis MD Unavailable [phone] Shaniqua Hernandez APRN MANAGER FIXED INCOME Primary Care Prov ider Allergies Active Allergy [...] (07/23/2020): Added automatically from request for surgery [id number] Encounter for sterilization 07/23/2020 Overview (07/24/2020): Added automatically from request for surgery [id number] Morbid obesity 06/01/2020 Anxiety 01/20/2016 Status post [...] Team Description 05/23/2024 MyC Medical Advice M [address] [place] [phone] Shaniqua Hernandez APRN MANAGER FIXED INCOME 05/21/2024 12:25 PM RING MAKING MACHINE OPERATOR Ancillary Procedure [address] [place] [phone] Shaniqua Hernandez APRN CNP Lumbar pain 05/21/2024 12:00 PM RING MAKING MACHINE OPERATOR Office Visit [address] [place] [phone] Shaniqua Hernandez APRN CNP Lumbar pain (Primary Dx); Nonspecific finding on examination of urine; Morbid obesity (H); Moderate episode of recurrent major depressive disorder (H); Lumbar pain with radiation down left leg 05/21/2024 9:30 AM RING MAKING MACHINE OPERATOR Virtual Visit [address] [place] [phone] Shaniqua Hernandez APRN CNP Back pain, unspecified back location, unspecified back pain laterality, unspecified chronicity (Primary Dx) 05/21/[address] [place] [phone] No Ref-Primary, Physician Results 05/21/2024 Travel 05/20/2024 MyC Refill [address] [place] [phone] Rebecca Flowers PA-C Refill Request 05/20/2024 MyC Refill [address] [place] [phone] Susie Turk APRN MANAGER FIXED INCOME Refill Request 04/09/2024 11:45 AM RING MAKING MACHINE OPERATOR Ancillary Procedure [address] [place] [phone] Rebecca Flowers PAFabrizio Wheezing; Acute cough; Upper respiratory tract infection, unspecified type 04/09/2024 11:30 AM RING MAKING MACHINE OPERATOR Office Visit [address] [phone] Rebecca Flowers PA-C Wheezing (Primary Dx); Acute cough; Upper respiratory tract infection, unspecified type 04/09/2024 Travel 03/26/2024 10:30 AM RING MAKING MACHINE OPERATOR Office Visit [address] [place] [phone] Claudine Curtis MD Encounter for IUD removal (Primary Dx); Intrauterine contraceptive device threads lost, initial encounter 03/25/2024 MyC Medical Advice [address] [place] [phone] Claudine Curtis MD 03/25/2024 Travel from Last [...] How often do you attend chur or amish services? 1 to 4 times per year 08/14/2020 Do you belong to any clubs o r organizations such as voodoo groups, unions, fraternal or athletic groups, or [...] Answer Date Recorded PHQ-2 Score 2 05/21/2024 [facility] - Occupational [...] AM CDT Legal Sex Female 3:29 AM RING MAKING MACHINE OPERATOR Gender Identity Female 09/03/2021 8:30 AM CDT Sexual Orientation Not on file Last Filed Vital Signs Vital Sign Reading Time Taken Comments Blood Pressure 138/87 05/21/2024 11:59 AM RING MAKING MACHINE OPERATOR Pulse 112 05/21/2024 11:59 AM RING MAKING MACHINE OPERATOR Temperature 36.6 C (97.9 F) 05/21/2024 11:59 AM RING MAKING MACHINE OPERATOR Respiratory Rate 15 05/21/2024 11:59 AM RING MAKING MACHINE OPERATOR Oxygen Saturation 98% 05/21/2024 11:59 AM RING MAKING MACHINE OPERATOR Inhaled Oxygen Concentration - - Weight 121.1 kg (267 lb) 05/21/2024 11:59 AM RING MAKING MACHINE OPERATOR Height 161.3 cm (5' 3.5) 05/21/2024 11:59 AM CS T Body Mass Index 46.56 05/21/2024 11:59 AM RING MAKING MACHINE OPERATOR Plan of Treatment Upcoming Encounters Date Type Department Care Team (Late st Contact Info) Description 06/01/2024 10:30 AM RING MAKING MACHINE OPERATOR Appointment [facility] [address] [facility] [address] [place] [phone] Shaniqua Hernandez, MANAGER PHILOSOPHY MANAGER FIXED INCOME [address] [place] [address] [phone] 02/14/2025 11:00 AM CDT Office Visit [address] [place] [phone] Susie Turk MANAGER PHILOSOPHY MANAGER FIXED INCOME [address] [place] [phone] Health Maintenance Due Date Last Done Comments [...] this topic Medical Devices Implanted Type Area Excelsior Picker Device Identifier Shelf Expiration Date Model / Serial / Lot Mesh Ventralex Hernia 3.2 [place] Lg W/Strap [id number] Implanted:Qty : 1 on 08/26/2020 by Crystal Alanis MD at [facility] Mesh N/A: Umbilical [employer] 03/21/2022 [id number] / / [id number] Procedures Procedure Name Priority Date/Time Associated Diagnosis Comments XR LUMBAR SPINE 2/3 VIEWS Routine 05/21/2024 12:33 PM RING MAKING MACHINE OPERATOR Lumbar pain URINE CULTURE Routine 05/21/2024 12:21 PM RING MAKING MACHINE OPERATOR Lumbar pain Nonspecific finding on examination of urine URINE MICROSCOPIC EXAM Routine 05/21/2024 11:39 AM RING MAKING MACHINE OPERATOR Lumbar pain HCG QUALITATIVE URINE Routine 05/21/2024 11:39 AM RING MAKING MACHINE OPERATOR Lumbar pain ROUTINE UA WITH MICROSCOPIC Routine 05/21/2024 11:39 AM RING MAKING MACHINE OPERATOR Lumbar pain INFLUENZA A/B ANTIGEN Routine 04/09/2024 11:57 AM RING MAKING MACHINE OPERATOR Wheezing Acute cough Upper respiratory tract infection, unspecified type COVID-19 VIRUS (CORONAVIRUS) BY PCR Routine 04/09/2024 11:56 AM RING MAKING MACHINE OPERATOR Wheezing Acute cough Upper respiratory tract infection, unspecified type XR CHEST 2 VIEWS Routine 04/09/2024 11:5 3 AM RING MAKING MACHINE OPERATOR Wheezing Acute cough Upper respiratory tract infection, unspecified type MT REMOVE INTRAUTERINE DEVICE Routine 03/26/2024 10:59 AM RING MAKING MACHINE OPERATOR Intrauterine contraceptive device threads lost, [...] Lumbar Spine 2/3 Views (05/21/2024 12:33 PM RING MAKING MACHINE OPERATOR) Anatomical Region Laterality Modality Spine, T-spine, L-spine, Abdomen/Pelvis Computed Radiography 05/21/2024 12:3 3 PM RING MAKING MACHINE OPERATOR Impressions 05/21/2024 1:58 PM RING MAKING MACHINE OPERATOR IMPRESSION: 5 nonrib-bearing lumbar type vertebral bodies. Grade 2 anterolisthesis of L5 on S1 with advanced loss of L5-S1 disc space height. L5 pars defects. Intervertebral disc space heights are otherwise maintained. Narrative 05/21/2024 1:58 PM RING MAKING MACHINE OPERATOR EXAM: XR LUMBAR SPINE 2/3 VIEWS LOCATION: [facility] DATE: 05/21/2024 INDICATION: Lumbar pain COMPARISON: None. Procedure Note Darrell Leon MD - 05/21/2024 EXAM: XR LUMBAR SPINE 2/3 VIEWS LOCATION: [facility] DATE: 05/21/2024 INDICATION: Lumbar pain COMPARISON: None. IMPRESSION: 5 nonrib-bearing lumbar type vertebral bodies. Grade 2anterolisthesis of L5 on S1 with advanced loss of L5-S1 disc space height.L5 pars defects. Intervertebral disc space heights are otherwisemaintained. Shaniqua Hernandez APRN MANAGER FIXED INCOME IMG DIAGNOSTIC MELVIN GING ORDERABLES Final Result * Urine Culture (05/21/2024 12:21 PM RING MAKING MACHINE OPERATOR) Culture <10,000 CFU/mL Mixture of Urogenital Pilar 05/22/2024 11:48 AM RING MAKING MACHINE OPERATOR [facility] Urine MID-STREAM URINE SPECIMEN / Unknown Non-blood Collection / Unknown 05/21/2024 12:21 PM RING MAKING MACHINE OPERATOR 05/21/2024 12:21 PM RING MAKING MACHINE OPERATOR Shaniqua Hernandez APRN MANAGER FIXED INCOME LAB - MICRO GENERA L ORDERABLES Final Result [facility] Inf. Diseases Diag. Lab [address] [facility], [address] [place] [address] * HCG Qual, Urine ([id number]) (05/21/2024 11:39 AM RING MAKING MACHINE OPERATOR) hCG Urine Qualitative Negative Negative MARY 05/21/2024 12:16 PM RING MAKING MACHINE OPERATOR [facility] Comment:This test is for scr eening purposes. Results should be interpreted along with the clinical picture. Confirmation testing is available if warranted by ordering [id number], HCG Quantitative . Urine MID-STREAM URINE SPECIMEN / Unknown Non-blood Collection / Unknown 05/21/2024 11:39 AM RING MAKING MACHINE OPERATOR 05/21/2024 12:09 PM RING MAKING MACHINE OPERATOR Shaniqua Hernandez APRN MANAGER FIXED INCOME LAB - URINE ORDERA BLES Final Result [facility] [place] [facility] [address] [facility] Lab (no room number, 1st floor of clinic) [place] [address] * (ABNORMAL) UA with Microscopic - lab collect (05/21/2024 11:39 AM RING MAKING MACHINE OPERATOR) Color Urine Red(A) Colorless, Straw, Light Yellow, Yellow 05/21/2024 12:13 PM RING MAKING MACHINE OPERATOR [facility] Appearance Urine Slightly Cloudy(A) Clear 05/21/2024 12:13 PM RING MAKING MACHINE OPERATOR [facility] Glucose Urine Negative Negative mg/dL 05/21/2024 12:13 PM RING MAKING MACHINE OPERATOR [facility] Bilirubin Urine Negative Negative 12:13 PM RING MAKING MACHINE OPERATOR [facility] Ketones Urine Negative Negative mg/dL 05/21/2024 12:13 PM RING MAKING MACHINE OPERATOR [facility] Specific [place] Urine 1.020 1.003 - 1.035 05/21/2024 12:13 PM RING MAKING MACHINE OPERATOR [facility] Blood Urine Large(A) Negative 05/21/2024 12:13 PM RING MAKING MACHINE OPERATOR [facility] pH Urine 7.0 5.0 - 7.0 05/21/2024 12:13 PM RING MAKING MACHINE OPERATOR [facility] Protein Albumin Urine 100(A) Negative mg/dL 05/21/2024 12:13 PM RING MAKING MACHINE OPERATOR [facility] Urobilinogen Urine 0.2 0.2, 1.0 E.U./dL 05/21/2024 12:13 PM RING MAKING MACHINE OPERATOR [facility] Nitrite Urine Positive(A) Negative 05/21/2024 12:13 PM RING MAKING MACHINE OPERATOR [facility] Leukocyte Esterase Urine Negative Negative 05/21/2024 12:13 PM RING MAKING MACHINE OPERATOR [facility] Urine MID-STREAM URINE SPECIMEN / Unknown Non-blood Collection / Unknown 05/21/2024 11:39 AM RING MAKING MACHINE OPERATOR 05/21/2024 12:09 PM RING MAKING MACHINE OPERATOR Shaniqua Hernandez APRN MANAGER FIXED INCOME LAB - URINE ORDERA BLES Final Result [facility] [place] [facility] [address] [place] [address] [facility] ([facility] number, 1st floor of [facility]) [place] [phone] * (ABNORMAL) Urine Microscopic Exam (05/21/2024 11:39 AM RING MAKING MACHINE OPERATOR) Bacteria Urine Few(A) None Seen /HPF MARY 05/21/2024 12:17 PM RING MAKING MACHINE OPERATOR [facility] RBC Urine >100(A) 0-2 /HPF /HPF MARY 05/21/2024 12:17 PM RING MAKING MACHINE OPERATOR [facility] WBC Urine 0-5 0-5 /HPF /HPF MARY 05/21/2024 12:17 PM RING MAKING MACHINE OPERATOR [facility] Urine MID-STREAM URINE SPECIMEN / Unknown Non-blood Collection / Unknown 05/21/2024 11:39 AM RING MAKING MACHINE OPERATOR 05/21/2024 12:09 PM RING MAKING MACHINE OPERATOR Shaniqua Hernandez APRN, CNP LAB - URINE ORDERA BLES Final Result [facility] [place] [facility] [address] [place] [address] [address] Lab (no room number, 1st floor of clinic) [place] [address] * Influenza A & B Antigen - Clinic Collect (04/09/2024 11:57 AM RING MAKING MACHINE OPERATOR) Influenza A antigen Negative Negative 04/09/2024 12:16 PM RING MAKING MACHINE OPERATOR [facility] Influenza B antigen Negative Negative 04/09/2024 12:16 PM RING MAKING MACHINE OPERATOR [facility] Swab NASAL STRUCTURE / Unknown Non-blood Collection / Unknown 04/09/2024 11:57 AM RING MAKING MACHINE OPERATOR 04/09/2024 11:57 AM RING MAKING MACHINE OPERATOR Narrative [facility] - 04/09/2024 12:16 PM RING MAKING MACHINE OPERATOR Test results must be correlated with clinical data. If necessary, results should be confirmed by a molecular assay or viral culture. Rebecca Flowers PA-C LAB - MICRO GENERAL ORDERABLE S Final Result [facility] [place] [facility] [address] [facility] Lab (no room number, 1st floor of clinic) [place] [address] * COVID-19 Virus (Coronavirus) by PCR Nose (04/09/2024 11:56 AM RING MAKING MACHINE OPERATOR) SARS CoV2 PCR Negative Negative 04/10/2024 10:57 AM RING MAKING MACHINE OPERATOR [facility] Comment:NEGATIVE: SARS-CoV-2 (COVID-19) RNA not detected, presumed negative. Swab NASAL STRUCTURE / Unknown Non-blood Collection / Unknown 04/09/2024 11:56 AM RING MAKING MACHINE OPERATOR 04/09/2024 11:56 AM RING MAKING MACHINE OPERATOR Narrative [facility] - 04/10/2024 10:57 AM RING MAKING MACHINE OPERATOR Testing was performed using the [...] COVID-19. This test was validated by the [facility] Infectious Diseases Diagnostic Laboratory. This laboratory is certified under the Clinical Laboratory Improvement Amendments of 1988 (CLIA-88) as qualified to perform high and/or moderate complexity laboratory testing. Rebecca Flowers PA-C LAB - MICRO GENERAL ORDERABLE S Final Result [facility] Inf. Diseases Diag. Lab [address] [facility], [address] [place] [address] * XR Chest 2 Views (04/09/2024 11:53 AM RING MAKING MACHINE OPERATOR) Anatomical Region Laterality Modality Chest Computed Radiogr aphy Impressions 04/09/2024 2:00 PM RING MAKING MACHINE OPERATOR IMPRESSION: There are no acute infiltrates. The cardiac silhouette is not enlarged. Pulmonary vasculature is unremarkable. JENNIFER GARCÍA MD SYSTEM ID: [id number] Narrative 04/09/2024 2:00 PM RING MAKING MACHINE OPERATOR CHEST TWO VIEWS 04/09/2024 11:53 [...] is unremarkable. JENNIFER GARCÍA MD SYSTEM ID: [id number] Rebecca Flowers PA-C IMG DIAGNOSTIC IMAGING ORDERA [...] for high risk HPV DNA. METHODOLOGY: The [employer] system uses automated extraction, simultaneous amplification of [...] Final Result [facility] Specialty Lab [address] [facility], [address] [phone], [facility] MOLECULAR DIAGNOSTICS Molecular Diagnostics [address] [facility], [address] [phone] * Hepatitis C Screen Reflex to [...] - BLOOD ORDERABLES Final Result [facility] [place] [facility] [address] [facility], [address] [place] [address], [facility] * Comprehensive metabolic panel (BMP [...] CDT 12/28/2023 10:12 AM CDT Susie Turk MANAGER PHILOSOPHY MANAGER FIXED INCOME LAB - BLOOD ORDERABLES Final Result [facility] [place] [facility] [address] [facility], [address] [place] [phone] * HIV Antigen Antibody Combo (02/07/2014) HIV Antigen Antibody Combo Non Reactive Blood specimen (specimen) Patient Reported LAB - BLOOD ORDERABLES Final Re sult from Last 3 Months or Most Recently Relevant to Health Maintenance Additional Health Concerns Infection Onset Date Last Indicated MRSA-Contact Isolation Comment:Skin 10-21-2011 11/01/2011 11/01/2011 Insurance [employer] [facility] [employer] PLUS [place]VANTAGE [place] Care Teams Project Product Manager Relationship Specialty Start Date End Date Shaniqua Hernandez APRN MANAGER FIXED INCOME [address] [place] [phone] PCP - General Nurse Practitioner - Family 05/23/24 Linda Cantu Personal Advocate & Liaison (PAL) Family Medicine 05/27/22 Susie Turk APRN MANAGER FIXED INCOME [address] [place] [id number] Assigned PCP 01/15/24 Claudine Curtis MD [address] [place] [address] Assigned OBGYN Provider 04/15/24
--- OUTSIDE RECORDS SUMMARY | 2024-05-23 20:28 | XMS_ITS | Encounter Summary ---
Author Organization [facility] Address [address] [place] [address] Care Team Providers Care Orange Grower Name Role Phone Linda Cantu Unavailable Unavailable No Ref-Primary, Physician Primary Care Provider Susie Turk APRN LEAF COVERER Unavailable [phone] Encounter Details Date Type Department Care Team [...] Answer Date Recorded PHQ-2 Score 6 04/09/2024 [facility] - Occupational Stress Questionnaire Answer Date Recorded [...] place to sleep or slept in a intermediate (including now)? No 08/14/2020 Adolescent Education Answer [...] AM CDT Legal Sex Female 3:29 AM THERMOGRAPH OPERATOR Gender Identity Female 09/03/2021 8:30 AM CDT Sexual Orientation Not on file documented as of this encounter Plan of Treatment Upcoming Encounters Date Type Department Care Team (Late st Contact Info) Description 06/01/2024 10:30 AM THERMOGRAPH OPERATOR Appointment [facility] [address] [facility] [address] [place] [phone] Shaniqua Hernandez APRN LEAF COVERER [address] [place] [address] [phone] 02/14/2025 11:00 AM CDT Office Visit [address] [place] [phone] Susie Turk APRN LEAF COVERER [address] [place] [address] [phone] documented as of this encounter Visit Diagnoses Not on filedocumented in this encounter Additional Health Concerns Infection Onset Date Last Indicated Resolved Time 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 11/01/2011 11/01/2011 Rule Out COVID-19 04/09/2024 04/09/2024 04/10/2024 10:57 AM THERMOGRAPH OPERATOR Assessment Noted Time PHQ-9 Depression Total Score: 22 024 10:54 AM THERMOGRAPH OPERATOR documented as of this encounter Care Teams Orange Grower Relationship Specialty Start Date End Date No Ref-Primary, Physician PCP - General 12/28/23 05/22/24 Linda Cantu Personal Advocate & Liaison (PAL) Family Medicine 05/27/22 Susie Turk, FRANDY LEAF COVERER [address] [place] [phone] Assigned PCP 01/15/24 documented as of this encounter
--- OUTSIDE RECORDS SUMMARY | 2024-05-23 20:28 | XMS_ITS | Encounter Summary ---
Author Organization [facility] Address [address] [place] [address] Care Team Providers Care Clock Assembler Name Role Phone Linda Cantu Unavailable Unavailable No Ref-Primary, Physician Primary Care Provider Susie Turk APRN LVN Unavailable [phone] Claudine Crutis MD Unavailable [phone] Reason for Visit * Reason Onset Date Comments Refill Request 05/20/2024 Encounter Details Date Type Department Care Team (Late st Contact Info) Description 05/20/2024 MyC Refill [address] [phone] Susie Turk, FRANDY LVN [address] [place] [address] [phone] Refill Request Social History Tobacco Use Types [...] often do you attend chur ch or hindu services? 1 to 4 times per year 08/14/2020 Do you belong to any clubs o r organizations such as gnosticist groups, unions, fraternal or athletic groups, or [...] Answer Date Recorded PHQ-2 Score 2 05/21/2024 [facility] - Occupational Stress Questionnaire Answer [...] place to sleep or slept in a correction (including now)? No 08/14/2020 Adolescent Education Answer [...] CDT Legal Sex Female 3:29 AM SENIOR DYNAMICS CRM DEVELOPER Gender Identity Female 09/03/2021 8:30 AM CDT Sexual Orientation Not on file documented as of this encounter Plan of Treatment Upcoming Encounters Date Type Department Care Team (Late st Contact Info) Description 06/01/2024 10:30 AM SENIOR DYNAMICS CRM DEVELOPER Appointment [facility] [address] [facility] [address] [place] [address] Shaniqua Hernandez, FRANDY [address] [address] 02/14/2025 11:00 AM CDT Office Visit [address] [place] [address] Susie Turk APRN LVN [address] [place] [address] [phone] documented as of this encounter Visit Diagnoses Diagnosis MELISSA (generalized anxiety disorder) Generalized anxiety disorder documented in this encounter Additional Health Concerns Infection Onset Date Last Indicated Resolved Time 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 11/01/2011 11/01/2011 Assessment Noted Time PHQ-9 Depression Total Score: 14 025 4:20 PM SENIOR DYNAMICS CRM DEVELOPER documented as of this encounter Care Teams Clock Assembler Relationship Specialty Start Date End Date No Ref-Primary, Physician PCP - General 12/28/23 05/22/24 Linda Cantu Personal Advocate & Liaison (PAL) Family Medicine 05/27/22 Susie Turk APRN LVN [address] [place] [address] [phone] Assigned PCP 01/15/24 Claudine Curtis MD [address] [place] [address] Assigned OBGYN Provider 04/15/24 documented as of this encounter
--- OUTSIDE RECORDS SUMMARY | 2024-05-23 20:28 | XMS_ITS | Encounter Summary ---
Author Organization [facility] Address [address] [place] [address]. [place] [address] Care Team Providers Care Sander Hand Name Role Phone Linda Cantu Unavailable Unavailable No Ref-Primary, Physician Primary Care Provider Susie Turk APRN BRACELET MAKER NOVELTY Unavailable [phone] Claudine Curtis MD Unavailable [phone] Shaniqua Hernandez APRN BRACELET MAKER NOVELTY Primary Care Prov ider Encounter Details Date Type Department Care Team (Late st Contact Info) Description 03/25/2024 MyC Medical Advice [facility] Women's [address] [place] [address] Claudine Curtis MD [address] [place] [address] Social History Tobacco Use Types [...] often do you attend chur ch or mormonism services? 1 to 4 times per year 08/14/2020 Do you belong to any clubs o r organizations such as gnosticism groups, unions, fraternal or athletic groups, or [...] Answer Date Recorded PHQ-2 Score 3 02/15/2024 [facility] of Occupat ional Health - Occupational Stress [...] AM CDT Legal Sex Female 3:29 AM LAMINATION TECHNICIAN Gender Identity Female 09/03/2021 8:30 AM CDT Sexual Orientation Not on file documented as of this encounter Plan of Treatment Upcoming Encounters Date Type Department Care Team (Late st Contact Info) Description 06/01/2024 10:30 AM LAMINATION TECHNICIAN Appointment [facility] [address] [facility] [address] [place] [address] Shaniqua Hernandez, FRANDY [address] [address] 02/14/2025 11:00 AM CDT Office Visit [facility] [address] [phone] Susie Turk APRN BRACELET MAKER NOVELTY [address] [place] [address] [phone] documented as of this encounter Visit Diagnoses Not on filedocumented in this encounter Additional Health Concerns Infection Onset Date Last Indicated Resolved Time 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 11/01/2011 11/01/2011 Rule Out COVID-19 04/09/2024 04/09/2024 04/10/2024 10:57 AM LAMINATION TECHNICIAN Assessment Noted Time PHQ-9 Depression Total Score: 9 02/15/20 24 7:18 AM CDT documented as of this encounter Care Teams Sander Hand Relationship Specialty Start Date End Date No Ref-Primary, Physician PCP - General 12/28/23 05/22/24 Shaniqua Hernandez APRN BRACELET MAKER NOVELTY [address] [place] [address] [phone] PCP - General Nurse Practitioner - Family 05/23/24 Linda Cantu Personal Advocate & Liaison (PAL) Family Medicine 05/27/22 Susie Turk APRN BRACELET MAKER NOVELTY [address] [place] [address] [phone] Assigned PCP 01/15/24 Claudine Curtis MD [address] [place] [address] Assigned OBGYN Provider 04/15/24 documented as of this encounter
--- OUTSIDE RECORDS SUMMARY | 2024-05-23 20:28 | XMS_ITS | Encounter Summary ---
Author Organization [facility] Address [address] [place] [address] Care Team Providers Care Theater Usher Name Role Phone Linda Cantu Unavailable Unavailable No Ref-Primary, Physician Primary Care Provider Susie Turk APRN GENERATION ENGINEERING TECHNOLOGIST Unavailable [phone] Reason for Referral * Diagnostic Imaging XR (Routine) - Pending Review Specialty Diagnoses / Procedures Referred By Raúl parsons Referred To Contact Radiology. Diagnoses Wheezing Acute cough Upper respiratory tract infection, unspecified type Procedures XR Chest 2 Views Rebecca Flowers PA-C [address] [place] [address] Phone: tel: fax: Referral ID Status Reason Start Date Expiration Date V isits Requested Visits Authorized [id number] Pending Review 04/09/2024 04/09/2025 1 1 TIC SURGERY ASSISTANT Reason for Visit * Reason Comments Cough Encounter Details Date Type Department Care Team (Late st Contact Info) Description 04/09/2024 11:30 AM PLASTIC SURGERY ASSISTANT Office Visit [address] [phone] Rebecca Flowers PA-C [address] [place] [address] [phone] Wheezing (Primary Dx); Acute cough; Upper respiratory [...] How often do you attend chur or baptist services? 1 to 4 times per year 08/14/2020 Do you belong to any clubs o r organizations such as confucianism groups, unions, fraternal or athletic groups, or [...] Answer Date Recorded PHQ-2 Score 6 04/09/2024 [facility] [place] of Occupat ional Health - Occupational Stress [...] AM CDT Legal Sex Female 3:29 AM PLASTIC SURGERY ASSISTANT Gender Identity Female 09/03/2021 8:30 AM CDT Sexual Orientation Not on file documented as of this encounter Last Filed Vital Signs Vital Sign Reading Time Taken Comments Blood Pressure 128/80 04/09/2024 11:20 AM PLASTIC SURGERY ASSISTANT Pulse 102 04/09/2024 11:20 AM PLASTIC SURGERY ASSISTANT Temperature 36.6 C (97.8 F) 04/09/2024 11:20 AM PLASTIC SURGERY ASSISTANT Respiratory Rate 20 04/09/2024 11:20 AM PLASTIC SURGERY ASSISTANT Oxygen Saturation 97% 04/09/2024 11:20 AM PLASTIC SURGERY ASSISTANT Inhaled Oxygen Concentration - - Weight 117 kg (258 lb) 04/09/2024 11:20 AM PLASTIC SURGERY ASSISTANT Height 161.3 cm (5' 3.5) 04/09/2024 11:20 AM CS T Body Mass Index 44.99 04/09/2024 11:20 AM PLASTIC SURGERY ASSISTANT documented in this encounter Progress Notes * [...] report. Signed Electronically by: Rebecca Flowers PA-C TIC SURGERY ASSISTANT documented in this encounter Plan of Treatment Upcoming Encounters Date Type Department Care Team (Late st Contact Info) Description 06/01/2024 10:30 AM PLASTIC SURGERY ASSISTANT Appointment [facility] [address] [address] [place] [phone] Shaniqua Hernandez, INFORMATION CLERK [address] [address] 02/14/2025 11:00 AM CDT Office Visit [address] [phone] Burke Susie C, INFORMATION CLERK GENERATION ENGINEERING TECHNOLOGIST [address] [place] [phone] documented as of this encounter Procedures Procedure Name Priority Date/Time Associated Diagnosis Comments INFLUENZA A/B ANTIGEN Routine 04/09/2024 11:57 AM PLASTIC SURGERY ASSISTANT Wheezing Acute cough Upper respiratory tract infection, unspecified type COVID-19 VIRUS (CORONAVIRUS) BY PCR Routine 04/09/2024 11:56 AM PLASTIC SURGERY ASSISTANT Wheezing Acute cough Upper respiratory tract infection, unspecified type documented in this encounter Results * Influenza A & B Antigen - Clinic Collect (04/09/2024 11:57 AM PLASTIC SURGERY ASSISTANT) Influenza A antigen Negative Negative 04/09/2024 12:16 PM PLASTIC SURGERY ASSISTANT [facility] Influenza B antigen Negative Negative 04/09/2024 12:16 PM PLASTIC SURGERY ASSISTANT [facility] Swab NASAL STRUCTURE / Unknown Non-blood Collection / Unknown 04/09/2024 11:57 AM PLASTIC SURGERY ASSISTANT 04/09/2024 11:57 AM PLASTIC SURGERY ASSISTANT Narrative [facility] - 04/09/2024 12:16 PM PLASTIC SURGERY ASSISTANT Test results must be correlated with clinical data. If necessary, results should be confirmed by a molecular assay or viral culture. us Rebecca Flowers PA-C LAB - MICRO GENERAL ORDERABLE S Final Result [facility] [address] [place] [address] S. E Lab (no room number, 1st floor of clinic) [place] [address], [facility] * COVID-19 Virus (Coronavirus) by PCR Nose (04/09/2024 11:56 AM PLASTIC SURGERY ASSISTANT) SARS CoV2 PCR Negative Negative 04/10/2024 10:57 AM PLASTIC SURGERY ASSISTANT [facility] Comment:NEGATIVE: SARS-CoV-2 (COVID-19) RNA not detected, presumed negative. Swab NASAL STRUCTURE / Unknown Non-blood Collection / Unknown 04/09/2024 11:56 AM PLASTIC SURGERY ASSISTANT 04/09/2024 11:56 AM PLASTIC SURGERY ASSISTANT Narrative [facility] - 04/10/2024 10:57 AM PLASTIC SURGERY ASSISTANT Testing was performed using the ayla [...] COVID-19. This test was validated by the [facility]. This laboratory is certified under the Clinical Laboratory Improvement Amendments of 1988 (CLIA-88) as qualified to perform high and/or moderate complexity laboratory testing. us Rebecca Flowers PA-C LAB - MICRO GENERAL ORDERABLE S Final Result [facility] Inf. Diseases Diag. Lab [address] [facility] [address] [place] [address] * XR Chest 2 Views (04/09/2024 11:53 AM PLASTIC SURGERY ASSISTANT) Anatomical Region Laterality Modality Chest Computed Radiogr aphy Impressions 04/09/2024 2:00 PM PLASTIC SURGERY ASSISTANT IMPRESSION: There are no acute infiltrates. The cardiac silhouette is not enlarged. Pulmonary vasculature is unremarkable. JENNIFER GARCÍA MD SYSTEM ID: [id number] Narrative 04/09/2024 2:00 PM PLASTIC SURGERY ASSISTANT CHEST TWO VIEWS 04/09/2024 11:53 AM [...] is unremarkable. JENNIFER GARCÍA MD SYSTEM ID: [id number] Rebecca Flowers PA-C IMG DIAGNOSTIC IMAGING ORDERA [...] Out COVID-19 04/09/2024 04/09/2024 04/10/2024 10:57 AM PLASTIC SURGERY ASSISTANT Assessment Noted Time PHQ-9 Depression Total Score: 22 024 10:54 AM PLASTIC SURGERY ASSISTANT documented as of this encounter Care Teams Theater Usher Relationship Specialty Start Date End Date No Ref-Primary, Physician PCP - General 12/28/23 05/22/24 Linda Cantu Personal Advocate & Liaison (PAL) Family Medicine 05/27/22 Susie Turk APRN GENERATION ENGINEERING TECHNOLOGIST [address] [place] [id number] Assigned PCP 01/15/24 documented as of this encounter
--- OUTSIDE RECORDS SUMMARY | 2024-05-23 20:28 | XMS_ITS | Encounter Summary ---
Author Organization [facility] Address [address] [place] [address] Care Team Providers Care Package Yarns Drying Machine Operator Name Role Phone Linda Cantu Unavailable Unavailable No Ref-Primary, Physician Primary Care Provider Susie Turk APRN MEDICARE SPECIALIST Unavailable [phone] Claudine Curtis MD Unavailable [phone] Reason for Visit * Reason Onset Date Comments Refill Request 05/20/2024 Encounter Details Date Type Department Care Team (Late st Contact Info) Description 05/20/2024 MyC Refill M [address] [phone] Rebecca Flowers, PA-C [address] [place] [address] [phone] Refill Request Social History Tobacco Use Types [...] Answer Date Recorded PHQ-2 Score 2 05/21/2024 [facility] - Occupational Stress Questionnaire Answer Date Recorded [...] AM CDT Legal Sex Female 3:29 AM CHRONOMETER ASSEMBLER Gender Identity Female 09/03/2021 8:30 AM CDT Sexual Orientation Not on file documented as of this encounter Miscellaneous Notes * Telephone Encounter - Lydia Holguin CMA - 05/21/2024 5:15 PM CST Patient was seen by Shaniqua Hernandez today. But albuterol was not filled. Called patient and she needs a refill because her puppy chewed up her last inhaler. Lydia Holguin CMA NOMETER ASSEMBLER documented in this encounter Plan of Treatment Upcoming Encounters Date Type Department Care Team (Late st Contact Info) Description 06/01/2024 10:30 AM CHRONOMETER ASSEMBLER Appointment [facility] [address] [facility] [facility] [address] [place] [phone] Shaniqua Hernandez APRN MEDICARE SPECIALIST [address] [place] [address] 02/14/2025 11:00 AM CDT Office Visit [address] [phone] Susie Turk APRN MEDICARE SPECIALIST [address] [place] [address] [phone] documented as of this encounter Visit Diagnoses Diagnosis Wheezing Acute cough Upper respiratory tract infection, unspecified type documented in this encounter Additional Health Concerns Infection Onset Date Last Indicated Resolved Time 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 11/01/2011 11/01/2011 Assessment Noted Time PHQ-9 Depression Total Score: 14 025 4:20 PM CHRONOMETER ASSEMBLER documented as of this encounter Care Teams Package Yarns Drying Machine Operator Relationship Specialty Start Date End Date No Ref-Primary, Physician PCP - General 12/28/23 05/22/24 Linda Cantu Personal Advocate & Liaison (PAL) Family Medicine 05/27/22 Susie Turk APRN MEDICARE SPECIALIST [address] [place] [address] [id number] Assigned PCP 01/15/24 Claudine Curtis MD [address] [place] [address] Assigned OBGYN Provider 04/15/24 documented as of this encounter
--- OUTSIDE RECORDS SUMMARY | 2024-05-23 20:28 | XMS_ITS | Encounter Summary ---
Author Organization [facility] Address [address] [place] [address] Care Team Providers Care Acquisition Manager Name Role Phone Linda Cantu Unavailable Unavailable No Ref-Primary, Physician Primary Care Provider Susie Turk APRN DIRECTOR OF RESEARCH AND DEVELOPMENT Unavailable [phone] Claudine Curtis MD Unavailable [phone] Encounter Details Date Type Department Care [...] often do you attend chur ch or protestant services? 1 to 4 times per year [...] Answer Date Recorded PHQ-2 Score 2 05/21/2024 [facility] of Occupat ional Health - Occupational Stress [...] AM CDT Legal Sex Female 3:29 AM FILLING AND PACKING SUPERVISOR Gender Identity Female 09/03/2021 8:30 AM CDT Sexual Orientation Not on file documented as of this encounter Plan of Treatment Upcoming Encounters Date Type Department Care Team (Late st Contact Info) Description 06/01/2024 10:30 AM FILLING AND PACKING SUPERVISOR Appointment [facility] Imaging [address] [facility] [address] [place] [phone] Shaniqua Hernandez APRN DIRECTOR OF RESEARCH AND DEVELOPMENT [address] [place] [address] [phone] 02/14/2025 11:00 AM CDT Office Visit [address] [place] [phone] Susie Turk APRN DIRECTOR OF RESEARCH AND DEVELOPMENT [address] [place] [address] documented as of this encounter Visit Diagnoses Not on filedocumented in this encounter Additional Health Concerns Infection Onset Date Last Indicated Resolved Time 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 11/01/2011 11/01/2011 Assessment Noted Time PHQ-9 Depression Total Score: 14 025 4:20 PM FILLING AND PACKING SUPERVISOR documented as of this encounter Care Teams Acquisition Manager Relationship Specialty Start Date End Date No Ref-Primary, Physician PCP - General 12/28/23 05/22/24 Linda Cantu Personal Advocate & Liaison (PAL) Family Medicine 05/27/22 Susie Turk APRN DIRECTOR OF RESEARCH AND DEVELOPMENT [address] [place] [address] [id number] Assigned PCP 01/15/24 Claudine Curtis MD [address] [place] [address] Assigned OBGYN Provider 04/15/24 documented as of this encounter
--- OUTSIDE RECORDS SUMMARY | 2024-05-23 20:28 | XMS_ITS | Encounter Summary ---
Author Organization [facility] Address [address] [place] [address] Care Team Providers Care Medical Chief Technician Name Role Phone Linda Cantu Unavailable Unavailable No Ref-Primary, Physician Primary Care Provider Susie Turk APRN DIRECTOR ERP Unavailable [phone] Claudine Curtis MD Unavailable [phone] Reason for Visit * Reason Comments ER F/U Encounter Details Date Type Department Care Team (Late st Contact Info) Description 05/21/2024 9:30 AM FORMAT PROOFREADER Virtual Visit [address] [phone] Shaniqua Hernandez, FRANDY DIRECTOR ERP [address] [place] [address] [phone] Back pain, unspecified back location, unspecified back [...] often do you attend chur ch or worship services? 1 to 4 times [...] Answer Date Recorded PHQ-2 Score 2 05/21/2024 [facility] of Occupat ional Health - [...] AM CDT Legal Sex Female 3:29 AM FORMAT PROOFREADER Gender Identity Female 09/03/2021 8:30 AM CDT Sexual Orientation Not on file documented as of this encounter Progress Notes * Shaniqua Hernandez, FRANDY DIRECTOR ERP - 05/21/2024 9:30 AM CST Sarah is a 38 year old who is being evaluated via a billable video visit. How would you like to obtain your AVS? MyChart If the video visit is dropped, the invitation should be resent by: Text to cell phone: [phone] Will anyone else be joining your video visit? No Subjective Sarah is a 38 year old, presenting for the following health issues: ER F/U 05/21/2024 9:15 AM Additional Questions Roomed by Deanna VELEZ ED/UC Followup: Facility: [facility] Date of visit: 05/17/24 Reason [...] for 2 hours from now with this FLOOR SANDING MACHINE OPERATOR. No charge. AT PROOFREADER documented in this encounter Plan of Treatment Upcoming Encounters Date Type Department Care Team (Late st Contact Info) Description 06/01/2024 10:30 AM FORMAT PROOFREADER Appointment [facility] Imaging [address] [place] [phone] Shaniqua Hernandez APRN DIRECTOR ERP [address] [place] [address] [phone] 02/14/2025 11:00 AM CDT Office Visit [address] [place] [phone] Susie Turk APRN DIRECTOR ERP [address] [place] [address] [phone] documented as of this encounter Visit Diagnoses Diagnosis Back pain, unspecified back location, unspecified back pain laterality, unspecified chronicity- Primary documented in this encounter Additional Health Concerns Infection Onset Date Last Indicated Resolved Time 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 11/01/2011 11/01/2011 Assessment Noted Time PHQ-9 Depression Total Score: 14 025 4:20 PM FORMAT PROOFREADER documented as of this encounter Care Teams Medical Chief Technician Relationship Specialty Start Date End Date No Ref-Primary, Physician PCP - General 12/28/23 05/22/24 Linda Cantu Personal Advocate & Liaison (PAL) Family Medicine 05/27/22 Susie Turk APRN DIRECTOR ERP [address] [place] [address] [phone] Assigned PCP 01/15/24 Claudine Curtis MD [address] [place] [address] Assigned OBGYN Provider 04/15/24 documented as of this encounter
--- OUTSIDE RECORDS SUMMARY | 2024-05-23 20:28 | XMS_ITS | Referral Summary ---
Author Organization [facility] Address [address] [place] [address] Care Team Providers Care Management Sme Name Role Phone KonstantinLinda carbone Unavailable Unavailable Susie Turk APRN, CNP Unavailable [phone] Claudine Curtis MD Unavailable Shaniqua Hernandez APRN, CNP Primary Care Prov ider Encounters Date Type Department Care Team Description 05/23/2024 MyC Medical Advice [address] [phone] Shaniqua Hernandez APRN CNP 05/21/[address] [phone] No Ref-Primary, Physician Results 05/21/2024 12:25 PM SHOES HAND SEWER Ancillary Procedure [address] [phone] Shaniqua Hernandez APRN CNP Lumbar pain 05/21/2024 Travel 05/21/2024 12:00 PM SHOES HAND SEWER Office Visit [address] [phone] Shaniqua Hernandez APRN CNP Lumbar pain (Primary Dx); Nonspecific finding on examination of urine; Morbid obesity (H); Moderate episode of recurrent major depressive disorder (H); Lumbar pain with radiation down left leg 05/21/2024 9:30 AM SHOES HAND SEWER Virtual Visit [address] [phone] Shaniqua Hernandez APRN CNP Back pain, unspecified back location, unspecified back pain laterality, unspecified chronicity (Primary Dx) 05/20/2024 MyC Refill [address] [phone] Rebecca Flowers PA-C Refill Request 05/20/2024 MyC Refill [address] [phone] Susie Turk APRN PAPER GLUING OPERATOR Refill Request 04/09/2024 11:45 AM SHOES HAND SEWER Ancillary Procedure [address] [phone] Rebecca Flowers PA-C Wheezing; Acute cough; Upper respiratory tract infection, unspecified type 04/09/2024 Travel 04/09/2024 11:30 AM SHOES HAND SEWER Office Visit [address] [phone] Rebecca Flowers PA-C Wheezing (Primary Dx); Acute cough; Upper respiratory tract infection, unspecified type 03/26/2024 10:30 AM SHOES HAND SEWER Office Visit [address] [phone] Claudine Curtis MD Encounter for IUD removal (Primary Dx); Intrauterine contraceptive device threads lost, initial encounter 03/25/2024 MyC Medical Advice [address] [place] [phone] Claudine Curtis MD 03/25/2024 Travel from Last [...] (07/23/2020): Added automatically from request for surgery [id number] Encounter for sterilization 07/23/2020 Overview (07/24/2020): Added automatically from request for surgery [id number] Morbid obesity 06/01/2020 Anxiety 01/20/2016 Status post [...] How often do you attend chur or sikh services? 1 to 4 times per year 08/14/2020 Do you belong to any clubs o r organizations such as zoroastrian groups, unions, fraternal or athletic groups, or [...] Answer Date Recorded PHQ-2 Score 2 05/21/2024 [facility] - Occupational Stress Questionnaire Answer Date [...] in a prison (including now)? No 08/14/2020 Adolescent Education Answer [...] AM CDT Legal Sex Female 3:29 AM SHOES HAND SEWER Gender Identity Female 09/03/2021 8:30 AM CDT Sexual Orientation Not on file Last Filed Vital Signs Vital Sign Reading Time Taken Comments Blood Pressure 138/87 05/21/2024 11:59 AM SHOES HAND SEWER Pulse 112 05/21/2024 11:59 AM SHOES HAND SEWER Temperature 36.6 C (97.9 F) 05/21/2024 11:59 AM SHOES HAND SEWER Respiratory Rate 15 05/21/2024 11:59 AM SHOES HAND SEWER Oxygen Saturation 98% 05/21/2024 11:59 AM SHOES HAND SEWER Inhaled Oxygen Concentration - - Weight 121.1 kg (267 lb) 05/21/2024 11:59 AM SHOES HAND SEWER Height 161.3 cm (5' 3.5) 05/21/2024 11:59 AM CS T Body Mass Index 46.56 05/21/2024 11:59 AM SHOES HAND SEWER Plan of Treatment Upcoming Encounters Date Type Department Care Team (Late st Contact Info) Description 06/01/2024 10:30 AM SHOES HAND SEWER Appointment [facility] [address] [facility] [address] [place] [phone] Shaniqua Hernandez, FRANDY PAPER GLUING OPERATOR [address] [place] [address] 02/14/2025 11:00 AM CDT Office Visit [address] [place] [phone] Susie Turk APRN PAPER GLUING OPERATOR [address] [place] [address] [id number] Medical Devices Implanted Type Area Telecommunications Consultant Device Identifier Shelf Expiration Date Model / Serial / Lot Mesh Ventralex Hernia 3.2 [place] Lg W/Strap [id number] Implanted:Qty : 1 on 08/26/2020 by Crystal Alanis MD at Mesh N/A: Umbilical [employer]-DAVOL 03/21/2022 [id number] / / [id number] Procedures Procedure Name Priority Date/Time Associated Diagnosis Comments XR LUMBAR SPINE 2/3 VIEWS Routine 05/21/2024 12:33 PM SHOES HAND SEWER Lumbar pain URINE CULTURE Routine 05/21/2024 12:21 PM SHOES HAND SEWER Lumbar pain Nonspecific finding on examination of urine URINE MICROSCOPIC EXAM Routine 05/21/2024 11:39 AM SHOES HAND SEWER Lumbar pain HCG QUALITATIVE URINE Routine 05/21/2024 11:39 AM SHOES HAND SEWER Lumbar pain ROUTINE UA WITH MICROSCOPIC Routine 05/21/2024 11:39 AM SHOES HAND SEWER Lumbar pain INFLUENZA A/B ANTIGEN Routine 04/09/2024 11:57 AM SHOES HAND SEWER Wheezing Acute cough Upper respiratory tract infection, unspecified type COVID-19 VIRUS (CORONAVIRUS) BY PCR Routine 04/09/2024 11:56 AM SHOES HAND SEWER Wheezing Acute cough Upper respiratory tract infection, unspecified type XR CHEST 2 VIEWS Routine 04/09/2024 11:5 3 AM SHOES HAND SEWER Wheezing Acute cough Upper respiratory tract infection, unspecified type IA REMOVE INTRAUTERINE DEVICE Routine 03/26/2024 10:59 AM SHOES HAND SEWER Intrauterine contraceptive device threads lost, initial encounter [...] Lumbar Spine 2/3 Views (05/21/2024 12:33 PM SHOES HAND SEWER) Anatomical Region Laterality Modality Spine, T-spine, L-spine, Abdomen/Pelvis Computed Radiography 05/21/2024 12:3 3 PM SHOES HAND SEWER Impressions 05/21/2024 1:58 PM SHOES HAND SEWER IMPRESSION: 5 nonrib-bearing lumbar type vertebral bodies. Grade 2 anterolisthesis of L5 on S1 with advanced loss of L5-S1 disc space height. L5 pars defects. Intervertebral disc space heights are otherwise maintained. Narrative 05/21/2024 1:58 PM SHOES HAND SEWER EXAM: XR LUMBAR SPINE 2/3 VIEWS LOCATION: [facility] DATE: 05/21/2024 INDICATION: Lumbar pain COMPARISON: None. Procedure Note Darrell Leon MD - 05/21/2024 EXAM: XR LUMBAR SPINE 2/3 VIEWS LOCATION: [facility] DATE: 05/21/2024 INDICATION: Lumbar pain COMPARISON: None. IMPRESSION: 5 nonrib-bearing lumbar type vertebral bodies. Grade 2anterolisthesis of L5 on S1 with advanced loss of L5-S1 disc space height.L5 pars defects. Intervertebral disc space heights are otherwisemaintained. Shaniqua Hernandez APRN PAPER GLUING OPERATOR IMG DIAGNOSTIC MELVIN GING ORDERABLES Final Result * Urine Culture (05/21/2024 12:21 PM SHOES HAND SEWER) Culture <10,000 CFU/mL Mixture of Urogenital Pilar 05/22/2024 11:48 AM SHOES HAND SEWER [facility] Urine MID-STREAM URINE SPECIMEN / Unknown Non-blood Collection / Unknown 05/21/2024 12:21 PM SHOES HAND SEWER 05/21/2024 12:21 PM SHOES HAND SEWER Shaniqua Hernandez APRN PAPER GLUING OPERATOR LAB - MICRO GENERA L ORDERABLES Final Result [facility] Inf. Diseases Diag. Lab [address] [facility], [address] [place] [phone] * HCG Qual, Urine ([id number]) (05/21/2024 11:39 AM SHOES HAND SEWER) hCG Urine Qualitative Negative Negative MARY 05/21/2024 12:16 PM SHOES HAND SEWER [facility] Comment:This test is for scr eening purposes. Results should be interpreted along with the clinical picture. Confirmation testing is available if warranted by ordering [id number], HCG Quantitative . Urine MID-STREAM URINE SPECIMEN / Unknown Non-blood Collection / Unknown 05/21/2024 11:39 AM SHOES HAND SEWER 05/21/2024 12:09 PM SHOES HAND SEWER Shaniqua Hernandez APRN PAPER GLUING OPERATOR LAB - URINE ORDERA BLES Final Result [facility] [place] [facility] [address] [place] [address] S. E. Lab (no room number, 1st floor of clinic) [place] [address], [facility] * (ABNORMAL) UA with Microscopic - lab collect (05/21/2024 11:39 AM SHOES HAND SEWER) Color Urine Red(A) Colorless, Straw, Light Yellow, Yellow 05/21/2024 12:13 PM SHOES HAND SEWER [facility] Appearance Urine Slightly Cloudy(A) Clear 05/21/2024 12:13 PM SHOES HAND SEWER [facility] Glucose Urine Negative Negative mg/dL 05/21/2024 12:13 PM SHOES HAND SEWER [facility] Bilirubin Urine Negative Negative 12:13 PM SHOES HAND SEWER [facility] Ketones Urine Negative Negative mg/dL 05/21/2024 12:13 PM SHOES HAND SEWER [facility] Specific [place] Urine 1.020 1.003 - 1.035 05/21/2024 12:13 PM SHOES HAND SEWER [facility] Blood Urine Large(A) Negative 05/21/2024 12:13 PM SHOES HAND SEWER [facility] pH Urine 7.0 5.0 - 7.0 05/21/2024 12:13 PM SHOES HAND SEWER [facility] Protein Albumin Urine 100(A) Negative mg/dL 05/21/2024 12:13 PM SHOES HAND SEWER [facility] Urobilinogen Urine 0.2 0.2, 1.0 E.U./dL 05/21/2024 12:13 PM SHOES HAND SEWER [facility] Nitrite Urine Positive(A) Negative 05/21/2024 12:13 PM SHOES HAND SEWER [facility] Leukocyte Esterase Urine Negative Negative 05/21/2024 12:13 PM SHOES HAND SEWER [facility] Urine MID-STREAM URINE SPECIMEN / Unknown Non-blood Collection / Unknown 05/21/2024 11:39 AM SHOES HAND SEWER 05/21/2024 12:09 PM SHOES HAND SEWER Shaniqua Hernandez APRN PAPER GLUING OPERATOR LAB - URINE ORDERA BLES Final Result [facility] [place] [facility] [address] [place] [address] S. E. Lab (no room number, 1st floor of clinic) [place] [phone] * (ABNORMAL) Urine Microscopic Exam (05/21/2024 11:39 AM SHOES HAND SEWER) Bacteria Urine Few(A) None Seen /HPF MARY 05/21/2024 12:17 PM SHOES HAND SEWER [facility] RBC Urine >100(A) 0-2 /HPF /HPF MARY 05/21/2024 12:17 PM SHOES HAND SEWER [facility] WBC Urine 0-5 0-5 /HPF /HPF MARY 05/21/2024 12:17 PM SHOES HAND SEWER [facility] Urine MID-STREAM URINE SPECIMEN / Unknown Non-blood Collection / Unknown 05/21/2024 11:39 AM SHOES HAND SEWER 05/21/2024 12:09 PM SHOES HAND SEWER Shaniqua Hernandez APRN PAPER GLUING OPERATOR LAB - URINE ORDERA BLES Final Result Performing Organization Address City/[facility]/ZIP Co de Phone Number [facility] [place] [facility] [address] [place] [address] S. E. Lab (no room number, 1st floor of clinic) [place] [phone] * Influenza A & B Antigen - Clinic Collect (04/09/2024 11:57 AM SHOES HAND SEWER) Influenza A antigen Negative Negative 04/09/2024 12:16 PM SHOES HAND SEWER [facility] Influenza B antigen Negative Negative 04/09/2024 12:16 PM SHOES HAND SEWER [facility] Swab NASAL STRUCTURE / Unknown Non-blood Collection / Unknown 04/09/2024 11:57 AM SHOES HAND SEWER 04/09/2024 11:57 AM SHOES HAND SEWER Narrative [facility] - 04/09/2024 12:16 PM SHOES HAND SEWER Test results must be correlated with clinical data. If necessary, results should be confirmed by a molecular assay or viral culture. us Rebecca Flowers PA-C LAB - MICRO GENERAL ORDERABLE S Final Result [facility] [place] [facility] [address] [place] [address] S. E. Lab (no room number, 1st floor of [facility]) [place] [phone], [place] * COVID-19 Virus (Coronavirus) by PCR Nose (04/09/2024 11:56 AM SHOES HAND SEWER) SARS CoV2 PCR Negative Negative 04/10/2024 10:57 AM SHOES HAND SEWER [facility] Comment:NEGATIVE: SARS-CoV-2 (COVID-19) RNA not detected, presumed negative. Swab NASAL STRUCTURE / Unknown Non-blood Collection / Unknown 04/09/2024 11:56 AM SHOES HAND SEWER 04/09/2024 11:56 AM SHOES HAND SEWER Narrative [facility] - 04/10/2024 10:57 AM SHOES HAND SEWER Testing was performed using the ayla SARS-CoV-2 assay on the ayla [facility] System. This test should be ordered for [...] COVID-19. This test was validated by the [facility] Infectious Diseases Diagnostic Laboratory. This laboratory is certified under the Clinical Laboratory Improvement Amendments of 1988 (CLIA-88) as qualified to perform high and/or moderate complexity laboratory testing. Rebecca Flowers PA-C LAB - MICRO GENERAL ORDERABLE S Final Result [facility] Inf. Diseases Diag. Lab [address] [facility], [address] [place] [address], [facility] * XR Chest 2 Views (04/09/2024 11:53 AM SHOES HAND SEWER) Anatomical Region Laterality Modality Chest Computed Radiogr aphy Impressions 04/09/2024 2:00 PM SHOES HAND SEWER IMPRESSION: There are no acute infiltrates. The cardiac silhouette is not enlarged. Pulmonary vasculature is unremarkable. JENNIFER GARCÍA MD SYSTEM ID: [id number] Narrative 04/09/2024 2:00 PM SHOES HAND SEWER CHEST TWO VIEWS 04/09/2024 11:53 AM HISTORY: [...] is unremarkable. JENNIFER GARCÍA MD SYSTEM ID: [id number] Rebecca Flowers PA-C IMG DIAGNOSTIC IMAGING ORDERA [...] for high risk HPV DNA. METHODOLOGY: The [employer] system uses automated extraction, simultaneous amplification of [...] Final Result SPECIALTY LABS Specialty Lab [address] [facility], [address] [phone], [facility] MOLECULAR DIAGNOSTICS Molecular Diagnostics [address] [facility], [address] [phone] * Hepatitis C Screen Reflex [...] - BLOOD ORDERABLES Final Result [facility] [place] Core Lab [address] [facility], [address] [phone] * Comprehensive metabolic panel (BMP + Alb, Alk Phos, ALT, AST, Total. Bili, TP) (12/28/2023 10:11 AMCDT) Pathologist [facility] Sodium 136 135 - 145 mmol/L 12/28/2023 [...] 10:12 AM CDT us Susie Glenroy Ch[employer]xl SOCIAL WORK ASSOCIATE PAPER GLUING OPERATOR LAB - BLOOD ORDERABLES Final Result [facility] [place] Core Lab [address] [facility] [address], [address] [place] [address], [facility] * HIV Antigen Antibody Combo (02/07/2014) HIV Antigen Antibody Combo Non Reactive Blood specimen (specimen) us Patient Reported LAB - BLOOD ORDERABLES Final Re sult from Last 3 Months or Most Recently Relevant to Health Maintenance Additional Health Concerns Infection Onset Date Last Indicated 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 11/01/2011 11/01/2011 Insurance Kayentis Kayentis Care Teams Management Sme Relationship Specialty Start Date End Date Shaniqua Hernandez APRN PAPER GLUING OPERATOR [address] [place] [address] [id number] PCP - General Nurse Practitioner - Family 05/23/24 Linda Cantu Personal Advocate & Liaison (PAL) Family Medicine 05/27/22 Susie Turk APRN PAPER GLUING OPERATOR [address] [place] [address] [phone] Assigned PCP 01/15/24 Claudine Curtis MD [address] [place], [place] [address] Assigned OBGYN Provider 04/15/24
[2024-05-23 20:33] VITALS: BP 138/95; PULSE 89; RESP 18; TEMP 36.8; O2SAT 97
[2024-05-23 20:34] VITALS: BP 138/95; PULSE 89; RESP 18; TEMP 36.8
== END 2024-05-23 20:35 | disposition home or self-care (01) ==
PROVIDERS: Emergency Provider Emergency Medicine
DX: M54.16 Radiculopathy, lumbar region (principal)
CPT/HCPCS: 96372; 99283; A9270; J1171

== ENCOUNTER 2024-08-06 23:11 | Emergency (ER) | payer BC, SELFPAY ==
--- OUTSIDE RECORDS SUMMARY | 2024-08-06 23:14 | XMS_ITS | Clinical Summary ---
Author Organization [facility] Address [address] [place] [address] Care Team Providers Care Cook Restaurant Name Role Phone Elsewhere, Pcp Primary Care Provider Unavailabl e Source Comments Patient records contain information from all sites at [facility]. For routine questions regarding patient records, call [phone] during business hours, M-F 8:00 AM - 5:00 PM Central Time. Record requests for emergency care only can be directed to [phone] at any time.[facility] Allergies Active Allergy Reactions Criticality Noted Date Comments Cat Dander Angioedema 06/06/2024 Medications naproxen (Naprosyn) 500 mg tablet Take 1 tablet (500 mg total) by mouth 2 (two) times a day with meals. 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 Plan 3 yr co-test Adjustment Disorder With Anxious Mood 03/28/2022 Umbilical Hernia Without Obstruction Or Gangrene 07/23/2020 Overview (06/06/2024): Added automatically from request for surgery [id number] Morbid Obesity 06/01/2020 Anxiety 01/20/2016 Nicotine Dependence Unspecified 03/25/2011 Obesity Unspecified 03/25/2011 Encounters Date Type Department Care Team Description 06/06/2024 9:07 PM DESIGN CHECKER - 06/06/2024 9:56 PM DESIGN CHECKER Emergency [facility] [address] [place] [phone] Cral Cuellar M.D. Pain Back Lumbar (Primary Dx); Morbid Obesity (HCC) Discharge Disposition: Home or Self Care from Last 3 Months Social History Tobacco Use Types Packs/Day Years Used Date Smoking Tobacco: Unknown Tobacco Cessation:Counseling Given: Not Answered Alcohol Use Standard Drinks/Week Comments Defer 0 (1 standard drink = 0.6 oz pur e alcohol) Dental Answer Date Recorded Dental: Regular Dentist Unknown 06/06/19 25 Comments Unknown Sex and Gender Information Value Date Recorded Sex Assigned at Not on file Legal Sex Female 8:54 PM DESIGN CHECKER Gender Identity Not on file Sexual Orientation Not on file Last Filed Vital Signs Vital Sign Reading Time Taken Comments Blood Pressure - - Pulse 80 06/06/2024 9:53 PM DESIGN CHECKER Temperature 36.8 C (98.2 F) 06/06/2024 9:53 PM DESIGN CHECKER Respiratory Rate 16 06/06/2024 9:53 PM DESIGN CHECKER Oxygen Saturation 95% 06/06/2024 9:53 PM DESIGN CHECKER Inhaled Oxygen Concentration - - Weight 119 kg (263 lb 0.1 oz) 06/06/2024 9:09 PM DESIGN CHECKER Height 160 cm (5' 3) 06/06/2024 9:04 PM DESIGN CHECKER Body Mass Index 46.59 06/06/2024 9:04 PM DESIGN CHECKER Plan of Treatment Not on file Insurance [facility] Care Teams Cook Restaurant Relationship Specialty Start Date End Date Elsewhere, Pcp PCP - General 06/06/24
--- OUTSIDE RECORDS SUMMARY | 2024-08-06 23:14 | XMS_ITS | Encounter Summary ---
Author Organization [facility] Address [address] [place] [address] Care Team Providers Care Aircraft Fueler Name Role Phone [facility] Primary Ca re Provider Jefferson Oliver Unavailable Unavailable Vidhya Witt MD Unavailable Linda Cantu Unavailable Unavailable Wilian Hilliard DO Unavailable [phone] Vidhya Witt MD Unavailable No Ref-Primary, Physician Primary Care Provider Susie Turk APRN, CNP Unavailable [phone] Claudine Curtis MD Unavailable [phone] Shaniqua Hernandez APRN PROOF PLATE MAKER Primary Care Prov ider Susie Turk APRN, CNP Unavailable [phone] Encounter Details Date Type Department Care Team (Late st Contact Info) Description 03/25/2022 MyC Medical Advice [facility] Services - Behavioral Service Line On license of [facility] [place] [address] Claudine Schilling Social History Tobacco Use [...] any clubs o r organizations such as jew groups, unions, fraternal or athletic groups, or [...] Answer Date Recorded PHQ-2 Score 2 03/28/2022 [facility] Questionnaire Answer Date [...] the money to buy more. Never true 04/23/20 21 Within the past 12 months, t [...] a skilled nursing (including now)? No 08/14/2020 Education Answer Date Recorded What is the highest level of school you have completed or the highest degree you have received? Associate degree: occupational, technical, or vocational program 08/14/2020 Comments No Sex and Gender Information Value Date Recorded Sex Assigned at Female 09/03/2021 8:30 AM CDT Legal Sex Female 3:29 AM SCALLOP CUTTER Gender Identity Female 09/03/2021 8:30 AM CDT Sexual Orientation Not on file COVID-19 Exposure Response Date Recorded In the last 10 days, have yo u been in contact with someone who was confirmed or suspected to have Coronavirus/COVID-19? No / Unsure 03/09/2022 3:29 AM SCALLOP CUTTER documented as of this encounter Plan of Treatment Upcoming Encounters Date Type Department Care Team (Late st Contact Info) Description 08/20/2024 10:00 AM CDT Office Visit [address] [phone] Susie Turk APRN [address] [address] 02/14/2025 11:00 AM CDT Office Visit [address] [place] [address] Susie Turk APRN PROOF PLATE MAKER [address] [place] [address] [phone] documented as of this encounter Visit Diagnoses Not on filedocumented in this encounter Additional Health Concerns Infection Onset Date Last Indicated Resolved Time 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 11/01/2011 11/01/2011 Rule Out COVID-19 04/09/2024 04/09/2024 04/10/2024 10:57 AM SCALLOP CUTTER Assessment Noted Time PHQ-9 Depression Total Score: 16 022 1:17 PM CDT documented as of this encounter Care Teams Aircraft Fueler Relationship Specialty Start Date End Date Clinic - [facility] [address] [place] [address] PCP - General 08/26/20 12/27/23 No Ref-Primary, Physician PCP - General 12/28/23 05/22/24 Shaniqua Hernandez APRN PROOF PLATE MAKER [address] [place] [address] PCP - General Nurse Practitioner - Family 05/23/24 Jefferson Oliver Personal Advocate & Liaison (PAL) 09/14/21 05/26/22 [place] [address] [place] [address] Assigned PCP 12/04/21 03/17/23 Linda Cantu Personal Advocate & Liaison (PAL) Family Medicine 05/27/22 [place] [address] [place] [address] Assigned PCP 03/18/23 07/14/23 [place] [address] [place] [address] Assigned PCP 07/15/23 01/14/24 Susie Turk APRN PROOF PLATE MAKER [address] [place] [address] [phone] Assigned PCP 01/15/24 Claudine Curtis MD [address] [place] [address] Assigned OBGYN Provider 04/15/24 Susie Turk APRN PROOF PLATE MAKER [address] [place] [address] [phone] Assigned Pain Medication Provider 06/16/24 documented as of this encounter
--- OUTSIDE RECORDS SUMMARY | 2024-08-06 23:14 | XMS_ITS | Encounter Summary ---
Author Organization [facility] Address [address] [place] [address] Care Team Providers Care Hatchery Man Name Role Phone Linda Cantu Unavailable Unavailable Susie Turk APRN, CNP Unavailable [phone] Claudine Curtis MD Unavailable [phone] Shaniqua Hernandez APRN, CNP Primary Care Prov ider Susie Turk APRN, CNP Unavailable [phone] Encounter Details Date Type Department Care Team (Late st Contact Info) Description 07/30/2024 My[facility] Medical Advice [address] [phone] Susie Turk APRN SUPERVISOR SPRING [employer] [address] [place] [address] Gastroesophageal reflux disease with esophagitis, unspecified whether hemorrhage (Primary Dx) Social History Tobacco Use Types [...] often do you attend chur ch or mormon services? 1 to 4 times per year 08/14/2020 Do you belong to any clubs o r organizations such as yarsani groups, unions, fraternal or athletic groups, or [...] 08/14/2020 PHQ-2 Answer Date Recorded PHQ-2 Score 1 06/13/2024 [facility] - Occupational Stress Questionnaire Answer Date [...] AM CDT Legal Sex Female 3:29 AM ROTARY DERRICK OPERATOR Gender Identity Female 09/03/2021 8:30 AM CDT Sexual Orientation Not on file documented as of this encounter Miscellaneous Notes * Telephone Encounter - Mayda Haq RN - 07/30/2024 5:53 PM CDT ROB 06/13/2024 documented in this encounter Plan of Treatment Upcoming Encounters Date Type Department Care Team (Late st Contact Info) Description 08/20/2024 10:00 AM CDT Office Visit [address] [phone] Susie Turk APRN CNP [address] [place] [address] [id number] 02/14/2025 11:00 AM CDT Office Visit [address] [phone] Susie Turk APRN CNP [address] [place] [address] [id number] documented as of this encounter Visit Diagnoses Diagnosis Gastroesophageal reflux disease with esophagitis, unspecified whether hemorrhage- Primary documented in this encounter Additional Health Concerns Infection Onset Date Last Indicated Resolved Time MRSA-Contact Isolation Comment: - 10-21-2011 11/01/2011 11/01/2011 Assessment Noted Time PHQ-9 Depression Total Score: 8 06/12/19 25 9:53 AM ROTARY DERRICK OPERATOR documented as of this encounter Care Teams Hatchery Man Relationship Specialty Start Date End Date Shaniqua Hernandez APRN CNP [address] [place] [address] [id number] PCP - General Nurse Practitioner - Family 05/23/24 Linda Cantu Personal Advocate & Liaison (PAL) Family Medicine 05/27/22 Susie Turk APRN SUPERVISOR SPRING [employer] [address] [place] [address] [id number] Assigned PCP 01/15/24 Claudine Curtis MD [address] [place] [address] Assigned OBGYN Provider 04/15/24 Susie Turk APRN CNP [address] [place] [id number] Assigned Pain Medication Provider 06/16/24 documented as of this encounter
--- OUTSIDE RECORDS SUMMARY | 2024-08-06 23:14 | XMS_ITS | Encounter Summary ---
Author Organization [place] Address [address] [place] [address] Care Team Providers Care Commercial Lines Manager Name Role Phone Linda Cantu Unavailable Unavailable Susie Turk APRN ADVENTURE CHALLENGE INSTRUCTOR Unavailable [phone] Claudine Curtis MD Unavailable [phone] Shaniqua Hernandez APRN ADVENTURE CHALLENGE INSTRUCTOR Primary Care Prov ider Susie Turk APRN ADVENTURE CHALLENGE INSTRUCTOR Unavailable [phone] Reason for Visit * Reason Onset Date Comments Refill Request 05/26/2024 Encounter Details Date Type Department Care Team (Late st Contact Info) Description 05/26/2024 MyC Refill [address] [phone] Shaniqua Hernandez APRN ADVENTURE CHALLENGE INSTRUCTOR [address] [place] [id number] Refill Request Social History Tobacco Use Types [...] often do you attend chur ch or uatsdin services? 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 Patient has a refill please let her know. Healthy regards, Shaniqua Hernandez, CUPOLA TENDER- K MACHINE OPERATOR documented in this encounter Plan of Treatment Upcoming Encounters Date Type Department Care Team (Late st Contact Info) Description 08/20/2024 10:00 AM CDT Office Visit [address] [phone] Susie Turk APRN CNP [address] [place] [address] [phone] 02/14/2025 11:00 AM CDT Office Visit [address] [phone] Susie Turk APRN CNP [address] [place] [address] [phone] documented as of this encounter Visit Diagnoses Diagnosis Lumbar pain Lumbago documented in this encounter Additional Health Concerns Infection Onset Date Last Indicated Resolved Time 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 11/01/2011 11/01/2011 Assessment Noted Time PHQ-9 Depression Total Score: 14 025 4:20 PM CHALK MACHINE OPERATOR documented as of this encounter Care Teams Commercial Lines Manager Relationship Specialty Start Date End Date Shaniqua Hernandez APRN CNP [address] [place] [address] [id number] PCP - General Nurse Practitioner - Family 05/23/24 Linda Cantu Personal Advocate & Liaison (PAL) Family Medicine 05/27/22 Susie Turk APRN CNP [address] [place] [address] [id number] Assigned PCP 01/15/24 Claudine Curtis MD [address] [facility] [place] [place] [address] Assigned OBGYN Provider 04/15/24 Susie Turk APRN [facility] [address] [place] [address] [id number] Assigned Pain Medication Provider 06/16/24 documented as of this encounter
--- OUTSIDE RECORDS SUMMARY | 2024-08-06 23:14 | XMS_ITS | Encounter Summary ---
Author Organization [facility] Address [address] [place] [address] Care Team Providers Care Windows Mobile Developer Name Role Phone Gita Small SPARKER AND PATCHER Primary Care Provider [phone] Gita Small SPARKER AND PATCHER Unavailable [phone] Gita Small SPARKER AND PATCHER Unavailable [phone] No Ref-Primary, Physician Primary Care Provider Brisa Singletary MD Unavailable [phone] Kae Blankenship PA-C Unavailable [phone] Crystal Alanis MD Unavailable [phone] Wilian Hilliard DO Unavailable [phone] Lois Hathaway DO Unavailable [phone] Brisa Singletary MD Unavailable [phone] [facility] re Provider Wilian Hilliard DO Unavailable Jefferson Oliver Unavailable Unavailable Vidhya Witt MD Unavailable Linda Cantu Unavailable Unavailable Wilian Hilliard DO Unavailable [phone] Vidhya Witt MD Unavailable No Ref-Primary, Physician Primary Care Provider Susie Turk APRN, CNP Unavailable [phone] Claudine Curtis MD Unavailable [phone] Shaniqua Hernandez APRN [facility] Primary Care Prov ider Burke Susie Tim APRN [facility] Unavailable [phone] Reason for Referral * Consultation - Closed Specialty Diagnoses / Procedures Referred By Contac t Referred To Contact Diagnoses Acute pain of right knee Gita Small NP Phone: tel: fax: [facility] [address] [facility] [address] [place] [address] Phone: tel: fax: Referral ID Status Reason Start Date Expiration Date Visits Re quested Visits Authorized [id number] Closed 11/16/2016 11/16/2017 1 1 Comments Your provider has referred you to: FMG: [facility] [email or web address]/ Please be aware that coverage of these services is subject to the terms and limitations of your health insurance plan. Call member services at your health plan with any benefit or coverage questions. Please bring the following to your appointment: >> Any x-rays, CTs or MRIs which have been performed. Contact the facility where they were done to arrange for order picker prior to your scheduled appointment. 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 Gender Identity Female 09/03/2021 8:30 AM CDT [...] Description 08/20/2024 10:00 AM CDT Office Visit [address] [phone] Susie Turk APRN DIGITAL IMAGER [address] [place] [address] 02/14/2025 11:00 AM CDT Office Visit [address] [phone] Susie Turk APRN DIGITAL IMAGER [address] [place] [address] [phone] Scheduled Referrals Name Type Priority Associated Diagnoses [...] Out COVID-19 06/14/2020 06/14/2020 06/14/2020 11:50 PM COOK ITALIAN STYLE FOOD Rule Out COVID-19 03/09/2022 03/09/2022 03/09/2022 6:39 AM COOK ITALIAN STYLE FOOD Rule Out COVID-19 04/09/2024 04/09/2024 04/10/2024 10:57 AM COOK ITALIAN STYLE FOOD documented as of this encounter Care Teams Windows Mobile Developer Relationship Specialty Start Date End Date Gita Small, SPARKER AND PATCHER PCP - General Nurse Practitioner - Family 11/14/16 02/21/18 Gita Small, SPARKER AND PATCHER [facility] [address] [place] [address] [place] [address] PCP - Assigned PCP 11/20/16 06/26/18 No Ref-Primary, Physician PCP - General 10/25/19 08/25/[address] [address] PCP - General 08/26/20 12/27/23 No Ref-Primary, Physician PCP - General 12/28/23 05/22/24 Shaniqua Hernandez APRN DIGITAL IMAGER [address] [place] [address] PCP - General Nurse Practitioner - Family 05/23/24 Gita Small, SPARKER AND PATCHER [facility] [address] [place] [address] Assigned PCP 11/20/16 12/21/19 [place] [address] [place] [address] Assigned PCP 12/22/19 04/25/20 Kae Blankenship PA-C [address] [facility] [address] [place], [place] 455145 Assigned PCP 04/26/20 06/06/20 Crystal Alanis MD [facility] [address] [facility] [address] [place], [place] [phone] Assigned Surgical Provider 06/07/20 12/03/21 [place] [address] [place] [address] Assigned PCP 06/07/20 08/15/20 Lois Hathaway DO [address] [facility] [address] [place] [address] Assigned OBGYN Provider 07/19/20 01/18/22 [place] [address] [place] [address] Assigned PCP 08/16/20 03/27/21 [place] [address] [place] [address] Assigned PCP 03/28/21 12/03/21 Jefferson lOiver Personal Advocate & Liaison (PAL) 09/14/21 05/26/22 [place] [address] [place] [address] Assigned PCP 12/04/21 03/17/23 Linda Cantu Personal Advocate & Liaison (PAL) Family Medicine 05/27/22 [place] [address] [place] [address] Assigned PCP 03/18/23 07/14/23 [place] [address] [place] [address] Assigned PCP 07/15/23 01/14/24 Susie Turk APRN DIGITAL IMAGER [address] [place] [address] [id number] Assigned PCP 01/15/24 Claudine Curtis MD [address] [place] [address] Assigned OBGYN Provider 04/15/24 Susie Turk APRN DIGITAL IMAGER [address] [place] [address] [id number] Assigned Pain Medication Provider 06/16/24 documented as of this encounter
--- OUTSIDE RECORDS SUMMARY | 2024-08-06 23:14 | XMS_ITS | Clinical Summary ---
Author Organization [facility] Address [address] [place] [id number] Care Team Providers Care Platform Consultant Name Role Phone MatthewLinda peguero Unavailable Unavailable Susie Turk APRN UTILIZATION REVIEW NURSE Unavailable [phone] Claudine Curtis MD Unavailable [phone] Shaniqua Hernandez APRN UTILIZATION REVIEW NURSE Primary Care Prov ider Susie Turk APRN UTILIZATION REVIEW NURSE Unavailable [phone] Allergies Active Allergy Reactions Criticality Noted Date Comments Animal Dander Itching,Anaphylaxis High 10/13/2014 Cats Difficulty breathing 06/12/2008 No Known Drug Allergy 06/12/2008 Medications * This document contains information received from the source organization and may not represent a complete record from that organization. FLUoxetine (PROZAC) 40 MG capsuleIndication s:Moderate episode of recurrent major depressive disorder (H),MELISSA (generalized anxiety disorder) Take 1 capsule (40 mg) by mouth daily. 90 capsule 3 02/15/20 24 Active Additional Information Patient not taking.Reported on 06/13/2024 hydrOXYzine HCl (ATARAX) 25 MG tabletIndications :MELISSA (generalized anxiety disorder) Take 1-2 tablets (25-50 mg) by mouth nightly as needed (insomnia). 45 tablet 9 05/20/19 25 Active albuterol (PROAIR HFA/PROVENTIL HFA/VENTOLIN HFA) 108 (90 Base) MCG/ACT inhalerIndication s:Wheezing,Acute cough,Upper respiratory tract infection, unspecified type Inhale 2 puffs into the lungs every 6 hours as needed for cough, wheezing or shortness of breath. 18 g 05/21/19 25 Active cyclobenzaprine (FLEXERIL) 5 MG tabletIndications :Lumbar pain Take 1-2 tablets (5-10 mg) by mouth 3 times daily as needed for muscle spasms. 20 tablet 1 05/21/19 25 Active methocarbamol (ROBAXIN) 750 MG tabletIndications :Lumbar back pain with radiculopathy affecting left lower extremity Take 1 tablet (750 mg) by mouth 2 times daily as needed for muscle spasms. 30 tablet 06/04/19 25 Active naloxone (NARCAN) 4 MG/0.1ML nasal spray [place] 1 spray (4 mg) into one nostril alternating nostrils as needed for opioid reversal. every 2-3 minutes until assistance arrives 06/07/19 25 Active semaglutide-weigh t management (WEGOVY) 0.25 MG/0.5ML penIndications:Cl ass 3 severe obesity with serious comorbidity and body mass index (BMI) of 45.0 to 49.9 in adult, unspecified obesity type (H) Inject 0.5 mLs (0.25 mg) subcutaneously once a week. 2 mL 06/13/19 25 Active Semaglutide-Weigh t Management (WEGOVY) 0.5 MG/0.5ML penIndications:Cl ass 3 severe obesity with serious comorbidity and body mass index (BMI) of 45.0 to 49.9 in adult, unspecified obesity type (H) Inject 0.5 mg subcutaneously once a week. 2 mL 06/13/19 25 Active traZODone (DESYREL) 50 MG tabletIndications :Insomnia, unspecified type Take 1 tablet (50 mg) by mouth nightly as needed for sleep. 90 tablet 1 06/13/19 25 Active gabapentin (NEURONTIN) 300 MG capsuleIndication s:Lumbar back pain with radiculopathy affecting left lower extremity Take 2 capsules (600 mg) by mouth 3 times daily as needed for neuropathic pain. 06/13/19 25 Active traMADol (ULTRAM) 50 MG tabletIndications :Lumbar back pain with radiculopathy affecting left lower extremity Take 1 tablet (50 mg) by mouth daily as needed for severe pain. 10 tablet 06/17/19 25 Active famotidine (PEPCID) 40 MG tabletIndications :Gastroesophageal reflux disease with esophagitis, unspecified whether hemorrhage Take 1 tablet (40 mg) by mouth daily. 30 tablet 2 08/01/19 25 Active Active Problems Problem Noted Date Diagnosed Date Moderate episode of recurrent major depressive d isorder 05/21/2024 ASCUS of cervix with negative high risk HPV 01/23 Overview (02/26/2024): 02/15/24 ASCUS, Neg HPV. Plan 3 yr co-test Adjustment disorder with anxious mood 03/28/2022 Umbilical hernia without obstruction and without gangrene 07/23/2020 Overview (07/23/2020): Added automatically from request for surgery [id number] Encounter for sterilization 07/23/2020 Overview (07/24/2020): Added automatically from request for surgery [id number] Morbid obesity 06/01/2020 Anxiety 01/20/2016 Status post [...] Encounters Date Type Department Care Team Description 07/30/2024 MyC Medical Advice [address] [phone] Susie Turk, CROP SETTING OUT MACHINE OPERATOR UTILIZATION REVIEW NURSE Gastroesophageal reflux disease with esophagitis, unspecified whether hemorrhage (Primary Dx) 07/10/[address] [place] [phone] Shaniqua Hernandez APRN CNP Refill Request (wegovy) 06/13/2024 10:00 AM VERIFIER OPERATOR Virtual Visit [address] [place] [phone] Susie Turk APRN CNP Insomnia, unspecified type (Primary Dx); Lumbar back pain with radiculopathy affecting left lower extremity; Class 3 severe obesity with serious comorbidity and body mass index (BMI) of 45.0 to 49.9 in adult, unspecified obesity type (H) 06/13/[address] [place] [phone] Susie Turk APRN CNP Prior Auth - Medication (semaglutide-weight management (WEGOVY) 0.25 MG/0.5ML pen ) 06/11/[address] [place] [phone] Susie Turk APRN CNP Refill Request 06/11/2024 MyC Medical Advice [address] [place] [phone] Susie Turk APRN CNP 06/11/2024 MyC Refill [address] [place] [phone] Susie Turk APRN CNP Refill Request 06/07/[address] [place] [phone] Shaniqua Hernandez APRN CNP Medication Request (Narcan Nasal [place]) 06/03/2024 MyC Medical Advice [address] [phone] Susie Turk APRN CNP Medication Question (Request of meds and r... 06/03/2024 Orders Only [facility] [address] [facility] [address] [place] [phone] Shaniqua Hernandez APRN CNP Lumbar pain with radiation down left leg (Primary Dx); Abnormal MRI, lumbar spine; Foraminal stenosis of lumbar region 06/03/2024 Orders Only [facility] [address] [facility] [address] [place] [phone] Shaniqua Hernandez APRN CNP 06/01/2024 10:30 AM VERIFIER OPERATOR - 06/01/2024 11:59 PM VERIFIER OPERATOR Hospital Encounter [facility] [address] [facility] [address] [place] [phone] Shaniqua Hernandez APRN CNP Lumbar pain; Lumbar pain with radiation down left leg; Abnormal x-ray of lumbar spine Discharge Disposition: Home or Self Care 06/01/2024 Travel 05/28/2024 11:00 AM VERIFIER OPERATOR Office Visit [address] [phone] Susie Turk APRN CNP Lumbar back pain with radiculopathy affecting left lower extremity 05/27/2024 8:45 AM VERIFIER OPERATOR E-Visit [address] [phone] Susie Turk APRN CNP Back Pain (Entered automatically based on ... 05/27/2024 Travel 05/26/2024 MyC Medical Advice [address] [phone] Shaniqua Hernandez APRN CNP MyChart Communication 05/26/2024 MyC Medical Advice [address] [place] [phone] Susie Turk APRN CNP MyChart Communication 05/26/2024 MyC Refill [address] [place] [phone] Shaniqua Hernandez APRN CNP Refill Request 05/23/2024 MyC Medical Advice [address] [place] [phone] Shaniqua Hernandez APRN CNP 05/21/2024 12:25 PM VERIFIER OPERATOR Ancillary Procedure [address] [place] [phone] Shaniqua Hernandez APRN CNP Lumbar pain 05/21/2024 12:00 PM VERIFIER OPERATOR Office Visit [address] [place] [phone] Shaniqua Hernandez APRN CNP Lumbar pain (Primary Dx); Nonspecific finding on examination of urine; Morbid obesity (H); Moderate episode of recurrent major depressive disorder (H); Lumbar pain with radiation down left leg 05/21/2024 9:30 AM VERIFIER OPERATOR Virtual Visit [address] [place] [phone] Shaniqua Hernandez APRN CNP Back pain, unspecified back location, unspecified back pain laterality, unspecified chronicity (Primary Dx) 05/21/[address] [place] [phone] No Ref-Primary, Physician Results 05/21/2024 Travel 05/20/2024 MyC Refill [address] [place] [phone] Rebecca Flowers PA-C Refill Request 05/20/2024 MyC Refill M [address] [phone] Susie Turk APRN UTILIZATION REVIEW NURSE Refill Request from Last 3 Months Immunizations Name Administration Dates Next Due DTaP, Unspecified 06/17/2014 Influenza (H1N1) 03/12/2009 Influenza (IIV3) PF 05/16/2012, 1,01/07/2010,2008 Influenza (prior to 2023) 05/16/2012,01/07/2010 Influenza Vaccine >6 months,quad, PF 11/2020,01/11/2017,01/20/2016,2014,03/11/2014,01/30/2013 MMR (MMRII) 12/09/1997 TD,PF 7+ (Tenivac) 12/09/1997 TDAP (Adacel,Boostrix) [...] week 08/14/2020 How often do you attend [facility] or latter-day services? 1 to 4 times per year 08/14/2020 Do you belong to any clubs o r organizations such as scientology groups, unions, fraternal or athletic groups, or [...] Answer Date Recorded PHQ-2 Score 1 06/13/2024 [facility] - Occupational [...] AM CDT Legal Sex Female 3:29 AM VERIFIER OPERATOR Gender Identity Female 09/03/2021 8:30 AM CDT Sexual Orientation Not on file Last Filed Vital Signs Vital Sign Reading Time Taken Comments Blood Pressure 138/84 05/28/2024 11:00 AM VERIFIER OPERATOR Pulse 102 05/28/2024 11:00 AM VERIFIER OPERATOR Temperature 36.3 C (97.4 F) 05/28/2024 11:00 AM VERIFIER OPERATOR Respiratory Rate 16 05/28/2024 11:00 AM VERIFIER OPERATOR Oxygen Saturation 99% 05/28/2024 11:00 AM VERIFIER OPERATOR Inhaled Oxygen Concentration - - Weight 121.1 kg (267 lb) 05/28/2024 11:00 AM VERIFIER OPERATOR Height 161.3 cm (5' 3.5) 05/28/2024 11:00 AM CS T Body Mass Index 46.56 05/28/2024 11:00 AM VERIFIER OPERATOR Plan of Treatment Upcoming Encounters Date Type Department Care Team (Late st Contact Info) Description 08/20/2024 10:00 AM CDT Office Visit [address] [phone] Susie Turk APRN UTILIZATION REVIEW NURSE [address] [place] [phone] 02/14/2025 11:00 AM CDT Office Visit [facility] [place] [phone] Susie Turk APRN UTILIZATION REVIEW NURSE [address] [place] [phone] Health Maintenance Due Date Last Done Comments DEPRESSION ACTION PLAN 1985 HEPATITIS B IMMUNIZATION (1 of 3 - 19+ 3-dose series) 2004 Pneumococcal Vaccine: Pediatrics (0 to 5 Years) and At-Risk Patients (6 to 49 Years) (1 of 2 - PCV) 2004 INFLUENZA VACCINE (#1) 2023 , 01/11/2017, 01/20/2016, Additional history exists DTAP/TDAP/TD IMMUNIZATION (5 - Td or Tdap) 06/17/2024 06/17/2014, 06/17/2014, 03/12/2009, Additional history exists DEPRESSION 6 MO INDEX REPEAT PHQ-9 06/27/2024 06/13/2024, 05/21/2024, 04/09/2024, Additional history exists PHQ-9 12/11/2024 06/13/2024, 04/25, 04/09/2024, Additional history exists ANNUAL REVIEW OF HM ORDERS 12/27/202412/27, 09/14/2021, 04/22/2020 NICOTINE/TOBACCO CESSATION COUNSELING Q 1 YR 12/27/2024 12/28/2023, 09/14/2021, 06/01/2020, Additional history exists YEARLY PREVENTIVE VISIT 02/14/2025 02/15/20, 06/01/2020, 11/13/2017, Additional history exists DIABETES SCREENING 12/27/2026 12/28/2023, 0 12/28/2023, 02/08/2022, Additional history exists HPV FOLLOW-UP 02/14/2027 02/15/2024, 11/13/2017 PAP FOLLOW-UP 02/14/2027 02/15/2024, 01/23, 11/13/2017, Additional history exists ADVANCE CARE PLANNING 02/14/2029 02/15/2024, 021 ZOSTER IMMUNIZATION (1 of 2) 08/10/2035 COVID-19 Vaccine () 04/04/2112 Postponed from 12/24/2023 (Patient Declined) HIV SCREENING Completed 02/07/2014, 06/12/2008 HEPATITIS C SCREENING Completed 12/28/2023 PAP Discontinued 02/15/2024, 01/23, 11/13/2017, Additional history exists HPV IMMUNIZATION Aged Out No longer e ligible based on patient's age to complete this topic MENINGITIS IMMUNIZATION Aged Out No l onger eligible based on patient's age to complete this topic Medical Devices Implanted Type Area Seamer Elastic Band Device Identifier Shelf Expiration Date Model / Serial / Lot Mesh Ventralex Hernia 3.2 Red Devil Lg W/Strap [id number] Implanted:Qty : 1 on 08/26/2020 by Crystal Alanis MD at [facility] Mesh N/A: Umbilical [employer] 03/21/2022 [id number] / / [id number] Procedures Procedure Name Priority Date/Time Associated Diagnosis Comments MR LUMBAR SPINE W/O CONTRAST Routine 06/01/2024 12:24 PM VERIFIER OPERATOR Lumbar pain Lumbar pain with radiation down left leg Abnormal x-ray of lumbar spine XR LUMBAR SPINE 2/3 VIEWS Routine 05/21/2024 12:33 PM VERIFIER OPERATOR Lumbar pain URINE CULTURE Routine 05/21/2024 12:21 PM VERIFIER OPERATOR Lumbar pain Nonspecific finding on examination of urine URINE MICROSCOPIC EXAM Routine 11:39 AM VERIFIER OPERATOR Lumbar pain HCG QUALITATIVE URINE Routine 05/21/2024 11:39 AM VERIFIER OPERATOR Lumbar pain ROUTINE UA WITH MICROSCOPIC Routine 05/21/2024 11:39 AM VERIFIER OPERATOR Lumbar pain HPV AND GYNECOLOGIC CYTOLOGY PANEL Routine 02/15/2024 [...] Recently Relevant to Health Maintenance Results * MR Lumbar Spine w/o Contrast (06/01/2024 12:24 PM VERIFIER OPERATOR) Anatomical Region Laterality Modality Spine, SUBRAD MR NEURO, UMP MR SPINE, RAD MR Magnetic Resonance 06/01/2024 12:2 4 PM VERIFIER OPERATOR Impressions 06/03/2024 9:12 AM VERIFIER OPERATOR IMPRESSION: 1. Chronic bilateral L5 pars defects with grade 2 anterolisthesis of L5 on S1. 2. Degenerative changes of the lower lumbar spine, as described. 3. No significant central spinal canal stenosis. 4. Severe left and moderate to severe/severe right L5-S1 neural foraminal stenosis. 5. Patchy Modic type I and II degenerative endplate signal changes presumed at L5-S1. Patchy nonspecific prevertebral soft tissue edema noted at that level as well. Narrative 06/03/2024 9:12 AM VERIFIER OPERATOR EXAM: MR LUMBAR SPINE W/O CONTRAST LOCATION: [facility] DATE: 06/01/2024 INDICATION: Lumbar pain with sciatica abnormal x-ray. COMPARISON: Lumbar spine radiographs dated 05/21/2024. TECHNIQUE: Routine Lumbar Spine MRI without IV contrast. FINDINGS: Nomenclature is based on 5 lumbar vertebral bodies. Normal vertebral body heights. Chronic bilateral L5 pars interarticularis defects. Grade 2 anterolisthesis of L5 on S1 measuring 13-14 mm. Sagittal alignment otherwise appears normal. Diffuse T2/STIR hyperintense, T1 hyperintense signal in the T11 vertebral body, presumably representing a prominent intraosseous hemangioma. There is also presumed intraosseous hemangioma in the right aspect of the L2 vertebral body and another in the left aspect of the L4 vertebral body. Patchy presumed Modic type I and II degenerative endplate signal changes at L5-S1. There is mild edema in the prevertebral soft tissues at the level of L5-S1 (series 4 image 11). Disc desiccation at L4-5 and L5-S1. Normal appearance of the distal spinal cord with the conus terminating at L1. The visualized paraspinous soft tissues and bony pelvis otherwise appear grossly unremarkable. Segmental analysis: T11-T12: Imaged only in the sagittal plane. No significant spinal canal or neural foraminal stenosis. T12-L1: Normal disc height. No herniation. Normal facets. No spinal canal or neural foraminal stenosis. L1-L2: Normal disc height. No herniation. Normal facets. No spinal canal or neural foraminal stenosis. L2-L3: Normal disc height. No herniation. Normal facets. No spinal canal or neural foraminal stenosis. L3-L4: Normal disc height. No herniation. Normal facets. No spinal canal or neural foraminal stenosis. L4-L5: Normal disc height. Symmetric disc bulge with superimposed small central disc protrusion. Mild facet arthropathy. Small amount of facet joint fluid bilaterally. No spinal canal stenosis. No significant neural foraminal stenosis. L5-S1: Uncovering of the posterior aspect of the disc related to spondylitic spondylolisthesis. Severe disc height loss. Shallow diffuse disc bulge with posterior endplate osteophytic ridging and mild facet arthropathy. No spinal canal stenosis. Severe left and moderate to severe/severe right neural foraminal stenosis. Procedure Note Fredrick Silva MD - 06/03/2024 EXAM: MR LUMBAR SPINE W/O CONTRAST LOCATION: [facility] DATE: 06/01/2024 INDICATION: Lumbar pain with sciatica abnormal x-ray. COMPARISON: Lumbar spine radiographs dated 05/21/2024. TECHNIQUE: Routine Lumbar Spine MRI without IV contrast. FINDINGS: Nomenclature is based on 5 lumbar vertebral bodies. Normalvertebral body heights. Chronic bilateral L5 pars interarticularisdefects. Grade 2 anterolisthesis of L5 on S1 measuring 13-14 mm. Sagittalalignment otherwise appears normal. Diffuse T2/STIR hyperintense, T1 hyperintense signal in the T11 vertebral body,presumably representing a prominent intraosseous hemangioma. There is alsopresumed intraosseous hemangioma in the right aspect of the L2 vertebralbody and another in the left aspect of the L4 vertebral body. Patchy presumed Modic type I and IIdegenerative endplate signal changes at L5-S1. There is mild edema in theprevertebral soft tissues at the level of L5-S1 (series 4 image 11). Discdesiccation at L4-5 and L5-S1. Normal appearance of the distal spinal cord with the conus terminating at L1.The visualized paraspinous soft tissues and bony pelvis otherwise appeargrossly unremarkable. Segmental analysis: T11-T12: Imaged only in the sagittal plane. No significant spinal canal orneural foraminal stenosis. T12-L1: Normal disc height. No herniation. Normal facets. No spinal canalor neural foraminal stenosis. L1-L2: Normal disc height. No herniation. Normal facets. No spinal canalor neural foraminal stenosis. L2-L3: Normal disc height. No herniation. Normal facets. No spinal canalor neural foraminal stenosis. L3-L4: Normal disc height. No herniation. Normal facets. No spinal canalor neural foraminal stenosis. L4-L5: Normal disc height. Symmetric disc bulge with superimposed smallcentral disc protrusion. Mild facet arthropathy. Small amount of facetjoint fluid bilaterally. No spinal canal stenosis. No significant neuralforaminal stenosis. L5-S1: Uncovering of the posterior aspect of the disc related tospondylitic spondylolisthesis. Severe disc height loss. Shallow diffusedisc bulge with posterior endplate osteophytic ridging and mild facetarthropathy. No spinal canal stenosis. Severe left and moderate to severe/severe right neural foraminal stenosis. IMPRESSION: 1. Chronic bilateral L5 pars defects with grade 2 anterolisthesis of L5 onS1. 2. Degenerative changes of the lower lumbar spine, as described. 3. No significant central spinal canal stenosis. 4. Severe left and moderate to severe/severe right L5-S1 neural foraminalstenosis. 5. Patchy Modic type I and II degenerative endplate signal changespresumed at L5-S1. Patchy nonspecific prevertebral soft tissue edema notedat that level as well. Shaniqua Hernandez APRN [facility] MRI ORDERABLES Final Result * XR Lumbar Spine 2/3 Views (05/21/2024 12:33 PM VERIFIER OPERATOR) Anatomical Region Laterality Modality Spine, T-spine, L-spine, Abdomen/Pelvis Computed Radiography 05/21/2024 12:3 3 PM VERIFIER OPERATOR Impressions 05/21/2024 1:58 PM VERIFIER OPERATOR IMPRESSION: 5 nonrib-bearing lumbar type vertebral bodies. Grade 2 anterolisthesis of L5 on S1 with advanced loss of L5-S1 disc space height. L5 pars defects. Intervertebral disc space heights are otherwise maintained. Narrative 05/21/2024 1:58 PM VERIFIER OPERATOR EXAM: XR LUMBAR SPINE 2/3 VIEWS LOCATION: [facility] DATE: 05/21/2024 INDICATION: Lumbar pain COMPARISON: None. Procedure Note Darrell Leon MD - 05/21/2024 EXAM: XR LUMBAR SPINE 2/3 VIEWS LOCATION: [facility] DATE: 05/21/2024 INDICATION: Lumbar pain COMPARISON: None. IMPRESSION: 5 nonrib-bearing lumbar type vertebral bodies. Grade 2anterolisthesis of L5 on S1 with advanced loss of L5-S1 disc space height.L5 pars defects. Intervertebral disc space heights are otherwisemaintained. Shaniqua Hernandez APRN, CNP [facility] [place] [facility] ORDERABLES Final Result * Urine Culture (05/21/2024 12:21 PM VERIFIER OPERATOR) Culture <10,000 CFU/mL Mixture of Urogenital Pilar 05/22/2024 11:48 AM VERIFIER OPERATOR [facility] Urine MID-STREAM URINE SPECIMEN / Unknown Non-blood Collection / Unknown 05/21/2024 12:21 PM VERIFIER OPERATOR 05/21/2024 12:21 PM VERIFIER OPERATOR Shaniqua Hernandez APRN [facility] - MICRO GENERA L ORDERABLES Final Result [facility] Inf. Diseases Diag. Lab [address] [facility] [place] [address], [facility] * HCG Qual, Urine ([id number]) (05/21/2024 11:39 AM VERIFIER OPERATOR) hCG Urine Qualitative Negative Negative MARY 05/21/2024 12:16 PM VERIFIER OPERATOR [facility] Comment:This test is for scr eening purposes. Results should be interpreted along with the clinical picture. Confirmation testing is available if warranted by ordering [id number], HCG Quantitative . Urine MID-STREAM URINE SPECIMEN / Unknown Non-blood Collection / Unknown 05/21/2024 11:39 AM VERIFIER OPERATOR 05/21/2024 12:09 PM VERIFIER OPERATOR Shaniqua Hernandez CROP SETTING OUT MACHINE OPERATOR UTILIZATION REVIEW NURSE LAB - URINE ORDERA BLES Final Result [facility] [place] [facility] [address] [facility] (no room number, 1st floor of clinic) [place] [address] * (ABNORMAL) UA with Microscopic - lab collect (05/21/2024 11:39 AM VERIFIER OPERATOR) Color Urine Red(A) Colorless, Straw, Light Yellow, Yellow 05/21/2024 12:13 PM VERIFIER OPERATOR [facility] Appearance Urine Slightly Cloudy(A) Clear 05/21/2024 12:13 PM VERIFIER OPERATOR [facility] Glucose Urine Negative Negative mg/dL 05/21/2024 12:13 PM VERIFIER OPERATOR [facility] Bilirubin Urine Negative Negative 12:13 PM VERIFIER OPERATOR [facility] Ketones Urine Negative Negative mg/dL 05/21/2024 12:13 PM VERIFIER OPERATOR [facility] Specific [place] Urine 1.020 1.003 - 1.035 05/21/2024 12:13 PM VERIFIER OPERATOR [facility] Blood Urine Large(A) Negative 05/21/2024 12:13 PM VERIFIER OPERATOR [facility] pH Urine 7.0 5.0 - 7.0 05/21/2024 12:13 PM VERIFIER OPERATOR [facility] Protein Albumin Urine 100(A) Negative mg/dL 05/21/2024 12:13 PM VERIFIER OPERATOR [facility] Urobilinogen Urine 0.2 0.2, 1.0 E.U./dL 05/21/2024 12:13 PM VERIFIER OPERATOR [facility] Nitrite Urine Positive(A) Negative 05/21/2024 12:13 PM VERIFIER OPERATOR [facility] Leukocyte Esterase Urine Negative Negative 05/21/2024 12:13 PM VERIFIER OPERATOR [facility] Urine MID-STREAM URINE SPECIMEN / Unknown Non-blood Collection / Unknown 05/21/2024 11:39 AM VERIFIER OPERATOR 05/21/2024 12:09 PM VERIFIER OPERATOR Shaniqua Hernandez APRN UTILIZATION REVIEW NURSE LAB - URINE ORDERA BLES Final Result [facility] [address] [place] [address] [facility], 1st floor of [facility]) [address] * (ABNORMAL) Urine Microscopic Exam (05/21/2024 11:39 AM VERIFIER OPERATOR) Bacteria Urine Few(A) None Seen /HPF MARY 05/21/2024 12:17 PM VERIFIER OPERATOR [facility] RBC Urine >100(A) 0-2 /HPF /HPF MARY 05/21/2024 12:17 PM VERIFIER OPERATOR [facility] WBC Urine 0-5 0-5 /HPF /HPF MARY 05/21/2024 12:17 PM VERIFIER OPERATOR [facility] Urine MID-STREAM URINE SPECIMEN / Unknown Non-blood Collection / Unknown 05/21/2024 11:39 AM VERIFIER OPERATOR 05/21/2024 12:09 PM VERIFIER OPERATOR Shaniqua Hernandez APRN UTILIZATION REVIEW NURSE LAB - URINE ORDERA BLES Final Result [facility] [place] [facility] [address] [place] [address] S E. Lab (no room number, 1st floor of clinic) [address] * HPV and Gynecologic Cytology Panel - [...] for high risk HPV DNA. METHODOLOGY: The Abril system uses automated extraction, simultaneous amplification of [...] 02/15/2024 10:22 AM CDT Susie Turk APRN [facility] - BLOOD ORDERABLES Final Result [facility] [address] [facility], [address] [address], [facility] MOLECULAR DIAGNOSTICS Molecular Diagnostics 500 [facility], [address] [address], [facility] * Hepatitis C Screen Reflex to HCV RNA Quant and Genotype (12/28/2023 10:11 AM CDT) Hepatitis C Antibody Nonreactive Nonreactive 12/28/2023 8:35 PM CDT [facility] Comment:A nonreactive screen ing test result [...] CDT 12/28/2023 10:12 AM CDT us Susie Turk CROP SETTING OUT MACHINE OPERATOR UTILIZATION REVIEW NURSE LAB - BLOOD ORDERABLES Final Result [facility] [place] [facility] 500 [facility], [address] [place] [address], [facility] * Comprehensive metabolic panel (BMP [...] CDT 12/28/2023 10:12 AM CDT us Susie Turk APRN UTILIZATION REVIEW NURSE LAB - BLOOD ORDERABLES Final Result [facility] [place] [facility] 500 [facility], [address] [address] * HIV Antigen Antibody Combo (02/07/2014) HIV Antigen Antibody Combo Non Reactive Blood specimen (specimen) us Patient Reported LAB - BLOOD ORDERABLES Final Re sult from Last 3 Months or Most Recently Relevant to Health Maintenance Additional Health Concerns Infection Onset Date Last Indicated 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 11/01/2011 11/01/2011 Insurance BLUE PLUS ADVANTAGE [place] BL[place] PL[place] Care Teams Platform Consultant Relationship Specialty Start Date End Date Shaniqua Hernandez APRN UTILIZATION REVIEW NURSE [address] [place] [address] 084902 PCP - General Nurse Practitioner - Family 05/23/24 Linda Cantu Personal Advocate & Liaison (PAL) Family Medicine 05/27/22 Susie Turk APRN UTILIZATION REVIEW NURSE [address] [place] [address] Assigned PCP 01/15/24 Claudine Curtis MD [address] [place] [address] Assigned OBGYN Provider 04/15/24 Susie Turk APRN [facility] [address] [place] [address] Assigned Pain Medication Provider 06/16/24
--- OUTSIDE RECORDS SUMMARY | 2024-08-06 23:14 | XMS_ITS | Encounter Summary ---
Author Organization [place] Address [address] [place] [address] Care Team Providers Care Photoengraver Apprentice Name Role Phone Clinic - [facility] Primary Ca re Provider Jefferson Oliver Unavailable Unavailable Vidhya Witt MD Unavailable Linda Cantu Unavailable Unavailable Wilian Hilliard DO Unavailable [phone] Vidhya Witt MD Unavailable No Ref-Primary, Physician Primary Care Provider Susie Turk APRN THEATRICAL SCENIC DESIGNER Unavailable [phone] Claudine Curtis MD Unavailable [phone] Shaniqua Hernandez APRN THEATRICAL SCENIC DESIGNER Primary Care Prov ider Susie Turk APRN, CNP Unavailable [phone] Reason for Visit * Reason Onset Date Comments MyChart Communication 04/05/2022 Encounter Details Date Type Department Care Team (Latest Contact Info) Description 04/05/2022 MyC Medical Advice M [facility] [address] [place] [address] [place] [address] [place] [address] MyChart Communication Social History Tobacco [...] often do you attend chur ch or scientology services? 1 to 4 times per year 08/14/2020 Do you belong to any clubs o r organizations such as episcopal groups, unions, fraternal or athletic groups, or [...] Answer Date Recorded PHQ-2 Score 2 03/28/2022 [facility]at [facility] [...] a senior living (including now)? No 08/14/2020 Education Answer Date Recorded What is the highest level of school you have completed or the highest degree you have received? Associate degree: occupational, technical, or vocational program 08/14/2020 Comments No Sex and Gender Information Value Date Recorded Sex Assigned at Female 09/03/2021 8:30 AM CDT Legal Sex Female 3:29 AM BACK HANGER Gender Identity Female 09/03/2021 8:30 AM CDT Sexual Orientation Not on file COVID-19 Exposure Response Date Recorded In the last 10 days, have yo u been in contact with someone who was confirmed or suspected to have Coronavirus/COVID-19? No / Unsure 03/09/2022 3:29 AM BACK HANGER documented as of this encounter Plan of Treatment Upcoming Encounters Date Type Department Care Team (Late st Contact Info) Description 08/20/2024 10:00 AM CDT Office Visit [address] [place] [address] Susie Turk, CONE BAKER MACHINE THEATRICAL SCENIC DESIGNER [address] [place] [address] 02/14/2025 11:00 AM CDT Office Visit [address] [phone] Susie Turk APRN THEATRICAL SCENIC DESIGNER [address] [place] [address] 690202 documented as of this encounter Visit Diagnoses Not on filedocumented in this encounter Additional Health Concerns Infection Onset Date Last Indicated Resolved Time 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 11/01/2011 11/01/2011 Rule Out COVID-19 04/09/2024 04/09/2024 04/10/2024 10:57 AM BACK HANGER Assessment Noted Time PHQ-9 Depression Total Score: 16 022 6:47 AM BACK HANGER documented as of this encounter Care Teams Photoengraver Apprentice Relationship Specialty Start Date End Date Clinic - [facility] [address] [place] [address] PCP - General 08/26/20 12/27/23 No Ref-Primary, Physician PCP - General 12/28/23 05/22/24 Shaniqua Hernandez APRN THEATRICAL SCENIC DESIGNER [address] [place] [address] PCP - General Nurse Practitioner - Family 05/23/24 Jefferson Oliver Personal Advocate & Liaison (PAL) 09/14/21 05/26/22 [place] [address] [place] [address] Assigned PCP 12/04/21 03/17/23 Linda Cantu Personal Advocate & Liaison (PAL) Family Medicine 05/27/22 [place] [address] [place] [address] Assigned PCP 03/18/23 07/14/23 [place] [address] [place] [address] Assigned PCP 07/15/23 01/14/24 Susie Turk APRN THEATRICAL SCENIC DESIGNER [address] [place] [address] 795252 Assigned PCP 01/15/24 Claudine Curtis MD [address] [place] [address] Assigned OBGYN Provider 04/15/24 Susie Turk APRN THEATRICAL SCENIC DESIGNER [address] [place] [address] 506322 Assigned Pain Medication Provider 06/16/24 documented as of this encounter
--- OUTSIDE RECORDS SUMMARY | 2024-08-06 23:14 | XMS_ITS | Encounter Summary ---
Author Organization [place] Address [address] [place] [address] Care Team Providers Care Cushion Maker Hand Name Role Phone Linda Cantu Unavailable Unavailable Susie Turk APRN, CNP Unavailable [phone] Claudine Curtis MD Unavailable [phone] Shaniqua Hernandez APRN PUBLIC RELATIONS INTERN Primary Care Prov ider Susie Turk APRN, CNP Unavailable [phone] Reason for Visit * Reason Onset Date Comments Prior Auth - Medication 06/13/2024 semaglut trey-weight management (WEGOVY) 0.25 MG/0.5ML pen Encounter Details Date Type Department Care Team ([facility] st Contact Info) Description 06/13/[address] [address] Susie Turk APRN [address] [address] Prior Auth - Medication (semaglutide-weight management (WEGOVY) 0.25 MG/0.5ML pen ) Social History Tobacco Use Types Packs/Day Years [...] Answer Date Recorded PHQ-2 Score 1 06/13/2024 [facility] of Occupat ional Health [...] CDT Legal Sex Female 3:29 AM MARINE CARGO SURVEYOR Gender Identity Female 09/03/2021 8:30 AM CDT Sexual Orientation Not on file documented as of this encounter Miscellaneous Notes * Telephone Encounter - Sharon Miller Divina - 06/18/2024 3:08 PM CST Images from the original note were not included. Prior Authorization Approval Medication: WEGOVY 0.25 MG/0.5ML SC SOAJ Authorization Effective Date: 04/24/2024 Authorization Expiration Date: 12/15/2024 Approved Dose/Quantity: Reference #: Insurance Company: [employer] - Expected CoPay: $ CoPay Card Available: Financial Assistance Needed: Which Pharmacy is filling the prescription: [facility] [address] Pharmacy Notified: Yes Patient Notified: Instructed pharmacy to notify patient when script is ready to grain picker/ship. NE CARGO SURVEYOR * Telephone Encounter - Sharon Miller - 06/17/2024 1:41 PM CST Images from the original note were not included. Retail Pharmacy Prior Authorization Team PA Initiation Medication: WEGOVY 0.25 MG/0.5ML SC SOAJ Insurance Company: [employer] - Pharmacy Filling the Rx: [facility] [address] Filling Pharmacy Filling Pharmacy Fax: Start Date: 06/17/2024 Note: Due to record-high volumes, our turn-around time is taking longer than usual . We are currently 4 business days behind in the pools. We are working diligently to submit all requests in a timely manner and in the order they are received. Please only flag TRUE URGENT requests as high priority to the pool at this time. If you have questions on status of PA's, please send a note/message in the active PA encounter and send back to the [facility] PA pool [[phone]]. If you have questions about the turn-around time or about our process, please reach out to our sanitation supervisor Soniya Azevedo. Thank you! RPPA (Retail Pharmacy Prior Authorization) team [id number] NE CARGO SURVEYOR NE CARGO SURVEYOR * Telephone Encounter - Shavonne Rizoe - 06/13/2024 2:28 PM CST Images from the original note were not included. Prior Authorization Retail Medication Request Medication/Dose: Pt insurance is requiring a prior authorization for Wegovy Diagnosis and ICD code (if different than what is on RX): [id number] New/renewal/insurance change PA/secondary ins. PA: Previously Tried and Failed: Unknown Rationale: Unknown Insurance Primary: [place] Secondary (if applicable):N/A Insurance ID: N/A Thank You, Yisel R[facility] [phone] Clinic Information Preferred routing pool for dept communication: [facility] NE CARGO SURVEYOR documented in this encounter Plan of Treatment Upcoming Encounters Date Type Department Care Team (Late st Contact Info) Description 08/20/2024 10:00 AM CDT Office Visit [address] [phone] Susie Turk APRN PUBLIC RELATIONS INTERN [address] [place] [address] [id number] 02/14/2025 11:00 AM CDT Office Visit [address] [phone] Susie Turk APRN PUBLIC RELATIONS INTERN [address] [place] [address] documented as of this encounter Visit Diagnoses Not on filedocumented in this encounter Additional Health Concerns Infection Onset Date Last Indicated Resolved Time 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 11/01/2011 11/01/2011 Assessment Noted Time PHQ-9 Depression Total Score: 8 06/12/19 25 9:53 AM MARINE CARGO SURVEYOR documented as of this encounter Care Teams Cushion Maker Hand Relationship Specialty Start Date End Date Shaniqua Hernandez APRN PUBLIC RELATIONS INTERN [address] [place] [address] PCP - General Nurse Practitioner - Family 05/23/24 Linda Cantu Personal Advocate & Liaison (PAL) Family Medicine 05/27/22 Susie Turk APRN PUBLIC RELATIONS INTERN [address] [place] [address] [id number] Assigned PCP 01/15/24 Claudine Curtis MD [address] [place], [place] [address] Assigned OBGYN Provider 04/15/24 Susie Turk APRN PUBLIC RELATIONS INTERN [address] [place] [address] Assigned Pain Medication Provider 06/16/24 documented as of this encounter
--- OUTSIDE RECORDS SUMMARY | 2024-08-06 23:14 | XMS_ITS | Encounter Summary ---
Author Organization [place] Address [address] [place] [address] Care Team Providers Care Ip Network Architect Name Role Phone Gita Small RESIDENT DOCTOR Primary Care Provider [phone] Gita Small RESIDENT DOCTOR Unavailable [phone] Gita Small RESIDENT DOCTOR Unavailable [phone] No Ref-Primary, Physician Primary Care Provider Brisa Singletary MD Unavailable [phone] Kae Blankenship PA-C Unavailable [phone] Crystal Alanis MD Unavailable [phone] Wilian Hilliard DO Unavailable [phone] Lois Hathaway DO Unavailable [phone] Brisa Singletary MD Unavailable [phone] [facility] re Provider Wilian Hilliard DO Unavailable [phone] Jefferson Oliver Unavailable Unavailable Vidhya Witt MD Unavailable Linda Cantu Unavailable Unavailable Wilian Hilliard DO Unavailable [phone] Vidhya Witt MD Unavailable No Ref-Primary, Physician Primary Care Provider Susie Turk APRN, CNP Unavailable [phone] Claudine Curtis MD Unavailable Shaniqua Hernandez APRN IS CONSULTANT Primary Care Prov ider Susie Turk APRN IS CONSULTANT Unavailable Encounter Details Date Type Department Care Team (Late st Contact Info) Description 11/28/2016 MyC Medical Advice [facility] [id number] [place] [address] Gita Small, RESIDENT DOCTOR [facility] & [address] [place] [address] Social History Tobacco Use Types [...] AM CDT Legal Sex Female 3:29 AM GOLF TECHNICIAN Gender Identity Female 09/03/2021 8:30 AM CDT Sexual Orientation Not on file documented as of this encounter Plan of Treatment Upcoming Encounters Date Type Department Care Team (Late st Contact Info) Description 08/20/2024 10:00 AM CDT Office Visit [address] [phone] Susie Turk APRN IS CONSULTANT [address] [place] [address] [id number] 02/14/2025 11:00 AM CDT Office Visit [address] [phone] Susie Turk APRN IS CONSULTANT [address] [place] [address] [id number] documented as of this encounter Visit Diagnoses Not on filedocumented in this encounter Additional Health Concerns Infection Onset Date Last Indicated Resolved Time 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 11/01/2011 11/01/2011 Rule Out COVID-19 06/14/2020 06/14/2020 06/14/2020 11:50 PM GOLF TECHNICIAN Rule Out COVID-19 03/09/2022 03/09/2022 03/09/2022 6:39 AM GOLF TECHNICIAN Rule Out COVID-19 04/09/2024 04/09/2024 04/10/2024 10:57 AM GOLF TECHNICIAN documented as of this encounter Care Teams Ip Network Architect Relationship Specialty Start Date End Date Gita Small NP PCP - General Nurse Practitioner - Family 11/14/16 02/21/18 Gita Small RESIDENT DOCTOR [address] [place] [address] PCP - Assigned PCP 11/20/16 06/26/18 No Ref-Primary, Physician PCP - General 10/25/19 08/25/20 [facility] [id number] [place] [address] PCP - General 08/26/20 12/27/23 No Ref-Primary, Physician PCP - General 12/28/23 05/22/24 Shaniqua Hernandez APRN CNP [address] [place] [address] PCP - General Nurse Practitioner - Family 05/23/24 Gita Small RESIDENT DOCTOR [place] [address] [place] [address] Assigned PCP 11/20/16 12/21/19 [place] [address] [place] [address] Assigned PCP 12/22/19 04/25/20 Kae Blankenship PA-C [address] [facility] [address] [place] [address] Assigned PCP 04/26/20 06/06/20 Crystal Alanis MD [facility] [address] [facility] [address] [place] [address] Assigned Surgical Provider 06/07/20 12/03/21 [place] [address] [place] [address] Assigned PCP 06/07/20 08/15/20 Lois Hathaway DO [address] [facility] [address] [place] [address] Assigned OBGYN Provider 07/19/20 01/18/22 [place] [address] [place] [address] Assigned PCP 08/16/20 03/27/21 [place] [address] [place] [address] Assigned PCP 03/28/21 12/03/21 Jefferson Oliver Personal Advocate & Liaison (PAL) 09/14/21 05/26/22 [place] [address] [place] [address] Assigned PCP 12/04/21 03/17/23 Linda Cantu Personal Advocate & Liaison (PAL) Family Medicine 05/27/22 [place] [address] [place] [address] Assigned PCP 03/18/23 07/14/23 [place] [address] [place] [address] Assigned PCP 07/15/23 01/14/24 Susie Turk APRN IS CONSULTANT [address] [place] [address] [id number] Assigned PCP 01/15/24 Claudine Curtis MD [address] [place] [address] Assigned OBGYN Provider 04/15/24 Susie Turk APRN IS CONSULTANT [address] [place] [address] Assigned Pain Medication Provider 06/16/24 documented as of this encounter
--- OUTSIDE RECORDS SUMMARY | 2024-08-06 23:14 | XMS_ITS | Encounter Summary ---
Author Organization [place] Address [address] [place] [address] Care Team Providers Care Mangle Catcher Name Role Phone Crystal Alanis MD Unavailable [phone] Lois Hathwaay DO Unavailable [phone] Brisa Singletary MD Unavailable [phone] [facility] Primary Ca re Provider Wilian Hilliard DO Unavailable [phone] Jefferson Oliver Unavailable Unavailable Vidhya Witt MD Unavailable Linda Cantu Unavailable Unavailable Wilian Hilliard DO Unavailable [phone] Vidhya Witt MD Unavailable No Ref-Primary, Physician Primary Care Provider Susie Turk APRN, CNP Unavailable [phone] Claudine Curtis MD Unavailable [phone] Shaniqua Hernandez APRN, CNP Primary Care Prov ider Susie Turk APRN, CNP Unavailable [phone] Encounter Details Date Type Department Care Team (Late st Contact Info) Description 09/14/2020 MyC Medical Advice [facility] [address] [place] [address] Magalys Manriquez PA-C [address] [facility] [address] [place] [address] Social History Tobacco Use Types Packs/Day Years [...] Answer Date Recorded PHQ-2 Score 0 06/01/2020 [facility] of Occupat ional Health - Occupational Stress [...] AM CDT Legal Sex Female 3:29 AM INTERNATIONAL ACCOUNT MANAGER Gender Identity Female 09/03/2021 8:30 AM [...] Description 08/20/2024 10:00 AM CDT Office Visit [address] [phone] Susie Turk APRN MEDIA LAW FACULTY MEMBER [address] [place] [address] 930902 02/14/2025 11:00 AM CDT Office Visit [address] [phone] Susie Turk APRN MEDIA LAW FACULTY MEMBER [address] [place] [address] 141572 documented as of this encounter Visit Diagnoses Not on filedocumented in this encounter Additional Health Concerns Infection Onset Date Last Indicated Resolved Time 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 11/01/2011 11/01/2011 Rule Out COVID-19 03/09/2022 03/09/2022 03/09/2022 6:39 AM INTERNATIONAL ACCOUNT MANAGER Rule Out COVID-19 04/09/2024 04/09/2024 04/10/2024 10:57 AM INTERNATIONAL ACCOUNT MANAGER documented as of this encounter Care Teams Mangle Catcher Relationship Specialty Start Date End Date Clinic - [facility] [address] [place] [address] PCP - General 08/26/20 12/27/23 No Ref-Primary, Physician PCP - General 12/28/23 05/22/24 Shaniqua Hernandez APRN MEDIA LAW FACULTY MEMBER [address] [place] [address] PCP - General Nurse Practitioner - Family 05/23/24 Crystal Alanis MD SURGICAL [facility]SULTS, [address] [place] [address] Assigned Surgical Provider 06/07/20 12/03/21 Lois Hathaway DO [address] [facility] [address] [place] [address] Assigned OBGYN Provider 07/19/20 01/18/22 [place] [address] [place] [address] Assigned PCP 08/16/20 03/27/21 [place] [address] [place] [address] Assigned PCP 03/28/21 12/03/21 Jefferson Oliver Personal Advocate & Liaison (PAL) 09/14/21 05/26/22 [place] [address] [place] [address] Assigned PCP 12/04/21 03/17/23 Linda Cantu Personal Advocate & Liaison (PAL) Family Medicine 05/27/22 [place] [address] [place] [address] Assigned PCP 03/18/23 07/14/23 [place] [address] [place] [address] Assigned PCP 07/15/23 01/14/24 Susie Turk APRN MEDIA LAW FACULTY MEMBER [address] [place] [address] Assigned PCP 01/15/24 Claudine Curtis MD [address] [place] [address] Assigned OBGYN Provider 04/15/24 Susie Turk APRN [facility] [address] [place] [address] Assigned Pain Medication Provider 06/16/24 documented as of this encounter
--- OUTSIDE RECORDS SUMMARY | 2024-08-06 23:14 | XMS_ITS | Encounter Summary ---
Author Organization [facility] Address [address] [place] [address] Care Team Providers Care Marine Superintendent Name Role Phone Gita Small AUTOMATION DESIGN ENGINEER Primary Care Provider [phone] Gita Small AUTOMATION DESIGN ENGINEER Unavailable [phone] Gita Small AUTOMATION DESIGN ENGINEER Unavailable [phone] No Ref-Primary, Physician Primary Care Provider Brisa Singletary MD Unavailable [phone] Kae Blankenship PA-C Unavailable [phone] Crystal Alanis MD Unavailable [phone] Wilian Hilliard DO Unavailable [phone] Lois Hathaway DO Unavailable [phone] Brisa Singletary MD Unavailable [phone] [facility] re Provider Wilian Hilliard DO Unavailable [phone] Jefferson Oliver Unavailable Unavailable Vidhya Witt MD Unavailable Linda Cantu Unavailable Unavailable Wilian Hilliard DO Unavailable [phone] Vidhya Witt MD Unavailable No Ref-Primary, Physician Primary Care Provider Susie Turk APRN, CNP Unavailable [phone] Claudine Curtis MD Unavailable Shaniqua Hernandez APRN SOCIAL SERVICES COORDINATOR Primary Care Prov ider Susie Turk APRN SOCIAL SERVICES COORDINATOR Unavailable [phone] Encounter Details Date Type Department Care Team (Late st Contact Info) Description 11/15/2016 MyC Medical Advice [facility] [id number] [place] [phone] Gita Small, AUTOMATION DESIGN ENGINEER [facility] & [address] [place] [address] Social History Tobacco Use Types [...] AM CDT Legal Sex Female 3:29 AM BELLSTAFF Gender Identity Female 09/03/2021 8:30 AM CDT Sexual Orientation Not on file documented as of this encounter Plan of Treatment Upcoming Encounters Date Type Department Care Team (Late st Contact Info) Description 08/20/2024 10:00 AM CDT Office Visit [address] [phone] Susie Turk APRN SOCIAL SERVICES COORDINATOR [address] [place] [address] [id number] 02/14/2025 11:00 AM CDT Office Visit [address] [phone] Susie Turk APRN SOCIAL SERVICES COORDINATOR [address] [place] [address] 034492 documented as of this encounter Visit Diagnoses Not on filedocumented in this encounter Additional Health Concerns Infection Onset Date Last Indicated Resolved Time 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 11/01/2011 11/01/2011 Rule Out COVID-19 06/14/2020 06/14/2020 06/14/2020 11:50 PM BELLSTAFF Rule Out COVID-19 03/09/2022 03/09/2022 03/09/2022 6:39 AM BELLSTAFF Rule Out COVID-19 04/09/2024 04/09/2024 04/10/2024 10:57 AM BELLSTAFF documented as of this encounter Care Teams Marine Superintendent Relationship Specialty Start Date End Date Gita Small NP PCP - General Nurse Practitioner - Family 11/14/16 02/21/18 Gita Small AUTOMATION DESIGN ENGINEER [address] [place] [address] PCP - Assigned PCP 11/20/16 06/26/18 No Ref-Primary, Physician PCP - General 10/25/19 08/25/20 [facility] [id number] [place] [address] PCP - General 08/26/20 12/27/23 No Ref-Primary, Physician PCP - General 12/28/23 05/22/24 Shaniqua Hernandez APRN CNP [address] [place] [address] PCP - General Nurse Practitioner - Family 05/23/24 Gita Small AUTOMATION DESIGN ENGINEER [place] [address] [place] [address] Assigned PCP 11/20/16 12/21/19 [place] [address] [place] [address] Assigned PCP 12/22/19 04/25/20 Kae Blankenship PA-C [address] [facility] [address] [place] [address] Assigned PCP 04/26/20 06/06/20 Crystal Alanis MD [facility] [address] [facility] [address] [place] [address] Assigned Surgical Provider 06/07/20 12/03/21 [place] [address] [place] [address] Assigned PCP 06/07/20 08/15/20 Lois Hathaway DO [address] [facility] [address] [place] [address] Assigned OBGYN Provider 07/19/20 01/18/22 [place] [address] [place] [address] Assigned PCP 08/16/20 03/27/21 [place] [address] [place] [address] Assigned PCP 03/28/21 12/03/21 Jefferson Oliver Personal Advocate & Liaison (PAL) 09/14/21 05/26/22 [place] [address] [place] [address] Assigned PCP 12/04/21 03/17/23 Linda Cantu Personal Advocate & Liaison (PAL) Family Medicine 05/27/22 [place] [address] [place] [address] Assigned PCP 03/18/23 07/14/23 [place] [address] [place] [address] Assigned PCP 07/15/23 01/14/24 Susie Turk APRN SOCIAL SERVICES COORDINATOR [address] [place] [address] [id number] Assigned PCP 01/15/24 Claudine Curtis MD [address] [place] [address] Assigned OBGYN Provider 04/15/24 Susie Turk APRN SOCIAL SERVICES COORDINATOR [address] [place] [address] Assigned Pain Medication Provider 06/16/24 documented as of this encounter
--- OUTSIDE RECORDS SUMMARY | 2024-08-06 23:14 | XMS_ITS | Clinical Summary ---
Author Organization [facility] Address [address], [place] [address] Care Team Providers Care Velvet Weaver Name Role Phone Pcp, Pt Sumi GRACIA Primary Care Provider Source Comments You are receiving this document as you are listed as the primary care provider,follow-up provider, or the patient has been referred to you for consultation.This is in compliance with the Medicare and[facility] EHR Incentive Program,which states Providers who transition their patient to another setting of careor provider of care or refers their patient to another provider of care shouldprovide summary care record for each transition of care or referral. [facility] Allergies No known active allergies Medications Gewumfqu-Xro-Fj -FA (/IRON OR) Take by mouth daily (every 24 hours). Indications: 4 Active sertraline (AKA ZOLOFT) 100 MG tabletIndicatio ns:JHON ELLISON Nov 11, 2014 10:39 AM Received from: External Pharmacy Received Si mg daily (every 24 hours). 0 5 Active predniSONE (DELTASONE) 20 MG tablet Take 1-2 Tablets (20-40 mg) by mouth daily. Take 2 tab for 5 days, then 1 tab for 5 days 15 Tablet 2 Active Additional Information Patient not taking.Reported on 04/19/2022 guaiFENesin-cod eine (ROBITUSSINAC) 100-10 MG/5ML solution Take 10 mL by mouth every 4 hours as needed. 118 mL 2 Active Additional Information Patient not taking.Reported on 04/19/2022 VENTOLIN HFA 108 (90 Base) MCG/ACT inhaler Inhale 2 Puffs every 6 hours as needed. 2 Active traZODone (DESYREL) 50 MG tablet SMARTSI Tablet(s) By Mouth Every Evening PRN 2 Active magic mouthwash (lido/maalox/di phen 1:1:1)Indicatio ns:Sore throat Swish and spit in mouth two times a day. Swish and spit 5 mL. 240 mL 2 Active Active Problems No known active problems Resolved Problems Problem Noted Date Diagnosed Date Resolved Date Encounter for supervision of other normal 05/12/2014 10/22/2014 Overview (12/14/2016): Supervision of other normal Obesity 03/11/2014 10/22/2014 Elevated hemoglobin A1c 03/11/2014 0704/2014 Immunizations Immunization Administration Dates Next Due Influenza IIV4 (Quadrivalent) 0.5mL (34737) 02/22 TDAP (BOOSTRIX) 06/17/2014 Family History Medical [...] drink = 0.6 oz pur e alcohol) Comments No Sex and Gender Information Value Date Recorded Sex Assigned at Not on file Legal Sex Female 7:10 AM CDT Gender Identity Not on file Sexual Orientation Not on file 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 on file Not on file Not on file Last Filed Vital Signs Vital Sign Reading Time Taken Comments Blood Pressure 151/125 04/19/2022 12:24 PM HEALTH FACILITIES SURVEYOR Pulse 91 04/19/2022 12:24 PM HEALTH FACILITIES SURVEYOR Temperature 36.6 C (97.8 F) 04/19/2022 12:24 PM HEALTH FACILITIES SURVEYOR Respiratory Rate 18 04/19/2022 12:2 4 PM HEALTH FACILITIES SURVEYOR Oxygen Saturation 98% 04/19/2022 12: 24 PM HEALTH FACILITIES SURVEYOR Inhaled Oxygen Concentration - - Weight 102.9 kg (226 lb 12.8 oz) 10/31/2018 1:28 PM CDT Height 162.6 cm (5' 4) 11/11/2014 10:4 0 AM CDT Body Mass Index 38.93 11/11/2014 10:40 AM CDT Plan of Treatment Health Maintenance Due Date Last Done Comments Hep C Screening (Preventive Services) 1985 Adult Preventive Visit 08/10/2003 HepB (1) 2004 Pneumococcal (1 of 2 - PCV) 2004 Cervical Cancer Screening Due 02/08/2014 02/07/2014 COVID-19 Vaccine ( - season) 2023 Influenza (#1) 2023 06/01/2020, [...] on patient's age to complete this topic Meningococcal B Aged Out No longer el igible based on patient's age to complete this [...] Pt will be informed at next visit us Edyta Grimes APRN, SEAM PRESS OPERATOR LAB_1 Fi nal Result Performing Organization Address [facility] Co de Phone Number HP CONVERSION * Pap Smear (02/07/2014 11:01 AM CDT) 02/07/2014 11:0 1 AM CDT Narrative HP CONVERSION - 02/25/2014 9:58 AM HEALTH FACILITIES SURVEYOR FINAL GYNECOLOGICAL CYTOLOGY REPORT Pathology #: [id number] Date Obtained: 02/07/2014 Date Received: 02/10/2014 INTERPRETATION/RESULTS: [...] at 4:51 PMPlease send normal pap letter. us Edyta Grimes APRN, CNP LAB_1 Fi nal Result Performing Organization Address City/[facility]/ZIP Co de Phone Number HP CONVERSION from Last 3 Months or Most Recently Relevant to Health Maintenance Care Teams Velvet Weaver Relationship Specialty Start Date End Date Pcp, Pt Sumi, [place] [address] PCP - General 03/11/14
--- OUTSIDE RECORDS SUMMARY | 2024-08-06 23:14 | XMS_ITS | Encounter Summary ---
Author Organization [facility] Address [address] [place] [address] Care Team Providers Care Registered Nurse Maternity Name Role Phone Linda Cantu Unavailable Unavailable Susie Turk APRN SKI PATROL Unavailable [phone] Claudine Curtis MD Unavailable Shaniqua Hernandez APRN SKI PATROL Primary Care Prov ider Susie Turk APRN SKI PATROL Unavailable [phone] Reason for Visit * Reason Onset Date Comments Refill Request 07/10/2024 indra Encounter Details Date Type Department Care Team (Late st Contact Info) Description 07/10/[address] [phone] Shaniqua Hernandez APRN [address] [address] Refill Request (wegovy) Social History Tobacco Use Types Packs/Day Years [...] Answer Date Recorded PHQ-2 Score 1 06/13/2024 [facility] - Occupational [...] place to sleep or slept in a detention (including now)? No 08/14/2020 Adolescent Education Answer [...] AM CDT Legal Sex Female 3:29 AM UNION CARPENTER Gender Identity Female 09/03/2021 8:30 AM CDT Sexual Orientation Not on file documented as of this encounter Miscellaneous Notes * Telephone Encounter - Corine Mclaughlin RN - 07/10/2024 9:49 AM CDT S-(situation): patient requesting refill for Wegovy B-(background): Last refill 06/13/24 A-(assessment): patient reports she is supposed to have 4th injection tomorrow but has ran out of medication due to mistake on 1st injection. Patient reports losing close to 10 lbs and denies any side effects. Per VV Patient education completed regarding GLP-1 agonist indication and possible adverse effects. Plan initiation of Wegovy 0.25 mg once weekly for 28 days then increase to 0.5 mg. Continue with dietary and exercise modifications to support weight loss. - semaglutide-weight management (WEGOVY) 0.25 MG/0.5ML pen; Inject 0.5 mLs (0.25 mg) subcutaneouslyonce a week. - Semaglutide-Weight Management (WEGOVY) 0.5 MG/0.5ML pen; Inject 0.5 mg subcutaneously once a week. R-(recommendations): Called patient back to report should already have next titration at pharmacy. Recommended patient call pharmacy, patient verbalizes understanding. Corine RN 9:54 AM July 10, 2024 [facility] documented in this encounter Plan of Treatment Upcoming Encounters Date Type Department Care Team (Late st Contact Info) Description 08/20/2024 10:00 AM CDT Office Visit [address] [phone] Susie Turk APRN SKI PATROL [address] [place] [address] 02/14/2025 11:00 AM CDT Office Visit [address] [phone] Susie Turk APRN [address] [address] documented as of this encounter Visit Diagnoses Not on filedocumented in this encounter Additional Health Concerns Infection Onset Date Last Indicated Resolved Time 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 11/01/2011 11/01/2011 Assessment Noted Time PHQ-9 Depression Total Score: 8 06/12/19 25 9:53 AM UNION CARPENTER documented as of this encounter Care Teams Registered Nurse Maternity Relationship Specialty Start Date End Date Shaniqua Hernandez APRN SKI PATROL [address] [place] [address]022 PCP - General Nurse Practitioner - Family 05/23/24 Linda Cantu Personal Advocate & Liaison (PAL) Family Medicine 05/27/22 Susie Turk APRN SKI PATROL [address] [place] [address] [id number] Assigned PCP 01/15/24 Claudine Curtis MD [address] [place] [address] Assigned OBGYN Provider 04/15/24 Susie Turk APRN SKI PATROL [address] [place] [address] Assigned Pain Medication Provider 06/16/24 documented as of this encounter
--- OUTSIDE RECORDS SUMMARY | 2024-08-06 23:14 | XMS_ITS | Encounter Summary ---
Author Organization [facility] Address [address] [place] [address] Care Team Providers Care Ship Washer Name Role Phone Linda Cantu Unavailable Unavailable No Ref-Primary, Physician Primary Care Provider Susie Turk APRN ICE CREAM DIPPER Unavailable [phone] Claudine Curtis MD Unavailable [phone] Shaniqua Hernandez APRN ICE CREAM DIPPER Primary Care Prov ider MeiSusie beckham APRN ICE CREAM DIPPER Unavailable [phone] Encounter Details Date Type Department Care Team (Late st Contact Info) Description 03/25/[address] [facility] [address] [place] [address] Claudine Curtis MD [address] [place] [address] Social History Tobacco Use Types Packs/Day Years [...] often do you attend chur ch or yazidi services? 1 to 4 times per year [...] Answer Date Recorded PHQ-2 Score 3 02/15/2024 [facility] - [...] AM CDT Legal Sex Female 3:29 AM COLOR CONTROL OPERATOR Gender Identity Female 09/03/2021 8:30 AM CDT Sexual Orientation Not on file documented as of this encounter Plan of Treatment Upcoming Encounters Date Type Department Care Team (Late st Contact Info) Description 08/20/2024 10:00 AM CDT Office Visit [address] [place] [phone] Susie Turk, FRANDY [address] [address] 02/14/2025 11:00 AM CDT Office Visit [address] [phone] Susie Turk APRN ICE CREAM DIPPER [address] [place] [address] 028722 documented as of this encounter Visit Diagnoses Not on filedocumented in this encounter Additional Health Concerns Infection Onset Date Last Indicated Resolved Time 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 11/01/2011 11/01/2011 Rule Out COVID-19 04/09/2024 04/09/2024 04/10/2024 10:57 AM COLOR CONTROL OPERATOR Assessment Noted Time PHQ-9 Depression Total Score: 9 02/15/20 24 7:18 AM CDT documented as of this encounter Care Teams Ship Washer Relationship Specialty Start Date End Date No Ref-Primary, Physician PCP - General 12/28/23 05/22/24 Shaniqua Hernandez APRN ICE CREAM DIPPER [address] [place] [address] [id number] PCP - General Nurse Practitioner - Family 05/23/24 Linda Cantu Personal Advocate & Liaison (PAL) Family Medicine 05/27/22 Susie Turk APRN ICE CREAM DIPPER [address] [place] [address] 900782 Assigned PCP 01/15/24 Claudine Curtis MD [address] [place] [address] Assigned OBGYN Provider 04/15/24 Susie Turk APRN ICE CREAM DIPPER [address] [place] [address] 716272 Assigned Pain Medication Provider 06/16/24 documented as of this encounter
--- OUTSIDE RECORDS SUMMARY | 2024-08-06 23:14 | XMS_ITS | Clinical Summary ---
Author Organization [facility] Address [address] [place] [address] Care Team Providers Care Electronic Test Technician Name Role Phone Michelle Turner MD Primary [...] Diagnosed Date Anxiety 01/20/2016 Smoker 09/07/2015 Immunizations Immunization Administration Dates Next Due Influenza, IIV4 01/20/2016 [...] age 21-65 10/24/2017 5 (Completed outside of [facility]) COVID-19 vaccine series ( - 2023- season) 2023 Tetanus booster 06/17/2024 06/17/2014 Influenza Vaccine (Season Ended) 2024 01/20/2016 Tdap Completed 06/17/2014 Pneumococcal series for age 6-49 Aged Out No longer eligible based on patient's age to complete this topic Care Teams Electronic Test Technician Relationship Specialty Start Date End Date Michelle Turner MD PCP - General Family Practice 10/13/14
--- OUTSIDE RECORDS SUMMARY | 2024-08-06 23:15 | XMS_ITS | Encounter Summary ---
Author Organization [facility] Address [address] [place] [address] Care Team Providers Care Grocery Cashier Name Role Phone No Ref-Primary, Physician Primary Care Provider Brisa Singletary MD Unavailable [phone] Kae Blankenship PA-C Unavailable [phone] Crystal Alanis MD Unavailable [phone] Wilian Hilliard DO Unavailable [phone] Lois Hathaway DO Unavailable [phone] Brisa Singletary MD Unavailable [phone] [facility] Primary Ca re Provider Wilian Hilliard DO Unavailable [phone] Jefferson Oliver Unavailable Unavailable Vidhya Witt MD Unavailable Linda Cantu Unavailable Unavailable Wilian Hilliard DO Unavailable [phone] Vidhya Witt MD Unavailable No Ref-Primary, Physician Primary Care Provider Susie Turk APRN MANAGER INTEGRITY Unavailable [phone] Claudine Curtis MD Unavailable [phone] Shaniqua Hernandez APRN MANAGER INTEGRITY Primary Care Prov ider Susie Turk APRN MANAGER INTEGRITY Unavailable Encounter Details Date Type Department Care Team (Late st Contact Info) Description 04/24/2020 Refill [facility] [address] [place] [phone] [place] [address] [place] [address] Social History Tobacco Use Types Packs/Day Years [...] AM CDT Legal Sex Female 3:29 AM PROMOTIONS EXECUTIVE PRODUCER Gender Identity Female 09/03/2021 8:30 AM CDT Sexual Orientation Not on file COVID-19 Exposure Response Date Recorded In the last month, have you been in contact with someone who was confirmed or suspected to have Coronavirus / COVID-19? No / Unsure 04/22/2020 2:11 PM PROMOTIONS EXECUTIVE PRODUCER documented as of this encounter Plan of Treatment Upcoming Encounters Date Type Department Care Team (Late st Contact Info) Description 08/20/2024 10:00 AM CDT Office Visit [address] [phone] Susie Turk APRN MANAGER INTEGRITY [address] [place] [address] [id number] 02/14/2025 11:00 AM CDT Office Visit [address] [phone] Susie Turk, FRANDY MANAGER INTEGRITY [address] [place] [address] documented as of this encounter Visit Diagnoses Not on filedocumented in this encounter Additional Health Concerns Infection Onset Date Last Indicated Resolved Time MRSA-Contact Isolation Comment:Skin - 6--201111/01/2011 11/01/2011 Rule Out COVID-19 06/14/2020 06/14/2020 06/14/2020 11:50 PM PROMOTIONS EXECUTIVE PRODUCER Rule Out COVID-19 03/09/2022 03/09/2022 03/09/2022 6:39 AM PROMOTIONS EXECUTIVE PRODUCER Rule Out COVID-19 04/09/2024 04/09/2024 04/10/2024 10:57 AM PROMOTIONS EXECUTIVE PRODUCER documented as of this encounter Care Teams Grocery Cashier Relationship Specialty Start Date End Date No Ref-Primary, Physician PCP - General 10/25/19 08/25/20 [facility] [id number] [place] [address] PCP - General 08/26/20 12/27/23 No Ref-Primary, Physician PCP - General 12/28/23 05/22/24 Shaniqua Hernandez APRN MANAGER INTEGRITY [address] [place] [address] PCP - General Nurse Practitioner - Family 05/23/24 [place] [address] [place] [address] Assigned PCP 12/22/19 04/25/20 Kae Blankenship PA-C [address] [address] Assigned PCP 04/26/20 06/06/20 Crystal Alanis MD [facility] [address] [facility] [address] [place] [address] Assigned Surgical Provider 06/07/20 12/03/21 [place] [address] [place] [address] Assigned PCP 06/07/20 08/15/20 Lois Hathaway DO [address] [facility] [address] [place] [address] Assigned OBGYN Provider 07/19/20 01/18/22 [place] [address] [place] [address] Assigned PCP 08/16/20 03/27/21 [place] [address] [place] [address] Assigned PCP 03/28/21 12/03/21 Jefferson Oliver Personal Advocate & Liaison (PAL) 09/14/21 05/26/22 [place] [address] [place] [address] Assigned PCP 12/04/21 03/17/23 Linda Cantu Personal Advocate & Liaison (PAL) Family Medicine 05/27/22 [place] [address] [place] [address] Assigned PCP 03/18/23 07/14/23 [place] [address] [place] [address] Assigned PCP 07/15/23 01/14/24 Susie Turk APRN MANAGER INTEGRITY [address] [place] [address] 820152 Assigned PCP 01/15/24 Claudine Curtis MD [address] [place] [address] Assigned OBGYN Provider 04/15/24 Susie Turk APRN MANAGER INTEGRITY [address] [place] [address] 693002 Assigned Pain Medication Provider 06/16/24 documented as of this encounter
[2024-08-06 23:19] VITALS: BP 163/107; PULSE 93; RESP 20; TEMP 36.4; O2SAT 96; BMI 43.9
--- NOTE | 2024-08-06 23:31 | ED.GENADULT ---
HPI - General Adult General Time Seen by Provider: 23:31 Date Seen: 08/06/24 Chief complaint: Cough Stated complaint: Shortness of breath, rash Time Seen by Provider: 08/06/24 23:30 Source: patient, RN notes reviewed and old records reviewed Mode of arrival: ambulatory Limitations: no limitations History of Present Illness HPI narrative: 30-year-old female who presents today with a cough and shortness of breath for 4 days. No runny nose, no vomiting or diarrhea, no fevers or chills. No chest pain. Denies possibility of . Related Data Home Medications ?Medication ?Instructions ?Recorded ?Confirmed albuterol sulfate 90 mcg/actuation inhalation 05/23/24 aerosol inhaler (Ventolin HFA) semaglutide (weight loss) 0.25 mg subcut 08/06/24 mg/0.5 mL subcutaneous pen injector (Wegovy) semaglutide (weight loss) 0.5 mg subcut 08/06/24 mg/0.5 mL subcutaneous pen injector (Wegovy) Allergies Allergy/AdvReac Type Severity Reaction Status Date / Time No Known Drug Allergies Allergy Verified 05/23/24 18:27 [facility] Medical History No significant past medical history Surgical History No significant past surgical history Social History Smoking Status: Current every day smoker What tobacco products do you use: cigarettes Second hand tobacco smoke exposure: Yes How often do you have a drink containing alcohol: never AUDIT-C Alcohol total score: 0 Non-prescribed substance use: denies use Exam Narrative: Exam Narrative: General: Well-developed and well-nourished, no acute distress Head: Atraumatic and normocephalic Eyes: Pupils are equal reactive, extraocular motions intact, conjunctiva clear ENT: External nose and ears are normal, posterior pharynx without erythema or exudate Neck: No midline cervical tenderness, full spontaneous range of motion the neck, trachea midline, no adenopathy Heart: Regular rate and rhythm no murmurs or thrills Lungs: Inspiratory and expiratory wheezes bilaterally Abdomen: Soft, nontender, nondistended with active bowel sounds Musculoskeletal: No tenderness, deformity, or edema Neurologic: Awake, alert, and oriented x3, no gross focal neurologic deficits, cranial nerves intact as tested Psych: Mood and affect are appropriate Skin: No rashes Const: Vital Signs, click to edit/add: Vital Signs - 24 hr 08/06/24 23:19 08/06/24 23:49 08/06/24 23:50 Temperature 97.6 F Pulse Rate 69 65 Pulse Rate [Pulse Oximeter] 93 Respiratory Rate 20 Blood Pressure 143/98 H Blood Pressure [Ri ght Upper Arm] 163/107 H Pulse Oximetry 96 98 99 Oxygen Delivery Me thod Room Air Room Air Course Course ED Course: Reviewed prior primary care visit from March 2024 when patient was seen with wheezing upper respiratory infection negative chest x-ray, patient was started on Tessalon, prednisone, and albuterol inhaler. She says she lost her inhaler since then. Patient seen and examined, presents today with shortness of breath for couple days along with cough. On exam here, patient's widely stable, inspiratory and expiratory wheezes throughout all lungs [place] with no crackles. Symptoms are most consistent with bronchitis. Patient will be started on nebulizer treatment here, offered to start steroid as well but she says at keeps her up at night and so she will start this tomorrow. No indication for antibiotics at this time. Consider chest x-ray or venous blood gas but no respiratory distress, no crackles on lung exam, symptoms are most consistent with acute bronchitis and exam confirms this. Reevaluation(s) Time of Reevaluation #1: 23:59 Reevaluation #1: Patient rechecked, feels better. On re-examination still some expiratory wheezes. Repeat nebulizer treatment will be performed and patient is stable for discharge. We did discuss smoking cessation. Vital Signs Vital signs: Initial Vital Signs Temperature 97.6 F 08/06/24 23:19 Temperature Source Temporal Artery Scan 08/06/24 23:19 Pulse Rate 93 08/06/24 23:19 Respiratory Rate 20 08/06/24 23:19 Blood Pressure 163/107 H 08/06/24 23:19 Blood Pressure Mean 125 H 08/06/24 23:19 Pulse Oximetry 96 08/06/24 23:19 Oxygen Delivery Method Room Air 08/06/24 23:19 Vital Signs Temperature 97.6 F 08/06/24 23:19 Pulse Rate 93 08/06/24 23:19 Respiratory Rate 20 08/06/24 23:19 Blood Pressure 163/107 H 08/06/24 23:19 Pulse Oximetry 96 08/06/24 23:19 Oxygen Delivery Method Room Air 08/06/24 23:19 Temperature 97.6 F 08/06/24 23:19 Pulse Rate 65 08/06/24 23:50 Respiratory Rate 20 08/06/24 23:19 Blood Pressure 143/98 H 08/06/24 23:50 Pulse Oximetry 99 08/06/24 23:50 Oxygen Delivery Method Room Air 08/06/24 23:50 Medications Administered Medications: Discontinued Medications Generic Name Dose Route Start Last Admin Trade Name Iman PRN Reason Stop Dose Admin Albuterol/Ipratropium 1 neb 08/06/24 23:37 08/06/24 23:45 Iprat-Albut 0.5-2.5 Mg/3 Ml Neb IH 08/06/24 23:38 1 neb ONCE ONE Administration Discharge Plan Discharge Clinical Impression: Acute bronchitis Patient Disposition: Home, Self-Care Condition: Stable Instructions: Acute Bronchitis (ED) Additional Instructions: Start prednisone in the morning Use your albuterol inhaler 2 puffs every 2 hours while awake for 24 hours, then 2 puffs every 3 hours while awake for 24 hours, then 2 puffs every 4 hours while awake as needed Follow-up with your primary care doctor in 1 week if needed Activity Level: Activity as Tolerated Discharge Diet: Regular Prescriptions: No Action albuterol sulfate [Ventolin HFA] 90 mcg/actuation HFA aerosol inhaler INHALATION Patient Comments: [NO ORIGINAL SIG] Wegovy 0.25 mg/0.5 mL pen injector SUBCUT Patient Comments: [NO ORIGINAL SIG] Wegovy 0.5 mg/0.5 mL pen injector SUBCUT Patient Comments: [NO ORIGINAL SIG] Follow Up/Referrals: Provider,Not a Local [Primary Care Provider] - Stand Alone Forms: [employer] Info Instructions
[2024-08-06] MEDS: IPRAT-ALBUT 0.5-2.5 MG/3 ML NEB 1 NEB IH (23:45)
[2024-08-06 23:49] VITALS: PULSE 69; O2SAT 98
[2024-08-06 23:50] VITALS: BP 143/98; PULSE 65; O2SAT 99
[2024-08-07] MEDS: ALBUTEROL SULFATE 2.5 MG/3 ML VIAL.NEB NEB (00:03)
[2024-08-07 00:07] LABS: PCR FLU A Negative PCR FLU A (Negative); PCR FLU B Negative PCR FLU B (Negative); PCR RSV Negative PCR RSV (Negative); SARS PCR* Negative SARS-CoV-2 (Negative)
--- NOTE | 2024-08-08 11:48 | ED.NURSE ---
took a call from [facility] pharmacy wanting to verify the pt. printed paper prescription for an albuterol inhaler because they stated that it was not signed by the provider. After looking in the cart and talking with the pharmacist further pt carried in a printed paper scrip from [facility]. I explained to pharmacist that they are electronically signed unless it is a narcotic.
== END 2024-08-07 00:15 | disposition home or self-care (01) ==
LOC: ED 23:59
PROVIDERS: Emergency Provider Family Medicine
DX: J20.9 Acute bronchitis, unspecified (principal)
CPT/HCPCS: 87631; 94640; 99283; 99284

== ENCOUNTER 2024-09-28 13:46 | Emergency (ER) | payer BC, SELFPAY ==
--- OUTSIDE RECORDS SUMMARY | 2024-08-15 01:18 | XMS_ITS | Encounter Summary ---
Author Organization [facility] Address [address] [place] [address] Care Team Providers Care Cycle Director Name Role Phone Elsewhere, Pcp Primary Care Provider Unavailabl e Reason for Visit * Reason Comments Breathing Problem Patient presents to ED with reports of difficulty breathing when laying down. Patient was seen a week ago for bronchitis and was prescribed inhaler but reports only having 2 puffs left. Patient is concerned about strong cough that she has. Patient currently denies Shortness of breath or pain. Encounter Details Date Type Department Care Team ([facility] st Contact Info) Description 08/15/2024 1:18 AM CDT - 08/15/2024 2:51 AM CDT Emergency [facility] [address] [place] [id number] Thanh Spangler D.OJazmine [address] [place] [id number] Infection Upper Respiratory (Primary Dx) Discharge Disposition: Home or Self Care Social History Tobacco Use Types Packs/Day Years Used Date Smoking Tobacco: Never Tobacco Cessation:Counseling Given: Not Answered Alcohol Use Standard Drinks/Week Comments Defer 0 (1 standard drink = 0.6 oz pur e alcohol) Dental Answer Date Recorded Dental: Regular Dentist Unknown 06/06/19 25 Comments No Sex and Gender Information Value Date Recorded Sex Assigned at Not on file Legal Sex Female 8:54 PM [employer] Gender Identity Not on file Sexual Orientation Not on file documented as of this encounter Last Filed Vital Signs Vital Sign Reading Time Taken Comments Blood Pressure 156/103 08/15/2024 2:45 AM CDT Pulse 77 08/15/2024 2:45 AM CDT Temperature 36 C (96.8 F) 08/15/2024 1:21 AM CDT Respiratory Rate 20 08/15/2024 1:21 AM CDT Oxygen Saturation 96% 08/15/2024 2:45 AM CDT Inhaled Oxygen Concentration - - Weight 113 kg (249 lb 9.6 oz) 08/15/2024 1:22 AM CDT Height - - Body Mass Index 44.21 06/06/2024 9:04 PM [employer] documented in this encounter Discharge Instructions * Discharge Instructions* Thanh Spangler D.O. - 08/15/2024 2:31 AM CDT For most people and most upper respiratory infections or colds, symptoms are self-limited and are most often caused by viruses which are not treated with antibiotics. Symptoms usually last about one and a half weeks To help feel better at home you can: Get lots of rest, and drink plenty of liquids. Drinking hot tea with honey can help with cough/sore throat You may use cough drops as directed Breath in warm, moist air, such as in the shower, or use a humidifier in your room Use all medication as prescribed You may use tylenol/ibuprofen as instructed for pain or fevers. Avoid smoking or being around others who smoke. This can make your cough worse. Follow-up with your doctor as instructed or return to ED sooner if symptoms persist or worsen or any new concerns. * Attachments The following attachments cannot be sent through Care Everywhere. * Viral Respiratory Infection (Macedonian) documented in this encounter Medications at Time of Discharge albuterol (Ventolin HFA) 90 mcg/actuation inhaler Inhale 2 puffs every 4 (four) hours as needed for wheezing or shortness of breath for up to 10 days. 18 g 08/15/2024 guaiFENesin (Mucinex) 600 mg 12 hr tablet Take 1 tablet (600 mg total) by mouth 2 (two) times a day as needed for cough or congestion. 30 tablet 08/15/2024 naproxen (Naprosyn) 500 mg tablet Take 1 tablet (500 mg total) by mouth 2 (two) times a day with meals. 30 tablet 06/06/2024 documented as of this encounter ED Notes * Thanh Spangler D.O. - 08/15/2024 1:35 AM CDT SUBJECTIVE CHIEF COMPLAINT/REASON FOR VISIT Breathing Problem (Patient presents to ED with reports of difficulty breathing when laying down. Patient was seen a week ago for bronchitis and was prescribed inhaler but reports only having 2 puffs left. Patient is concerned about strong cough that she has. Patient currently denies Shortness of breath or pain. ) HISTORY OF PRESENT ILLNESS Pt is 39 yo female with h/o tobacco use who presents with cough. Pt reports symptoms started about one week ago with cough for which she was seen in another ED and diagnosed with bronchitis and was started on inhaler and course of steroids. Pt reports she finished the steroids though continues to have cough occasionally productive and mild associated shortness of breath. No fevers, diarrhea, leg pain/swelling. Had one episode of post-tussive emesis. Pt denies any known h/o lung disease/asthma/COPD. 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 HENT: Negative for congestion. Respiratory: Positive for cough and shortness of breath. Cardiovascular: Negative for chest pain. Gastrointestinal: Negative for abdominal pain, diarrhea and nausea. Musculoskeletal: Negative for extremity pain. Neurological: Negative for headaches. All other systems reviewed and are negative. OBJECTIVE Initial Vitals Temperature 08/15/24 0121 36 ??C Pulse Rate 08/15/24 0121 78 Heart Rate -- Resp Rate 08/15/24 0121 20 Blood Pressure 08/15/24 0121 (!) 168/115 SpO2 08/15/24 0121 96 % Pain Score 08/15/24 0123 0 - No pain PHYSICAL EXAMINATION Constitutional: Nursing note and vitals reviewed. No distress. HENT: Head: Normocephalic and atraumatic. Nose: Nose normal. No nasal discharge. Mouth/Throat: Mucous membranes are moist. Eyes: Conjunctivae and EOM are normal. Pupils are equal, round, and reactive to light. Cardiovascular: Normal rate and regular rhythm. Exam reveals no gallop and no friction rub. Pulmonary/Chest: Effort normal. There is normal air entry. No tachypnea. No respiratory distress. Nonproductive cough on exam with bilateral expiratory wheeze Musculoskeletal: General: No tenderness or edema. Normal range of motion. Cervical back: Normal range of motion. Neurological: Alert and oriented to person, place, and time. She is not disoriented. She exhibits normal muscle tone. Skin: Skin is warm and dry. She is not diaphoretic. Psychiatric: She has a normal mood and affect. Behavior is normal. ASSESSMENT/PLAN Assessment and Plan Pt is 39 yo female with h/o tobacco use who presents with cough. See HPI for details. Pt afebrile, VSS on arrival to ED On exam, pt well appearing, in NAD, nonproductive cough on exam with bilateral expiratory wheeze DuoNeb given CXR obtained which resulted negative. Suspect viral URI On reassessment, pt reports she is feeling better, wheeze resolved after neb, good air movement. Ptwell appearing in NAD, VSS. Discussed imaging results as well as plan for discharge with supportivecare instructions, outpatient follow- up and return precautions given. Pt expressed understanding and agreed with plan will follow-up return to the ED if any concerns. . DIFFERENTIAL DIAGNOSES Includes but not limited to: bronchitis, viral uri, RAD/COPD, pneumonia . Final Diagnoses: as of 08/15/24 0231 Infection Upper Respiratory [employer] interpretation includes the following comments: in agreement with radiology. Thanh Spangler D.O. 08/15/24 0232 documented in this encounter Plan of Treatment Not on file documented as of this encounter Procedures Procedure Name Priority Date/Time Associated Diagnosis Comments DX CHEST AP OR PA AND LATERAL 2 VIEWS RAD - Semiurgent (Fast; most ED patients; some inpatients) 08/15/2024 2:01 AM CDT documented in this encounter Results * DX Chest AP or PA and Lateral 2 Views (08/15/2024 2:01 AM CDT) Anatomical Region Laterality Modality Chest, Thoracic RST LOS, Tho racic ARZ LOS, Thoracic FLA LOS N/A Digital Radiography Impressions 08/15/2024 2:03 AM CDT No pneumothorax, focal consolidation, or pleural effusion. Normal heart size. Narrative 08/15/2024 2:03 AM CDT EXAM: DX CHEST AP OR PA AND LATERAL 2 VIEWS Procedure Note Chivo Lind M.D. - 08/15/2024 EXAM: DX CHEST AP OR PA AND LATERAL 2 VIEWS IMPRESSION: No pneumothorax, focal consolidation, or pleural effusion. Normal heartsize. us Thanh [facility] JASS MUELLER Final Result documented in this encounter Visit Diagnoses Diagnosis Infection Upper Respiratory- Primary documented in this encounter Administered Medications Inactive Administered Medications - up to 3 most recent administrations Medication Order MAR Action Action Date Dose Rate Site ipratropium-albuteroL 0.5-2.5 mg/3 mL nebulizer solution 3 mL (DuoNeb) 3 mL, nebulization, Once, On Mima 08/15/24 at 0130, For 1 dose Given 08/15/2024 1:32 AM CDT 3 mL documented in this encounter Active and Recently Administered Medications Times are shown in CDT. Scheduled Medication Order 08/13/2024 08/14/2024 08/15/2024 ipratropium-albuteroL 0.5-2.5 mg/3 mL nebulizer solution 3 mL (DuoNeb) (COMPLETED) 3 mL, nebulization, Once, On Mima 08/15/24 at 0130, For 1 dose 0132 (Given - Provid er: Donaldo Bar R.N.) documented in this encounter Care Teams Cycle Director Relationship Specialty Start Date End Date Elsewhere, Pcp PCP - General 06/06/24 documented as of this encounter
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
--- OUTSIDE RECORDS SUMMARY | 2024-09-28 13:48 | XMS_ITS | Encounter Summary ---
Author Organization [facility] Address [address] [place] [address] Care Team Providers Care Mortuary Operations Manager Name Role Phone Linda Cantu Unavailable Unavailable No Ref-Primary, Physician Primary Care Provider Susie Turk APRN FRUIT THINNER MACHINE OPERATOR Unavailable [phone] Claudine Curtis MD Unavailable [phone] Shaniqua Hernandez APRN FRUIT THINNER MACHINE OPERATOR Primary Care Prov ider MeiSusie beckham APRN FRUIT THINNER MACHINE OPERATOR Unavailable [phone] Encounter Details Date Type Department Care Team (Late st Contact Info) Description 03/25/2024 MyC Medical Advice [facility] [address] [place] [address] Claudine Curtis MD [address] [place] [address] Social History Tobacco Use Types Packs/Day Years [...] Answer Date Recorded PHQ-2 Score 3 02/15/2024 [facility] - Occupational [...] place to sleep or slept in a long term (including now)? 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 Gender Identity Female 09/03/2021 8:30 AM CDT Sexual Orientation Not on file documented as of this encounter Plan of Treatment Upcoming Encounters Date Type Department Care Team (Late st Contact Info) Description 10/02/2024 12:30 PM CDT Office Visit [address] [place] [phone] Susie Turk, FRANDY [address] [address] 02/14/2025 11:00 AM CDT Office Visit [address] [phone] Susie Turk APRN FRUIT THINNER MACHINE OPERATOR [address] [place] [phone] documented as of this encounter Visit Diagnoses Not on filedocumented in this encounter Additional Health Concerns Infection Onset Date Last Indicated Resolved Time 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 11/01/2011 11/01/2011 Rule Out COVID-19 04/09/2024 04/09/2024 04/10/2024 10:57 AM MANAGER UNDERWRITING Assessment Noted Time PHQ-9 Depression Total Score: 9 02/15/20 24 7:18 AM CDT documented as of this encounter Care Teams Mortuary Operations Manager Relationship Specialty Start Date End Date No Ref-Primary, Physician PCP - General 12/28/23 05/22/24 Shaniqua Hernandez APRN FRUIT THINNER MACHINE OPERATOR [address] [place] [phone] PCP - General Nurse Practitioner - Family 05/23/24 Linda Cantu Personal Advocate & Liaison (PAL) Family Medicine 05/27/22 Susie Turk APRN FRUIT THINNER MACHINE OPERATOR [address] [place] [address] [phone] Assigned PCP 01/15/24 Claudine Curtis MD [address] [place] [address] Assigned OBGYN Provider 04/15/24 Susie Turk APRN FRUIT THINNER MACHINE OPERATOR [address] [place] [address] [phone] Assigned Pain Medication Provider 06/16/24 documented as of this encounter
--- OUTSIDE RECORDS SUMMARY | 2024-09-28 13:48 | XMS_ITS | Encounter Summary ---
Author Organization [facility] Address [address] [place] [address] Care Team Providers Care Technical Services Assistant Name Role Phone Clinic - [facility] Primary Ca re Provider Jefferson Oliver Unavailable Unavailable Vidhya Witt MD Unavailable Linda Cantu Unavailable Unavailable Wilian Hililard DO Unavailable [phone] Vidhya Witt MD Unavailable No Ref-Primary, Physician Primary Care Provider Susie Turk APRN BEDSPREAD CUTTER HAND Unavailable [phone] Claudine Curtis MD Unavailable Shaniqua Hernandez APRN BEDSPREAD CUTTER HAND Primary Care Prov ider Susie Turk APRN, CNP Unavailable [phone] Reason for Visit * Reason Onset Date Comments MyChart Communication 04/05/2022 Encounter Details Date Type Department Care Team (Latest Contact Info) Description 04/05/2022 MyC Medical Advice [facility] [address] [place] [address] [place] [address] [place] [address] MyChart Communication Social History Tobacco [...] any clubs o r organizations such as jainism groups, unions, fraternal or athletic groups, or [...] Answer Date Recorded PHQ-2 Score 2 03/28/2022 [facility] - Occupational [...] AM CDT Legal Sex Female 3:29 AM STONE DRILLER Gender Identity Female 09/03/2021 8:30 AM CDT Sexual Orientation Not on file COVID-19 Exposure Response Date Recorded In the last 10 days, have yo u been in contact with someone who was confirmed or suspected to have Coronavirus/COVID-19? No / Unsure 03/09/2022 3:29 AM STONE DRILLER documented as of this encounter Plan of Treatment Upcoming Encounters Date Type Department Care Team (Late st Contact Info) Description 10/02/2024 12:30 PM CDT Office Visit [address] [place] [phone] Susie Turk, FINANCIAL PLANNING ADVISOR BEDSPREAD CUTTER HAND [address] [place] [address] 02/14/2025 11:00 AM CDT Office Visit [address] [phone] Susie Turk APRN BEDSPREAD CUTTER HAND [address] [place] [address] [phone] documented as of this encounter Visit Diagnoses Not on filedocumented in this encounter Additional Health Concerns Infection Onset Date Last Indicated Resolved Time 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 11/01/2011 11/01/2011 Rule Out COVID-19 04/09/2024 04/09/2024 04/10/2024 10:57 AM STONE DRILLER Assessment Noted Time PHQ-9 Depression Total Score: 16 022 6:47 AM STONE DRILLER documented as of this encounter Care Teams Technical Services Assistant Relationship Specialty Start Date End Date Clinic - [facility] [address] [place] [address] PCP - General 08/26/20 12/27/23 No Ref-Primary, Physician PCP - General 12/28/23 05/22/24 Shaniqua Hernandez APRN BEDSPREAD CUTTER HAND [address] [place] [address] PCP - General Nurse Practitioner - Family 05/23/24 Jefferson Oliver Personal Advocate & Liaison (PAL) 09/14/21 05/26/22 [place] [address] [place] [address] Assigned PCP 12/04/21 03/17/23 Linda Cantu Personal Advocate & Liaison (PAL) Family Medicine 05/27/22 [place] [address] [place] [address] Assigned PCP 03/18/23 07/14/23 [place] [address] [place] [address] Assigned PCP 07/15/23 01/14/24 Susie Turk APRN BEDSPREAD CUTTER HAND [address] [place] [address] [phone] Assigned PCP 01/15/24 Claudine Curtis MD [address] [place] [address] Assigned OBGYN Provider 04/15/24 Susie Turk APRN BEDSPREAD CUTTER HAND [address] [place] [address] [phone] Assigned Pain Medication Provider 06/16/24 documented as of this encounter
--- OUTSIDE RECORDS SUMMARY | 2024-09-28 13:48 | XMS_ITS | Clinical Summary ---
Author Organization [facility] Address [address] [place] [address] Care Team Providers Care Transport Operations Inspector Name Role Phone Elsewhere, Pcp Primary Care Provider Unavailabl e Source Comments Patient records contain information from all sites at [facility]. For routine questions regarding patient records, call [phone] during business hours, M-F 8:00 AM - 5:00 PM Central Time. Record requests for emergency care only can be directed to [phone] at any time.[facility] Allergies Active Allergy Reactions Criticality Noted Date Comments Cat Dander Angioedema 06/06/2024 Medications naproxen (Naprosyn) 500 mg tablet Take 1 tablet (500 mg total) by mouth 2 (two) times a day with meals. 30 tablet 5 Active albuterol (Ventolin HFA) 90 mcg/actuation inhaler Inhale 2 puffs every 4 (four) hours as needed for wheezing or shortness of breath for up to 10 days. 18 g 5 Active guaiFENesin (Mucinex) 600 mg 12 hr tablet Take 1 tablet (600 mg total) by mouth 2 (two) times a day as needed for cough or congestion. 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 Plan 3 yr co-test Adjustment Disorder With Anxious Mood 03/28/2022 Umbilical Hernia Without Obstruction Or Gangrene 07/23/2020 Overview (06/06/2024): Added automatically from request for surgery [id number] Morbid Obesity 06/01/2020 Anxiety 01/20/2016 Nicotine Dependence Unspecified 03/25/2011 Obesity Unspecified 03/25/2011 Encounters Date Type Department Care Team Description 08/15/2024 1:18 AM CDT - 08/15/2024 2:51 AM CDT [facility] [address] [place] [address] Thanh Spangler D.O. Infection Upper Respiratory (Primary Dx) Discharge Disposition: Home or Self Care from Last 3 Months Social History Tobacco Use Types Packs/Day Years Used Date Smoking Tobacco: Never Tobacco Cessation:Counseling Given: Not Answered Alcohol Use Standard Drinks/Week Comments Defer 0 (1 standard drink = 0.6 oz pur e alcohol) Dental Answer Date Recorded Dental: Regular Dentist Unknown 06/06/19 Comments No Sex and Gender Information Value Date Recorded Sex Assigned at Not on file Legal Sex Female 8:54 PM TELEGRAPH PRINTER MECHANIC Gender Identity Not on file Sexual Orientation [...] 9.6 oz) 08/15/2024 1:22 AM CDT Height 160 cm (5' 3) 06/06/2024 9:04 PM TELEGRAPH PRINTER MECHANIC Body Mass Index 44.21 06/06/2024 9:04 PM TELEGRAPH PRINTER MECHANIC Plan of Treatment Health Maintenance Due Date Last Done Comments Depression Monitoring (PHQ-9) 1985 HIV Screening 1985 Hepatitis C Screening 1985 Hepatitis B Vaccines (1 of 3 - 19+ 3-dose series) 2004 Cervical/Vaginal Cancer Screening 11/13/2020 11/13/2017 COVID-19 Vaccine ( season) 2023 Influenza Vaccine (#1) 2024 , 01/11/2017, 01/20/2016, Additional history exists Depression Monitoring (PHQ-9 for quality tracking) 04/24/2024 DTaP,Tdap,and Td Vaccines (5 - Td or Tdap) 06/17/2024 06/17/2014, 06/17/2014, 03/12/2009, Additional history exists Lipid (Cholesterol) Screening 12/27/2028 12/28/2023 HPV Vaccines Aged Out No longer eligi ble based on patient's age to complete this topic IPV Vaccines Aged Out No longer eligi ble based on patient's age to complete this topic Pneumococcal vaccine (0-49 years) Aged Out No longer eligible based on patient's age to complete this topic Procedures Procedure Name Priority Date/Time Associated Diagnosis Comments DX CHEST AP OR PA AND LATERAL 2 VIEWS RAD - Semiurgent (Fast; most ED patients; some inpatients) 08/15/2024 2:01 AM CDT from Last 3 Months Results * DX Chest AP or PA [...] [facility] Final Result from Last 3 Months Insurance [facility] [place] [address] Care Teams Transport Operations Inspector Relationship Specialty Start Date End Date Elsewhere, Pcp PCP - General 06/06/24
--- OUTSIDE RECORDS SUMMARY | 2024-09-28 13:48 | XMS_ITS | Encounter Summary ---
Author Organization [facility] Address [address] [place] [address] Care Team Providers Care Cleaner And Dyer Name Role Phone Linda Cantu Unavailable Unavailable Susie Turk APRN MARKET ANALYST Unavailable [phone] Claudine Curtis MD Unavailable [phone] Shaniqua Hernandez APRN MARKET ANALYST Primary Care Prov ider Susie Turk APRN MARKET ANALYST Unavailable [phone] Reason for Visit * Reason Onset Date Comments Refill Request 05/26/2024 Encounter Details Date Type Department Care Team (Late st Contact Info) Description 05/26/2024 MyC Refill [address] [phone] Shaniqua Hernandez APRN MARKET ANALYST [address] [place] [address] Refill Request Social History Tobacco Use [...] often do you attend chur ch or episcopal services? 1 to 4 times per year 08/14/2020 Do you belong to any clubs o r organizations such as muslim groups, unions, fraternal or athletic groups, or [...] Answer Date Recorded PHQ-2 Score 2 05/21/2024 [facility] - Occupational [...] AM CDT Legal Sex Female 3:29 AM MEDIA RELATIONS COORDINATOR Gender Identity Female 09/03/2021 8:30 AM CDT Sexual Orientation Not on file documented as of this encounter Miscellaneous Notes * Telephone Encounter - Preethi Santiago - 05/27/2024 11:24 AM CST Talked to pt and advised medication ordered and should be available to pu A RELATIONS COORDINATOR * Telephone Encounter - Shaniqua Hernandez APRN CNP - 05/27/2024 8:35 AM MEDIA RELATIONS COORDINATOR Images from the original note were not included. Patient has a refill please let her know. Healthy regards, Shaniqua Hernandez, SIDE TRIMMER- A RELATIONS COORDINATOR documented in this encounter Plan of Treatment Upcoming Encounters Date Type Department Care Team (Late st Contact Info) Description 10/02/2024 12:30 PM CDT Office Visit [address] [phone] Susie Turk APRN CNP [address] [place] [address] [phone] 02/14/2025 11:00 AM CDT Office Visit [address] [phone] Susie Turk APRN CNP [address] [place] [address] [phone] documented as of this encounter Visit Diagnoses Diagnosis Lumbar pain Lumbago documented in this encounter Additional Health Concerns Infection Onset Date Last Indicated Resolved Time 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 11/01/2011 11/01/2011 Assessment Noted Time PHQ-9 Depression Total Score: 14 025 4:20 PM MEDIA RELATIONS COORDINATOR documented as of this encounter Care Teams Cleaner And Dyer Relationship Specialty Start Date End Date Shaniqua Hernandez APRN CNP [address] [place] [address] PCP - General Nurse Practitioner - Family 05/23/24 Linda Cantu Personal Advocate & Liaison (PAL) Family Medicine 05/27/22 Susie Turk APRN CNP [address] [place] [address] [phone] Assigned PCP 01/15/24 Claudine Curtis MD [address] [facility] [place] [address] Assigned OBGYN Provider 04/15/24 Susie Turk APRN [facility] [address] [place] [address] [phone] Assigned Pain Medication Provider 06/16/24 documented as of this encounter
--- OUTSIDE RECORDS SUMMARY | 2024-09-28 13:48 | XMS_ITS | Encounter Summary ---
Author Organization [place] Address [address] [place] [address] Care Team Providers Care Metal Spray Operator Name Role Phone Linda Cantu Unavailable Unavailable Susie Turk APRN DIMENSIONAL ENGINEER Unavailable [phone] Claudine Curtis MD Unavailable [phone] Shaniqua Hernadnez APRN DIMENSIONAL ENGINEER Primary Care Prov ider Susie Turk APRN DIMENSIONAL ENGINEER Unavailable [phone] Encounter Details Date Type Department Care Team (Late st Contact Info) Description 09/27/2024 MyC Medical Advice [address] [phone] Shaniqua Hernandez APRN DIMENSIONAL ENGINEER [address] [place] [address] Social History Tobacco Use Types Packs/Day [...] often do you attend chur ch or methodist services? 1 to 4 times [...] Answer Date Recorded PHQ-2 Score 0 09/04/2024 [facility] [place] of Occupat ional Health - Occupational Stress [...] AM CDT Legal Sex Female 3:29 AM BUNDLE PERSON Gender Identity Female 09/03/2021 8:30 AM CDT Sexual Orientation Not on file documented as of this encounter Plan of Treatment Upcoming Encounters Date Type Department Care Team (Late st Contact Info) Description 10/02/2024 12:30 PM CDT Office Visit [address] [phone] Susie Turk APRN [address] [address] 02/14/2025 11:00 AM CDT Office Visit [address] [address] Susie Turk APRN DIMENSIONAL ENGINEER [address] [place] [address] 333782 documented as of this encounter Goals Goal Patient Goal Type Associated Problems Recent Progress Patient-Stated? Author MYC ECC TOB WELCOME - GOAL TEMPLATE Care Plan MYC ECC TOB [place]ELCOME - PROBLEM TEMPLATE No Ten, Csaba, HEAD PORTER documented as of this encounter Visit Diagnoses Not on filedocumented in this encounter Additional Health Concerns Active Problems Noted Date Diagnosed Date MYC ECC TOB WELCOME - PROBLEM TEMPLATE 5 Infection Onset Date Last Indicated Resolved Time 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 11/01/2011 11/01/2011 Assessment Noted Time PHQ-9 Depression Total Score: 6 09/05/19 25 12:05 AM CDT documented as of this encounter Care Teams Metal Spray Operator Relationship Specialty Start Date End Date Shaniqua Hernandez APRN DIMENSIONAL ENGINEER [address] [place] [address] 873842 PCP - General Nurse Practitioner - Family 05/23/24 Linda Cantu Personal Advocate & Liaison (PAL) Family Medicine 05/27/22 Susie Turk APRN DIMENSIONAL ENGINEER [address] [place] [address] 212982 Assigned PCP 01/15/24 Claudine Curtis MD [address] [place] [address] Assigned OBGYN Provider 04/15/24 Susie Turk APRN DIMENSIONAL ENGINEER [address] [place] [address] Assigned Pain Medication Provider 06/16/24 documented as of this encounter
--- OUTSIDE RECORDS SUMMARY | 2024-09-28 13:48 | XMS_ITS | Encounter Summary ---
Author Organization [facility] Address [address] [place] [address] Care Team Providers Care President Commercial Bank Name Role Phone Linda Cantu Unavailable Unavailable Susie Turk APRN FURNACE MECHANIC Unavailable [phone] Claudine Curtis MD Unavailable [phone] Shaniqua Hernandez APRN FURNACE MECHANIC Primary Care Prov ider Susie Turk APRN, CNP Unavailable [phone] Encounter Details Date Type Department Care Team (Latest Contact Info) Description 09/27/2024 Travel Social History Tobacco Use Types Packs/Day [...] any clubs o r organizations such as mosque groups, unions, fraternal or athletic groups, or [...] Answer Date Recorded PHQ-2 Score 0 09/04/2024 [facility] of Occupat ional Health - Occupational [...] in a mcfp (including now)? No 08/14/2020 Adolescent Education Answer [...] AM CDT Legal Sex Female 3:29 AM WRAPPER CASER Gender Identity Female 09/03/2021 8:30 AM CDT Sexual Orientation Not on file documented as of this encounter Plan of Treatment Upcoming Encounters Date Type Department Care Team (Late st Contact Info) Description 10/02/2024 12:30 PM CDT Office Visit [address] [phone] Susie Turk APRN FURNACE MECHANIC [address] [place] [address] 039732 02/14/2025 11:00 AM CDT Office Visit [address] [phone] Susie Turk APRN FURNACE MECHANIC [address] [place] [address] 796042 documented as of this encounter Goals Goal Patient Goal Type Associated Problems Recent Progress Patient-Stated? Author MYC ECC TOB [place]COME - GOAL TEMPLATE Care Plan MYC ECC TOB [place] - PROBLEM TEMPLATE No Ten, Csaba, BUSINESS MAIL ENTRY CLERK documented as of this encounter Visit Diagnoses [...] documented as of this encounter Care Teams President Commercial Bank Relationship Specialty Start Date End Date Shaniqua Hernandez APRN FURNACE MECHANIC [address] [place] [address] [id number] PCP - General Nurse Practitioner - Family 05/23/24 Linda Cantu Personal Advocate & Liaison (PAL) Family Medicine 05/27/22 Susie Turk APRN FURNACE MECHANIC [address] [place] [address] 055352 Assigned PCP 01/15/24 Claudine Curtis MD [address] [place] [address] Assigned OBGYN Provider 04/15/24 Susie Turk APRN FURNACE MECHANIC [address] [place] [address] Assigned Pain Medication Provider 06/16/24 documented as of this encounter
--- OUTSIDE RECORDS SUMMARY | 2024-09-28 13:48 | XMS_ITS | Encounter Summary ---
Author Organization [place] Address [address] [place] [address] Care Team Providers Care Sales And Marketing Engineer Name Role Phone Linda Cantu Unavailable Unavailable Susie Turk APRN MANUFACTURING MILLWRIGHT Unavailable [phone] Claudine Curtis MD Unavailable [phone] Shaniqua Hernandez APRN MANUFACTURING MILLWRIGHT Primary Care Prov ider Susie Turk APRN, CNP Unavailable [phone] Encounter Details Date Type Department Care Team (Late st Contact Info) Description 09/28/2024 MyC Medical Advice [address] [phone] Shaniqua Hernandez APRN MANUFACTURING MILLWRIGHT [address] [place] [address] Social History Tobacco Use Types Packs/Day [...] often do you attend chur ch or sikh services? 1 to 4 times per year 08/14/2020 Do you belong to any clubs o r organizations such as buddhist groups, unions, fraternal or athletic groups, or [...] Answer Date Recorded PHQ-2 Score 0 09/04/2024 [facility] [place] of Occupat ional Health [...] AM CDT Legal Sex Female 3:29 AM SURGICAL MANAGER Gender Identity Female 09/03/2021 8:30 AM CDT Sexual Orientation Not on file documented as of this encounter Plan of Treatment Upcoming Encounters Date Type Department Care Team (Late st Contact Info) Description 10/02/2024 12:30 PM CDT Office Visit [address] [phone] Suise Turk APRN [address] [address] 02/14/2025 11:00 AM CDT Office Visit [address] [address] Susie Turk APRN MANUFACTURING MILLWRIGHT [address] [place] [address] 983352 documented as of this encounter Goals Goal Patient Goal Type Associated Problems Recent Progress Patient-Stated? Author MYC ECC TOB WELCOME - GOAL TEMPLATE Care Plan MYC ECC TOB WELCOME - PROBLEM TEMPLATE No Ten, Csaba, DIELECTRIC TESTING MACHINE OPERATOR documented as of this encounter Visit Diagnoses [...] documented as of this encounter Care Teams Sales And Marketing Engineer Relationship Specialty Start Date End Date Shaniqua Hernandez APRN MANUFACTURING MILLWRIGHT [address] [place] [address] 925082 PCP - General Nurse Practitioner - Family 05/23/24 Linda Cantu Personal Advocate & Liaison (PAL) Family Medicine 05/27/22 Susie Turk APRN MANUFACTURING MILLWRIGHT [address] [place] [address] 794542 Assigned PCP 01/15/24 Claudine Curtis MD [address] [place] [address] Assigned OBGYN Provider 04/15/24 Susie Turk APRN MANUFACTURING MILLWRIGHT [address] [place] [address] Assigned Pain Medication Provider 06/16/24 documented as of this encounter
--- OUTSIDE RECORDS SUMMARY | 2024-09-28 13:48 | XMS_ITS | Encounter Summary ---
Author Organization [place] Address [address] [place] [address] Care Team Providers Care Trout Farmer Name Role Phone Gita Small WOODS RIDER Primary Care Provider [phone] Gita Small WOODS RIDER Unavailable [phone] Gita Small WOODS RIDER Unavailable [phone] No Ref-Primary, Physician Primary Care Provider Brisa Singletary MD Unavailable [phone] Kae Blankenship PA-C Unavailable [phone] Crystal Alanis MD Unavailable [phone] Wilian Hilliard DO Unavailable [phone] Lois Hathaway DO Unavailable [phone] Brisa Singletary MD Unavailable [phone] [facility] re Provider Wilian Hilliard DO Unavailable [phone] Jefferson Oliver Unavailable Unavailable Vidhya Witt MD Unavailable Linda Cantu Unavailable Unavailable Wilian Hilliard DO Unavailable [phone] Vidhya Witt MD Unavailable No Ref-Primary, Physician Primary Care Provider Susie Turk APRN, CNP Unavailable [phone] Claudine Curtis MD Unavailable Shaniqua Hernandez APRN FLAT DRIER Primary Care Prov ider Susie Turk APRN FLAT DRIER Unavailable Encounter Details Date Type Department Care Team (Late st Contact Info) Description 11/28/2016 MyC Medical Advice [facility] [address] [place] [phone] Gita Small, WOODS RIDER [facility] & [address] [place] [address] Social History Tobacco Use Types [...] AM CDT Legal Sex Female 3:29 AM DISPATCHER RADIOACTIVE WASTE DISPOSAL Gender Identity Female 09/03/2021 8:30 AM CDT Sexual Orientation Not on file documented as of this encounter Plan of Treatment Upcoming Encounters Date Type Department Care Team (Late st Contact Info) Description 10/02/2024 12:30 PM CDT Office Visit [address] [phone] Susie Turk APRN FLAT DRIER [address] [place] [address] 472552 02/14/2025 11:00 AM CDT Office Visit [address] [phone] Susie Turk APRN FLAT DRIER [address] [place] [address] 748782 documented as of this encounter Visit Diagnoses Not on filedocumented in this encounter Additional Health Concerns Infection Onset Date Last Indicated Resolved Time 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 11/01/2011 11/01/2011 Rule Out COVID-19 06/14/2020 06/14/2020 06/14/2020 11:50 PM DISPATCHER RADIOACTIVE WASTE DISPOSAL Rule Out COVID-19 03/09/2022 03/09/2022 03/09/2022 6:39 AM DISPATCHER RADIOACTIVE WASTE DISPOSAL Rule Out COVID-19 04/09/2024 04/09/2024 04/10/2024 10:57 AM DISPATCHER RADIOACTIVE WASTE DISPOSAL documented as of this encounter Care Teams Trout Farmer Relationship Specialty Start Date End Date Gita Small NP PCP - General Nurse Practitioner - Family 11/14/16 02/21/18 Gita Small WOODS RIDER [address] [place] [address] PCP - Assigned PCP 11/20/16 06/26/18 No Ref-Primary, Physician PCP - General 10/25/19 08/25/20 [facility] [id number] [place] [address] PCP - General 08/26/20 12/27/23 No Ref-Primary, Physician PCP - General 12/28/23 05/22/24 Shaniqua Hernandez APRN CNP [address] [place] [address] PCP - General Nurse Practitioner - Family 05/23/24 Gita Small WOODS RIDER [place] [address] [place] [address] Assigned PCP 11/20/16 12/21/19 [place] [address] [place] [address] Assigned PCP 12/22/19 04/25/20 Kae Blankenship PA-C [address] [facility] [address] [place] [address] Assigned PCP 04/26/20 06/06/20 Crystal Alanis MD [facility] [address] [facility] [address] [place] [address] Assigned Surgical Provider 06/07/20 12/03/21 [place] [address] [place] [address] Assigned PCP 06/07/20 08/15/20 Lois Hathaway DO [address] [facility] [address] [place] [address] Assigned OBGYN Provider 07/19/20 01/18/22 [place] [address] [place] [address] Assigned PCP 08/16/20 03/27/21 [place] [address] [place] [address] Assigned PCP 03/28/21 12/03/21 Jefferson Oliver Personal Advocate & Liaison (PAL) 09/14/21 05/26/22 [place] [address] [place] [address] Assigned PCP 12/04/21 03/17/23 Linda Cantu Personal Advocate & Liaison (PAL) Family Medicine 05/27/22 [place] [address] [place] [address] Assigned PCP 03/18/23 07/14/23 [place] [address] [place] [address] Assigned PCP 07/15/23 01/14/24 Susie Turk APRN FLAT DRIER [address] [place] [address] 843032 Assigned PCP 01/15/24 Claudine Curtis MD [address] [place] [address] Assigned OBGYN Provider 04/15/24 Susie Turk APRN FLAT DRIER [address] [place] [address] Assigned Pain Medication Provider 06/16/24 documented as of this encounter
--- OUTSIDE RECORDS SUMMARY | 2024-09-28 13:48 | XMS_ITS | Encounter Summary ---
Author Organization [facility] Address [address] [place] [address] Care Team Providers Care Longitudinal Float Operator Name Role Phone [facility] Primary Ca re Provider Jefferson Oliver Unavailable Unavailable Vidhya Witt MD Unavailable Linda Cantu Unavailable Unavailable Wilian Hilliard DO Unavailable [phone] Vidhya Witt MD Unavailable No Ref-Primary, Physician Primary Care Provider Susie Turk APRN, CNP Unavailable [phone] Claudine Curtis MD Unavailable [phone] Shaniqua Hernandez APRN DIRECTOR OF TEACHING AND LEARNING Primary Care Prov ider Susie Turk APRN, CNP Unavailable [phone] Encounter Details Date Type Department Care Team (Late st Contact Info) Description 03/25/2022 MyC Medical Advice [facility] - [facility]al Service Line [facility] [place] [address] Claudine Schilling Social History Tobacco [...] often do you attend chur ch or latter-day services? 1 to 4 times [...] Answer Date Recorded PHQ-2 Score 2 03/28/2022 [facility] Questionnaire Answer Date [...] AM CDT Legal Sex Female 3:29 AM FURNITURE DECALS INSPECTOR Gender Identity Female 09/03/2021 8:30 AM CDT Sexual Orientation Not on file COVID-19 Exposure Response Date Recorded In the last 10 days, have yo u been in contact with someone who was confirmed or suspected to have Coronavirus/COVID-19? No / Unsure 03/09/2022 3:29 AM FURNITURE DECALS INSPECTOR documented as of this encounter Functional Status * Calculated C-SSRS Risk Score (Lifetime/Recent) Answer Date of Assessment Author No Risk Indicated 03/28/2022 10:00 AM Franchesca Edward LPCC, LADC * Suicidal Ideation Question Answer Date of Assessment Author 1. Wish to be (Lifetime) No 03/28/2022 10:00 AM Franchesca Edward LPCC, LADC 2. Non-Specific Active Suicidal Thoughts (Lifetime) No 03/28/2022 10:00 AM Franchesca Edward LPCC, LADC * Suicidal Behavior Question Answer Date of Assessment Author Actual Attempt (Lifetime) No 03/28/2022 10:0 0 AM Franchesca Edward LPCC, RADHA Has subject engaged in non-suicidal self-injurious behavior? (Lifetime) No 03/28/2022 10:00 AM Franchesca Edward LPCC, CAMILLAC Interrupted Attempts (Lifetime) No 03/28/2022 10:00 AM Franchesca Edward LPCC, LADC Aborted or Self-Interrupted Attempt (Lifetime) No 03/28/2022 10:00 AM Franchesca Edward LPCC, LADC Preparatory Acts or Behavior (Lifetime) No 03/28/2022 10:00 AM Franchesca Edward LPCC, LADC documented as of this encounter Plan of Treatment Upcoming Encounters Date Type Department Care Team (Late st Contact Info) Description 10/02/2024 12:30 PM CDT Office Visit [address] [phone] Susie Turk APRN DIRECTOR OF TEACHING AND LEARNING [address] [place] [address] 266352 02/14/2025 11:00 AM CDT Office Visit [address] [phone] Susie Turk APRN DIRECTOR OF TEACHING AND LEARNING [address] [place] [address] 013092 documented as of this encounter Visit Diagnoses Not on filedocumented in this encounter Additional Health Concerns Infection Onset Date Last Indicated Resolved Time MRSA-Contact Isolation Comment:Skin 10-21-2011 11/01/2011 11/01/2011 Rule Out COVID-19 04/09/2024 04/09/2024 04/10/2024 10:57 AM FURNITURE DECALS INSPECTOR Assessment Noted Time PHQ-9 Depression Total Score: 16 022 1:17 PM CDT documented as of this encounter Care Teams Longitudinal Float Operator Relationship Specialty Start Date End Date Clinic - [facility] [address] [place] [address] PCP - General 08/26/20 12/27/23 No Ref-Primary, Physician PCP - General 12/28/23 05/22/24 Shaniqua Hernandez APRN DIRECTOR OF TEACHING AND LEARNING [address] [place] [address] 119372 PCP - General Nurse Practitioner - Family 05/23/24 Jefferson Oliver Personal Advocate & Liaison (PAL) 09/14/21 05/26/22 [place] [address] [place] [address] Assigned PCP 12/04/21 03/17/23 Linda Cantu Personal Advocate & Liaison (PAL) Family Medicine 05/27/22 [place] [address] [place] [address] Assigned PCP 03/18/23 07/14/23 [place] [address] [place] [address] Assigned PCP 07/15/23 01/14/24 Susie Turk APRN DIRECTOR OF TEACHING AND LEARNING [address] [place] [address] 690192 Assigned PCP 01/15/24 Claudine Curtis MD [address] [place] [address] Assigned OBGYN Provider 04/15/24 Susie Turk APRN DIRECTOR OF TEACHING AND LEARNING [address] [place] [address] Assigned Pain Medication Provider 06/16/24 documented as of this encounter
--- OUTSIDE RECORDS SUMMARY | 2024-09-28 13:48 | XMS_ITS | Encounter Summary ---
Author Organization [facility] Address [address] [place] [address] Care Team Providers Care Sleep Lab Technologist Name Role Phone Gita Small MAINTENANCE AND REPAIR WORKER Primary Care Provider [phone] Gita Small MAINTENANCE AND REPAIR WORKER Unavailable [phone] Gita Small MAINTENANCE AND REPAIR WORKER Unavailable [phone] No Ref-Primary, Physician Primary Care Provider Brisa Singletary MD Unavailable [phone] Kae Blankenship PA-C Unavailable [phone] Crystal Alanis MD Unavailable [phone] Wilian Hilliard DO Unavailable [phone] Lois Hathaway DO Unavailable [phone] Brisa Singletary MD Unavailable [phone] [facility] re Provider Wilian Hilliard DO Unavailable [phone] Jefferson Oliver Unavailable Unavailable Vidhya Witt MD Unavailable Linda Cantu Unavailable Unavailable Wilian Hilliard DO Unavailable [phone] Vidhya Witt MD Unavailable No Ref-Primary, Physician Primary Care Provider Susie Turk APRN, CNP Unavailable Claudine Curtis MD Unavailable [phone] Shaniqua Hernandez APRN [facility] Primary Care Prov ider Burke Susie Tim APRN [facility] Unavailable [phone] Reason for Referral * Consultation - Closed Specialty Diagnoses / Procedures Referred By Contac t Referred To Contact Diagnoses Acute pain of right knee Gita Small NP Phone: tel: fax: [facility] [address] [facility] [address] [place] [address] Phone: tel: fax: Referral ID Status Reason Start Date Expiration Date Visits Re quested Visits Authorized [id number] Closed 11/16/2016 11/16/2017 1 1 Comments Your provider has referred you to: FMG: [facility] [email or web address]/ Please be aware that coverage of these services is subject to the terms and limitations of your health insurance plan. Call member services at your health plan with any benefit or coverage questions. Please bring the following to your appointment: >> Any x-rays, CTs or MRIs which have been performed. Contact the facility where they were done to arrange for picker box operator prior to your scheduled appointment. >> List of current medications >> This referral request >> Any documents/labs given to you for this referral Reason for Visit * Reason Onset Date Comments [facility] 11/15/2016 Encounter Details Date Type Department Care Team (Late st Contact Info) Description 11/15/2016 [facility] [phone] [place] [phone] Gita Small NP [address] [place] [address] [employer] Communication Social History Tobacco Use Types Packs/Day [...] AM CDT Legal Sex Female 3:29 AM BOARD MIXER TENDER Gender Identity Female 09/03/2021 8:30 AM [...] Description 10/02/2024 12:30 PM CDT Office Visit [address] [phone] Susie Turk APRN LACE PAPER MACHINE OPERATOR [address] [place] [address] 02/14/2025 11:00 AM CDT Office Visit [address] [phone] Susie Turk APRN [address] [address] Scheduled Referrals Name Type Priority Associated Diagnoses [...] Out COVID-19 06/14/2020 06/14/2020 06/14/2020 11:50 PM BOARD MIXER TENDER Rule Out COVID-19 03/09/2022 03/09/2022 03/09/2022 6:39 AM BOARD MIXER TENDER Rule Out COVID-19 04/09/2024 04/09/2024 04/10/2024 10:57 AM BOARD MIXER TENDER documented as of this encounter Care Teams Sleep Lab Technologist Relationship Specialty Start Date End Date Gita Small, MAINTENANCE AND REPAIR WORKER PCP - General Nurse Practitioner - Family 11/14/16 02/21/18 Gita Small, MAINTENANCE AND REPAIR WORKER [facility] [address] [place] [address] [place] [address] PCP - Assigned PCP 11/20/16 06/26/18 No Ref-Primary, Physician PCP - General 10/25/19 08/25/[address] [address] PCP - General 08/26/20 12/27/23 No Ref-Primary, Physician PCP - General 12/28/23 05/22/24 Shaniqua Hernandez APRN LACE PAPER MACHINE OPERATOR [address] [place] [address] PCP - General Nurse Practitioner - Family 05/23/24 Gita Small, MAINTENANCE AND REPAIR WORKER [facility] [address] [place] [address] Assigned PCP 11/20/16 12/21/19 [place] [address] [place] [address] Assigned PCP 12/22/19 04/25/20 Kae Blankenship PA-C [address] [facility] [address] [place], [place] 033025 Assigned PCP 04/26/20 06/06/20 Crystal Alanis MD [facility] [address] [facility] [address] [place], [place] 372747 Assigned Surgical Provider 06/07/20 12/03/21 [place] [address] [place] [address] Assigned PCP 06/07/20 08/15/20 Lois Hathaway DO [address] [facility] [address] [place] [address] Assigned OBGYN Provider 07/19/20 01/18/22 [place] [address] [place] [address] Assigned PCP 08/16/20 03/27/21 [place] [address] [place] [address] Assigned PCP 03/28/21 12/03/21 Jefferson Oliver Personal Advocate & Liaison (PAL) 09/14/21 05/26/22 [place] [address] [place] [address] Assigned PCP 12/04/21 03/17/23 Linda Cantu Personal Advocate & Liaison (PAL) Family Medicine 05/27/22 [place] [address] [place] [address] Assigned PCP 03/18/23 07/14/23 [place] [address] [place] [address] Assigned PCP 07/15/23 01/14/24 Susie Turk APRN LACE PAPER MACHINE OPERATOR [address] [place] [address] 672392 Assigned PCP 01/15/24 Claudine Curtis MD [address] [place] [address] Assigned OBGYN Provider 04/15/24 Susie Turk APRN LACE PAPER MACHINE OPERATOR [address] [place] [address] 087832 Assigned Pain Medication Provider 06/16/24 documented as of this encounter
--- OUTSIDE RECORDS SUMMARY | 2024-09-28 13:48 | XMS_ITS | Encounter Summary ---
Author Organization [facility] Address [address] [place] [address] Care Team Providers Care Pressure Tank Operator Name Role Phone Gita Small TUNE UP MECHANIC Primary Care Provider [phone] Gita Small TUNE UP MECHANIC Unavailable [phone] Gita Small TUNE UP MECHANIC Unavailable [phone] No Ref-Primary, Physician Primary Care Provider Brisa Singletary MD Unavailable [phone] Kae Blankenship PA-C Unavailable [phone] Crystal Alanis MD Unavailable [phone] Wilian Hilliard DO Unavailable [phone] Lois Hathaway DO Unavailable [phone] Brisa Singletary MD Unavailable [phone] [facility] re Provider Wilian Hilliard DO Unavailable [phone] Jefferson Oliver Unavailable Unavailable Vidhya Witt MD Unavailable Linda Cantu Unavailable Unavailable Wilian Hilliard DO Unavailable [phone] Vidhya Witt MD Unavailable No Ref-Primary, Physician Primary Care Provider Susie Turk APRN, CNP Unavailable [phone] Claudine Curtis MD Unavailable Shaniqua Hernandez APRN EMERGENCY ROOM TECHNICIAN Primary Care Prov ider Susie Turk APRN EMERGENCY ROOM TECHNICIAN Unavailable Encounter Details Date Type Department Care Team (Late st Contact Info) Description 11/15/2016 MyC Medical Advice [facility] [id number] [place] [phone] Gita Small, TUNE UP MECHANIC [facility] & [address] [place] [address] Social History Tobacco Use Types [...] AM CDT Legal Sex Female 3:29 AM NURSING INFORMATICS SPECIALIST Gender Identity Female 09/03/2021 8:30 AM CDT Sexual Orientation Not on file documented as of this encounter Plan of Treatment Upcoming Encounters Date Type Department Care Team (Late st Contact Info) Description 10/02/2024 12:30 PM CDT Office Visit [address] [phone] Susie Turk APRN EMERGENCY ROOM TECHNICIAN [address] [place] [address] [phone] 02/14/2025 11:00 AM CDT Office Visit [address] [phone] Susie Turk APRN EMERGENCY ROOM TECHNICIAN [address] [place] [address] 959442 documented as of this encounter Visit Diagnoses Not on filedocumented in this encounter Additional Health Concerns Infection Onset Date Last Indicated Resolved Time 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 11/01/2011 11/01/2011 Rule Out COVID-19 06/14/2020 06/14/2020 06/14/2020 11:50 PM NURSING INFORMATICS SPECIALIST Rule Out COVID-19 03/09/2022 03/09/2022 03/09/2022 6:39 AM NURSING INFORMATICS SPECIALIST Rule Out COVID-19 04/09/2024 04/09/2024 04/10/2024 10:57 AM NURSING INFORMATICS SPECIALIST documented as of this encounter Care Teams Pressure Tank Operator Relationship Specialty Start Date End Date Gita Small NP PCP - General Nurse Practitioner - Family 11/14/16 02/21/18 Gita Small TUNE UP MECHANIC [address] [place] [address] PCP - Assigned PCP 11/20/16 06/26/18 No Ref-Primary, Physician PCP - General 10/25/19 08/25/20 [facility] [id number] [place] [address] PCP - General 08/26/20 12/27/23 No Ref-Primary, Physician PCP - General 12/28/23 05/22/24 Shaniqua Hernandez APRN CNP [address] [place] [address] PCP - General Nurse Practitioner - Family 05/23/24 Gita Small TUNE UP MECHANIC [place] [address] [place] [address] Assigned PCP 11/20/16 12/21/19 [place] [address] [place] [address] Assigned PCP 12/22/19 04/25/20 Kae Blankenship PA-C [address] [facility] [address] [place] [address] Assigned PCP 04/26/20 06/06/20 Crystal Alanis MD [facility] [address] [facility] [address] [place] [address] Assigned Surgical Provider 06/07/20 12/03/21 [place] [address] [place] [address] Assigned PCP 06/07/20 08/15/20 Lois Hathaway DO [address] [facility] [address] [place] [address] Assigned OBGYN Provider 07/19/20 01/18/22 [place] [address] [place] [address] Assigned PCP 08/16/20 03/27/21 [place] [address] [place] [address] Assigned PCP 03/28/21 12/03/21 Jefferson Oliver Personal Advocate & Liaison (PAL) 09/14/21 05/26/22 [place] [address] [place] [address] Assigned PCP 12/04/21 03/17/23 Linda Cantu Personal Advocate & Liaison (PAL) Family Medicine 05/27/22 [place] [address] [place] [address] Assigned PCP 03/18/23 07/14/23 [place] [address] [place] [address] Assigned PCP 07/15/23 01/14/24 Susie Turk APRN EMERGENCY ROOM TECHNICIAN [address] [place] [address] [phone] Assigned PCP 01/15/24 Claudine Curtis MD [address] [place] [address] Assigned OBGYN Provider 04/15/24 Susie Turk APRN EMERGENCY ROOM TECHNICIAN [address] [place] [address] Assigned Pain Medication Provider 06/16/24 documented as of this encounter
[2024-09-28 13:49] VITALS: BP 163/115; PULSE 70; RESP 18; TEMP 36.1; O2SAT 98; BMI 42.5
--- OUTSIDE RECORDS SUMMARY | 2024-09-28 13:49 | XMS_ITS | Encounter Summary ---
Author Organization [place] Address [address] [place] [address] Care Team Providers Care Excel Analyst Name Role Phone MatthewLinda peguero Unavailable Unavailable Susie Turk APRN PROTECTION ANALYST Unavailable [phone] Claudine Curtis MD Unavailable [phone] Shaniqua Hernandez APRN PROTECTION ANALYST Primary Care Prov ider Susie Turk APRN PROTECTION ANALYST Unavailable [phone] Encounter Details Date Type Department Care Team (Late st Contact Info) Description 08/08/2024 MyC Medical Advice [address] [phone] Hillary Keenan Social History Tobacco Use Types Packs/Day Years [...] week 08/14/2020 How often do you attend [facility] or gnosticism services? 1 to 4 times [...] Answer Date Recorded PHQ-2 Score 1 06/13/2024 [facility] of Occupat ional Health - Occupational Stress [...] AM CDT Legal Sex Female 3:29 AM CIRCULAR HEAD SAW OPERATOR Gender Identity Female 09/03/2021 8:30 AM CDT Sexual Orientation Not on file documented as of this encounter Plan of Treatment Upcoming Encounters Date Type Department Care Team (Late st Contact Info) Description 10/02/2024 12:30 PM CDT Office Visit [address] [phone] Susie Turk APRN PROTECTION ANALYST [address] [place] [address] [phone] 02/14/2025 11:00 AM CDT Office Visit [address] [phone] Susie Turk, FRANDY PROTECTION ANALYST [address] [place] [address] documented as of this encounter Visit Diagnoses Not on filedocumented in this encounter Additional Health Concerns Infection Onset Date Last Indicated Resolved Time 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 11/01/2011 11/01/2011 Assessment Noted Time PHQ-9 Depression Total Score: 8 06/12/19 25 9:53 AM CIRCULAR HEAD SAW OPERATOR documented as of this encounter Care Teams Excel Analyst Relationship Specialty Start Date End Date Shaniqua Hernandez APRN PROTECTION ANALYST [address] [place] [address] [phone] PCP - General Nurse Practitioner - Family 05/23/24 Linda Cantu Personal Advocate & Liaison (PAL) Family Medicine 05/27/22 Susie Turk APRN PROTECTION ANALYST [address] [place] [address] 099472 Assigned PCP 01/15/24 Claudine Curtis MD [address] [place] [address] Assigned OBGYN Provider 04/15/24 Susie Turk APRN PROTECTION ANALYST [address] [place] [address] 949372 Assigned Pain Medication Provider 06/16/24 documented as of this encounter
--- OUTSIDE RECORDS SUMMARY | 2024-09-28 13:49 | XMS_ITS | Encounter Summary ---
Author Organization [facility] Address [address] [place] [address] Care Team Providers Care Marine Tower Operator Name Role Phone Linda Cantu Unavailable Unavailable Susie Turk APRN, CNP Unavailable [phone] Claudine Curtis MD Unavailable [phone] Shaniqua Hernandez APRN MONTESSORI LEAD TEACHER Primary Care Prov ider Susie Turk APRN, CNP Unavailable [phone] Reason for Visit * Reason Onset Date Comments Prior Auth - Medication 06/13/2024 semaglut trey-weight management (WEGOVY) 0.25 MG/0.5ML pen Encounter Details Date Type Department Care Team ([facility] st Contact Info) Description 06/13/[address] [phone] Susie Turk APRN [address] [address] Prior Auth - Medication (semaglutide-weight [...] often do you attend chur ch or restoration services? 1 to 4 times per year [...] Answer Date Recorded PHQ-2 Score 1 06/13/2024 [facility] of Occupat ional Health [...] AM CDT Legal Sex Female 3:29 AM RESPIRATORY SCIENTIST Gender Identity Female 09/03/2021 8:30 AM CDT Sexual Orientation Not on file documented as of this encounter Miscellaneous Notes * Telephone Encounter - Sharon Miller Divina - 06/18/2024 3:08 PM CST Images from the original note were not included. Prior Authorization Approval Medication: WEGOVY 0.25 MG/0.5ML SC SOAJ Authorization Effective Date: 04/24/2024 Authorization Expiration Date: 12/15/2024 Approved Dose/Quantity: Reference #: Insurance Company: [employer] - Expected CoPay: $ CoPay Card Available: Financial Assistance Needed: Which Pharmacy is filling the prescription: [facility] [address] Pharmacy Notified: Yes Patient Notified: Instructed pharmacy to notify patient when script is ready to leaf size picker/ship. IRATORY SCIENTIST * Telephone Encounter - Sharon Miller - 06/17/2024 1:41 PM CST Images from the original note were not included. Retail Pharmacy Prior Authorization Team PA Initiation Medication: WEGOVY 0.25 MG/0.5ML SC SOAJ Insurance Company: [employer] - Pharmacy Filling the Rx: [facility] [address] Filling Pharmacy Filling Pharmacy Fax: Start [...] PA encounter and send back to the [facility] PA pool [[id number]]. If you have questions about the turn-around time or about our process, please reach out to our needle process felt goods supervisor Soniya Azevedo. Thank you! RPPA (Retail Pharmacy Prior Authorization) team [id number] IRATORY SCIENTIST IRATORY SCIENTIST * Telephone Encounter - Shavonne Rizoe - 06/13/2024 2:28 PM CST Images from the original note were not included. Prior Authorization Retail Medication Request Medication/Dose: Pt insurance is requiring a prior authorization for Wegovy Diagnosis and ICD code (if different than what is on RX): [id number] New/renewal/insurance change PA/secondary ins. PA: Previously Tried and Failed: Unknown Rationale: Unknown Insurance Primary: [place] Secondary (if applicable):N/A Insurance ID: N/A Thank You, Yisel Rizo [facility] [phone] Clinic Information Preferred routing pool for dept communication: [facility] IRATORY SCIENTIST documented in this encounter Plan of Treatment Upcoming Encounters Date Type Department Care Team (Late st Contact Info) Description 10/02/2024 12:30 PM CDT Office Visit [address] [phone] Susie Turk APRN MONTESSORI LEAD TEACHER [address] [place] [address] [phone] 02/14/2025 11:00 AM CDT Office Visit [address] [phone] Susie Turk APRN MONTESSORI LEAD TEACHER [address] [place] [address] documented as of this encounter Visit Diagnoses Not on filedocumented in this encounter Additional Health Concerns Infection Onset Date Last Indicated Resolved Time 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 11/01/2011 11/01/2011 Assessment Noted Time PHQ-9 Depression Total Score: 8 06/12/19 25 9:53 AM RESPIRATORY SCIENTIST documented as of this encounter Care Teams Marine Tower Operator Relationship Specialty Start Date End Date Shaniqua Hernandez APRN MONTESSORI LEAD TEACHER [address] [place] [address] PCP - General Nurse Practitioner - Family 05/23/24 Linda Cantu Personal Advocate & Liaison (PAL) Family Medicine 05/27/22 Susie Turk APRN MONTESSORI LEAD TEACHER [address] [place] [address] 737452 Assigned PCP 01/15/24 Claudine Curtis MD [address] [place], [place] [address] Assigned OBGYN Provider 04/15/24 Susie Turk APRN MONTESSORI LEAD TEACHER [address] [place] [address] 116652 Assigned Pain Medication Provider 06/16/24 documented as of this encounter
--- OUTSIDE RECORDS SUMMARY | 2024-09-28 13:49 | XMS_ITS | Clinical Summary ---
Author Organization [facility] Address [address] [place] [address] Care Team Providers Care Artificial Inseminator Name Role Phone KonstantinLinda carbone Unavailable Unavailable Susie Turk APRN, CNP Unavailable [phone] Claudine Curtis MD Unavailable [phone] Shaniqua Hernandez APRN COMPOUNDING SCALER Primary Care Prov ider Susie Turk APRN, CNP Unavailable [phone] Allergies Active Allergy Reactions Criticality Noted Date Comments Animal Dander Itching,Anaphylaxis High 10/13/2014 Cats Difficulty breathing 06/12/2008 No Known Drug Allergy 06/12/2008 Medications * This document contains information received from the source organization and may not represent a complete record from that organization. albuterol (PROAIR HFA/PROVENTIL HFA/VENTOLIN HFA) 108 (90 Base) MCG/ACT inhalerIndicatio ns:Wheezing,Acut e cough,Upper respiratory tract infection, unspecified type Inhale 2 puffs into the lungs every 6 hours as needed for cough, wheezing or shortness of breath. 18 g 05/21/19 25 Active traZODone (DESYREL) 50 MG tabletIndication s:Insomnia, unspecified type Take 1 tablet (50 mg) by mouth nightly as needed for sleep. 90 tablet 1 06/13/19 25 Active famotidine (PEPCID) 40 MG tabletIndication s:Gastroesophage al reflux disease with esophagitis, unspecified whether hemorrhage Take 1 tablet (40 mg) by mouth daily. 30 tablet 2 08/01/19 25 Active Semaglutide-Weig ht Management (WEGOVY) 1 MG/0.5ML penIndications:C lass 3 severe obesity with serious comorbidity and body mass index (BMI) of 45.0 to 49.9 in adult, unspecified obesity type (H) Inject 1 mg subcutaneously once a week. 2 mL 2 08/09/19 25 Active dicloxacillin (DYNAPEN) 500 MG capsuleIndicatio ns:Mastitis Take 1 capsule (500 mg) by mouth 4 times daily. 40 capsule 09/28/19 25 Active FLUoxetine (PROZAC) 40 MG capsuleIndicatio ns:Moderate episode of recurrent major depressive disorder (H),MELISSA (generalized anxiety disorder) Take 1 capsule (40 mg) by mouth daily. 90 capsule 3 02/15/20 24 025 Discontin ued(Med Rec(No AVS / No eCancel)) hydrOXYzine HCl (ATARAX) 25 MG tabletIndication s:MELISSA (generalized anxiety disorder) Take 1-2 tablets (25-50 mg) by mouth nightly as needed (insomnia). 45 tablet 9 05/20/19 25 025 Discontin ued(Med Rec(No AVS / No eCancel)) cyclobenzaprine (FLEXERIL) 5 MG tabletIndication s:Lumbar pain Take 1-2 tablets (5-10 mg) by mouth 3 times daily as needed for muscle spasms. 20 tablet 1 05/21/19 25 025 Discontin ued(Med Rec(No AVS / No eCancel)) methocarbamol (ROBAXIN) 750 MG tabletIndication s:Lumbar back pain with radiculopathy affecting left lower extremity Take 1 tablet (750 mg) by mouth 2 times daily as needed for muscle spasms. 30 tablet 06/04/19 25 025 Discontin ued(Med Rec(No AVS / No eCancel)) naloxone (NARCAN) 4 MG/0.1ML nasal spray [place] 1 spray (4 mg) into one nostril alternating nostrils as needed for opioid reversal. every 2-3 minutes until assistance arrives 06/07/19 25 025 Discontin ued(Med Rec(No AVS / No eCancel)) gabapentin (NEURONTIN) 300 MG capsuleIndicatio ns:Lumbar back pain with radiculopathy affecting left lower extremity Take 2 capsules (600 mg) by mouth 3 times daily as needed for neuropathic pain. 06/13/19 25 025 Discontin ued(Med Rec(No AVS / No eCancel)) traMADol (ULTRAM) 50 MG tabletIndication s:Lumbar back pain with radiculopathy affecting left lower extremity Take 1 tablet (50 mg) by mouth daily as needed for severe pain. 10 tablet 06/17/19 25 025 Discontin ued(Med Rec(No AVS / No eCancel)) dicloxacillin (DYNAPEN) 500 MG capsuleIndicatio ns:Mastitis Take 1 capsule (500 mg) by mouth 4 times daily for 10 days. 40 capsule 09/28/19 25 025 Discontin ued(Reord er (No AVS)) Active Problems Problem Noted Date Diagnosed Date Moderate episode of recurrent major depressive d isorder 05/21/2024 ASCUS of cervix with negative high risk HPV 01/23 Overview (02/26/2024): 02/15/24 ASCUS, Neg HPV. Plan 3 yr co-test Adjustment disorder with anxious mood 03/28/2022 Umbilical hernia without obstruction and without gangrene 07/23/2020 Overview (07/23/2020): Added automatically from request for surgery [id number] Encounter for sterilization 07/23/2020 Overview (07/24/2020): Added automatically from request for surgery [id number] Morbid obesity 06/01/2020 Anxiety 01/20/2016 Status post [...] Encounters Date Type Department Care Team Description 09/28/2024 MyC Medical Advice [address] [place] [phone] Shaniqua Hernandez APRN CNP 09/27/2024 2:30 PM CDT Office Visit [address] [place] [phone] Shaniqua Hernandez APRN CNP Mastitis (Primary Dx) 09/27/2024 MyC Medical Advice [address] [place] [phone] Shaniqua Hernandez APRN CNP 09/27/2024 Travel 09/25/2024 MyC Medical Advice [address] [place] [phone] Susie Turk APRN CNP 09/04/2024 Travel 08/08/2024 MyC Medical Advice [address] [place] [phone] Hillary Keenan 08/08/[address] [place] [phone] Susie Turk APRN CNP Medication Request 07/30/2024 MyC Medical Advice [address] [place] [phone] Susie Turk APRN CNP Gastroesophageal reflux disease with esophagitis, unspecified whether hemorrhage (Primary Dx) 07/10/[address] [phone] Shaniqua Hernandez, FRANDY COMPOUNDING SCALER Refill Request (wegovy) from Last 3 Months Immunizations Immunization Administration Dates Next Due DTaP, Unspecified 06/17/2014 Influenza (H1N1) 03/12/2009 Influenza (IIV3) PF 05/16/2012, 1,01/07/2010,2008 Influenza (prior to 2023) 05/16/2012,01/07/2010 Influenza Vaccine >6 months,quad, PF 11/2020,01/11/2017,01/20/2016,2014,03/11/2014,01/30/2013 MMR (MMRII) 12/09/1997 TD,PF 7+ (Tenivac) 12/09/1997 TDAP (Adacel,Boostrix) 06/17/2014 TDAP Vaccine (Adacel) 03/12/2009 Td (Adult), Adsorbed 12/09/1997 Family History Medical History Relation Comments Coronary Artery Disease Early Onset Father Diabetes Father Anxiety Disorder Maternal Grandmother Anxiety Disorder Mother Depression Mother Diabetes Mother Hypertension Mother Kidney failure Mother Diabetes Paternal Grandfather Anxiety Disorder Sister 4 Relation Status Comments Brother 1 Alive Brother 2 Alive Father Alive Maternal Grandmother Alive Mother Alive Paternal Grandfather Alive Sister 1 Alive Sister 2 Alive Sister 3 Alive Sister 4 Alive Social History Tobacco Use Types Packs/Day [...] often do you attend chur ch or confucianism services? 1 to 4 times per year [...] Answer Date Recorded PHQ-2 Score 0 09/04/2024 [facility] - Occupational Stress Questionnaire Answer [...] in a retirement (including now)? No 08/14/2020 Adolescent Education Answer [...] AM CDT Legal Sex Female 3:29 AM SYSTEM DEVELOPMENT ENGINEER Gender Identity Female 09/03/2021 8:30 AM [...] Mass Index 42.2 09/27/2024 2:31 PM CDT Plan of Treatment Upcoming Encounters Date Type Department Care Team (Late st Contact Info) Description 10/02/2024 12:30 PM CDT Office Visit [address] [phone] Susie Turk, TEACHER KINDERGARTEN COMPOUNDING SCALER [address] [place] [address] [phone] 02/14/2025 11:00 AM CDT Office Visit [address] [phone] Susie Turk, FRANDY COMPOUNDING SCALER [address] [place] [address] [phone] Health Maintenance Due Date Last Done Comments DEPRESSION ACTION PLAN 1985 HEPATITIS B VACCINE (1 of 3 - 19+ 3-dose series) 2004 PNEUMOCOCCAL VACCINE: PEDIATRICS (0 to 5 YEARS) AND AT-RISK PATIENTS (6 to 49 YEARS) (1 of 2 - PCV) 2004 DTAP/TDAP/TD VACCINE (5 - Td or Tdap) 06/17/2024 06/17/2014, 06/17/2014, 03/12/2009, Additional history exists INFLUENZA VACCINE (Season Ended) 2024 06/01/2020, 01/11/2017, 01/20/2016, Additional history exists ANNUAL REVIEW OF HM ORDERS 12/27/202412/27, 09/14/2021, 04/22/2020 NICOTINE/TOBACCO CESSATION COUNSELING Q 1 YR 12/27/2024 12/28/2023, 09/14/2021, 06/01/2020, Additional history exists YEARLY PREVENTIVE VISIT 02/14/2025 02/15/20, 06/01/2020, 11/13/2017, Additional history exists PHQ-9 03/07/2025 09/04/2024, 05/26, 05/21/2024, Additional history exists DIABETES SCREENING 12/27/2026 12/28/2023, 0 12/28/2023, 02/08/2022, Additional history exists HPV FOLLOW-UP 02/14/2027 02/15/2024, 11/13/2017 PAP FOLLOW-UP 02/14/2027 02/15/2024, 01/23, 11/13/2017, Additional history exists ADVANCE CARE PLANNING 02/14/2029 02/15/2024, 021 ZOSTER VACCINE (1 of 2) 08/10/2035 COVID-19 VACCINE () 04/04/2112 Postponed from 12/24/2023 (Patient Declined) HIV SCREENING Completed 02/07/2014, 06/12/2008 HEPATITIS C SCREENING Completed 12/28/2023 PAP Discontinued 02/15/2024, 01/23, 11/13/2017, Additional history exists HPV VACCINE Aged Out No longer eligi ble based on patient's age to complete this topic MENINGITIS VACCINE Aged Out No longer eligible based on patient's age to complete this topic Goals Goal Patient Goal Type Associated Problems Recent Progress Patient-Stated? Author MYC ECC TOB WELCOM[place] - GOAL TEMPLATE Care Plan MYC ECC TOB WELCOME - PROBLEM TEMPLATE No Ten, Csaba, GAME ATTENDANT Medical Devices Implanted Type Area Tester Wafer Substrate Device Identifier Shelf Expiration Date Model / Serial / Lot Mesh Ventralex Hernia 3.2 [place] Lg W/Strap [id number] Implanted:Qty : 1 on 08/26/2020 by Crystal Alanis MD at [facility] Mesh N/A: Umbilical CR [employer]-DAVOL 03/21/2022 [id number] / / [id number] Procedures Procedure Name Priority Date/Time Associated Diagnosis Comments HPV AND GYNECOLOGIC CYTOLOGY PANEL Routine 02/15/2024 [...] Recently Relevant to Health Maintenance Results * HPV and Gynecologic Cytology Panel - [...] for high risk HPV DNA. METHODOLOGY: The OM Latam system uses automated extraction, simultaneous amplification of [...] 10:05 AM CDT 02/15/2024 10:22 AM CDT us Susie Turk APRN COMPOUNDING SCALER LAB - BLOOD ORDERABLES Final Result [facility] [address], [address] [place] [address], [facility]ST[facility] [address] [facility] [address], [address] [place] [address], [facility] * Hepatitis C Screen [...] 12/28/2023 10:12 AM CDT us Susie Chingxl TEACHER KINDERGARTEN COMPOUNDING SCALER LAB - BLOOD ORDERABLES Final Result [facility] [address] [facility], [address] [place] [phone] * Comprehensive metabolic panel (BMP + Alb, [...] CDT 12/28/2023 10:12 AM CDT Susie Turk TEACHER KINDERGARTEN COMPOUNDING SCALER LAB - BLOOD ORDERABLES Final Result [facility] [address] [facility] [address] [facility], [address] [place] [address], [facility] * HIV Antigen Antibody Combo (02/07/2014) HIV Antigen Antibody Combo Non Reactive Blood specimen (specimen) Patient Reported LAB - BLOOD ORDERABLES Final Re sult from Last 3 Months or Most Recently Relevant to Health Maintenance Additional Health Concerns Active Problems Noted Date Diagnosed Date MYC ECC TOB WELCOME - PROBLEM TEMPLATE 5 Infection Onset Date Last Indicated 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 11/01/2011 11/01/2011 [place] Care Teams Artificial Inseminator Relationship Specialty Start Date End Date Shaniqua Hernandez APRN COMPOUNDING SCALER [address] [place] [address] [phone] PCP - General Nurse Practitioner - Family 05/23/24 Linda Cantu Personal Advocate & Liaison (PAL) Family Medicine 05/27/22 Susie Turk APRN COMPOUNDING SCALER [address] [place] [address] [phone] Assigned PCP 01/15/24 Claudine Curtis MD [address] [place] [address] Assigned OBGYN Provider 04/15/24 Susie Turk APRN COMPOUNDING SCALER [address] [place] [address] Assigned Pain Medication Provider 06/16/24
--- OUTSIDE RECORDS SUMMARY | 2024-09-28 13:49 | XMS_ITS | Encounter Summary ---
Author Organization [facility] Address [address] [place] [address] Care Team Providers Care Director Energy Name Role Phone Linda Cantu Unavailable Unavailable Susie Turk APRN CYLINDER HEAD ASSEMBLER Unavailable [phone] Claudine Curtis MD Unavailable [phone] Shaniqua Hernandez APRN CYLINDER HEAD ASSEMBLER Primary Care Prov ider Susie Turk APRN, CNP Unavailable [phone] Encounter Details Date Type Department Care Team (Latest Contact Info) Description 09/04/2024 Travel Social History Tobacco Use Types Packs/Day [...] How often do you attend chur or yarsanism services? 1 to 4 times per year 08/14/2020 Do you belong to any clubs o r organizations such as restorationist groups, unions, fraternal or athletic groups, or [...] AM CDT Legal Sex Female 3:29 AM CASTING TRUCKER Gender Identity Female 09/03/2021 8:30 AM CDT Sexual Orientation Not on file documented as of this encounter Plan of Treatment Upcoming Encounters Date Type Department Care Team (Late st Contact Info) Description 10/02/2024 12:30 PM CDT Office Visit [address] [phone] Susie Turk APRN CYLINDER HEAD ASSEMBLER [address] [place] [address] 297992 02/14/2025 11:00 AM CDT Office Visit [address] [phone] Susie Turk APRN CYLINDER HEAD ASSEMBLER [address] [place] [address] [id number] documented as of this encounter Visit Diagnoses Not on filedocumented in this encounter Additional Health Concerns Infection Onset Date Last Indicated Resolved Time 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 11/01/2011 11/01/2011 Assessment Noted Time PHQ-9 Depression Total Score: 6 09/05/19 12:05 AM CDT documented as of this encounter Care Teams Director Energy Relationship Specialty Start Date End Date Shaniqua Hernandez APRN CYLINDER HEAD ASSEMBLER [address] [place] [address] 344792 PCP - General Nurse Practitioner - Family 05/23/24 Linda Cantu Personal Advocate & Liaison (PAL) Family Medicine 05/27/22 Susie Turk APRN CYLINDER HEAD ASSEMBLER [address] [place] [address] [id number] Assigned PCP 01/15/24 Claudine Curtis MD [address] [place] [address] Assigned OBGYN Provider 04/15/24 Susie Turk APRN CYLINDER HEAD ASSEMBLER [address] [place] [address] [id number] Assigned Pain Medication Provider 06/16/24 documented as of this encounter
--- OUTSIDE RECORDS SUMMARY | 2024-09-28 13:49 | XMS_ITS | Encounter Summary ---
Author Organization [place] Address [address] [place] [address] Care Team Providers Care Director Heart Name Role Phone Crystal Alanis MD Unavailable [phone] Lois Hathaway DO Unavailable [phone] Brisa Singletary MD Unavailable [phone] [facility] Primary Ca re Provider Wilian Hilliard DO Unavailable [phone] Jefferson Oliver Unavailable Unavailable Vidhya Witt MD Unavailable Linda Cantu Unavailable Unavailable Wilian Hilliard DO Unavailable [phone] Vidhya Witt MD Unavailable No Ref-Primary, Physician Primary Care Provider Susie Turk APRN, CNP Unavailable [phone] Claudine Curtis MD Unavailable [phone] Shaniqua Hernandez APRN, CNP Primary Care Prov ider Susie Turk APRN, CNP Unavailable [phone] Encounter Details Date Type Department Care Team (Late st Contact Info) Description 09/14/2020 MyC Medical Advice [facility] [address] [facility] [address] [place] [address] Magalys Manriquez PA-C [address] [facility] [address] [place] [address] Social History Tobacco Use Types Packs/Day Years [...] How often do you attend chur or hoahaoism services? 1 to 4 times [...] Answer Date Recorded PHQ-2 Score 0 06/01/2020 [facility] of Occupat ional Health - Occupational Stress [...] a nursing home (including now)? No 08/14/2020 Education Answer Date Recorded What is the highest level of school you have completed or the highest degree you have received? Associate degree: occupational, technical, or vocational program 08/14/2020 Comments No Sex and Gender Information Value Date Recorded Sex Assigned at Female 09/03/2021 8:30 AM CDT Legal Sex Female 3:29 AM AMF MECHANIC Gender Identity Female 09/03/2021 8:30 AM CDT [...] Description 10/02/2024 12:30 PM CDT Office Visit [address] [phone] Susie Turk APRN URBAN PLANNER [address] [place] [address] [phone] 02/14/2025 11:00 AM CDT Office Visit [address] [phone] Susie Turk APRN URBAN PLANNER [address] [place] [address] [phone] documented as of this encounter Visit Diagnoses Not on filedocumented in this encounter Additional Health Concerns Infection Onset Date Last Indicated Resolved Time 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 11/01/2011 11/01/2011 Rule Out COVID-19 03/09/2022 03/09/2022 03/09/2022 6:39 AM AMF MECHANIC Rule Out COVID-19 04/09/2024 04/09/2024 04/10/2024 10:57 AM AMF MECHANIC documented as of this encounter Care Teams Director Heart Relationship Specialty Start Date End Date Clinic - [facility] [address] [place] [address] PCP - General 08/26/20 12/27/23 No Ref-Primary, Physician PCP - General 12/28/23 05/22/24 Shaniqua Hernandez APRN URBAN PLANNER [address] [place] [address] PCP - General Nurse Practitioner - Family 05/23/24 Crystal Alanis MD [facility], [address] [place] [address] Assigned Surgical Provider 06/07/20 12/03/21 Lois Hathaway DO [address] [facility] [address] [place] [address] Assigned OBGYN Provider 07/19/20 01/18/22 [place] [address] [place] [address] Assigned PCP 08/16/20 03/27/21 [place] [address] [place] [address] Assigned PCP 03/28/21 12/03/21 Jefferson Oliver Personal Advocate & Liaison (PAL) 09/14/21 05/26/22 [place] [address] [place] [address] Assigned PCP 12/04/21 03/17/23 Linda Cantu Personal Advocate & Liaison (PAL) Family Medicine 05/27/22 [place] [address] [place] [address] Assigned PCP 03/18/23 07/14/23 [place] [address] [place] [address] Assigned PCP 07/15/23 01/14/24 Susie Turk APRN URBAN PLANNER [address] [place] [address] Assigned PCP 01/15/24 Claudine Curtis MD [address] [place] [address] Assigned OBGYN Provider 04/15/24 Susie Turk APRN [facility] [address] [place] [address] Assigned Pain Medication Provider 06/16/24 documented as of this encounter
--- OUTSIDE RECORDS SUMMARY | 2024-09-28 13:49 | XMS_ITS | Encounter Summary ---
Author Organization [facility] Address [address] [place] [address] Care Team Providers Care Grease Maker Head Name Role Phone No Ref-Primary, Physician Primary Care Provider Brisa Singletary MD Unavailable [phone] Kae Blankenship PA-C Unavailable [phone] Crystal Alanis MD Unavailable [phone] Wilian Hilliard DO Unavailable [phone] Lois Hathaway DO Unavailable [phone] Brisa Singletary MD Unavailable [phone] [facility] Primary Ca re Provider Wilian Hilliard DO Unavailable [phone] Jefferson Oliver Unavailable Unavailable Vidhya Witt MD Unavailable Linda Cantu Unavailable Unavailable Wilian Hilliard DO Unavailable [phone] Vidhya Witt MD Unavailable No Ref-Primary, Physician Primary Care Provider Susie Turk APRN COMMANDING OFFICER MOTORIZED SQUAD Unavailable [phone] Claudine Curtis MD Unavailable [phone] Shaniqua Hernandez APRN COMMANDING OFFICER MOTORIZED SQUAD Primary Care Prov ider Susie Turk APRN COMMANDING OFFICER MOTORIZED SQUAD Unavailable [phone] Encounter Details Date Type Department Care Team (Late st Contact Info) Description 04/24/2020 Refill [facility] [address] [place] [phone] [place] [address] [place] [address] Social History Tobacco Use Types Packs/Day Years [...] AM CDT Legal Sex Female 3:29 AM CASINO DEALER Gender Identity Female 09/03/2021 8:30 AM CDT Sexual Orientation Not on file COVID-19 Exposure Response Date Recorded In the last month, have you been in contact with someone who was confirmed or suspected to have Coronavirus / COVID-19? No / Unsure 04/22/2020 2:11 PM CASINO DEALER documented as of this encounter Plan of Treatment Upcoming Encounters Date Type Department Care Team (Late st Contact Info) Description 10/02/2024 12:30 PM CDT Office Visit [address] [phone] Susie Turk APRN COMMANDING OFFICER MOTORIZED SQUAD [address] [place] [address] [phone] 02/14/2025 11:00 AM CDT Office Visit [address] [phone] Susie Turk, FRANDY COMMANDING OFFICER MOTORIZED SQUAD [address] [place] [address] documented as of this encounter Visit Diagnoses Not on filedocumented in this encounter Additional Health Concerns Infection Onset Date Last Indicated Resolved Time MRSA-Contact Isolation Comment:Skin - 6--201111/01/2011 11/01/2011 Rule Out COVID-19 06/14/2020 06/14/2020 06/14/2020 11:50 PM CASINO DEALER Rule Out COVID-19 03/09/2022 03/09/2022 03/09/2022 6:39 AM CASINO DEALER Rule Out COVID-19 04/09/2024 04/09/2024 04/10/2024 10:57 AM CASINO DEALER documented as of this encounter Care Teams Grease Maker Head Relationship Specialty Start Date End Date No Ref-Primary, Physician PCP - General 10/25/19 08/25/20 [facility] [id number] [place] [address] PCP - General 08/26/20 12/27/23 No Ref-Primary, Physician PCP - General 12/28/23 05/22/24 Sahniqua Hernandez APRN COMMANDING OFFICER [employer]ORIZED SQUAD [address] [place] [address] PCP - General Nurse Practitioner - Family 05/23/24 [place] [address] [place] [address] Assigned PCP 12/22/19 04/25/20 Kae Blankenship PA-C [address] [address] Assigned PCP 04/26/20 06/06/20 Crystal Alanis MD [facility] [address] [facility] [address] [place] [address] Assigned Surgical Provider 06/07/20 12/03/21 [place] [address] [place] [address] Assigned PCP 06/07/20 08/15/20 Lois Hathaway DO [address] [facility] [address] [place] [address] Assigned OBGYN Provider 07/19/20 01/18/22 [place] [address] [place] [address] Assigned PCP 08/16/20 03/27/21 [place] [address] [place] [address] Assigned PCP 03/28/21 12/03/21 Jefferson Oliver Personal Advocate & Liaison (PAL) 09/14/21 05/26/22 [place] [address] [place] [address] Assigned PCP 12/04/21 03/17/23 Linda Cantu Personal Advocate & Liaison (PAL) Family Medicine 05/27/22 [place] [address] [place] [address] Assigned PCP 03/18/23 07/14/23 [place] [address] [place] [address] Assigned PCP 07/15/23 01/14/24 Susie Turk APRN COMMANDING OFFICER MOTORIZED SQUAD [address] [place] [address] [id number] Assigned PCP 01/15/24 Claudine Curtis MD [address] [place] [address] Assigned OBGYN Provider 04/15/24 Susie Turk APRN COMMANDING OFFICER MOTORIZED SQUAD [address] [place] [address] [id number] Assigned Pain Medication Provider 06/16/24 documented as of this encounter
--- OUTSIDE RECORDS SUMMARY | 2024-09-28 13:49 | XMS_ITS | Clinical Summary ---
Author Organization [employer] [facility] Address [address] [place] [address] Care Team Providers Care Raw Shellfish Preparer Name Role Phone Michelle Turner MD Primary [...] Hepatitis C screening for age 18-79 08/10/2003 Hepatitis B series for 19+ (1 of 3 - 19+ 3-dose series) 2004 BMI (ht and wt on same day) for age 18+ 09/06/2016 09/07/2015 Depression screening for age 12+ 03/08/2017 03/08/2016, 09/07/2015 Pap test for age 21-65 10/24/2017 5 (Completed outside of [facility]) COVID-19 vaccine series ( season) 2023 Tetanus booster 06/17/2024 06/17/2014 Influenza Vaccine (Season Ended) 2024 01/20/2016 Tdap Completed 06/17/2014 Pneumococcal series for age 6-49 Aged Out No longer eligible based on patient's age to complete this topic Care Teams Raw Shellfish Preparer Relationship Specialty Start Date End Date Michelle Turner MD PCP - General Family Practice 10/13/14
--- OUTSIDE RECORDS SUMMARY | 2024-09-28 13:49 | XMS_ITS | Clinical Summary ---
Author Organization [facility] Address [address], [place] [address] Care Team Providers Care Disk Grinder Name Role Phone Pcp, Pt Sumi GRACIA Primary Care Provider Source Comments You are receiving this document as you are listed as the primary care provider,follow-up provider, or the patient has been referred to you for consultation.This is in compliance with the Medicare and[facility] EHR Incentive Program,which states Providers who transition their patient to another setting of careor provider of care or refers their patient to another provider of care shouldprovide summary care record for each transition of care or referral. 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 Pulse 91 04/19/2022 12:24 PM ANODE WORKER Temperature 36.6 C (97.8 F) 04/19/2022 12:24 PM ANODE WORKER Respiratory Rate 18 04/19/2022 12:2 4 PM ANODE WORKER Oxygen Saturation 98% 04/19/2022 12: 24 PM ANODE WORKER Inhaled Oxygen Concentration - - Weight 102.9 kg (226 lb 12.8 oz) 10/31/2018 1:28 PM CDT Height 162.6 cm (5' 4) 11/11/2014 10:4 0 AM CDT Body Mass Index 38.93 11/11/2014 10:40 AM CDT Plan of Treatment Health Maintenance Due Date Last Done Comments Hep C Screening (Preventive Services) 1985 Adult Preventive Visit 08/10/2003 HepB Vaccine (1) 2004 Pneumococcal Vaccine (1 of 2 - PCV) 2004 Cervical Cancer Screening Due 02/08/2014 02/07/2014 COVID-19 Vaccine (1 - 2023- season) 2023 DTaP/Tdap/Td Vaccine (4 - Tdap) 06/17/2024 06/17/2014, 03/12/2009, 12/09/1997 Influenza Vaccine (Season Ended) 2024 06/01/2020, 01/11/2017, 01/20/2016, Additional history exists Zoster/Shingles Vaccine (1 of 2) 08/10/2035 HIV Screening (Preventive Services) Completed 02/07/2014 HPV Vaccine Aged Out No longer eligi ble based on patient's age to complete this topic HepA Vaccine Aged Out No longer eligi ble based on patient's age to complete this topic Hib Vaccine Aged Out No longer eligi ble based on patient's age to complete this topic IPV (Polio) Vaccine Aged Out No longe r eligible based on patient's age to complete this topic MCV4 Vaccine Aged Out No longer eligi ble based on patient's age to complete this topic Meningococcal B Vaccine Aged Out No l onger eligible based [...] at next visit us Edyta Grimes APRN, CNP LAB_1 Fi nal Result Performing Organization Address [facility] Co de Phone Number HP CONVERSION * Pap Smear (02/07/2014 11:01 AM CDT) 02/07/2014 11:0 1 AM CDT Narrative HP CONVERSION - 02/25/2014 9:58 AM ANODE WORKER FINAL GYNECOLOGICAL CYTOLOGY REPORT Pathology #: [id number] Date Obtained: 02/07/2014 Date Received: 02/10/2014 INTERPRETATION/RESULTS: [...] LAB_1 Fi nal Result Performing Organization Address City/[facility]/ZIP Co de Phone Number HP CONVERSION from Last 3 Months or Most Recently Relevant to Health Maintenance Care Teams Disk Grinder Relationship Specialty Start Date End Date Pcp, Pt Sumi, [place] [address] PCP - General 03/11/14
--- OUTSIDE RECORDS SUMMARY | 2024-09-28 13:49 | XMS_ITS | Encounter Summary ---
Author Organization [facility] Address [address] [place] [address] Care Team Providers Care Process Improvement Specialist Name Role Phone Linda Cantu Unavailable Unavailable Susie Turk APRN, CNP Unavailable [phone] Claudine Curtis MD Unavailable [phone] Shaniqua Hernandez APRN, CNP Primary Care Prov ider Susie Turk APRN, CNP Unavailable [phone] Encounter Details Date Type Department Care Team (Late st Contact Info) Description 09/25/2024 MyC Medical Advice [address] [phone] Susie Turk APRN FLUMER [address] [place] [address] Social History Tobacco Use Types Packs/Day [...] Answer Date Recorded PHQ-2 Score 0 09/04/2024 [facility] of Occupat ional Health - Occupational Stress [...] AM CDT 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 Gender Identity Female 09/03/2021 8:30 AM CDT Sexual Orientation Not on file documented as of this encounter Plan of Treatment Upcoming Encounters Date Type Department Care Team (Late st Contact Info) Description 10/02/2024 12:30 PM CDT Office Visit [address] [phone] Susie Turk APRN [address] [address] 02/14/2025 11:00 AM CDT Office Visit M [address] [phone] Susie Turk APRN FLUMER [address] [place] [address] 573992 documented as of this encounter Visit Diagnoses Not on filedocumented in this encounter Additional Health Concerns Infection Onset Date Last Indicated Resolved Time 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 11/01/2011 11/01/2011 Assessment Noted Time PHQ-9 Depression Total Score: 09/05/19 12:05 AM CDT documented as of this encounter Care Teams Process Improvement Specialist Relationship Specialty Start Date End Date Shaniqua Hernandez APRN FLUMER [address] [place] [address] 437222 PCP - General Nurse Practitioner - Family 05/23/24 Linda Cantu Personal Advocate & Liaison (PAL) Family Medicine 05/27/22 Susie Turk APRN FLUMER [address] [place] [address] 525212 Assigned PCP 01/15/24 Claudine Curtis MD [address] [place] [address] Assigned OBGYN Provider 04/15/24 Susie Turk APRN FLUMER [address] [place] [address] 315432 Assigned Pain Medication Provider 06/16/24 documented as of this encounter
--- NOTE | 2024-09-28 14:03 | ED.GENADULT ---
HPI - General Adult General Chief complaint: Skin/Abscess/Foreign Body Stated complaint: Vaginal Infection Time Seen by Provider: 09/28/24 13:48 Source: patient Mode of arrival: ambulatory Limitations: no limitations History of Present Illness HPI narrative: 39-year-old female coming in today with an infection of the right breast. Patient states that she was seen by her doctor yesterday and was given dicloxacillin which she started taking. She comes in today because she has a barrientos on the right nipple and she does not know what to do. The area is tender. She denies any drainage from the nipple. She denies any systemic symptoms. Related Data Home Medications ?Medication ?Instructions ?Recorded ?Confirmed albuterol sulfate 90 mcg/actuation inhalation 05/23/24 aerosol inhaler (Ventolin HFA) semaglutide (weight loss) 0.25 mg subcut 08/06/24 mg/0.5 mL subcutaneous pen injector (Wegovy) semaglutide (weight loss) 0.5 mg subcut 08/06/24 mg/0.5 mL subcutaneous pen injector (Wegovy) dicloxacillin 500 mg capsule 500 mg PO QID 09/28/24 09/28/24 Previous Rx's ?Medication ?Instructions ?Recorded ketorolac 10 mg tablet 10 mg PO TID 5 days #15 tabs 09/28/24 Allergies Allergy/AdvReac Type Severity Reaction Status Date / Time No Known Drug Allergies Allergy Verified 09/28/24 13:55 Review of Systems Status of ROS: Reports: 6 or more systems reviewed and unremarkable except as noted in History and below [facility] Medical History No significant past medical history Surgical History No significant past surgical history Social History Smoking Status: Current every day smoker What tobacco products do you use: cigarettes Second hand tobacco smoke exposure: Yes How often do you have a drink containing alcohol: never AUDIT-C Alcohol total score: 0 Non-prescribed substance use: denies use Exam Narrative: Exam Narrative: Overweight, well-developed patient, uncomfortable, anxious. Alert and oriented. Answers questions appropriately. Thoughts are goal oriented and rational. No tangential or magical thinking noted. Patient speaks in full sentences without needing to catch her breath. HEENT: Normocephalic atraumatic. Pupils are equally round reactive to light. Extraocular muscles are intact. Conjunctivae are moist without any icterus noted. Moist mucous membranes. Breast: Patient has a large white head on the nipple on the right side. There is no significant surrounding erythema. There is no areas of fluctuance or induration. There are no masses appreciated of the breast. No significant axillary lymphadenopathy noted. Const: Vital Signs, click to edit/add: Vital Signs - 24 hr 09/28/24 13:49 Temperature 97 F L Pulse Rate [Right Pulse Oximeter] 70 Respiratory Rate 18 Blood Pressure [Ri ght Upper Arm] 163/115 H Pulse Oximetry 98 Oxygen Delivery Me thod Room Air Course Vital Signs Vital signs: Initial Vital Signs Temperature 97 F L 09/28/24 13:49 Temperature Source Temporal Artery Scan 09/28/24 13:49 Pulse Rate 70 09/28/24 13:49 Pulse Rhythm Regular 09/28/24 13:49 Pulse Strength 3+ Normal 09/28/24 13:49 Respiratory Rate 18 09/28/24 13:49 Blood Pressure 163/115 H 09/28/24 13:49 Blood Pressure Mean 131 H 09/28/24 13:49 Blood Pressure Position Sitting 09/28/24 13:49 Pulse Oximetry 98 09/28/24 13:49 Oxygen Delivery Method Room Air 09/28/24 13:49 Vital Signs Temperature 97 F L 09/28/24 13:49 Pulse Rate 70 09/28/24 13:49 Respiratory Rate 18 09/28/24 13:49 Blood Pressure 163/115 H 09/28/24 13:49 Pulse Oximetry 98 09/28/24 13:49 Oxygen Delivery Method Room Air 09/28/24 13:49 Temperature 97 F L 09/28/24 13:49 Pulse Rate 70 09/28/24 13:49 Respiratory Rate 18 09/28/24 13:49 Blood Pressure 163/115 H 09/28/24 13:49 Pulse Oximetry 98 09/28/24 13:49 Oxygen Delivery Method Room Air 09/28/24 13:49 Medical Decision Making MDM Narrative Medical decision making narrative: Infection of the right breast, patient currently on dicloxacillin already. We discussed popping that pustule versus leaving it. Patient does not wish to have me touch it today. In fact I came into the room patient was trying to figure out how to get her gown on and she said she did not want to put it on because it hurt to touch the breast. We discussed warm compresses, soaking in the bath tub. We discussed reasons to return to have that area I&D'd. Did give her a dose of Toradol IM in the ED today. Will send her home with Toradol to take as needed. Patient had no other questions. Discharge Plan Discharge Clinical Impression: Infection of nipple Patient Disposition: Home, Self-Care Condition: Stable Additional Instructions: Continue taking all of your antibiotics as prescribed. Her recommend warm compresses to the breast, do not apply heat directly to the skin and do not apply for longer than 20 minutes at a time. Recommend soaking in a very warm bath tub. If the area does not start to drain in the next 24 hours would recommend re-evaluation so that the area can be drained. Return for a re-evaluation if the redness or pain increases. Prescriptions: New ketorolac 10 mg tablet 10 mg PO TID 5 Days Qty: 15 0RF No Action albuterol sulfate [Ventolin HFA] 90 mcg/actuation HFA aerosol inhaler INHALATION Patient Comments: [NO ORIGINAL SIG] Wegovy 0.25 mg/0.5 mL pen injector SUBCUT Patient Comments: [NO ORIGINAL SIG] Wegovy 0.5 mg/0.5 mL pen injector SUBCUT Patient Comments: [NO ORIGINAL SIG] dicloxacillin 500 mg capsule 500 mg PO QID Follow Up/Referrals: Provider,Not a Local [Primary Care Provider, Family Practice] Stand Alone Forms: [employer] Info Instructions
== END 2024-09-28 14:26 | disposition home or self-care (01) ==
PROVIDERS: Emergency Provider Family Medicine
DX: N61.0 Mastitis without abscess (principal)
CPT/HCPCS: 99283